=== PATIENT | male | born 1960 | race Hispanic/Latino ===

== ENCOUNTER 2018-01-22 12:36 | Inpatient (IN) | payer BC ==
--- NOTE | 2018-01-22 13:39 | ED PDOC ---
Arrival/HPI - General Historian: Patient - History of Present Illness Time/Duration: < month Symptom Onset: Gradual Symptom Course: Unchanged Activities at Onset: Rest <Davie King - Last Filed: 01/22/18 16:06> <Ned Pang - Last Filed: 01/24/18 10:52> - General Chief Complaint: Lower Extremity Problem/Injury Time Seen by Provider: 01/22/18 12:47 - History of Present Illness Narrative History of Present Illness (Text): 01/22/18 13:23 PGY-[address] Pang Mr. Santoyo is a 57 year old male with PMHx HTN, ventral hernia s/p repair, colorectal polyps s/p colon resection who was referred to ED by his PMD Dr. Wilhelm due to fluid retention. According to the patient he was supposed to have a ventral hernia repair in September, but was sent by his surgeon to have a colonoscopy prior to surgery as he had never had a colonoscopy. During the colonoscopy, patient was found to have diffuse polyps throughout his colon. As a result of these findings, the patient underwent a colon resection and ventral hernia repair in the same day on October 03. The patient has since followed with his surgeons and has had paracentesis with removal of 4 liters of fluid. According to the patient he saw Dr. Wilhelm in the office on Monday who sent the patient to have an abdominal CT prior to coming ED to be admitted for fluid retention. He reports occasional shortness of breath at rest that is worse laying on his back and relieved when lying on his right side. He has also had lower extremity edema as well as multiple non-healing wounds on his L foot for the past 2-3 weeks. Pt had cardiac workup in September prior to his surgery which included echo and stress test. Stress test showed only LVH with normal perfusion study and normal LV wall motion. Echo showed mild LVH, aortic sclerosis without stenosis, dilated LA, mild TR and mild pulmonary HTN. Patient denies smoking or drinking, denies any history of liver or renal disease. He was recently started on oral lasix by Dr. Castro. 01/22/18 15:32 (Davie King) Past Medical History - Provider Review Nursing Documentation Reviewed: Yes - Travel History Have you recently traveled outside [place] w/in the past 3 mons?: No - Cardiac Hx Cardiac Disorders: Yes Hx Hypertension: Yes Hx Peripheral Edema: Yes - Pulmonary Hx Respiratory Disorders: No - Neurological Hx Neurological Disorder: No - HEENT Hx HEENT Disorder: No - Renal Hx Renal Disorder: No - Endocrine/Metabolic Hx Endocrine Disorders: No - Hematological/Oncological Hx Blood Disorders: No - Integumentary Hx Dermatological Disorder: No - Musculoskeletal/Rheumatological Hx Musculoskeletal Disorders: No - Gastrointestinal Hx Gastrointestinal Disorders: No - Genitourinary/Gynecological Hx Genitourinary Disorders: No - Psychiatric Hx Psychophysiologic Disorder: No Hx Substance Use: No - Surgical History Other/Comment: COLON RESECTION, HERNIA REPAIR <Davie King - Last Filed: 01/22/18 16:06> Family/Social History Smoking Status: Never Smoked Hx Alcohol Use: No Hx Substance Use: No <Davie King - Last Filed: 01/22/18 16:06> Family/Social History: Unknown Family HX <Ned Pang - Last Filed: 01/24/18 10:52> Allergies/Home Meds <Davie King - Last Filed: 01/22/18 16:06> <Ned Pang - Last Filed: 01/24/18 10:52> Allergies/Adverse Reactions: Allergies No Known Allergies Allergy (Verified 01/22/18 20:49) Home Medications: Home Meds Medication Instructions Recorded Confirmed Lisinopril/Hydrochlorothiazide 1 tab PO DAILY 09/22/17 01/22/18 [Lisinopril-Hydrochlorothiazide 25 mg-20 mg] amLODIPine [Norvasc] 10 mg PO DAILY 09/22/17 01/22/18 Review of Systems - Review of Systems Constitutional: Fatigue. absent: Fevers Eyes: Normal ENT: Other (+reports feeling of ear fullness). absent: Sore Throat, Rhinorrhea Respiratory: SOB. absent: Cough, Sputum, Wheezing Cardiovascular: Edema, Orthopnea. absent: Chest Pain, Palpitations, Calf Pain, LEARY Gastrointestinal: Stool Changes (+watery stools), Diarrhea. absent: Abdominal Pain, Nausea, Vomiting, Appetite Changes, Hematochezia Genitourinary Male: Normal. absent: Dysuria, Frequency, Hematuria Skin: Pruritis (+lower extremity pruritis b/l), Ulcer (+open wounds on L foot/ LE x2 weeks). absent: Rash Neurological: Normal. absent: Headache, Dizziness, Focal Weakness Endocrine: Normal. absent: Polyuria, Polydipsia <Davie King Last Filed: 01/22/18 16:06> Physical Exam Vital Signs Reviewed: Yes Temperature: Afebrile Blood Pressure: Normal Pulse: Regular Respiratory Rate: Normal Appearance: Positive for: Comfortable Pain Distress: None Mental Status: Positive for: Alert and Oriented X 3 - Systems Exam Head: Present: Atraumatic, Normocephalic Pupils: Present: PERRL Extroacular Muscles: Present: EOMI Conjunctiva: Present: Normal Mouth: Present: Moist Mucous Membranes, Normal Lips, Normal Tounge Pharnyx: Present: Normal. No: ERYTHEMA, EXUDATE Nose (External): Present: Atraumatic. No: Abrasion, Contusion Neck: Present: Normal Range of Motion. No: JVD Respiratory/Chest: Present: Rales (+rales from base to mid lung). No: Respiratory Distress, Accessory Muscle Use, Wheezes Cardiovascular: Present: Regular Rate and Rhythm, Normal S1, S2. No: Murmurs Abdomen: Present: Distention, Normal Bowel Sounds, Scars (+healing vertical abdominal incision). No: Tenderness, Peritoneal Signs, Rebound, Guarding, Hernias, Ostomy Tubes Upper Extremity: Present: NORMAL PULSES. No: Cyanosis, Edema, Swelling Lower Extremity: Present: Edema (+ 1+ pitting edema to below the knee), NORMAL PULSES. No: Cyanosis, Normal ROM, Tenderness Neurological: Present: GCS=15, CN II-XII Intact, Speech Normal Skin: Present: Warm, Normal Color, Other. 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 Keith Wilhelm 2) Non-healing wounds on LLE * IV vancomycin 1g * 1 L bolus NS 3) S/p ventral hernia repair/colon resection * Surgery consulted over phone * IR consulted - Pt to go for CT-guided drainage of abdominal fluid 01/22/18 15:25 Surgery consulted - States no need for surgical intervention at this time. Pt will go to IR (Dr. Uvaldo Garay) for CT guided drainage of abdominal fluid. I spoke with Dr. Keith Castro on the phone, who knows the patient from his office. He has graciously agreed for the patient to be admitted under his service. 01/22/18 16:18 (Davie King) - Lab Interpretations Microbiology Results: Microbiology Results 01/22/18 14:54 Blood Blood Culture - Preliminary NO GROWTH AFTER 24 HOURS 01/22/18 14:50 Blood Blood Culture - Preliminary NO GROWTH AFTER 24 HOURS 01/22/18 14:54 Leg - Left Gram Stain - Final 01/22/18 14:54 Leg - Left Wound Culture - Preliminary NO GROWTH AFTER 24 HOURS 01/22/18 14:54 Foot - Left Gram Stain - Final 01/22/18 14:54 Foot - Left Wound Culture - Preliminary NO GROWTH AFTER 24 HOURS 01/22/18 14:54 Foot - Left Gram Stain - Final 01/22/18 14:54 Foot - Left Wound Culture - Preliminary NO GROWTH AFTER 24 HOURS Lab Results: 01/22/18 14:54 01/22/18 14:54 Lab Results 01/22/18 14:54: Sodium 143, Potassium 3.6, Chloride 102, Carbon Dioxide 27, Anion Gap 18, BUN 26 H, Creatinine 0.9, Est GFR ( Amer) > 60, Est GFR ( Non-Af Amer) > 60, Random Glucose 98, Calcium 9.3, Total Bilirubin 2.1 H, AST 63 H, ALT 69 H, Alkaline Phosphatase 80, Troponin I 0.03, NT-Pro-B Natriuret Pep 2070 H, Total Protein 6.8, Albumin 3.4, Globulin 3.4, Albumin/Globulin Ratio 1.0 L 01/22/18 14:54: WBC 9.1, RBC 5.66, Hgb 11.2 L, Hct 37.2 L, MCV 65.7 L, MCH 19.8 L, MCHC 30.1 L, RDW 20.2 H, Plt Count 337, MPV 10.5, Gran % 67.3, Lymph % (Auto ) 17.1 L, [place] % (Auto) 14.3 H, Eos % (Auto) 1.1 L, Baso % (Auto) 0.2, Gran # 6.10, Lymph # (Auto) 1.6, [place] # (Auto) 1.3 H, Eos # (Auto) 0.1, Baso # (Auto) 0.02 01/22/18 14:54: PT 21.8 H, INR 1.89, APTT 25.2, D-Dimer, Quantitative 1170 H - RAD Interpretation Narrative RAD Interpretations (Text): 01/22/18 16:17 CXR - Severe cardiomegaly, mild pulmonary congestion (Davie King) Radiology Orders: 01/22/18 14:07 CXR [CHEST PORTABLE] [RAD] Stat - Medication Orders Current Medication Orders: Apixaban (Eliquis) 10 mg PO BID [facility] PRN Reason: Protocol Stop: 01/31/18 10:01 Last Admin: 01/24/18 10:37 Dose: 10 mg Arformoterol Tartrate (Brovana) 15 mcg IH [id number] [facility] Last Admin: 01/24/18 07:14 Dose: 15 mcg Budesonide (Pulmicort Respules) 0.5 mg IH [id number] [facility] Last Admin: 01/24/18 07:14 Dose: 0.5 mg Diltiazem HCl (Cardizem) 60 mg PO TID [facility] Last Admin: 01/24/18 10:38 Dose: 60 mg MAR Pulse and Blood Pressure Document 01/24/18 10:38 SUDOJ (Rec: 01/24/18 10:38 SUDO [id number]) Pulse Pulse Rate (60-90) 115 Ferrous Sulfate (Feosol) 324 mg PO TID [facility] Last Admin: 01/24/18 10:37 Dose: 324 mg diltiaZEM IVPB 100mg in NS (Cardizem 100mg In Ns) 100 mls @ 10 mls/hr IV .Q10H PRN; Protocol; 10 MG/HR PRN Reason: TITRATE PER MD ORDER Last Admin: 01/23/18 21:51 Dose: 10 mg/hr, 10 mls/hr eMAR Start Stop Document 01/23/18 21:51 LGA (Rec: 01/23/18 21:53 LGA [id number]) Intravenous Solution Start Date 01/23/18 Start Time 21:53 MAR Pulse Rate Document 01/23/18 21:51 LGA (Rec: 01/23/18 21:53 LGA [id number]) Pulse Rate Pulse Rate (60-90) 95 Titration Intervention Document 01/23/18 21:51 LGA (Rec: 01/23/18 21:53 LGA [id number]) Titration Intake Cumulative Intake (Rx) 100 Waste Amount 0 Container Volume 100 Titration Dosing Titration Dose 10 IV Rate 10 Intake/Decrease Started/Running Cumulative Dose 100 Meropenem (Merrem Iv 1 Gm Premix) 50 mls @ 100 mls/hr IVPB Q8 ANDRES PRN Reason: Protocol Stop: 01/30/18 14:01 Last Admin: 01/24/18 05:34 Dose: 100 mls/hr eMAR Start Stop Document 01/24/18 05:34 SBO (Rec: 01/24/18 05:34 SBO [id number]) Intravenous Solution Start Date 01/24/18 Start Time 05:34 End Date 01/24/18 End time 06:05 Total Infusion Time 31 Pantoprazole Sodium (Protonix Ec Tab) 40 mg PO 0600 ANDRES Last Admin: 01/24/18 06:58 Dose: 40 mg Discontinued Medications Diltiazem HCl (Cardizem) 10 mg IVP STAT STA Stop: 01/22/18 20:36 Last Admin: 01/22/18 21:25 Dose: 10 mg IVP Administration Document 01/22/18 21:25 SBO (Rec: 01/22/18 21:25 SBO [id number]) Charges for Administration # of IVP Administrations 1 MAR Pulse and Blood Pressure Document 01/22/18 21:25 SBO (Rec: 01/22/18 21:25 SBO [id number]) Pulse Pulse Rate (60-90) 168 Blood Pressure Blood Pressure (100/60-150/90) 122/98 Diltiazem HCl (Cardizem) 20 mg IVP STAT STA Stop: 01/22/18 22:29 Last Admin: 01/22/18 22:41 Dose: 20 mg IVP Administration Document 01/22/18 22:41 SBO (Rec: 01/22/18 22:41 SBO [id number]) Charges for Administration # of IVP Administrations 1 MAR Pulse and Blood Pressure Document 01/22/18 22:41 SBO (Rec: 01/22/18 22:41 [facility] [id number]) Pulse Pulse Rate (60-90) 158 Blood Pressure Blood Pressure (100/60-150/90) 108/64 Diltiazem HCl (Cardizem) 30 mg PO TID ANDRES Fentanyl (Fentanyl) 100 mcg IVP ONCE ONE Stop: 01/22/18 19:27 Last Admin: 01/22/18 18:42 Dose: 100 mcg MAR Pain Assessment Document 01/22/18 18:42 [facility] (Rec: 01/22/18 19:50 [facility] ) Pain Reassessment Is this a pain reassessment? No Description Effectiveness of Techniques FOR SEDATION WITH GOOD EFFECT IVP Administration Document 01/22/18 18:42 [facility] (Rec: 01/22/18 19:50 [facility] ) Charges for Administration # of IVP Administrations 2 Heparin Sodium (Porcine) (Heparin) 8,800 units IVP ONCE ONE Stop: 01/23/18 03:16 Last Admin: 01/23/18 03:08 Dose: 8,800 units MAR aPTT Document 01/23/18 03:08 OWUSR (Rec: 01/23/18 03:08 [facility] [id number]) aPTT aPTT (secs) 25 IVP Administration Document 01/23/18 03:08 OWUSR (Rec: 01/23/18 03:08 OWUSR [id number]) Charges for Administration # of IVP Administrations 1 Vancomycin HCl (Vancomycin 1gm) 1 gm in 250 mls @ 167 mls/hr IVPB STAT STA PRN Reason: Protocol Stop: 01/22/18 15:38 Last Admin: 01/22/18 15:12 Dose: 167 mls/hr eMAR Start Stop Document 01/22/18 15:12 LA (Rec: 01/22/18 15:13 LA [id number]) Intravenous Solution Start Date 01/22/18 Start Time 15:12 End Date 01/22/18 End time 16:42 Total Infusion Time 90 Sodium Chloride (Sodium Chloride 0.9%) 1,000 mls @ 999 mls/hr IV .Q1H1M STA Stop: 01/22/18 15:11 Last Admin: 01/22/18 15:13 Dose: 999 mls/hr eMAR Start Stop Document 01/22/18 15:13 LA (Rec: 01/22/18 15:13 LA [id number]) Intravenous Solution Start Date 01/22/18 Start Time 15:13 End Date 01/22/18 End time 16:14 Total Infusion Time 61 Piperacillin Sod/Tazobactam Sod (Zosyn 3.375 In Ns 100ml) 100 mls @ 200 mls/hr IVPB Q6 ANDRES PRN Reason: Protocol Stop: 01/29/18 18:01 Last Admin: 01/23/18 07:17 Dose: 200 mls/hr eMAR Start Stop Document 01/23/18 07:17 OWUSR (Rec: 01/23/18 07:17 OWUSR [id number]) Intravenous Solution Start Date 01/23/18 Start Time 07:17 End Date 01/23/18 End time 07:50 Total Infusion Time 33 diltiaZEM IVPB 100mg in NS (Cardizem 100mg In Ns) 100 mls @ 5 mls/hr IV .Q20H PRN; Protocol; 5 MG/HR PRN Reason: TITRATE PER MD ORDER Last Admin: 01/22/18 22:43 Dose: 5 mg/hr, 5 mls/hr eMAR Start Stop Document 01/22/18 22:43 SBO (Rec: 01/22/18 22:43 SBO [id number]) Intravenous Solution Start Date 01/22/18 Start Time 22:43 MAR Pulse Rate Document 01/22/18 22:43 SBO (Rec: 01/22/18 22:43 SBO [id number]) Pulse Rate Pulse Rate (60-90) 158 Titration Intervention Document 01/22/18 22:43 SBO (Rec: 01/22/18 22:43 SBO [id number]) Titration Intake Waste Amount 0 Container Volume 100 Titration Dosing Titration Dose 5 IV Rate 5 Intake/Decrease Started Heparin Sodium/Sodium Chloride (Heparin 47551 Units/250ml 1/2 Normal Saline) 25 ,000 units in 250 mls @ 20.003 mls/hr IV .[id number] PRN; Protocol; 18 UNITS/KG/HR PRN Reason: ADJUST RATE PER PROTOCOL Last Admin: 01/24/18 07:58 Dose: 15.29 units/kg/hr, 17 mls/hr eMAR Start Stop Document 01/24/18 07:58 LM (Rec: 01/24/18 07:58 LM [id number]) Intravenous Solution Start Date 01/24/18 Start Time 07:58 Titration Intervention Document 01/24/18 07:58 LM (Rec: 01/24/18 07:58 LM [id number]) Titration Intake Cumulative Intake (Rx) 750 Waste Amount 0 Container Volume 250 Titration Dosing Titration Dose 15.29 IV Rate 17 Intake/Decrease Started/Running Cumulative Dose 22334 Midazolam HCl (Versed Inj) 2 mg IVP STAT STA Stop: 01/22/18 19:26 Last Admin: 01/22/18 18:28 Dose: 2 mg IVP Administration Document 01/22/18 18:28 [facility] (Rec: 01/22/18 19:51 [facility] ) Charges for Administration # of IVP Administrations 1 - PA / DITCH REPAIRER / Resident Statement / has reviewed & agrees with the documentation as recorded. / has examined the patient and agrees with the treatment plan. <Ned Pang - Last Filed: 01/24/18 10:52> Disposition/Present on Arrival - Present on Arrival History of DVT/PE: No History of Uncontrolled Diabetes: No Urinary Catheter: No History of Decub. Ulcer: No History Surgical Site Infection Following: None <Davie King - Last Filed: 01/22/18 16:06> - Present on Arrival Any Indicators Present on Arrival: No - Disposition Have Diagnosis and Disposition been Completed?: Yes Disposition Time: 15:25 Patient Plan: Admission <Ned Pang - Last Filed: 01/24/18 10:52> - Disposition Diagnosis: Anasarca Disposition: HOSPITALIZED Condition: STABLE
[2018-01-22] MEDS ORDERED: Vancomycin 1gm in NS 250ml 1 GM/250 ML BAG IVPB STA (14:09)
[2018-01-22] MEDS ORDERED: Sodium Chloride 0.9% 1,000 ML IV STA (14:11)
[2018-01-22 15:45] LABS: ALBUMIN 3.4 g/dL (3.0-4.8); ALT/SGPT 69 U/L (7-56); AST/SGOT 63 U/L (17-59); BLOOD UREA NITROGEN 26 mg/dL (7-21); CALCIUM 9.3 mg/dL (8.4-10.5); GFR NON-AFRICAN AMERICAN > 60
[2018-01-22 15:46] LABS: BASO # 0.02 K/mm3 (0.0-2.0); BASO % 0.2 % (0.0-3.0); EOS # 0.1 (0.0-0.7); EOS % 1.1 % (1.5-5.0); GRAN # 6.1 (1.4-6.5); GRAN % 67.3 % (50.0-68.0); HEMOGLOBIN 11.2 g/dL (14.0-18.0); LYMPH # 1.6 (1.2-3.4); LYMPH % 17.1 % (22.0-35.0); MEAN CELL VOLUME 65.7 fl (80.0-105.0); MEAN CORPUSCULAR HEMOGLOBIN 19.8 pg (25.0-35.0); MEAN CORPUSCULAR HGB CONC 30.1 g/dl (31.0-37.0); MEAN PLATELET VOLUME 10.5 fl (7.0-11.0); MONO # 1.3 (0.1-0.6); MONO % 14.3 % (1.0-6.0); RBC 5.66 10^6/uL (3.5-6.1); RED CELL DISTRIBUTION WIDTH 20.2 % (11.5-14.5); WHITE BLOOD COUNT 9.1 10^3/ul (4.5-11.0)
[2018-01-22 15:56] LABS: B-TYPE NATRIURETIC PEPTIDE 2070 pg/mL (0-450); TROPONIN I 0.03 ng/mL
--- NOTE | 2018-01-22 16:01 | RAD ---
Date of service: 01/22/2018 HISTORY: Fluid retention COMPARISON: No prior. FINDINGS: LUNGS: The lungs are well inflated. There is mild pulmonary venous congestion. PLEURA: No significant pleural effusion identified, no pneumothorax apparent. CARDIOVASCULAR: Severe cardiomegaly. OSSEOUS STRUCTURES: No significant abnormalities. VISUALIZED UPPER ABDOMEN: Normal. OTHER FINDINGS: None. IMPRESSION: No active pulmonary disease. Severe cardiomegaly and mild pulmonary venous congestion.
--- NOTE | 2018-01-22 16:11 | CP.PCM.CON ---
History of Present Illness - History of Present Illness History of Present Illness: 57 year old male with PMHx HTN, ventral hernia s/p repair, colorectal polyps s/ p colon resection who was referred to ED by his PMD Dr. Wilhelm due to fluid retention. According to the patient he was supposed to have a ventral hernia repair in September, but was sent by his surgeon to have a colonoscopy prior to surgery as he had never had a colonoscopy. During the colonoscopy, patient was found to have diffuse polyps throughout his colon. As a result of these findings, the patient underwent a colon resection and ventral hernia repair in the same day on October 03. The patient has since followed with his surgeons and has had paracentesis with removal of 4 liters of fluid. According to patient he saw Dr. Wilhelm in the office on Monday who sent the patient to have an abdominal CT prior to coming ED to be admitted for fluid retention. He reports occasional shortness of breath at rest that is worse laying on his back and relieved when lying on his right side. He has also had lower extremity edema as well as multiple non-healing wounds on his L foot for the past 2-3 weeks. PMhx: HTN, ?CHF PSurgHx: ventral hernia repair and colon resection for multiple colorectal polyps in October 2017 at [facility]; s/p paracentesis 2 wks ago by pt's primary surgeon Allergies: NKDA Soc hx: denies smoking, alcohol or drug use Review of Systems - Constitutional Constitutional: As Per HPI. absent: Anorexia, Chills, Fatigue, Fever, Headache , Malaise, Night Sweats, Weight Loss - Gastrointestinal Gastrointestinal: Change in Bowel Habits, Loose Stools. absent: Abdominal Pain , Belching, Change in Stool Character, Constipation, Cramping, Diarrhea, Dyspepsia, Hematemesis, Vomiting Past Patient History - Past Social History Smoking Status: Never Smoked - CARDIAC Hx Cardiac Disorders: Yes Hx Hypertension: Yes Hx Peripheral Edema: Yes - PULMONARY Hx Respiratory Disorders: No - NEUROLOGICAL Hx Neurological Disorder: No - HEENT Hx HEENT Problems: No - RENAL Hx Chronic Kidney Disease: No - ENDOCRINE/METABOLIC Hx Endocrine Disorders: No - HEMATOLOGICAL/ONCOLOGICAL Hx Blood Disorders: No - INTEGUMENTARY Hx Dermatological Problems: No - MUSCULOSKELETAL/RHEUMATOLOGICAL Hx Musculoskeletal Disorders: No - GASTROINTESTINAL Hx Gastrointestinal Disorders: No - GENITOURINARY/GYNECOLOGICAL Hx Genitourinary Disorders: No - PSYCHIATRIC Hx Psychophysiologic Disorder: No Hx Substance Use: No - SURGICAL HISTORY Other/Comment: COLON RESECTION, HERNIA REPAIR Meds Allergies/Adverse Reactions: Allergies Allergy/AdvReac Type Severity Reaction Status Date / Time No Known Allergies Allergy Verified 01/22/18 12:49 Physical Exam - Constitutional Appears: Non-toxic, No Acute Distress - Head Exam Head Exam: ATRAUMATIC, NORMAL INSPECTION - Eye Exam Eye Exam: EOMI, Normal appearance, PERRL - ENT Exam ENT Exam: Mucous Membranes Moist - Respiratory Exam Respiratory Exam: Clear to Auscultation Bilateral, NORMAL BREATHING PATTERN - Cardiovascular Exam Cardiovascular Exam: REGULAR RHYTHM, +S1, +S2 - GI/Abdominal Exam GI & Abdominal Exam: Normal Bowel Sounds, Soft, Tenderness Additional comments: No guarding, no rebound tenderness - Skin Skin Exam: Warm Additional comments: Erythema noted on anterior abdomen in midline, excoriation of skin noted at surgical site, no bleeding, no abnormal drainage or pus noted Results - Vital Signs Recent Vital Signs: Last Vital Signs Temp 97.8 F 01/22/18 15:00 Pulse 89 01/22/18 15:00 Resp 19 01/22/18 15:00 BP 114/64 01/22/18 15:00 Pulse Ox 98 01/22/18 15:00 - Labs Result Diagrams: 01/22/18 14:54 01/22/18 14:54 Labs: Laboratory Results - last 24 hr 01/22/18 01/22/18 14:54 14:54 WBC 9.1 RBC 5.66 Hgb 11.2 L Hct 37.2 L MCV 65.7 L MCH 19.8 L MCHC 30.1 L RDW 20.2 H Plt Count 337 MPV 10.5 Gran % 67.3 Lymph % (Auto) 17.1 L [place] % (Auto) 14.3 H Eos % (Auto) 1.1 L Baso % (Auto) 0.2 Gran # 6.10 Lymph # (Auto) 1.6 [place] # (Auto) 1.3 H Eos # (Auto) 0.1 Baso # (Auto) 0.02 Sodium 143 Potassium 3.6 Chloride 102 Carbon Dioxide 27 Anion Gap 18 BUN 26 H Creatinine 0.9 Est GFR ( Amer) > 60 Est GFR (Non-Af Amer) > 60 Random Glucose 98 Calcium 9.3 Total Bilirubin 2.1 H AST 63 H ALT 69 H Alkaline Phosphatase 80 Troponin I 0.03 NT-Pro-B Natriuret Pep 2070 H Total Protein 6.8 Albumin 3.4 Globulin 3.4 Albumin/Globulin Ratio 1.0 L Assessment & Plan - Assessment and Plan (Free Text) Assessment: 57 y o male s/p ventral hernia repair and colon resection found to have fluid collection in abdomen on CT. Plan: IR consulted, f/u recs regarding possible drainage from abdomen Pt hemodynamically stable at this time Will continue to monitor, no acute surgical intervention needed at this time
[2018-01-22 16:30] LABS: INR 1.89; PARTIAL THROMBOPLASTIN TIME 25.2 Seconds (25.1-36.5); PROTHROMBIN TIME 21.8 SECONDS (9.4-12.5)
[2018-01-22] MEDS: Piperacillin/Tazobact 3.375 gm 100 ML IVPB SCH (18:01)
[2018-01-22] MEDS ORDERED: Midazolam 2 MG/2 ML VIAL ONE (18:20)
[2018-01-22] MEDS ORDERED: Lidocaine Hydrochloride 1% 10 ML ONE (18:21)
[2018-01-22] MEDS ORDERED: Midazolam 2 MG/2 ML VIAL IVP STA (19:25)
--- NOTE | 2018-01-22 19:33 | CARD ---
APPROVED REPORT Date of service: 01/22/2018 EKG Measurement Heart [id number] <Conclusion> Atrial fibrillation with rapid ventricular response Nonspecific ST and T wave abnormality, probably digitalis effect Abnormal ECG
--- NOTE | 2018-01-22 19:49 | CT ---
PROCEDURE: CT-guided abdominal abscess drainage HISTORY: Recent abdominal hernia repair. Large abdominal wall collection with sepsis. Needs abscess drainage. PHYSICIAN(S): Uvaldo Garay MD. TECHNIQUE: The relative risks and indications for the procedure were explained to the patient and informed consent obtained. The patient was placed in a supine position on the CT scanner and preliminary images through the mid to lower abdomen performed. This revealed a 6 x 80 15 cm fluid collection in the anterior abdominal wall.. A right lateral approach was selected and the area prepped/draped in the usual sterile fashion. Conscious sedation and monitoring were provided throughout the procedure by nurse. An 18-gauge needle was advanced into the collection and 10 cc of purulent fluid aspirated. A specimen was sent to microbiology. A 0.035 J-wire was coiled within the fluid collection. Sequential dilatation was performed with subsequent placement of a 14 [place] pigtail drain. Approximately 125 cc of brown somewhat purulent fluid was aspirated. The cavity was lavaged with normal saline. The drain was sutured to the skin and placed to gravity drainage. Completion images were performed. The patient tolerated the procedure well. IMPRESSION: 1. CT-guided abdominal abscess drainage as described above.
[2018-01-22] MEDS ORDERED: diltiaZEM IVPB 100mg in NS 100 ML IV PRN (22:14)
--- NOTE | 2018-01-22 23:25 | CP.PCM.PN ---
Subjective - Date & Time of Evaluation Date of Evaluation: 01/22/18 Time of Evaluation: 23:25 - Subjective Subjective: Patient was seen for atrial fibrillation with RVR. He is asymptomatic. D-Dimer was noted. Left leg is red , swollen and has multiple blisters. CT angio chest, doppler of lower extremities were ordered. CT angio chest showed pulmonary embolism, doppler showed DVT of left popliteal vein. Heparin protocol was started. Objective - Vital Signs/Intake and Output Vital Signs (last 24 hours): Temp Pulse Resp BP Pulse Ox 98.3 F 158 H 18 108/64 99 01/22/18 20:15 01/22/18 22:41 01/22/18 20:15 01/22/18 22:41 01/22/18 20:15 Intake and Output: 01/22/18 01/23/18 18:59 06:59 Intake Total 125 Balance 125 - Medications Medications: Current Medications Piperacillin Sod/Tazobactam Sod (Zosyn 3.375 In Ns 100ml) 100 mls @ 200 mls/hr IVPB Q6 ANDRES PRN Reason: Protocol Stop: 01/29/18 18:01 Last Admin: 01/22/18 18:01 Dose: 200 mls/hr diltiaZEM IVPB 100mg in NS (Cardizem 100mg In Ns) 100 mls @ 5 mls/hr IV .Q20H PRN; Protocol; 5 MG/HR PRN Reason: TITRATE PER MD ORDER Last Admin: 01/22/18 22:43 Dose: 5 mg/hr, 5 mls/hr - Labs Labs: PT 21.8 SECONDS (9.4-12.5) H 01/22/18 14:54 INR 1.89 01/22/18 14:54 APTT 25.2 Seconds (25.1-36.5) 01/22/18 14:54
[2018-01-22 23:58] LABS: BASO # 0.01 K/mm3 (0.0-2.0); BASO % 0.1 % (0.0-3.0); EOS # 0.1 (0.0-0.7); EOS % 1.3 % (1.5-5.0); GRAN # 6.77 (1.4-6.5); GRAN % 72.1 % (50.0-68.0); HEMOGLOBIN 11.2 g/dL (14.0-18.0); LYMPH # 1.4 (1.2-3.4); LYMPH % 15.4 % (22.0-35.0); MEAN CELL VOLUME 66.5 fl (80.0-105.0); MEAN CORPUSCULAR HGB CONC 30.1 g/dl (31.0-37.0); MONO % 11.1 % (1.0-6.0); PLATELET COUNT 272 10^3/uL (120.0-450.0); RBC 5.59 10^6/uL (3.5-6.1); WHITE BLOOD COUNT 9.4 10^3/ul (4.5-11.0)
[2018-01-23 00:15] LABS: ALBUMIN 3.1 g/dL (3.0-4.8); ALT/SGPT 71 U/L (7-56); AST/SGOT 60 U/L (17-59); BLOOD UREA NITROGEN 24 mg/dL (7-21); CALCIUM 8.6 mg/dL (8.4-10.5); GFR NON-AFRICAN AMERICAN > 60
[2018-01-23 00:26] LABS: TROPONIN I 0.08 ng/mL
[2018-01-23] MEDS: Piperacillin/Tazobact 3.375 gm 100 ML IVPB SCH ×2 (01:07→07:17)
[2018-01-23 01:58] VITALS: BMI 33.2
[2018-01-23] MEDS: Heparin25000 units/250ml 1/2NS 25,000 UNITS/250 ML BAG IV PRN ×3 (03:09→16:55)
[2018-01-23 03:18] LABS: BASO # 0.02 K/mm3 (0.0-2.0); BASO % 0.2 % (0.0-3.0); EOS # 0.1 (0.0-0.7); EOS % 1.2 % (1.5-5.0); GRAN # 6.39 (1.4-6.5); GRAN % 68.9 % (50.0-68.0); HEMOGLOBIN 10.7 g/dL (14.0-18.0); LYMPH # 1.5 (1.2-3.4); LYMPH % 15.7 % (22.0-35.0); MEAN CELL VOLUME 66.9 fl (80.0-105.0); MEAN CORPUSCULAR HEMOGLOBIN 19.9 pg (25.0-35.0); MEAN CORPUSCULAR HGB CONC 29.8 g/dl (31.0-37.0); MEAN PLATELET VOLUME 10.2 fl (7.0-11.0); MONO # 1.3 (0.1-0.6); RBC 5.37 10^6/uL (3.5-6.1); RED CELL DISTRIBUTION WIDTH 20.1 % (11.5-14.5); WHITE BLOOD COUNT 9.3 10^3/ul (4.5-11.0)
[2018-01-23 03:21] LABS: INR 1.94; PARTIAL THROMBOPLASTIN TIME 24.7 Seconds (25.1-36.5); PROTHROMBIN TIME 22.4 SECONDS (9.4-12.5)
--- NOTE | 2018-01-23 08:35 | CT ---
Date of service: 01/23/2018 PROCEDURE: CT Chest with contrast (Pulmonary Angiogram) HISTORY: Elevated D-Dimer-11, A Fib with RVR, S/P surgery COMPARISON: None available. TECHNIQUE: Axial computed tomography images were obtained of the chest in the pulmonary arterial phase of enhancement. Coronal and sagittal reformatted images were created and reviewed. Intravenous contrast dose: 139 cc of Omnipaque 350 Radiation dose: Total exam DLP = 524 mGy-cm. This CT exam was performed using one or more of the following dose reduction techniques: Automated exposure control, adjustment of the mA and/or kV according to patient size, and/or use of iterative reconstruction technique. FINDINGS: PULMONARY ARTERIES: Small emboli are seen in the subsegmental branches of the right lower lobe. Findings are seen on image 98 series 601 and axial image 143 series 2 AORTA: No acute findings. No thoracic aortic aneurysm. LUNGS: Focal infiltrate in the left lower lobe PLEURAL SPACES: Small left effusion HEART: Mild cardiomegaly There is reflux of contrast into the inferior vena cava. LYMPH NODES: No lymphadenopathy. BONES, CHEST WALL: Unremarkable. No fracture or destructive lesion OTHER FINDINGS: The report concurs with the preliminary [facility] report IMPRESSION: Small emboli are seen in the subsegmental branches of the right lower lobe. Left lower lobe infiltrate and effusion
[2018-01-23 09:32] LABS: BASO # 0.02 K/mm3 (0.0-2.0); BASO % 0.2 % (0.0-3.0); EOS # 0.1 (0.0-0.7); EOS % 1.6 % (1.5-5.0); GRAN # 5.84 (1.4-6.5); GRAN % 71.4 % (50.0-68.0); HEMOGLOBIN 10.6 g/dL (14.0-18.0); LYMPH # 1.3 (1.2-3.4); LYMPH % 15.6 % (22.0-35.0); MEAN CELL VOLUME 66.8 fl (80.0-105.0); MEAN CORPUSCULAR HEMOGLOBIN 19.7 pg (25.0-35.0); MEAN CORPUSCULAR HGB CONC 29.4 g/dl (31.0-37.0); MONO # 0.9 (0.1-0.6); MONO % 11.2 % (1.0-6.0); PLATELET COUNT 285 10^3/uL (120.0-450.0); RBC 5.39 10^6/uL (3.5-6.1); RED CELL DISTRIBUTION WIDTH 20.3 % (11.5-14.5); WHITE BLOOD COUNT 8.2 10^3/ul (4.5-11.0)
--- NOTE | 2018-01-23 10:15 | US ---
HISTORY: Leg pain and swelling. Evaluate for DVT PHYSICIAN(S): Uvaldo Garay MD. TECHNIQUE: Duplex sonography and color-flow Doppler with graded compression were used to evaluate the deep venous systems of both lower extremities. FINDINGS: There is occlusive echogenic thrombus noted in the left popliteal and visualized tibial veins. This likely represents subacute thrombus. The left femoral vein and common femoral vein are patent and compressible. There is no sonographic evidence for deep venous thrombosis in the visualized segments of the right lower extremity. . IMPRESSION: Subacute occlusive thrombus in the left popliteal and visualized tibial veins.
--- NOTE | 2018-01-23 11:29 | CARD ---
APPROVED REPORT Date of service: 01/23/2018 EKG Measurement Heart [id number] <Conclusion> Atrial fibrillation with rapid ventricular response with premature ventricular or aberrantly conducted complexes Nonspecific T wave abnormality, probably digitalis effect Abnormal ECG
[2018-01-23] MEDS: diltiaZEM IVPB 100mg in NS 100 ML IV PRN ×2 (11:30→21:51)
--- NOTE | 2018-01-23 11:33 | CARD ---
APPROVED REPORT Date of service: 01/22/2018 EKG Measurement Heart [id number] <Conclusion> Atrial fibrillation with rapid ventricular response with premature ventricular or aberrantly conducted complexes Septal infarct, age undetermined T wave abnormality, consider lateral ischemia or digitalis effect Abnormal ECG
--- NOTE | 2018-01-23 11:50 | HP ---
HISTORY OF PRESENT ILLNESS The patient is a 57 year old man with a past medical history of ventral hernia s /p recent surgical repair who presented for evaluation of a several week history of worsening exertional dyspnea, bilateral lower extremity edema and increasing abdominal distention. The patient underwent successful repair of his ventral hernia on 10/03/2017. His postoperative course was complicated by accumulation of abdominal fluid necessitating paracentesis with removal of 4L of fluid. Unfortunately, this was performed by his private surgeon and the records are unavailable regarding the suspected etiology of the fluid or the fluid analysis (ie: cytology, culture). He followed with his PMD on 12/15/2017 and, at that time, complained of mild bilateral pedal edema. He was prescribed Lasix 20 mg p.o. daily and initially reported moderate improvement in his edema. He returned on 01/09/2018 with increasing bilateral lower extremity edema associated with exertional dyspnea, 2-pillow orthopnea, cough intermittently productive of clear sputum and increased abdominal girth. At that time, he declined ED evaluation and thus his Lasix was increased to Lasix 40 mg p.o. daily. He was advised that if his symptoms did not improve over the following 48 hours to return for reevaluation. He returned 4 days later and was noted to have increased work of breathing with accessory muscle use and further increased abdominal distention. He again declined hospitalization but was agreeable to a CT of the abdomen and pelvis. He performed his CT on 01/19/2018 and was found to have a rather large fluid collection to the anterior abdominal wall. At this point in time he was again strongly encouraged to present to the ED and was finally agreeable to inpatient management. Upon arrival to the ED he was found to be in moderate respiratory distress. He was promptly evaluated by Dr. Uvaldo Garay and was taken for a CT-guided drainage of his intra- abdominal abscess with aspiration of 125 ml of brown purulent fluid. His hospital course was complicated by development of AFib with RVR (pulse in the 160s) and multiple episodes of non-sustained VTach. He was started on a Cardizem drip with some improvement in his pulse rate to the 110s. He was also noted to have an elevated D-dimer from the ED and was sent for a CT of the chest with IV contrast which demonstrated small subsegmental emboli to the right lower lobe as well as a left lower lobe consolidation. He was started on a heparin drip and broad-spectrum antibiotics. This morning he reports some improvement in his breathing but still endorses dyspnea and inability to take a full breath. He also endorses palpitations but denies chest pain, fevers, chills , rigors or hemoptysis. PAST MEDICAL HISTORY: As per HPI, also hypertension. PAST SURGICAL HISTORY: As per HPI, also right hemicolectomy secondary to multiple polyps. MEDICATIONS: Lisinopril/HCTZ 20/25 mg p.o. daily, Norvasc 10 mg p.o. daily and Lasix 40 mg p.o. daily. ALLERGIES: NKDA. FAMILY HISTORY: Noncontributory. SOCIAL HISTORY: The patient has no history of any toxic habits. REVIEW OF SYSTEMS: A 12-point review of systems is negative except as per HPI. PHYSICAL EXAMINATION: VITAL SIGNS: Temperature 98.2, pulse 114, blood pressure 133/62, respiratory rate 19, oxygen saturation 98% on 2 liters nasal cannula. GENERAL: Elderly man appearing his stated age, sitting up in bed, in mild respiratory distress. HEENT: PERRL, EOMI. No scleral icterus. No conjunctival pallor. NECK: No JVD. LUNGS: Decreased breath sounds at bases with crackles to the left lower lobe. CARDIOVASCULAR: Tachycardic, irregularly irregular. ABDOMEN: Normoactive bowel sounds, soft, mild tenderness to palpation to the healing midline surgical scar with a drain in place with brown, bloody discharge. EXTREMITIES: 1+ bilateral lower extremity edema. NEUROLOGIC: Awake, alert and oriented x 3. No focal motor deficits. LABORATORY DATA: WBC 9, hemoglobin 10.7, hematocrit 36, platelets 268, MCV 67. Sodium 141, potassium 3.6, chloride 105, bicarb 24, BUN 24, creatinine 0.9, glucose 145. Troponin 0.03, 0.08, 0.1 BNP 2070. IMAGING STUDIES: CT of the chest with IV contrast demonstrates a small emboli to the subsegmental branches of the right lower lobe and the left lower lobe infiltrate and effusion. ASSESSMENT: The patient is a 57 year old man who recently underwent ventral hernia repair who presented with a several week history of worsening abdominal distention, exertional dyspnea, bilateral lower extremity edema and 3-pillow orthopnea and was admitted for management of intra abdominal abscess, new onset AFib with RVR , right subsegmental pulmonary embolus and left lower extremity DVT. PLAN: 1. AFib with RVR, new onset, consider secondary to underlying PE. The patient has been started on Cardizem drip which has been titrated to 10 mg/hour. Troponin values are noted. He is pending evaluation with Dr. Pierce of Cardiology. We will check a TSH and monitor electrolytes closely. Continue tele monitoring. 2. Intra-abdominal abscess s/p IR drainage. Input from Dr. Uvaldo Garay greatly appreciated. Fluid analysis is pending. Input from the surgical team also appreciated and no need for acute surgical intervention. The patient received a dose of Vancomycin in the ED and has also been started on Zosyn. Evaluation with Dr. Poole of ID is pending for antimicrobial recommendations. We will continue to monitor for fever and leukocytosis and await culture reports. 3. Subsegmental PE to the right lower lobe. The patient has been started on a Heparin drip and will be bridged to oral anticoagulation. Continue supplemental oxygen as needed. 4. Left lower lobe infiltrate/effusion. Continue with supplemental oxygen and bronchodilators as needed. Continue with antimicrobials as above. 5. Hypertension. Blood pressure controlled. Continue with Cardizem drip and transition to p.o. meds as tolerated. 6. Iron deficiency anemia. The patient recently had a colonoscopy in 2017 and was found to have multiple polyps with no evidence of active bleed. He also underwent an EGD in 09/22/2017 and was found to have mild chronic gastritis and esophagitis but no evidence of active bleed. We will resume Protonix 40 mg p.o. daily and start Feosol 324 mg p.o. t.i.d. 7. Nonsustained VTach. As above we will monitor electrolytes closely. We will obtain a TTE to assess for wall motion abnormalities. As above, evaluation with Dr. Pierce is pending. 8. Prophylaxis. Continue Protonix for GI prophylaxis. The patient remains on Heparin drip thus DVT prophylaxis not indicated. CODE STATUS: Full code. Keith Wilhelm MD VENKAT
--- NOTE | 2018-01-23 13:13 | CP.PCM.CON ---
<Kaley Cruz - Last Filed: 01/23/18 14:17> History of Present Illness - History of Present Illness History of Present Illness: PGY-3 infectious disease consult note for Dr. Bales's service 57 year old male with PMH of HTN, ventral hernia s/p repair, colorectal polyps s /p colon resection (in october 2017) presented to ED with fluid retention. Patient states that about 2 weeks ago be began noticing swelling in his lower extremities. According to the patient he had a colonoscopy earlier this year and was found to have multiple polyps. In October he under went a colon resection and ventral hernia repair in the same day. The patient has since followed with his surgeons and has had paracentesis with removal of 4 liters of fluid. According to the patient he saw Dr. Wilhelm in the office who sent the patient to have an abdominal CT prior to coming ED to be admitted for fluid retention. He reports shortness of breath that is worse laying on his back and relieved when lying on his right side. He has also had lower extremity edema with multiple non-healing wounds on his left foot for the past 2 weeks. He denies fever, chills, n/v, chest pain, cough, sore throat, dysuria, rashes. Yesterday patient had abd abscess drained and drain placed. US of lower extremity showed DVT in left popiteal jean claude. CTA of chest showed small emboli in segmental brace of right lower lobe. PMH: HTN psh: colon resection, ventral hernia repair social history: denies smoking, alcohol use or illicit drug use allergy: NKDA Review of Systems - Review of Systems All systems: reviewed and no additional remarkable complaints except Past Patient History - Past Social History Smoking Status: Never Smoked - CARDIAC Hx Cardiac Disorders: Yes Hx Angina: No Hx Cardia Arrhythmia: No Hx Circulatory Problems: No Hx Congestive Heart Failure: No Hx Heart Murmur: No Hx Heart Transplant: No Hx Hypercholesterolemia: No Hx Hypertension: Yes Hx Internal Defibrillator: No Hx Mitral Valve Prolapse: No Hx Pacemaker: No Hx Peripheral Edema: No Hx Peripheral Vascular Disease: No - PULMONARY Hx Respiratory Disorders: No Hx Asthma: No Hx Bronchitis: No Hx Chronic Obstructive Pulmonary Disease (COPD): No Hx Emphysema: No Hx Pneumonia: No Hx Respiratory Aspiration: No Hx Respiratory Tract Infection: No Hx Sleep Apnea: No Hx Tuberculosis: No - NEUROLOGICAL Hx Neurological Disorder: No Hx Alzheimer's Disease: No HX Cerebrovascular Accident: No Hx Dementia: No Hx Dizziness: No Hx Meningitis: No Hx Migraine: No Hx Parkinson's Disease: No Hx Seizures: No Hx Transient Ischemic Attacks (TIA): No - HEENT Hx HEENT Problems: No Hx Blind: No Hx Cataracts: No Hx Deafness: No Hx Difficulty Chewing: No Hx Epistaxis: No Hx Glaucoma: No Hx Macular Degeneration: No - RENAL Hx Chronic Kidney Disease: No Hx Dialysis: No Hx Kidney Stones: No Hx Neurogenic Bladder: No Hx Pyelonephritis: No Hx Renal (Kidney) Cancer: No Hx Renal Failure: No - ENDOCRINE/METABOLIC Hx Endocrine Disorders: No Hx Adrenal Cancer: No Hx Diabetes Insipidus: No Hx Diabetes Mellitus Type 1: No Hx Diabetes Mellitus Type 2: No Hx Hyperthyroidism: No Hx Hypothyroidism: No Hx Systemic Lupus Erythematosus: No - HEMATOLOGICAL/ONCOLOGICAL Hx Blood Disorders: No Hx AIDS: No Hx Anemia: No Hx Cancer: No Hx Chemotherapy: No Hx Cirrhosis: No Hx Hemophilia: No Hx Hepatitis A: No Hx Hepatitis B: No Hx Hepatitis C: No Hx Human Immunodeficiency Virus (HIV): No Hx Metastesis: No Hx Shingles: No Hx Sickle Cell Disease: No Hx Unexplained Bleeding: No - INTEGUMENTARY Hx Dermatological Problems: Yes Hx Basil Cell: No Hx Eczema: No Hx Melanoma: No Hx Psoriasis: No Hx Squamous Cell: No Other/Comment: open wounds on bilateral lower extremities - MUSCULOSKELETAL/RHEUMATOLOGICAL Hx Musculoskeletal Disorders: Yes Hx Arthritis: Yes Hx Back Pain: No Hx Degenerative Joint Disease: No Hx Falls: No Hx Fractures: No Hx Gout: No Hx Herniated Disk: No Hx Myasthenia Gravis: No Hx Osteoarthritis: No Hx Osteomyelitis: No Hx Osteoporosis: No Hx Rhabdomyolysis: No Hx Spinal Stenosis: No Hx Unsteady Gait: No - GASTROINTESTINAL Hx Gastrointestinal Disorders: Yes (colorectal polyps, ventral hernia) Hx Colostomy: No Hx Crohn's Disease: No Hx Diverticulitis: No Hx Gall Bladder Disease: No Hx Gastroesophageal Reflux: No Hx Ileostomy: No Hx Liver Failure: No Hx Pancreatitis: No HX Swallowing Problems: No Hx Ulcer: No - GENITOURINARY/GYNECOLOGICAL Hx Genitourinary Disorders: No Hx Hematuria: No Hx Incontinence: No Hx Prostate Problems: No Hx Sexually Transmitted Disorders: No Hx Urinary Tract Infection: No - PSYCHIATRIC Hx Psychophysiologic Disorder: No Hx Anxiety: No Hx Bipolar Disorder: No Hx Depression: No Hx Emotional Abuse: No Hx Hallucinations: No Hx Panic Symptoms: No Hx Paranoia: No Hx Post Traumatic Stress Disorder: No Hx Psychosis: No Hx Physical Abuse: No Hx Schizophrenia: No Hx Sexual Abuse: No - SURGICAL HISTORY Hx Surgeries: Yes (colon resection and ventral hernia repair.) Hx Amputation: No Hx Appendectomy: No Hx Cardiac Catheterization: No Hx Cholecystectomy: No Hx Coronary Stent: No Hx Gastric Bypass Surgery: No Hx Hysterectomy: No Hx Joint Replacement: No Hx Kidney Transplant: No Hx Liver Transplant: No Hx Mastectomy: No Hx Musculoskeletal Surgery: No Hx Open Heart Surgery: No Hx Orthopedic Surgery: No Hx Splenectomy: No Hx Valve Replacement: No Other/Comment: colon resection with ventral hernia repair with mesh placement. Meds Allergies/Adverse Reactions: Allergies Allergy/AdvReac Type Severity Reaction Status Date / Time No Known Allergies Allergy Verified 01/22/18 20:49 - Medications Medications: Current Medications Arformoterol Tartrate (Brovana) 15 mcg IH [id number] ANDRES Budesonide (Pulmicort Respules) 0.5 mg IH [id number] ANDRES Ferrous Sulfate (Feosol) 324 mg PO TID [facility] Last Admin: 01/23/18 10:13 Dose: 324 mg Heparin Sodium/Sodium Chloride (Heparin 93107 Units/250ml 1/2 Normal Saline) 25 ,000 units in 250 mls @ 20.003 mls/hr IV .[id number] PRN; Protocol; 18 UNITS/KG/HR PRN Reason: ADJUST RATE PER PROTOCOL Last Admin: 01/23/18 12:30 Dose: 15.29 units/kg/hr, 17 mls/hr diltiaZEM IVPB 100mg in NS (Cardizem 100mg In Ns) 100 mls @ 10 mls/hr IV .Q10H PRN; Protocol; 10 MG/HR PRN Reason: TITRATE PER MD ORDER Last Admin: 01/23/18 11:30 Dose: 10 mg/hr, 10 mls/hr Meropenem (Merrem Iv 1 Gm Premix) 50 mls @ 100 mls/hr IVPB Q8 ANDRES PRN Reason: Protocol Stop: 01/30/18 14:01 Pantoprazole Sodium (Protonix Ec Tab) 40 mg PO 0600 [facility] Physical Exam - Constitutional Appears: In Acute Distress - Head Exam Head Exam: ATRAUMATIC, NORMOCEPHALIC - Eye Exam Eye Exam: EOMI, Normal appearance - ENT Exam ENT Exam: Mucous Membranes Moist - Respiratory Exam Respiratory Exam: Decreased Breath Sounds (left base). absent: Rhonchi Additional comments: tachypnea - Cardiovascular Exam Cardiovascular Exam: REGULAR RHYTHM, +S1, +S2. absent: Bradycardia, Tachycardia - GI/Abdominal Exam GI & Abdominal Exam: Normal Bowel Sounds Additional comments: tenderness and erythema around surgical site, drain in place with serosanganious fluid - Extremities Exam Additional comments: + 2 pitting edema bilateral lower extremities - Neurological Exam Neurological exam: Alert, Oriented x3 - Skin Skin Exam: Dry, Intact, Normal Color, Warm Results - Vital Signs Recent Vital Signs: Last Vital Signs Temp 97.1 F L 01/23/18 11:50 Pulse 60 01/23/18 11:50 Resp 19 01/23/18 11:50 BP 104/78 01/23/18 11:50 Pulse Ox 98 01/23/18 06:00 - Labs Result Diagrams: 01/23/18 09:00 01/22/18 23:15 Labs: Laboratory Results - last 24 hr 01/22/18 01/22/18 01/22/18 21:59 23:15 23:15 WBC 9.4 RBC 5.59 Hgb 11.2 L Hct 37.2 L MCV 66.5 L MCH 20.0 L MCHC 30.1 L RDW 20.0 H Plt Count 272 MPV Gran % 72.1 H Lymph % (Auto) 15.4 L [place] % (Auto) 11.1 H Eos % (Auto) 1.3 L Baso % (Auto) 0.1 Gran # 6.77 H Lymph # (Auto) 1.4 [place] # (Auto) 1.0 H Eos # (Auto) 0.1 Baso # (Auto) 0.01 PT INR APTT Sodium 141 Potassium 3.6 Chloride 105 Carbon Dioxide 24 Anion Gap 16 BUN 24 H Creatinine 0.9 Est GFR ( Amer) > 60 Est GFR (Non-Af Amer) > 60 POC Glucose (mg/dL) 99 Random Glucose 145 H Calcium 8.6 Magnesium 2.1 Total Bilirubin 2.4 H AST 60 H ALT 71 H Alkaline Phosphatase 73 Troponin I 0.08 D Total Protein 6.4 Albumin 3.1 Globulin 3.2 Albumin/Globulin Ratio 1.0 L 01/23/18 01/23/18 01/23/18 03:00 03:00 05:15 WBC 9.3 RBC 5.37 Hgb 10.7 L Hct 35.9 L MCV 66.9 L MCH 19.9 L MCHC 29.8 L RDW 20.1 H Plt Count 268 MPV 10.2 Gran % 68.9 H Lymph % (Auto) 15.7 L [place] % (Auto) 14.0 H Eos % (Auto) 1.2 L Baso % (Auto) 0.2 Gran # 6.39 Lymph # (Auto) 1.5 [place] # (Auto) 1.3 H Eos # (Auto) 0.1 Baso # (Auto) 0.02 PT 22.4 H INR 1.94 APTT 24.7 L Sodium Potassium Chloride Carbon Dioxide Anion Gap BUN Creatinine Est GFR ( Amer) Est GFR (Non-Af Amer) POC Glucose (mg/dL) Random Glucose Calcium Magnesium Total Bilirubin AST ALT Alkaline Phosphatase Troponin I 0.10 D Total Protein Albumin Globulin Albumin/Globulin Ratio 01/23/18 01/23/18 01/23/18 09:00 09:00 09:00 WBC 8.2 RBC 5.39 Hgb 10.6 L Hct 36.0 L MCV 66.8 L MCH 19.7 L MCHC 29.4 L RDW 20.3 H Plt Count 285 MPV Gran % 71.4 H Lymph % (Auto) 15.6 L [place] % (Auto) 11.2 H Eos % (Auto) 1.6 Baso % (Auto) 0.2 Gran # 5.84 Lymph # (Auto) 1.3 [place] # (Auto) 0.9 H Eos # (Auto) 0.1 Baso # (Auto) 0.02 PT INR APTT 124.0 H* Sodium Potassium Chloride Carbon Dioxide Anion Gap BUN Creatinine Est GFR ( Amer) Est GFR (Non-Af Amer) POC Glucose (mg/dL) Random Glucose Calcium Magnesium Total Bilirubin AST ALT Alkaline Phosphatase Troponin I 0.09 Total Protein Albumin Globulin Albumin/Globulin Ratio 01/23/18 10:30 WBC RBC Hgb Hct MCV MCH MCHC RDW Plt Count MPV Gran % Lymph % (Auto) [place] % (Auto) Eos % (Auto) Baso % (Auto) Gran # Lymph # (Auto) [place] # (Auto) Eos # (Auto) Baso # (Auto) PT INR APTT 123.2 H* Sodium Potassium Chloride Carbon Dioxide Anion Gap BUN Creatinine Est GFR ( Amer) Est GFR (Non-Af Amer) POC Glucose (mg/dL) Random Glucose Calcium Magnesium Total Bilirubin AST ALT Alkaline Phosphatase Troponin I Total Protein Albumin Globulin Albumin/Globulin Ratio Assessment & Plan - Assessment and Plan (Free Text) Assessment: 57 year old male with PMH of HTN, ventral hernia s/p repair, colorectal polyps s /p colon resection (in october 2017) presented with anasarca, left foot ulcers. Will stop zosyn and switch to meropenem. Will follow up UA. Wound cultures negative for 24 hours, follow up blood cultures. Follow up results of fluid drained from the abd abscess. Will order echo to evaluate for change in cardiac status. case renewed and discussed with Dr. Bales <Trevon Bales S - Last Filed: 01/23/18 15:34> Meds - Medications Medications: Current Medications Arformoterol Tartrate (Brovana) 15 mcg IH [id number] ANDRES Budesonide (Pulmicort Respules) 0.5 mg IH [id number] ANDRES Ferrous Sulfate (Feosol) 324 mg PO TID [facility] Last Admin: 01/23/18 14:07 Dose: 324 mg Heparin Sodium/Sodium Chloride (Heparin 75779 Units/250ml 1/2 Normal Saline) 25 ,000 units in 250 mls @ 20.003 mls/hr IV .[id number] PRN; Protocol; 18 UNITS/KG/HR PRN Reason: ADJUST RATE PER PROTOCOL Last Admin: 01/23/18 12:30 Dose: 15.29 units/kg/hr, 17 mls/hr diltiaZEM IVPB 100mg in NS (Cardizem 100mg In Ns) 100 mls @ 10 mls/hr IV .Q10H PRN; Protocol; 10 MG/HR PRN Reason: TITRATE PER MD ORDER Last Admin: 01/23/18 11:30 Dose: 10 mg/hr, 10 mls/hr Meropenem (Merrem Iv 1 Gm Premix) 50 mls @ 100 mls/hr IVPB Q8 ANDRES PRN Reason: Protocol Stop: 01/30/18 14:01 Last Admin: 01/23/18 14:06 Dose: 100 mls/hr Pantoprazole Sodium (Protonix Ec Tab) 40 mg PO 0600 ANDRES Results - Vital Signs Recent Vital Signs: Last Vital Signs Temp 97.1 F L 01/23/18 11:50 Pulse 123 H 01/23/18 14:00 Resp 19 01/23/18 11:50 BP 104/78 01/23/18 11:50 Pulse Ox 98 01/23/18 06:00 - Labs Result Diagrams: 01/23/18 09:00 01/22/18 23:15 Labs: Laboratory Results - last 24 hr 01/22/18 01/22/18 01/22/18 21:59 23:15 23:15 WBC 9.4 RBC 5.59 Hgb 11.2 L Hct 37.2 L MCV 66.5 L MCH 20.0 L MCHC 30.1 L RDW 20.0 H Plt Count 272 MPV Gran % 72.1 H Lymph % (Auto) 15.4 L [place] % (Auto) 11.1 H Eos % (Auto) 1.3 L Baso % (Auto) 0.1 Gran # 6.77 H Lymph # (Auto) 1.4 [place] # (Auto) 1.0 H Eos # (Auto) 0.1 Baso # (Auto) 0.01 PT INR APTT Sodium 141 Potassium 3.6 Chloride 105 Carbon Dioxide 24 Anion Gap 16 BUN 24 H Creatinine 0.9 Est GFR ( Amer) > 60 Est GFR (Non-Af Amer) > 60 POC Glucose (mg/dL) 99 Random Glucose 145 H Calcium 8.6 Magnesium 2.1 Total Bilirubin 2.4 H AST 60 H ALT 71 H Alkaline Phosphatase 73 Troponin I 0.08 D Total Protein 6.4 Albumin 3.1 Globulin 3.2 Albumin/Globulin Ratio 1.0 L 01/23/18 01/23/18 01/23/18 03:00 03:00 05:15 WBC 9.3 RBC 5.37 Hgb 10.7 L Hct 35.9 L MCV 66.9 L MCH 19.9 L MCHC 29.8 L RDW 20.1 H Plt Count 268 MPV 10.2 Gran % 68.9 H Lymph % (Auto) 15.7 L [place] % (Auto) 14.0 H Eos % (Auto) 1.2 L Baso % (Auto) 0.2 Gran # 6.39 Lymph # (Auto) 1.5 [place] # (Auto) 1.3 H Eos # (Auto) 0.1 Baso # (Auto) 0.02 PT 22.4 H INR 1.94 APTT 24.7 L Sodium Potassium Chloride Carbon Dioxide Anion Gap BUN Creatinine Est GFR ( Amer) Est GFR (Non-Af Amer) POC Glucose (mg/dL) Random Glucose Calcium Magnesium Total Bilirubin AST ALT Alkaline Phosphatase Troponin I 0.10 D Total Protein Albumin Globulin Albumin/Globulin Ratio 01/23/18 01/23/18 01/23/18 09:00 09:00 09:00 WBC 8.2 RBC 5.39 Hgb 10.6 L Hct 36.0 L MCV 66.8 L MCH 19.7 L MCHC 29.4 L RDW 20.3 H Plt Count 285 MPV Gran % 71.4 H Lymph % (Auto) 15.6 L [place] % (Auto) 11.2 H Eos % (Auto) 1.6 Baso % (Auto) 0.2 Gran # 5.84 Lymph # (Auto) 1.3 [place] # (Auto) 0.9 H Eos # (Auto) 0.1 Baso # (Auto) 0.02 PT INR APTT 124.0 H* Sodium Potassium Chloride Carbon Dioxide Anion Gap BUN Creatinine Est GFR ( Amer) Est GFR (Non-Af Amer) POC Glucose (mg/dL) Random Glucose Calcium Magnesium Total Bilirubin AST ALT Alkaline Phosphatase Troponin I 0.09 Total Protein Albumin Globulin Albumin/Globulin Ratio 01/23/18 10:30 WBC RBC Hgb Hct MCV MCH MCHC RDW Plt Count MPV Gran % Lymph % (Auto) [place] % (Auto) Eos % (Auto) Baso % (Auto) Gran # Lymph # (Auto) [place] # (Auto) Eos # (Auto) Baso # (Auto) PT INR APTT 123.2 H* Sodium Potassium Chloride Carbon Dioxide Anion Gap BUN Creatinine Est GFR ( Amer) Est GFR (Non-Af Amer) POC Glucose (mg/dL) Random Glucose Calcium Magnesium Total Bilirubin AST ALT Alkaline Phosphatase Troponin I Total Protein Albumin Globulin Albumin/Globulin Ratio Assessment & Plan - Assessment and Plan (Free Text) Assessment: Infectious Diseases Attending Physician Addendum Patient seen and examined, discussed with medical assembler. I have reviewed the pertinent clinical information for the patient, including history of present illness, medical, personal and social histories, lab results and imaging findings. I agree with the above findings, assessment and plan. In addition, we have given a dose of IV Vancomycin and started Merrem for this patient with abdominal abscess S/P IR-guided drainage. Follow up cultures of the abscess. Will monitor clinically.
[2018-01-23] MEDS: Meropenem IV 1 gm in NS 50 ML IVPB SCH ×2 (14:06→21:51)
--- NOTE | 2018-01-23 15:41 | CON ---
Copied To: Uvaldo Pierce MD Attending MD: Uvaldo Pierce MD DATE: 01/23/2018 CARDIOLOGY CONSULTATION HISTORY: The patient is a 57-year-old male, who presents with pedal edema and shortness of breath. He was found to have of a thrombus in the lower extremities and with subsequent pulmonary embolism documented. The patient has undergone recent ventral hernia repair complicated by abscess development as well as his current symptoms. The patient underwent a cardiac evaluation in 09/2017, which included a stress test as well as an echocardiogram. His stress test reveals no perfusion defects with an ejection fraction of 67%. His echocardiogram reveals good LV function, aortic valve sclerosis and mild pulmonary hypertension. Currently, the patient denies chest pain, but does admit to persistent shortness of breath. SOCIAL HISTORY: The patient is in bed. REVIEW OF SYSTEMS: Reviewed in detail. There are no additional symptoms other than the ones mentioned. PHYSICAL EXAMINATION: VITAL SIGNS: Blood pressure is 104/78, the heart rate is atrial fibrillation in the 90s. NECK: Negative JVD. LUNGS: Decreased breath sounds bilaterally. HEART: Reveals S1, S2. EXTREMITIES: Without change. EKG shows new onset atrial fibrillation. LABORATORY DATA: Troponins are 0.08 and 0.10. BUN and creatinine are unremarkable. Hemoglobin is 10.6. IMPRESSION: 1. Acute pulmonary embolism. 2. Deep venous thromboses. 3. Pedal edema. 4. New-onset atrial fibrillation. 5. Dyspnea. PLAN: Given these findings, the patient is currently on IV heparin as well as Cardizem for better heart rate control. We will repeat an echocardiogram. Uvaldo Pierce MD
[2018-01-23] MEDS: Arformoterol 15 mcg/2 ml Inh Sol IH SCH (19:43)
[2018-01-23] MEDS: Budesonide 0.5 mg/2 ml Inhal Susp UD IH SCH (19:43)
[2018-01-23 22:22] LABS: URINE APPEARANCE CLEAR (CLEAR); URINE BILIRUBIN NEGATIVE (NEGATIVE); URINE BLOOD NEGATIVE (NEGATIVE); URINE COLOR YELLOW (YELLOW); URINE GLUCOSE (UA) NEGATIVE (NEGATIVE); URINE LEUKOCYTE ESTERASE NEGATIVE Leu/uL (NEGATIVE); URINE PROTEIN TRACE mg/dL (<30 mg/dL)
[2018-01-23 22:25] LABS: URINE RBC NEGATIVE /hpf (0-2); URINE WBC NEGATIVE /hpf (0-6)
[2018-01-24] MEDS: Meropenem IV 1 gm in NS 50 ML IVPB SCH ×3 (05:34→23:11)
[2018-01-24] MEDS: Pantoprazole 40 mg EC Tab PO SCH (06:58)
[2018-01-24 07:07] LABS: BASO # 0.03 K/mm3 (0.0-2.0); BASO % 0.3 % (0.0-3.0); EOS # 0.1 (0.0-0.7); EOS % 1.1 % (1.5-5.0); GRAN # 6.66 (1.4-6.5); GRAN % 70.8 % (50.0-68.0); HEMOGLOBIN 11.1 g/dL (14.0-18.0); LYMPH # 1.5 (1.2-3.4); LYMPH % 15.4 % (22.0-35.0); MEAN CELL VOLUME 66.1 fl (80.0-105.0); MEAN CORPUSCULAR HEMOGLOBIN 19.6 pg (25.0-35.0); MEAN CORPUSCULAR HGB CONC 29.7 g/dl (31.0-37.0); MONO # 1.2 (0.1-0.6); MONO % 12.4 % (1.0-6.0); PLATELET COUNT 270 10^3/uL (120.0-450.0); RBC 5.66 10^6/uL (3.5-6.1); RED CELL DISTRIBUTION WIDTH 20.4 % (11.5-14.5); WHITE BLOOD COUNT 9.4 10^3/ul (4.5-11.0)
[2018-01-24] MEDS: Budesonide 0.5 mg/2 ml Inhal Susp UD IH SCH ×2 (07:14→20:05)
[2018-01-24] MEDS: Arformoterol 15 mcg/2 ml Inh Sol IH SCH ×2 (07:14→20:05)
[2018-01-24 07:25] LABS: ALBUMIN 3.2 g/dL (3.0-4.8); ALT/SGPT 79 U/L (7-56); AST/SGOT 69 U/L (17-59); BLOOD UREA NITROGEN 21 mg/dL (7-21); CALCIUM 9.1 mg/dL (8.4-10.5); GFR NON-AFRICAN AMERICAN > 60
[2018-01-24] MEDS: Heparin25000 units/250ml 1/2NS 25,000 UNITS/250 ML BAG IV PRN (07:58)
--- NOTE | 2018-01-24 10:50 | PN ---
SUBJECTIVE: The patient was seen and examined at bedside on the telemetry [place]. No acute events overnight. The patient's heart rate is responding nicely to Cardizem drip and he reports significant improvement in his respiratory status since admission. This morning he reports feeling significantly better over the past 36 hours but states that he is not yet back to his baseline. Otherwise he denies fevers, chills, rigors, chest pain or abdominal pain. PHYSICAL EXAMINATION: VITAL SIGNS: Temperature 98, pulse 110, blood pressure 119/86, respiratory rate 18, oxygen saturation 98% on 3 liters nasal cannula. GENERAL: Elderly man appearing his stated age, sitting up in bed, in no apparent distress. HEENT: PERRL, EOMI. No scleral icterus. No conjunctival pallor. NECK: No JVD. LUNGS: Decreased breath sounds at the bases with few scattered rhonchi and crackles to the left lower lobe. CARDIOVASCULAR: Tachycardic, irregularly irregular. ABDOMEN: Normoactive bowel sounds, soft. Mild tenderness to palpation to midline surgical site, drain in place with bloody discharge. EXTREMITIES: 1+ bilateral lower extremity edema. NEUROLOGIC: Awake, alert, and oriented x 3. No focal motor deficits. LABORATORY DATA: WBC 9.4, hemoglobin 11, hematocrit 36, platelets 270, MCV 66. Chemistry reviewed and unremarkable. Blood cultures with no growth to date. Wound culture with no growth to date. ASSESSMENT: The patient is a 57 year old man who recently underwent ventral hernia repair and presented with several week history of worsening abdominal distention, exertional dyspnea, bilateral lower extremity edema and 3-pillow orthopnea and was admitted for management of intra-abdominal abscess, new-onset AFib with RVR , right subsegmental PE and LLE DVT. PLAN: 1. AFib with RVR, new onset. Input from Dr. Pierce greatly appreciated. The patient has significantly improved rate control. We will start Cardizem 30mg po tid and wean off Cardizem drip. We will start Eliquis 10mg po bid for 7 days followed by Eliquis 5mg po bid. 2. Intra-abdominal abscess s/p IR drainage. Input from Dr. Uvaldo Garay greatly appreciated. Fluid analysis is pending. Input from Dr. Bales also greatly appreciated and the patient remains on Meropenem 1 g IV q 8 hours. We will continue to monitor for fever and leukocytosis and await culture reports. 3. Subsegmental PE to the right lower lobe. We will d/c Heparin drip and start Eliquis 10 mg p.o. b.i.d. for 7 days followed by Eliquis 5 mg p.o. b.i.d. 4. Left lower lobe infiltrate/effusion. Continue with supplemental oxygen, bronchodilators, and antimicrobials as above. 5. Hypertension. Blood pressure controlled. Continue with Cardizem drip and transition to p.o. medications as above. 6. Iron deficiency anemia secondary to chronic gastritis, esophagitis and diverticulosis. H/H remains stable. Continue Protonix 40 mg p.o. daily and Feosol 324 mg p.o. t.i.d. 7. Nonsustained V-tach. A TTE is pending to assess for wall motion and valvular abnormalities. Input from Dr. Pierce appreciated. 8. Prophylaxis. Continue Protonix for GI prophylaxis. The patient remains on heparin, thus DVT prophylaxis is not indicated. CODE STATUS: Full code. Keith Wilhelm MD VENKAT
--- NOTE | 2018-01-24 11:16 | PN ---
Copied To: Uvaldo Pierce MD Attending MD: Uvaldo Pierce MD DATE: 01/24/2018 CARDIOLOGY FOLLOWUP SUBJECTIVE: The patient's breathing is improved. PHYSICAL EXAMINATION: VITAL SIGNS: Blood pressure is 119/86, heart rate is approximately 100. NECK: Negative JVD. LUNGS: Without rales. HEART: S1, S2. EXTREMITIES: Decreasing edema. LABORATORY DATA: Hemoglobin is 11.1. Chemistries, BUN and creatinine unremarkable. Troponins are low-level elevated. IMPRESSION: 1. Status post pulmonary embolism. 2. Dyspnea is improved. 3. Tachycardia is better. 4. Atrial fibrillation. PLAN: Given these findings, we will repeat an echocardiogram today. We will continue the IV heparin. Uvaldo Pierce MD
--- NOTE | 2018-01-24 13:12 | CP.PCM.PN ---
<Kaley Cruz - Last Filed: 01/24/18 13:10> Subjective - Date & Time of Evaluation Date of Evaluation: 01/24/18 Time of Evaluation: 09:00 - Subjective Subjective: PGY-2 infectious disease progress note for Dr. Bales's service Patient seen and examined at bedside. Mild tachypnea. Patient states that his breathing is mildy improved, continues to be worse while laying flat. He denies any pain, chest pain, n/v, abd pain, diarrhea, dysuria. He reports good out put for KARLA drain. He reports good appetite. Objective - Vital Signs/Intake and Output Vital Signs (last 24 hours): Temp Pulse Resp BP Pulse Ox 97.1 F L 52 L 19 129/93 H 98 01/24/18 11:54 01/24/18 11:54 01/24/18 11:54 01/24/18 11:54 01/24/18 06:00 Intake and Output: 01/24/18 01/24/18 06:59 18:59 Intake Total 944 250 Output Total 480 Balance 464 250 - Medications Medications: Current Medications Apixaban (Eliquis) 10 mg PO BID [facility] PRN Reason: Protocol Stop: 01/31/18 10:01 Last Admin: 01/24/18 10:37 Dose: 10 mg Arformoterol Tartrate (Brovana) 15 mcg IH [id number] [facility] Last Admin: 01/24/18 07:14 Dose: 15 mcg Budesonide (Pulmicort Respules) 0.5 mg IH [id number] [facility] Last Admin: 01/24/18 07:14 Dose: 0.5 mg Diltiazem HCl (Cardizem) 60 mg PO TID [facility] Last Admin: 01/24/18 10:38 Dose: 60 mg Ferrous Sulfate (Feosol) 324 mg PO TID [facility] Last Admin: 01/24/18 10:37 Dose: 324 mg diltiaZEM IVPB 100mg in NS (Cardizem 100mg In Ns) 100 mls @ 10 mls/hr IV .Q10H PRN; Protocol; 10 MG/HR PRN Reason: TITRATE PER MD ORDER Last Admin: 01/23/18 21:51 Dose: 10 mg/hr, 10 mls/hr Meropenem (Merrem Iv 1 Gm Premix) 50 mls @ 100 mls/hr IVPB Q8 [facility] PRN Reason: Protocol Stop: 01/30/18 14:01 Last Admin: 01/24/18 05:34 Dose: 100 mls/hr Pantoprazole Sodium (Protonix Ec Tab) 40 mg PO 0600 [facility] Last Admin: 01/24/18 06:58 Dose: 40 mg - Labs Labs: 01/24/18 06:30 01/24/18 06:30 PT 22.4 SECONDS (9.4-12.5) H 01/23/18 03:00 INR 1.94 01/23/18 03:00 APTT 75.6 Seconds (25.1-36.5) H 01/24/18 01:35 - Head Exam Head Exam: ATRAUMATIC, NORMOCEPHALIC - Eye Exam Eye Exam: EOMI, Normal appearance - ENT Exam ENT Exam: Mucous Membranes Moist - Respiratory Exam Respiratory Exam: Decreased Breath Sounds, Rhonchi. absent: Wheezes Additional comments: tachypnea - Cardiovascular Exam Cardiovascular Exam: Tachycardia, REGULAR RHYTHM. absent: Bradycardia - GI/Abdominal Exam Additional comments: tenderness and erythema around surgical site, drain in place with serosanganious fluid - Extremities Exam Additional comments: + 2 pitting edema bilateral lower extremities multiple wounds on bilatral feet - Neurological Exam Neurological Exam: Alert, Awake, Oriented x3 - Skin Skin Exam: Dry, Normal Color, Warm Assessment and Plan - Assessment and Plan (Free Text) Assessment: 57 year old male with PMH of HTN, ventral hernia s/p repair, colorectal polyps s /p colon resection (in october 2017) presented with anasarca, left foot ulcers. UA was within normal limits. Wound cultures showed no growth. Blood cultures showed no growth for 24 hours. Follow up results of fluid drained from the abd abscess. Follow up results of echo to evaluate for change in cardiac status. One dose of vancomycin give, continue meropenem. Continue to monitor. case renewed and discussed with Dr. Bales <Trevon Bales - Last Filed: 01/24/18 14:47> Objective - Vital Signs/Intake and Output Vital Signs (last 24 hours): Temp Pulse Resp BP Pulse Ox 97.1 F L 52 L 19 129/93 H 98 01/24/18 11:54 01/24/18 11:54 01/24/18 11:54 01/24/18 11:54 01/24/18 06:00 Intake and Output: 01/24/18 01/24/18 06:59 18:59 Intake Total 944 250 Output Total 480 Balance 464 250 - Medications Medications: Current Medications Apixaban (Eliquis) 10 mg PO BID [facility] PRN Reason: Protocol Stop: 01/31/18 10:01 Last Admin: 01/24/18 10:37 Dose: 10 mg Arformoterol Tartrate (Brovana) 15 mcg IH [id number] [facility] Last Admin: 01/24/18 07:14 Dose: 15 mcg Budesonide (Pulmicort Respules) 0.5 mg IH [id number] [facility] Last Admin: 01/24/18 07:14 Dose: 0.5 mg Diltiazem HCl (Cardizem) 60 mg PO TID [facility] Last Admin: 01/24/18 10:38 Dose: 60 mg Ferrous Sulfate (Feosol) 324 mg PO TID [facility] Last Admin: 01/24/18 10:37 Dose: 324 mg diltiaZEM IVPB 100mg in NS (Cardizem 100mg In Ns) 100 mls @ 10 mls/hr IV .Q10H PRN; Protocol; 10 MG/HR PRN Reason: TITRATE PER MD ORDER Last Admin: 01/23/18 21:51 Dose: 10 mg/hr, 10 mls/hr Meropenem (Merrem Iv 1 Gm Premix) 50 mls @ 100 mls/hr IVPB Q8 [facility] PRN Reason: Protocol Stop: 01/30/18 14:01 Last Admin: 01/24/18 05:34 Dose: 100 mls/hr Pantoprazole Sodium (Protonix Ec Tab) 40 mg PO 0600 [facility] Last Admin: 01/24/18 06:58 Dose: 40 mg - Labs Labs: 01/24/18 06:30 01/24/18 06:30 PT 22.4 SECONDS (9.4-12.5) H 01/23/18 03:00 INR 1.94 01/23/18 03:00 APTT 75.6 Seconds (25.1-36.5) H 01/24/18 01:35 Assessment and Plan - Assessment and Plan (Free Text) Assessment: Infectious Diseases Attending Physician Addendum Patient seen and examined, discussed with medical research associate. I have reviewed the pertinent clinical information for the patient, including history of present illness, medical, personal and social histories, lab results and imaging findings. I agree with the above findings, assessment and plan. In addition, will continue Merrem for this patient with abdominal abscess S/P drainage. Follow up cultures from the abscess. Will continue to monitor clinically.
[2018-01-24] MEDS: diltiaZEM IVPB 100mg in NS 100 ML IV PRN (17:17)
--- NOTE | 2018-01-24 20:06 | CARD ---
APPROVED REPORT Date of service: 01/24/2018 EXAM: Two-dimensional and M-mode echocardiogram with Doppler and color Doppler. INDICATION Congestive Heart Failure 2D DIMENSIONS Left Atrium (2D)5.6 (1.6-4.0cm)IVSd1.4 (0.7-1.1cm) LVDd6.5 (3.9-5.9cm)PWd1.2 (0.7-1.1cm) LVDs5.7 (2.5-4.0cm)FS (%) 11.6 % LVEF (%)24.2 (>50%) M-Mode DIMENSIONS Aortic Root3.30 (2.2-3.7cm)Aortic Cusp Exc.1.80 (1.5-2.0cm) Aortic Valve AoV Peak Gfqbcvkh996.0cm/Erna Peak GR.16mmHg Mitral Valve E/A ratio0.0 TDI E/Lateral E'0.0E/Medial E'0.0 Tricuspid Valve TR Peak [id number] [id number] Peak Gr.34mmHg [id number] LEFT VENTRICLE The Left Ventricle is moderately dilated. There is mild concentric left ventricular hypertrophy. The systolic function is moderately to severely impaired. There is a flattened septum No left ventricle thrombus noted on this study. RIGHT VENTRICLE The right ventricle is mildly dilated. There is normal right ventricular wall thickness. RV Systolic function is moderately to severely reduced. ATRIA The left atrium is severely dilated. The right atrium is moderately dilated. AORTIC VALVE The aortic valve is severely thickened. There is mild aortic regurgitation. There is no aortic valvular stenosis. MITRAL VALVE The mitral valve is mildly thickened. Mitral regurgitation is moderate to severe. There is no mitral valve stenosis. TRICUSPID VALVE The tricuspid valve is normal in structure. There is severe tricuspid regurgitation. There is mild to moderate pulmonary hypertension. GREAT VESSELS The aortic root is normal in size. The IVC is dilated. <Conclusion> The Left Ventricle is moderately dilated. There is mild concentric left ventricular hypertrophy. The systolic function is moderately to severely impaired. No left ventricle thrombus noted on this study. RV Systolic function is moderately to severely reduced. There is mild aortic regurgitation. Mitral regurgitation is moderate to severe. There is severe tricuspid regurgitation. There is mild to moderate pulmonary hypertension.
[2018-01-25] MEDS: Meropenem IV 1 gm in NS 50 ML IVPB SCH ×3 (06:13→21:40)
[2018-01-25] MEDS: Pantoprazole 40 mg EC Tab PO SCH (06:14)
[2018-01-25 07:09] LABS: BASO # 0.02 K/mm3 (0.0-2.0); BASO % 0.2 % (0.0-3.0); EOS # 0.2 (0.0-0.7); EOS % 1.5 % (1.5-5.0); GRAN # 9.02 (1.4-6.5); GRAN % 74.8 % (50.0-68.0); HEMOGLOBIN 11.3 g/dL (14.0-18.0); LYMPH # 1.5 (1.2-3.4); LYMPH % 12.1 % (22.0-35.0); MEAN CELL VOLUME 66.4 fl (80.0-105.0); MEAN CORPUSCULAR HEMOGLOBIN 19.7 pg (25.0-35.0); MEAN CORPUSCULAR HGB CONC 29.6 g/dl (31.0-37.0); MONO # 1.4 (0.1-0.6); MONO % 11.4 % (1.0-6.0); PLATELET COUNT 284 10^3/uL (120.0-450.0); RBC 5.75 10^6/uL (3.5-6.1); RED CELL DISTRIBUTION WIDTH 20.7 % (11.5-14.5); WHITE BLOOD COUNT 12.1 10^3/ul (4.5-11.0)
[2018-01-25 07:24] LABS: ALBUMIN 3.3 g/dL (3.0-4.8); ALT/SGPT 66 U/L (7-56); AST/SGOT 49 U/L (17-59); BLOOD UREA NITROGEN 19 mg/dL (7-21); CALCIUM 8.9 mg/dL (8.4-10.5); GFR NON-AFRICAN AMERICAN > 60
[2018-01-25] MEDS: Budesonide 0.5 mg/2 ml Inhal Susp UD IH SCH ×2 (07:38→19:31)
[2018-01-25] MEDS: Arformoterol 15 mcg/2 ml Inh Sol IH SCH ×2 (07:38→19:31)
--- NOTE | 2018-01-25 09:26 | PN ---
SUBJECTIVE: The patient was seen and examined at bedside on the telemetry [place]. No acute events overnight. He remains afebrile, hemodynamically stable and with significantly improved ventricular rate. This morning he continues to endorse improvement in his respiratory status but does not yet feel at his baseline and otherwise offers no complaints. OBJECTIVE: VITAL SIGNS: Temperature 98.4, pulse 96, blood pressure 122/85, respiratory rate 21, oxygen saturation 97% on 2 liters nasal cannula. GENERAL: No apparent distress. HEENT: PERRL, EOMI. No scleral icterus. No conjunctival pallor. NECK: No JVD. LUNGS: Decreased breath sounds at bases with crackles to left lower lobe. CARDIOVASCULAR: Irregularly irregular. ABDOMEN: Normoactive bowel sounds, soft, nontender, nondistended. Drain in place with scant bloody discharge. EXTREMITIES: 1+ lower extremity edema bilaterally. NEUROLOGIC: Awake, alert and oriented x 3. No focal motor deficits. LABORATORY DATA: WBC 12.1, hemoglobin 11, hematocrit 38, platelets 284, MCV 66. Chemistry reviewed and unremarkable. Blood cultures with no growth to date. Wound cultures with no growth to date. DIAGNOSTIC STUDIES: TTE demonstrates a moderately dilated LV with cycqdtdmcb-du-yqcmilcs impaired LV systolic function and ljoodbstrs-mw-pbsbjqnt reduced RV systolic function with severe tricuspid regurgitation, idxkhgou-ho-humxdy mitral regurgitation and zakc-hm-vbnddlzo pulmonary hypertension. ASSESSMENT: The patient is a 57 year old man who recently underwent ventral hernia repair and presented with a several week history of worsening abdominal distention, exertional dyspnea, bilateral lower extremity edema and 3-pillow orthopnea and was admitted for management of intra-abdominal abscess, new onset AFib with RVR , right subsegmental PE, LLE DVT and new onset acute systolic HF. PLAN: 1. AFib with RVR, new onset. Input from Dr. Pierce greatly appreciated. The patient remains rate-controlled. He remains on Cardizem 60 mg p.o. t.i.d. and we will attempt to wean off Cardizem drip. Continue Eliquis 10 mg p.o. b.i.d. for 7 days followed by Eliquis 5 mg p.o. b.i.d. 2. Intra-abdominal abscess s/p IR drainage. The patient is noted to have diminished output from the drain. Fluid analysis is pending. Input from Dr. Bales appreciated and the patient remains on Meropenem 1 g IV q. 8 hours. We will continue to monitor for fever, leukocytosis and await culture reports. 3. Subsegmental PE to the RLL. Continue Eliquis 10 mg p.o. b.i.d. for 7 days followed by Eliquis 5 mg p.o. b.i.d. The patient will require at least 6 months of anticoagulation therapy for his PE but may require lifelong anticoagulation therapy given his AFib. 4. Acute systolic CHF, new onset. TTE reviewed and LV function is significantly impaired as compared to his prior echo performed in 09/2017. We will start Lasix 40 mg IV daily to facilitate diuresis. 5. LLE DVT. Continue Eliquis as above. 6. Hypertension. Blood pressure controlled. Continue with Cardizem drip and transition to p.o. meds as above. 7. Iron deficiency anemia. H/H remains stable. Continue Protonix 40 mg p.o. daily and Feosol 324 mg p.o. t.i.d. 8. Chronic gastritis. Continue Protonix 40 mg p.o. daily. 9. Prophylaxis. Continue Protonix for GI prophylaxis. The patient remains on Eliquis with DVT prophylaxis not indicated. CODE STATUS: Full code. Keith Wilhelm MD [facility]
--- NOTE | 2018-01-25 11:10 | CP.PCM.CON ---
<Kristina Barton - Last Filed: 01/25/18 10:59> History of Present Illness - History of Present Illness History of Present Illness: Podiatry Consult note: Dr. Cadena 57 year old male with PMHx of HTN, ventral hernia s/p repair, colorectal polyps s/p colon resection (in october 2017) was seen and evaluated for multiple bilateral leg wounds. Patient is AAOx3 and appears in NAD. Reports that he came to the ED for fluid retention. States that he started noticing swelling in his legs which started about 2 weeks ago. Patient reports that he was found to have a DVT on an ultrasound and an emboli in the lung on CT scan. Patient reports that he has multiple wounds on his legs and foot. States that he had them prior to coming to the hospital. States that he has the habit of scratching on his foot at night. States he may have obtained them from scratching excessively. Patient denies of any drainage from the extremities. Denies of any pain on the extremities. Patient denies of any prior treatment for the extremity wounds. Patient denies of having recent F/N/V/C. No other pedal complains at this time. PMHx: HTN PSHx: colon resection, ventral hernia repair Allergies: N.K.D.A SHx: denies smoking, alcohol use or illicit drug use Review of Systems - Constitutional Constitutional: As Per HPI Past Patient History - Past Social History Smoking Status: Never Smoked - CARDIAC Hx Cardiac Disorders: Yes Hx Angina: No Hx Cardia Arrhythmia: No Hx Circulatory Problems: No Hx Congestive Heart Failure: No Hx Heart Murmur: No Hx Heart Transplant: No Hx Hypercholesterolemia: No Hx Hypertension: Yes Hx Internal Defibrillator: No Hx Mitral Valve Prolapse: No Hx Pacemaker: No Hx Peripheral Edema: No Hx Peripheral Vascular Disease: No - PULMONARY Hx Respiratory Disorders: No Hx Asthma: No Hx Bronchitis: No Hx Chronic Obstructive Pulmonary Disease (COPD): No Hx Emphysema: No Hx Pneumonia: No Hx Respiratory Aspiration: No Hx Respiratory Tract Infection: No Hx Sleep Apnea: No Hx Tuberculosis: No - NEUROLOGICAL Hx Neurological Disorder: No Hx Alzheimer's Disease: No HX Cerebrovascular Accident: No Hx Dementia: No Hx Dizziness: No Hx Meningitis: No Hx Migraine: No Hx Parkinson's Disease: No Hx Seizures: No Hx Transient Ischemic Attacks (TIA): No - HEENT Hx HEENT Problems: No Hx Blind: No Hx Cataracts: No Hx Deafness: No Hx Difficulty Chewing: No Hx Epistaxis: No Hx Glaucoma: No Hx Macular Degeneration: No - RENAL Hx Chronic Kidney Disease: No Hx Dialysis: No Hx Kidney Stones: No Hx Neurogenic Bladder: No Hx Pyelonephritis: No Hx Renal (Kidney) Cancer: No Hx Renal Failure: No - ENDOCRINE/METABOLIC Hx Endocrine Disorders: No Hx Adrenal Cancer: No Hx Diabetes Insipidus: No Hx Diabetes Mellitus Type 1: No Hx Diabetes Mellitus Type 2: No Hx Hyperthyroidism: No Hx Hypothyroidism: No Hx Systemic Lupus Erythematosus: No - HEMATOLOGICAL/ONCOLOGICAL Hx Blood Disorders: No Hx AIDS: No Hx Anemia: No Hx Cancer: No Hx Chemotherapy: No Hx Cirrhosis: No Hx Hemophilia: No Hx Hepatitis A: No Hx Hepatitis B: No Hx Hepatitis C: No Hx Human Immunodeficiency Virus (HIV): No Hx Metastesis: No Hx Shingles: No Hx Sickle Cell Disease: No Hx Unexplained Bleeding: No - INTEGUMENTARY Hx Dermatological Problems: Yes Hx Basil Cell: No Hx Eczema: No Hx Melanoma: No Hx Psoriasis: No Hx Squamous Cell: No Other/Comment: open wounds on bilateral lower extremities - MUSCULOSKELETAL/RHEUMATOLOGICAL Hx Musculoskeletal Disorders: Yes Hx Arthritis: Yes Hx Back Pain: No Hx Degenerative Joint Disease: No Hx Falls: No Hx Fractures: No Hx Gout: No Hx Herniated Disk: No Hx Myasthenia Gravis: No Hx Osteoarthritis: No Hx Osteomyelitis: No Hx Osteoporosis: No Hx Rhabdomyolysis: No Hx Spinal Stenosis: No Hx Unsteady Gait: No - GASTROINTESTINAL Hx Gastrointestinal Disorders: Yes (colorectal polyps, ventral hernia) Hx Colostomy: No Hx Crohn's Disease: No Hx Diverticulitis: No Hx Gall Bladder Disease: No Hx Gastroesophageal Reflux: No Hx Ileostomy: No Hx Liver Failure: No Hx Pancreatitis: No HX Swallowing Problems: No Hx Ulcer: No - GENITOURINARY/GYNECOLOGICAL Hx Genitourinary Disorders: No Hx Hematuria: No Hx Incontinence: No Hx Prostate Problems: No Hx Sexually Transmitted Disorders: No Hx Urinary Tract Infection: No - PSYCHIATRIC Hx Psychophysiologic Disorder: No Hx Anxiety: No Hx Bipolar Disorder: No Hx Depression: No Hx Emotional Abuse: No Hx Hallucinations: No Hx Panic Symptoms: No Hx Paranoia: No Hx Post Traumatic Stress Disorder: No Hx Psychosis: No Hx Physical Abuse: No Hx Schizophrenia: No Hx Sexual Abuse: No - SURGICAL HISTORY Hx Surgeries: Yes (colon resection and ventral hernia repair.) Hx Amputation: No Hx Appendectomy: No Hx Cardiac Catheterization: No Hx Cholecystectomy: No Hx Coronary Stent: No Hx Gastric Bypass Surgery: No Hx Hysterectomy: No Hx Joint Replacement: No Hx Kidney Transplant: No Hx Liver Transplant: No Hx Mastectomy: No Hx Musculoskeletal Surgery: No Hx Open Heart Surgery: No Hx Orthopedic Surgery: No Hx Splenectomy: No Hx Valve Replacement: No Other/Comment: colon resection with ventral hernia repair with mesh placement. Meds Allergies/Adverse Reactions: Allergies Allergy/AdvReac Type Severity Reaction Status Date / Time No Known Allergies Allergy Verified 01/22/18 20:49 - Medications Medications: Current Medications Apixaban (Eliquis) 10 mg PO BID [facility] PRN Reason: Protocol Stop: 01/31/18 10:01 Last Admin: 01/25/18 09:57 Dose: 10 mg Arformoterol Tartrate (Brovana) 15 mcg IH [id number] [facility] Last Admin: 01/25/18 07:38 Dose: 15 mcg Budesonide (Pulmicort Respules) 0.5 mg IH [id number] [facility] Last Admin: 01/25/18 07:38 Dose: 0.5 mg Diltiazem HCl (Cardizem) 60 mg PO TID [facility] Last Admin: 01/25/18 09:57 Dose: 60 mg Ferrous Sulfate (Feosol) 324 mg PO TID [facility] Last Admin: 01/25/18 09:57 Dose: 324 mg Furosemide (Lasix) 40 mg IVP Q12 [facility] diltiaZEM IVPB 100mg in NS (Cardizem 100mg In Ns) 100 mls @ 10 mls/hr IV .Q10H PRN; Protocol; 10 MG/HR PRN Reason: TITRATE PER MD ORDER Last Admin: 01/24/18 17:17 Dose: 10 mg/hr, 10 mls/hr Meropenem (Merrem Iv 1 Gm Premix) 50 mls @ 100 mls/hr IVPB Q8 [facility] PRN Reason: Protocol Stop: 01/30/18 14:01 Last Admin: 01/25/18 06:13 Dose: 100 mls/hr Pantoprazole Sodium (Protonix Ec Tab) 40 mg PO 0600 [facility] Last Admin: 01/25/18 06:14 Dose: 40 mg Physical Exam - Constitutional Appears: Well, Non-toxic, No Acute Distress - Extremities Exam Additional comments: Bilateral LE exam VASC: DP/PT pulses are faintly palpable 1/4, Cap refill time: < 3 sec to all digits, Temp gradient: warm to cool from proximal to distal, +2 pitting edema noted diffusely on bilateral LE and dorsum of the foot DERM: multiple diffuse wounds on bilateral LE as well as dorsum of the foot, All wounds with different sizes with largest wound measuring approx 4 cm x 3 cm x 0.5cm, wound are mainly superficial with beds mainly fibrotic with scab formation, <2 cm hafsa-wound erythema noted, no active drainage from the wounds, no malodor, no probe to bone, no tunneling, no tracking, no clinical suspicion of active infection NEURO: Protective sensation grossly intact ORTHO: no pain on palpation of the wounds, no pain on palpation of the calf - Neurological Exam Neurological exam: Alert, Oriented x3 - Psychiatric Exam Psychiatric exam: Normal Affect, Normal Mood Results - Vital Signs Recent Vital Signs: Last Vital Signs Temp 98.4 F 01/25/18 06:00 Pulse 96 H 01/25/18 06:00 Resp 21 01/25/18 06:00 BP 124/83 01/25/18 09:58 Pulse Ox 97 01/25/18 06:00 - Labs Result Diagrams: 01/25/18 06:30 01/25/18 06:30 Labs: Laboratory Results - last 24 hr 01/25/18 01/25/18 06:30 06:30 WBC 12.1 H D RBC 5.75 Hgb 11.3 L Hct 38.2 L MCV 66.4 L MCH 19.7 L MCHC 29.6 L RDW 20.7 H Plt Count 284 Gran % 74.8 H Lymph % (Auto) 12.1 L [place] % (Auto) 11.4 H Eos % (Auto) 1.5 Baso % (Auto) 0.2 Gran # 9.02 H Lymph # (Auto) 1.5 [place] # (Auto) 1.4 H Eos # (Auto) 0.2 Baso # (Auto) 0.02 Sodium 140 Potassium 3.9 Chloride 104 Carbon Dioxide 23 Anion Gap 18 BUN 19 Creatinine 0.8 Est GFR ( Amer) > 60 Est GFR (Non-Af Amer) > 60 Random Glucose 115 H Calcium 8.9 Phosphorus 2.8 Magnesium 2.2 Total Bilirubin 2.2 H AST 49 ALT 66 H Alkaline Phosphatase 75 Total Protein 6.6 Albumin 3.3 Globulin 3.4 Albumin/Globulin Ratio 1.0 L Assessment & Plan - Assessment and Plan (Free Text) Assessment: 57 year old male with PMHx of HTN was evaluated for multiple wounds (Diggs 1) on bilateral LE Plan: Patient seen and evaluated with attending Dr. Cadena Labs, vitals and charts reviewed - afebrile, Elevated WBC No active source of infection from bilateral LE; wounds appear clinically non- infected Wound cultures from foot and leg - no growth LE US - DVT in left popliteal and tibial veins CTA - small emboli in segmental brace of right lower lobe Wounds cleaned with saline and dressed using xeroform, DSD, LILLIAN Patient is stable from podiatry standpoint Bactroban ordered Local wound care Will continue to monitor patient while in-house Thank you for the podiatry consult and allowing to take part in patient care - Date & Time Date: 01/25/18 Time: 11:21 <Duane Cadena - Last Filed: 01/26/18 15:32> Meds - Medications Medications: Current Medications Arformoterol Tartrate (Brovana) 15 mcg IH [id number] [facility] Last Admin: 01/26/18 07:26 Dose: 15 mcg Budesonide (Pulmicort Respules) 0.5 mg IH [id number] [facility] Last Admin: 01/26/18 07:26 Dose: 0.5 mg Clopidogrel Bisulfate (Plavix) 75 mg PO DAILY [facility] Last Admin: 01/26/18 09:45 Dose: 75 mg Digoxin (Lanoxin) 0.25 mg PO DAILY [facility] Last Admin: 01/26/18 10:09 Dose: Not Given Diltiazem HCl (Cardizem) 60 mg PO TID [facility] Last Admin: 01/26/18 13:33 Dose: 60 mg Enoxaparin Sodium (Lovenox) 115 mg SC Q12H [facility] PRN Reason: Protocol Stop: 01/28/18 21:01 Ferrous Sulfate (Feosol) 324 mg PO TID [facility] Last Admin: 01/26/18 13:33 Dose: 324 mg Furosemide (Lasix) 40 mg IVP Q12 [facility] Last Admin: 01/26/18 09:45 Dose: 40 mg Meropenem (Merrem Iv 1 Gm Premix) 50 mls @ 100 mls/hr IVPB Q8 [facility] PRN Reason: Protocol Stop: 01/30/18 14:01 Last Admin: 01/26/18 13:33 Dose: 100 mls/hr Mupirocin (Bactroban Ointment) 10 gm TOP DAILY [facility] Last Admin: 01/26/18 10:10 Dose: Not Given Pantoprazole Sodium (Protonix Ec Tab) 40 mg PO 0600 [facility] Last Admin: 01/26/18 06:23 Dose: 40 mg Results - Vital Signs Recent Vital Signs: Last Vital Signs Temp 99.2 F 01/26/18 12:00 Pulse 99 H 01/26/18 14:00 Resp 16 01/26/18 12:00 BP 115/83 01/26/18 13:33 Pulse Ox 99 01/26/18 06:00 - Labs Result Diagrams: 01/26/18 05:30 01/26/18 05:30 Labs: Laboratory Results - last 24 hr 01/26/18 01/26/18 05:30 05:30 WBC 11.3 H RBC 5.47 Hgb 10.7 L Hct 36.1 L MCV 66.0 L MCH 19.6 L MCHC 29.6 L RDW 20.6 H Plt Count 277 MPV 10.3 Gran % 74.2 H Lymph % (Auto) 10.9 L [place] % (Auto) 13.1 H Eos % (Auto) 1.6 Baso % (Auto) 0.2 Gran # 8.37 H Lymph # (Auto) 1.2 [place] # (Auto) 1.5 H Eos # (Auto) 0.2 Baso # (Auto) 0.02 Sodium 139 Potassium 4.1 Chloride 105 Carbon Dioxide 23 Anion Gap 16 BUN 22 H Creatinine 0.9 Est GFR ( Amer) > 60 Est GFR (Non-Af Amer) > 60 Random Glucose 119 H Calcium 9.0 Phosphorus 2.9 Magnesium 2.2 Total Bilirubin 1.9 H AST 38 ALT 58 H Alkaline Phosphatase 70 Total Protein 6.1 Albumin 2.9 L Globulin 3.2 Albumin/Globulin Ratio 0.9 L Attending/Attestation - Attestation I have personally seen and examined this patient.: Yes I have fully participated in the care of the patient.: Yes I have reviewed all pertinent clinical information: Yes
--- NOTE | 2018-01-25 12:09 | PN ---
Copied To: Uvaldo Pierce MD Attending MD: Uvaldo Pierce MD DATE: 01/25/2018 CARDIOLOGY FOLLOWUP SUBJECTIVE: The patient's breathing is baseline. OBJECTIVE: VITAL SIGNS: Blood pressure is 122/85, the heart rate is in the 90s. NECK: Negative JVD. LUNGS: Without rales. HEART: Reveal S1, S2. EXTREMITIES: Without edema. DATA: Hemoglobin is 11.3. Chemistries: BUN and creatinine are unremarkable. Echocardiogram reveals deterioration of his LV to an ejection fraction of 25%. IMPRESSION: 1. Pulmonary embolism. 2. Dilated cardiomyopathy. 3. New-onset atrial fibrillation. 4. Dyspnea, which is improved. Given these findings, we will discuss this with the patient in detail. We will need to consider cardiac catheterization to help rule out coronary artery disease as a cause of deterioration of his left ventricle. Uvaldo Pierce MD
--- NOTE | 2018-01-25 12:17 | CP.PCM.PN ---
Subjective - Date & Time of Evaluation Date of Evaluation: 01/25/18 Time of Evaluation: 10:30 - Subjective Subjective: No fevers, breathing a little better, no diarrhea, no abdominal pain. Objective - Vital Signs/Intake and Output Vital Signs (last 24 hours): Temp Pulse Resp BP Pulse Ox 98.4 F 96 H 21 122/85 97 01/25/18 06:00 01/25/18 06:00 01/25/18 06:00 01/25/18 06:00 01/25/18 06:00 Intake and Output: 01/25/18 01/25/18 06:59 18:59 Intake Total 1930 Output Total 450 Balance 1480 - Medications Medications: Current Medications Apixaban (Eliquis) 10 mg PO BID [facility] PRN Reason: Protocol Stop: 01/31/18 10:01 Last Admin: 01/24/18 17:03 Dose: 10 mg Arformoterol Tartrate (Brovana) 15 mcg IH [id number] [facility] Last Admin: 01/25/18 07:38 Dose: 15 mcg Budesonide (Pulmicort Respules) 0.5 mg IH [id number] [facility] Last Admin: 01/25/18 07:38 Dose: 0.5 mg Diltiazem HCl (Cardizem) 60 mg PO TID [facility] Last Admin: 01/24/18 17:03 Dose: 60 mg Ferrous Sulfate (Feosol) 324 mg PO TID [facility] Last Admin: 01/24/18 17:03 Dose: 324 mg Furosemide (Lasix) 40 mg IVP DAILY [facility] diltiaZEM IVPB 100mg in NS (Cardizem 100mg In Ns) 100 mls @ 10 mls/hr IV .Q10H PRN; Protocol; 10 MG/HR PRN Reason: TITRATE PER MD ORDER Last Admin: 01/24/18 17:17 Dose: 10 mg/hr, 10 mls/hr Meropenem (Merrem Iv 1 Gm Premix) 50 mls @ 100 mls/hr IVPB Q8 [facility] PRN Reason: Protocol Stop: 01/30/18 14:01 Last Admin: 01/25/18 06:13 Dose: 100 mls/hr Pantoprazole Sodium (Protonix Ec Tab) 40 mg PO 0600 [facility] Last Admin: 01/25/18 06:14 Dose: 40 mg - Labs Labs: 01/25/18 06:30 01/25/18 06:30 PT 22.4 SECONDS (9.4-12.5) H 01/23/18 03:00 INR 1.94 01/23/18 03:00 APTT 75.6 Seconds (25.1-36.5) H 01/24/18 01:35 - Constitutional Appears: Chronically Ill - Head Exam Head Exam: NORMAL INSPECTION - Respiratory Exam Respiratory Exam: Decreased Breath Sounds - Cardiovascular Exam Cardiovascular Exam: +S1, +S2 - GI/Abdominal Exam GI & Abdominal Exam: Soft. absent: Tenderness Additional comments: abdominal drain in place Assessment and Plan - Assessment and Plan (Free Text) Plan: Assessment abdominal abscess S/P drainage HTN pulmonary embolism cardiomyopathy S/P colon resection in October 2017 obesity with BMI 34 Plan Continue Merrem day 3 pending final culture results follow up further plans for the abdominal drain will continue to monitor clinically
[2018-01-25] MEDS: diltiaZEM IVPB 100mg in NS 100 ML IV PRN (15:00)
[2018-01-26] MEDS: diltiaZEM IVPB 100mg in NS 100 ML IV PRN (01:08)
--- NOTE | 2018-01-26 01:41 | CP.PCM.PN ---
<Karine Avalos - Last Filed: 01/26/18 01:42> Subjective - Date & Time of Evaluation Date of Evaluation: 01/26/18 Time of Evaluation: 01:39 - Subjective Subjective: Patient progress note Objective - Vital Signs/Intake and Output Vital Signs (last 24 hours): Temp Pulse Resp BP Pulse Ox 98 F 84 18 117/90 99 01/25/18 18:00 01/25/18 18:00 01/25/18 18:00 01/25/18 21:40 01/25/18 18:00 Intake and Output: 01/25/18 01/26/18 18:59 06:59 Intake Total 1810 100 Output Total 260 Balance 1550 100 - Medications Medications: Current Medications Apixaban (Eliquis) 10 mg PO BID [facility] PRN Reason: Protocol Stop: 01/31/18 10:01 Last Admin: 01/25/18 17:31 Dose: 10 mg Arformoterol Tartrate (Brovana) 15 mcg [facility] [id number] [facility] Last Admin: 01/25/18 19:31 Dose: 15 mcg Budesonide (Pulmicort Respules) 0.5 mg IH [id number] [facility] Last Admin: 01/25/18 19:31 Dose: 0.5 mg Diltiazem HCl (Cardizem) 60 mg PO TID [facility] Last Admin: 01/25/18 17:31 Dose: 60 mg Ferrous Sulfate (Feosol) 324 mg PO TID [facility] Last Admin: 01/25/18 17:31 Dose: 324 mg Furosemide (Lasix) 40 mg IVP Q12 [facility] Last Admin: 01/25/18 21:40 Dose: 40 mg diltiaZEM IVPB 100mg in NS (Cardizem 100mg In Ns) 100 mls @ 10 mls/hr IV .Q10H PRN; Protocol; 10 MG/HR PRN Reason: TITRATE PER MD ORDER Last Admin: 01/26/18 01:08 Dose: 10 mg/hr, 10 mls/hr Meropenem (Merrem Iv 1 Gm Premix) 50 mls @ 100 mls/hr IVPB Q8 [facility] PRN Reason: Protocol Stop: 01/30/18 14:01 Last Admin: 01/25/18 21:40 Dose: 100 mls/hr Mupirocin (Bactroban Ointment) 10 gm TOP DAILY [facility] Pantoprazole Sodium (Protonix Ec Tab) 40 mg PO 0600 [facility] Last Admin: 01/25/18 06:14 Dose: 40 mg - Labs Labs: 01/25/18 06:30 01/25/18 06:30 PT 22.4 SECONDS (9.4-12.5) H 01/23/18 03:00 INR 1.94 01/23/18 03:00 APTT 75.6 Seconds (25.1-36.5) H 01/24/18 01:35 Assessment and Plan - Assessment and Plan (Free Text) Plan: Patient had 6 beats of ventricular tachycardia. Patient is asymptomatic. K and Mg are normal EKG: QTC is 358 <Alex Magaña - Last Filed: 01/27/18 06:21> Objective - Vital Signs/Intake and Output Vital Signs (last 24 hours): Temp Pulse Resp BP Pulse Ox 97.7 F 91 H 20 135/68 97 01/27/18 00:01 01/27/18 02:00 01/27/18 00:01 01/27/18 00:01 01/26/18 18:00 Intake and Output: 01/26/18 01/27/18 18:59 06:59 Intake Total 1160 Output Total 1900 Balance -740 - Medications Medications: Current Medications Arformoterol Tartrate (Brovana) 15 mcg IH [id number] [facility] Last Admin: 01/26/18 20:08 Dose: 15 mcg Budesonide (Pulmicort Respules) 0.5 mg IH [id number] [facility] Last Admin: 01/26/18 20:08 Dose: 0.5 mg Clopidogrel Bisulfate (Plavix) 75 mg PO DAILY [facility] Last Admin: 01/26/18 09:45 Dose: 75 mg Digoxin (Lanoxin) 0.25 mg PO DAILY [facility] Last Admin: 01/26/18 10:09 Dose: Not Given Diltiazem HCl (Cardizem) 60 mg PO TID [facility] Last Admin: 01/26/18 17:50 Dose: 60 mg Enoxaparin Sodium (Lovenox) 115 mg SC Q12H [facility] PRN Reason: Protocol Stop: 01/28/18 21:01 Ferrous Sulfate (Feosol) 324 mg PO TID [facility] Last Admin: 01/26/18 18:03 Dose: 324 mg Furosemide (Lasix) 40 mg IVP Q12 [facility] Last Admin: 01/26/18 21:11 Dose: 40 mg Meropenem (Merrem Iv 1 Gm Premix) 50 mls @ 100 mls/hr IVPB Q8 [facility] PRN Reason: Protocol Stop: 01/30/18 14:01 Last Admin: 01/27/18 05:28 Dose: 100 mls/hr Vancomycin HCl (Vancomycin 1gm) 1 gm in 250 mls @ 167 mls/hr IVPB Q12H [facility] PRN Reason: Protocol Last Admin: 01/26/18 22:36 Dose: 167 mls/hr Mupirocin (Bactroban Ointment) 10 gm TOP DAILY [facility] Last Admin: 01/26/18 10:10 Dose: Not Given Pantoprazole Sodium (Protonix Ec Tab) 40 mg PO 0600 [facility] Last Admin: 01/27/18 05:33 Dose: 40 mg - Labs Labs: 01/26/18 05:30 01/26/18 05:30 PT 22.4 SECONDS (9.4-12.5) H 01/23/18 03:00 INR 1.94 01/23/18 03:00 APTT 75.6 Seconds (25.1-36.5) H 01/24/18 01:35
[2018-01-26] MEDS: Arformoterol 15 mcg/2 ml Inh Sol IH SCH ×3 (05:17→20:08)
[2018-01-26] MEDS: Budesonide 0.5 mg/2 ml Inhal Susp UD IH SCH ×3 (05:18→20:08)
[2018-01-26] MEDS: Pantoprazole 40 mg EC Tab PO SCH (06:23)
[2018-01-26] MEDS: Meropenem IV 1 gm in NS 50 ML IVPB SCH ×3 (06:24→21:12)
[2018-01-26 06:42] LABS: BASO # 0.02 K/mm3 (0.0-2.0); BASO % 0.2 % (0.0-3.0); EOS # 0.2 (0.0-0.7); EOS % 1.6 % (1.5-5.0); GRAN # 8.37 (1.4-6.5); GRAN % 74.2 % (50.0-68.0); HEMOGLOBIN 10.7 g/dL (14.0-18.0); LYMPH # 1.2 (1.2-3.4); LYMPH % 10.9 % (22.0-35.0); MEAN CORPUSCULAR HEMOGLOBIN 19.6 pg (25.0-35.0); MEAN CORPUSCULAR HGB CONC 29.6 g/dl (31.0-37.0); MEAN PLATELET VOLUME 10.3 fl (7.0-11.0); MONO # 1.5 (0.1-0.6); MONO % 13.1 % (1.0-6.0); RBC 5.47 10^6/uL (3.5-6.1); RED CELL DISTRIBUTION WIDTH 20.6 % (11.5-14.5); WHITE BLOOD COUNT 11.3 10^3/ul (4.5-11.0)
[2018-01-26 06:52] LABS: ALB/GLOB RATIO 0.9 (1.1-1.8); ALBUMIN 2.9 g/dL (3.0-4.8); ALT/SGPT 58 U/L (7-56); AST/SGOT 38 U/L (17-59); BLOOD UREA NITROGEN 22 mg/dL (7-21); GFR NON-AFRICAN AMERICAN > 60
--- NOTE | 2018-01-26 08:15 | PN ---
SUBJECTIVE: The patient was seen and examined at bedside on the telemetry [place]. No acute events overnight. He remains afebrile, hemodynamically stable and with gradually improving respiratory status. He was advised that given his marked decline in cardiac function (as per TTE) evaluation with cardiac catheterization to r/o an acute coronary event is indicated and the patient is agreeable with this plan. OBJECTIVE: VITAL SIGNS: Temperature 97.4, pulse 55, blood pressure 117/85, respiratory rate 18, oxygen saturation 99% on 2 liters nasal cannula. GENERAL: No apparent distress. HEENT: PERRL, EOMI. No scleral icterus. No conjunctival pallor. NECK: No JVD. LUNGS: Decreased breath sounds at bases with crackles to left lower lobe. CARDIOVASCULAR: Irregularly irregular. ABDOMEN: Normoactive bowel sounds, soft, nontender, nondistended. Drain in place with no discharge. EXTREMITIES: 1+ lower extremity edema bilaterally. NEUROLOGIC: Awake, alert and oriented x 3. No focal motor deficits. LABORATORY DATA: WBC 11.3 with 74% neutrophils, hemoglobin 10.7, hematocrit 36, platelets 277, MCV 66. Chemistry reviewed and unremarkable. Blood cultures with no growth to date. Abdominal wound culture with no growth to date. ASSESSMENT: The patient is a 57 year old man who recently underwent ventral hernia repair and presented with several week history of worsening abdominal distention, exertional dyspnea, bilateral lower extremity edema and 3-pillow orthopnea and was admitted for management of intra-abdominal abscess, new onset AFib with RVR , right subsegmental PE, LLE DVT and new onset acute systolic heart failure. PLAN: 1. AFib with RVR, new onset. Input from Dr. Pierce greatly appreciated. The patient remains rate-controlled. He remains on Cardizem 60 mg p.o. t.i.d. and we will attempt to wean off Cardizem drip. He remains on Eliquis 10 mg p.o. b.i.d. for 7 days and will then be placed on Eliquis 5 mg p.o. b.i.d. 2. Intra-abdominal abscess s/p IR drainage. Output from the drain is decreasing. We will speak with Dr. Garay regarding possible drain removal. Input from Dr. Bales appreciated. The patient remains on Meropenem and with negative cultures. 3. Subsegmental PE to the RLL. Continue Eliquis 10 mg p.o. b.i.d. for 7 days followed by Eliquis 5 mg p.o. b.i.d. The patient will require at least 6 months of anticoagulation therapy for his PE but may require lifelong anticoagulation therapy given his AFib. 4. Acute systolic CHF, new onset. The patient remains on Lasix 40 mg IV q. 12 hours as above. He will be scheduled for cardiac catheterization to rule out an acute coronary event as the etiology of his new onset heart failure. 5. Left lower extremity DVT. Continue Eliquis as above. The patient will likely have the Eliquis placed on hold and be put on heparin in anticipation of his cardiac cath. 6. Hypertension. Blood pressure controlled. Continue Cardizem p.o. with weaning off Cardizem drip. 7. Iron-deficiency anemia. H/H remained stable. Continue Protonix 40 mg p.o. daily and Feosol 324 mg p.o. t.i.d. 8. Chronic gastritis. Continue Protonix 40 mg p.o. daily. 9. Prophylaxis. Continue Protonix for GI prophylaxis. The patient remains on Eliquis, thus DVT prophylaxis not indicated. CODE STATUS: Full code. Keith Wilhelm MD MTDD
[2018-01-26] MEDS ORDERED: Enoxaparin 120 mg Syringe SC SCH (09:15)
[2018-01-26] MEDS: Digoxin 250 mcg (0.25 mg) Tab PO SCH ×2 (09:46→10:09)
--- NOTE | 2018-01-26 09:46 | PN ---
Copied To: Uvaldo Pierce MD Attending MD: Uvaldo Pierce MD DATE: 01/26/2018 CARDIOLOGY FOLLOWUP SUBJECTIVE: The patient's breathing is markedly improved after IV Lasix. PHYSICAL EXAMINATION: VITAL SIGNS: Blood pressure is 117/85, heart rate is atrial fibrillation in the 100. NECK: Negative JVD. LUNGS: Without rales. HEART: S1, S2. EXTREMITIES: Without edema. LABORATORY DATA: Potassium is 4.1. BUN and creatinine are 22 and 0.9. Hemoglobin is 10.7. IMPRESSION: 1. Acute systolic congestive heart failure. 2. Dilated cardiomyopathy. 3. Pulmonary embolism. 4. Deep venous thrombosis. 5. New-onset atrial fibrillation. PLAN: Given these findings, we will continue him on his Lasix. We will DC his IV Cardizem, add digoxin to his regimen. We will change him over to subcu Lovenox in preparation for his cardiac catheterization on Monday. Uvaldo Pierce MD
[2018-01-26] MEDS: Mupirocin 2% Ointment 15 GM TUBE TOP SCH (10:10)
--- NOTE | 2018-01-26 14:51 | CP.PCM.PN ---
<Kristina Barton - Last Filed: 01/26/18 14:48> Subjective - Date & Time of Evaluation Date of Evaluation: 01/26/18 Time of Evaluation: 14:48 - Subjective Subjective: Podiatry Progress note: Dr. Cadena 57 year old male was seen and evaluated for multiple bilateral leg wounds. Patient is AAOx3 and appears in NAD. Denies of any pain on the extremities. Reports that some of the dressing came off last night. Reports that the breathing has improved a little since yesterday. Patient denies of having recent F/N/V/C. No other pedal complains at this time. Objective - Vital Signs/Intake and Output Vital Signs (last 24 hours): Temp Pulse Resp BP Pulse Ox 99.2 F 99 H 16 115/83 99 01/26/18 12:00 01/26/18 14:00 01/26/18 12:00 01/26/18 13:33 01/26/18 06:00 Intake and Output: 01/26/18 01/26/18 06:59 18:59 Intake Total 220 220 Output Total 1450 Balance -1230 220 - Medications Medications: Current Medications Arformoterol Tartrate (Brovana) 15 mcg IH [id number] [facility] Last Admin: 01/26/18 07:26 Dose: 15 mcg Budesonide (Pulmicort Respules) 0.5 mg IH [id number] [facility] Last Admin: 01/26/18 07:26 Dose: 0.5 mg Clopidogrel Bisulfate (Plavix) 75 mg PO DAILY [facility] Last Admin: 01/26/18 09:45 Dose: 75 mg Digoxin (Lanoxin) 0.25 mg PO DAILY [facility] Last Admin: 01/26/18 10:09 Dose: Not Given Diltiazem HCl (Cardizem) 60 mg PO TID [facility] Last Admin: 01/26/18 13:33 Dose: 60 mg Enoxaparin Sodium (Lovenox) 115 mg SC Q12H [facility] PRN Reason: Protocol Stop: 01/28/18 21:01 Ferrous Sulfate (Feosol) 324 mg PO TID [facility] Last Admin: 01/26/18 13:33 Dose: 324 mg Furosemide (Lasix) 40 mg IVP Q12 [facility] Last Admin: 01/26/18 09:45 Dose: 40 mg Meropenem (Merrem Iv 1 Gm Premix) 50 mls @ 100 mls/hr IVPB Q8 [facility] PRN Reason: Protocol Stop: 01/30/18 14:01 Last Admin: 01/26/18 13:33 Dose: 100 mls/hr Mupirocin (Bactroban Ointment) 10 gm TOP DAILY [facility] Last Admin: 01/26/18 10:10 Dose: Not Given Pantoprazole Sodium (Protonix Ec Tab) 40 mg PO 0600 [facility] Last Admin: 01/26/18 06:23 Dose: 40 mg - Labs Labs: 01/26/18 05:30 01/26/18 05:30 PT 22.4 SECONDS (9.4-12.5) H 01/23/18 03:00 INR 1.94 01/23/18 03:00 APTT 75.6 Seconds (25.1-36.5) H 01/24/18 01:35 - Constitutional Appears: Well, Non-toxic, No Acute Distress - Extremities Exam Additional comments: Bilateral LE exam VASC: DP/PT pulses are faintly palpable 1/4, Cap refill time: < 3 sec to all digits, Temp gradient: warm to cool from proximal to distal, +2 pitting edema noted diffusely on bilateral LE and dorsum of the foot DERM: multiple diffuse wounds on bilateral LE as well as dorsum of the foot, All wounds with different sizes with largest wound measuring approx 4 cm x 3 cm x 0.5cm, wound are mainly superficial with beds mainly fibrotic with scab formation, <2 cm hafsa-wound erythema noted, no active drainage from the wounds, no malodor, no probe to bone, no tunneling, no tracking, no clinical suspicion of active infection NEURO: Protective sensation grossly intact ORTHO: no pain on palpation of the wounds, no pain on palpation of the calf - Neurological Exam Neurological Exam: Alert, Awake, Oriented x3 - Psychiatric Exam Psychiatric exam: Normal Affect, Normal Mood Assessment and Plan - Assessment and Plan (Free Text) Assessment: 57 year old male with PMHx of HTN was evaluated for multiple wounds (Diggs 1) on bilateral LE Plan: Patient seen and evaluated Discussed with attending Dr. Cadena Labs, vitals and charts reviewed - afebrile, Elevated WBC No active source of infection from bilateral LE; wounds appear clinically non- infected Wound cultures from foot and leg - no growth - prelim LE US - DVT in left popliteal and tibial veins CTA - small emboli in segmental brace of right lower lobe Wounds cleaned with saline and dressed using bactroban, DSD, LILLIAN Patient is stable from podiatry standpoint Local wound care Will continue to monitor patient while in-house <Duane Cadena - Last Filed: 01/26/18 15:33> Objective - Vital Signs/Intake and Output Vital Signs (last 24 hours): Temp Pulse Resp BP Pulse Ox 99.2 F 99 H 16 115/83 99 01/26/18 12:00 01/26/18 14:00 01/26/18 12:00 01/26/18 13:33 01/26/18 06:00 Intake and Output: 01/26/18 01/26/18 06:59 18:59 Intake Total 220 220 Output Total 1450 Balance -1230 220 - Medications Medications: Current Medications Arformoterol Tartrate (Brovana) 15 mcg IH [id number] [facility] Last Admin: 01/26/18 07:26 Dose: 15 mcg Budesonide (Pulmicort Respules) 0.5 mg IH [id number] [facility] Last Admin: 01/26/18 07:26 Dose: 0.5 mg Clopidogrel Bisulfate (Plavix) 75 mg PO DAILY [facility] Last Admin: 01/26/18 09:45 Dose: 75 mg Digoxin (Lanoxin) 0.25 mg PO DAILY [facility] Last Admin: 01/26/18 10:09 Dose: Not Given Diltiazem HCl (Cardizem) 60 mg PO TID [facility] Last Admin: 01/26/18 13:33 Dose: 60 mg Enoxaparin Sodium (Lovenox) 115 mg SC Q12H [facility] PRN Reason: Protocol Stop: 01/28/18 21:01 Ferrous Sulfate (Feosol) 324 mg PO TID [facility] Last Admin: 01/26/18 13:33 Dose: 324 mg Furosemide (Lasix) 40 mg IVP Q12 [facility] Last Admin: 01/26/18 09:45 Dose: 40 mg Meropenem (Merrem Iv 1 Gm Premix) 50 mls @ 100 mls/hr IVPB Q8 [facility] PRN Reason: Protocol Stop: 01/30/18 14:01 Last Admin: 01/26/18 13:33 Dose: 100 mls/hr Mupirocin (Bactroban Ointment) 10 gm TOP DAILY [facility] Last Admin: 01/26/18 10:10 Dose: Not Given Pantoprazole Sodium (Protonix Ec Tab) 40 mg PO 0600 [facility] Last Admin: 01/26/18 06:23 Dose: 40 mg - Labs Labs: 01/26/18 05:30 01/26/18 05:30 PT 22.4 SECONDS (9.4-12.5) H 01/23/18 03:00 INR 1.94 01/23/18 03:00 APTT 75.6 Seconds (25.1-36.5) H 01/24/18 01:35 Attending/Attestation - Attestation I have personally seen and examined this patient.: Yes I have fully participated in the care of the patient.: Yes I have reviewed all pertinent clinical information, including history, physical exam and plan: Yes
--- NOTE | 2018-01-26 20:52 | CP.PCM.PN ---
Subjective - Date & Time of Evaluation Date of Evaluation: 01/25/18 Time of Evaluation: 10:50 - Subjective Subjective: Less pain in the abdomen and legs, still with abdominal drain, no fevers, not in distress, no headache. Objective - Vital Signs/Intake and Output Vital Signs (last 24 hours): Temp Pulse Resp BP Pulse Ox 98.4 F 96 H 21 124/83 97 01/25/18 06:00 01/25/18 06:00 01/25/18 06:00 01/25/18 09:58 01/25/18 06:00 Intake and Output: 01/25/18 01/25/18 06:59 18:59 Intake Total 1930 Output Total 450 Balance 1480 - Medications Medications: Current Medications Apixaban (Eliquis) 10 mg PO BID [facility] PRN Reason: Protocol Stop: 01/31/18 10:01 Last Admin: 01/25/18 09:57 Dose: 10 mg Arformoterol Tartrate (Brovana) 15 mcg IH [id number] [facility] Last Admin: 01/25/18 07:38 Dose: 15 mcg Budesonide (Pulmicort Respules) 0.5 mg IH [id number] [facility] Last Admin: 01/25/18 07:38 Dose: 0.5 mg Diltiazem HCl (Cardizem) 60 mg PO TID [facility] Last Admin: 01/25/18 12:17 Dose: Not Given Ferrous Sulfate (Feosol) 324 mg PO TID [facility] Last Admin: 01/25/18 09:57 Dose: 324 mg Furosemide (Lasix) 40 mg IVP Q12 [facility] diltiaZEM IVPB 100mg in NS (Cardizem 100mg In Ns) 100 mls @ 10 mls/hr IV .Q10H PRN; Protocol; 10 MG/HR PRN Reason: TITRATE PER MD ORDER Last Admin: 01/24/18 17:17 Dose: 10 mg/hr, 10 mls/hr Meropenem (Merrem Iv 1 Gm Premix) 50 mls @ 100 mls/hr IVPB Q8 [facility] PRN Reason: Protocol Stop: 01/30/18 14:01 Last Admin: 01/25/18 06:13 Dose: 100 mls/hr Mupirocin (Bactroban Ointment) 10 gm TOP DAILY [facility] Pantoprazole Sodium (Protonix Ec Tab) 40 mg PO 0600 [facility] Last Admin: 01/25/18 06:14 Dose: 40 mg - Labs Labs: 01/25/18 06:30 01/25/18 06:30 PT 22.4 SECONDS (9.4-12.5) H 01/23/18 03:00 INR 1.94 01/23/18 03:00 APTT 75.6 Seconds (25.1-36.5) H 01/24/18 01:35 - Constitutional Appears: Chronically Ill - Head Exam Head Exam: NORMAL INSPECTION - Neck Exam Neck Exam: absent: Meningismus - Respiratory Exam Respiratory Exam: Decreased Breath Sounds. absent: Rales - Cardiovascular Exam Cardiovascular Exam: +S1, +S2 - GI/Abdominal Exam GI & Abdominal Exam: Soft. absent: Tenderness Additional comments: abdominal drain in place Assessment and Plan - Assessment and Plan (Free Text) Plan: Assessment abdominal abscess S/P drainage, growing Staph. bilateral lower extremity lymphedema with skin and skin structure infection with MSSA HTN pulmonary embolism cardiomyopathy S/P colon resection in October 2017 obesity with BMI 34 Plan Continue Merrem day 4 and add Vancomycin pending final culture results follow up further plans for the abdominal drain will continue to monitor clinically
[2018-01-26] MEDS: Vancomycin 1gm in NS 250ml 1 GM/250 ML BAG IVPB SCH (22:36)
[2018-01-27] MEDS: Meropenem IV 1 gm in NS 50 ML IVPB SCH ×3 (05:28→21:35)
[2018-01-27] MEDS: Pantoprazole 40 mg EC Tab PO SCH (05:33)
[2018-01-27 07:40] LABS: BASO # 0.02 K/mm3 (0.0-2.0); BASO % 0.2 % (0.0-3.0); EOS # 0.3 (0.0-0.7); EOS % 3.3 % (1.5-5.0); GRAN # 7.16 (1.4-6.5); HEMOGLOBIN 10.2 g/dL (14.0-18.0); LYMPH # 1.1 (1.2-3.4); MEAN CELL VOLUME 65.9 fl (80.0-105.0); MEAN CORPUSCULAR HEMOGLOBIN 19.5 pg (25.0-35.0); MEAN CORPUSCULAR HGB CONC 29.7 g/dl (31.0-37.0); MEAN PLATELET VOLUME 10.1 fl (7.0-11.0); MONO # 1.3 (0.1-0.6); MONO % 13.5 % (1.0-6.0); RBC 5.22 10^6/uL (3.5-6.1); RED CELL DISTRIBUTION WIDTH 20.7 % (11.5-14.5); WHITE BLOOD COUNT 9.9 10^3/ul (4.5-11.0)
[2018-01-27 07:50] LABS: ALB/GLOB RATIO 0.9 (1.1-1.8)
[2018-01-27 07:54] LABS: ALBUMIN 2.8 g/dL (3.0-4.8); ALT/SGPT 56 U/L (7-56); AST/SGOT 38 U/L (17-59); BLOOD UREA NITROGEN 20 mg/dL (7-21); CALCIUM 8.8 mg/dL (8.4-10.5); GFR NON-AFRICAN AMERICAN > 60
[2018-01-27] MEDS: Arformoterol 15 mcg/2 ml Inh Sol IH SCH ×2 (08:26→19:23)
[2018-01-27] MEDS: Budesonide 0.5 mg/2 ml Inhal Susp UD IH SCH ×2 (08:26→19:23)
--- NOTE | 2018-01-27 09:27 | PN ---
SUBJECTIVE: The patient was seen and examined at bedside on the telemetry [place]. No acute events overnight. He remains afebrile, hemodynamically stable and chest pain free. The patient continues to endorse improvement in his respiratory status and furthermore reports improvement in his lower extremity edema. He is pending cardiac catheterization with Dr. Pierec to further assess his deteriorated cardiac function. OBJECTIVE: VITAL SIGNS: Temperature 97.5, pulse 117, blood pressure 122/84, respiratory rate 20, oxygen saturation 95% on 2 L nasal cannula. GENERAL: No apparent distress. HEENT: PERRL, EOMI. No scleral icterus. No conjunctival pallor. NECK: No JVD. LUNGS: Decreased breath sounds at the bases with crackles to left lower lobe. CARDIOVASCULAR: Tachycardic, irregularly irregular. ABDOMEN: Normoactive bowel sounds, soft, nontender, nondistended. Healing midline surgical scar, drain in place with minimal discharge. EXTREMITIES: Lázaro wrapping in place with trace lower extremity edema bilaterally. NEUROLOGIC: Awake, alert and oriented x 3. No focal motor deficits. LABORATORY DATA: WBC 9.9, hemoglobin 10, hematocrit 34, platelets 276, MCV 66. Chemistry reviewed and unremarkable. Blood cultures with no growth to date. Wound cultures from foot with MSSA. Fluid culture from abdominal paracentesis with Staphylococcus species. ASSESSMENT: The patient is a 57-year-old man who recently underwent ventral hernia repair and presented with several week history of worsening abdominal distention, exertional dyspnea, bilateral lower extremity edema and 3-pillow orthopnea and was admitted for management of intra-abdominal abscess, new onset AFib with RVR , right subsegmental pulmonary embolism, LLE DVT and new onset acute systolic heart failure. PLAN: 1. AFib with RVR, new onset. Input from Dr. Pierce greatly appreciated. The patient remains rate-controlled. Eliquis has been placed on hold in anticipation of his cardiac catheterization. Continue Diltiazem 60 mg p.o. t.i.d. and Digoxin 0.25 mg p.o. daily. 2. Intra-abdominal abscess s/p IR drainage. Output from drain continues to decrease. Input from Dr. Bales appreciated. Continue with current antimicrobials. 3. Subsegmental PE to the RLL. As above, Eliquis has been placed on hold in anticipation of his cardiac catheterization. The patient will require at least 6 months of anticoagulation therapy for his PE but will likely require lifelong anticoagulation therapy given his AFib. 4. Acute systolic CHF, new onset. The patient remains on Lasix 40 mg IV q 12 hours, is diuresing satisfactorily and reports significant improvement in his respiratory status. As above, he is pending cardiac catheterization to rule out acute coronary event as the etiology of his new-onset heart failure. 5. Left lower extremity DVT. Continue therapeutic Lovenox. 6. Hypertension. Blood pressure controlled. Continue current medications. 7. Iron-deficiency anemia. H/H remained stable. Continue Protonix 40 mg p.o. daily and Feosol 324 mg p.o. t.i.d. 8. Chronic gastritis. Continue Protonix 40 mg p.o. daily. 9. Prophylaxis. Continue Protonix for GI prophylaxis. DVT prophylaxis is not indicated as the patient remains on therapeutic Lovenox. CODE STATUS: Full code. Keith Wilhelm MD [email or web address]
[2018-01-27] MEDS: Vancomycin 1gm in NS 250ml 1 GM/250 ML BAG IVPB SCH ×2 (09:54→21:41)
[2018-01-27] MEDS: Digoxin 250 mcg (0.25 mg) Tab PO SCH (09:55)
--- NOTE | 2018-01-27 10:07 | CP.PCM.PN ---
<Tigre Chaney - Last Filed: 01/27/18 10:02> Subjective - Date & Time of Evaluation Date of Evaluation: 01/27/18 Time of Evaluation: 10:02 - Subjective Subjective: Podiatry Progress note for attending Dr. Cadena 57 year old male was seen and evaluated for multiple bilateral leg wounds. Patient is AAOx3 and appears in NAD. Denies of any pain on the extremities. Patient states that he is still having breathing difficulty but it's improving. Patient denies of having any overnight F/N/V/C. Patient denies any other pedal complains at this time. Objective - Vital Signs/Intake and Output Vital Signs (last 24 hours): Temp Pulse Resp BP Pulse Ox 97.5 F L 119 H 20 120/80 95 01/27/18 06:00 01/27/18 09:55 01/27/18 06:00 01/27/18 09:55 01/27/18 06:00 Intake and Output: 01/27/18 01/27/18 06:59 18:59 Intake Total 750 Output Total 2300 Balance -1550 - Medications Medications: Current Medications Arformoterol Tartrate (Brovana) 15 mcg IH [id number] [facility] Last Admin: 01/27/18 08:26 Dose: 15 mcg Budesonide (Pulmicort Respules) 0.5 mg IH [id number] [facility] Last Admin: 01/27/18 08:26 Dose: 0.5 mg Clopidogrel Bisulfate (Plavix) 75 mg PO DAILY [facility] Last Admin: 01/27/18 09:54 Dose: 75 mg Digoxin (Lanoxin) 0.25 mg PO DAILY [facility] Last Admin: 01/27/18 09:55 Dose: 0.25 mg Diltiazem HCl (Cardizem) 60 mg PO TID [facility] Last Admin: 01/27/18 09:55 Dose: 60 mg Enoxaparin Sodium (Lovenox) 115 mg SC Q12H [facility] PRN Reason: Protocol Stop: 01/28/18 21:01 Ferrous Sulfate (Feosol) 324 mg PO TID [facility] Last Admin: 01/27/18 09:55 Dose: 324 mg Furosemide (Lasix) 40 mg IVP Q12 [facility] Last Admin: 01/27/18 09:54 Dose: 40 mg Meropenem (Merrem Iv 1 Gm Premix) 50 mls @ 100 mls/hr IVPB Q8 [facility] PRN Reason: Protocol Stop: 01/30/18 14:01 Last Admin: 01/27/18 05:28 Dose: 100 mls/hr Vancomycin HCl (Vancomycin 1gm) 1 gm in 250 mls @ 167 mls/hr IVPB Q12H [facility] PRN Reason: Protocol Last Admin: 01/27/18 09:54 Dose: 167 mls/hr Mupirocin (Bactroban Ointment) 10 gm TOP DAILY [facility] Last Admin: 01/26/18 10:10 Dose: Not Given Pantoprazole Sodium (Protonix Ec Tab) 40 mg PO 0600 [facility] Last Admin: 01/27/18 05:33 Dose: 40 mg - Labs Labs: 01/27/18 06:30 01/27/18 06:30 PT 22.4 SECONDS (9.4-12.5) H 01/23/18 03:00 INR 1.94 01/23/18 03:00 APTT 75.6 Seconds (25.1-36.5) H 01/24/18 01:35 - Constitutional Appears: Well, Non-toxic, No Acute Distress - Head Exam Head Exam: ATRAUMATIC, NORMOCEPHALIC - Extremities Exam Additional comments: Bilateral LE exam VASC: DP/PT 1/4, Cap refill time < 3 sec to all digits, Temp gradient warm to cool from proximal to distal, +2 pitting edema noted diffusely on bilateral LE and dorsum of the foot. DERM: multiple diffuse wounds on bilateral LE as well as dorsum of the foot, All wounds with different sizes with largest wound measuring apprximatly 4 cm x 3 cm x 0.5cm, wound are superficial with fibrotic bed with scab formation, minimal hafsa-wound erythema noted, no active drainage from the wounds, no malodor, no probe to bone, no tunneling, no tracking, no clinical suspicion of active infection NEURO: Protective and gross sensations are grossly intact ORTHO: No pain on palpation of the wounds, no pain on palpation of the calf. - Neurological Exam Neurological Exam: Alert, Awake, Oriented x3 - Psychiatric Exam Psychiatric exam: Normal Affect, Normal Mood Assessment and Plan - Assessment and Plan (Free Text) Assessment: 57 year old male with PMHx of HTN was evaluated for multiple wounds (Diggs 1) on bilateral LE Plan: Patient seen and evaluated at the bed side with Dr. Cadena Discussed plan with attending Dr. Cadena Labs, vitals and charts reviewed - afebrile, WBC 9.9 No active source of infection from bilateral LE; wounds appear clinically non- infected Wound cultures from foot and leg - Staph Aureus, Final LE US - DVT in left popliteal and tibial veins CTA - small emboli in segmental brace of right lower lobe Wounds cleaned with saline and dressed using bactroban, DSD, LILLIAN Patient is stable from podiatry standpoint Will continue local wound care Podiatry will continue following up the patient while in house. <Duane Cadena - Last Filed: 01/28/18 10:33> Objective - Vital Signs/Intake and Output Vital Signs (last 24 hours): Temp Pulse Resp BP Pulse Ox 98.5 F 122 H 20 122/90 98 01/28/18 06:00 01/28/18 09:36 01/28/18 06:00 01/28/18 09:36 01/28/18 06:00 Intake and Output: 01/28/18 01/28/18 06:59 18:59 Intake Total 600 Output Total 750 Balance -150 - Medications Medications: Current Medications Arformoterol Tartrate (Brovana) 15 mcg IH [id number] [facility] Last Admin: 01/28/18 07:28 Dose: 15 mcg Budesonide (Pulmicort Respules) 0.5 mg IH [id number] [facility] Last Admin: 01/28/18 07:28 Dose: 0.5 mg Clopidogrel Bisulfate (Plavix) 75 mg PO DAILY [facility] Last Admin: 01/28/18 09:36 Dose: 75 mg Digoxin (Lanoxin) 0.25 mg PO DAILY [facility] Last Admin: 01/28/18 09:36 Dose: 0.25 mg Diltiazem HCl (Cardizem) 60 mg PO TID [facility] Last Admin: 01/28/18 09:36 Dose: 60 mg Enoxaparin Sodium (Lovenox) 115 mg SC Q12H [facility] PRN Reason: Protocol Stop: 01/28/18 21:01 Last Admin: 01/28/18 09:34 Dose: 115 mg Ferrous Sulfate (Feosol) 324 mg PO TID [facility] Last Admin: 01/28/18 09:35 Dose: 324 mg Furosemide (Lasix) 40 mg IVP Q12 [facility] Last Admin: 01/28/18 09:35 Dose: 40 mg Meropenem (Merrem Iv 1 Gm Premix) 50 mls @ 100 mls/hr IVPB Q8 [facility] PRN Reason: Protocol Stop: 01/30/18 14:01 Last Admin: 01/28/18 05:20 Dose: 100 mls/hr Vancomycin HCl (Vancomycin 1gm) 1 gm in 250 mls @ 167 mls/hr IVPB Q12H [facility] PRN Reason: Protocol Last Admin: 01/28/18 09:34 Dose: 167 mls/hr Mupirocin (Bactroban Ointment) 10 gm TOP DAILY [facility] Last Admin: 01/28/18 09:37 Dose: Not Given Pantoprazole Sodium (Protonix Ec Tab) 40 mg PO 0600 [facility] Last Admin: 01/28/18 05:21 Dose: 40 mg - Labs Labs: 01/28/18 06:30 01/28/18 06:30 PT 22.4 SECONDS (9.4-12.5) H 01/23/18 03:00 INR 1.94 01/23/18 03:00 APTT 75.6 Seconds (25.1-36.5) H 01/24/18 01:35 Attending/Attestation - Attestation I have personally seen and examined this patient.: Yes I have fully participated in the care of the patient.: Yes I have reviewed all pertinent clinical information, including history, physical exam and plan: Yes
[2018-01-27] MEDS: Mupirocin 2% Ointment 15 GM TUBE TOP SCH (10:11)
--- NOTE | 2018-01-27 11:42 | PN ---
Copied To: José Miguel Poole MD Attending MD: José Miguel Poole MD DATE: 01/27/2018 SUBJECTIVE: The patient is seen earlier today in room 268, bed 2. He is awake and alert. PHYSICAL EXAMINATION: VITAL SIGNS: On exam, temperature is 97, blood pressure is 120/80, respiratory rate of 16. HEENT: Examination of HEENT is unremarkable. NECK: Supple. LUNGS: Have decreased breath sounds. HEART: Normal S1, S2. ABDOMINAL: Soft, nontender. LABORATORY DATA: Laboratory examination reveals a white count of 9.9, hemoglobin of 10 and platelets of 276. Chemistries reveals a BUN of 20, creatinine of 0.8. Urinalysis is noted. Microbiology reveals body fluids with Staph species, abdominal body fluid. The left leg has Staph aureus and the right foot has Staph aureus, the left foot has Staph aureus. The blood cultures are negative. One Staph aureus sensitivity from the left foot is a sensitive Staph aureus. Review of orders revealed the patient to be on meropenem and vancomycin. Dr. Keith Wilhelm's progress note is reviewed. ASSESSMENT AND PLAN: A 57-year-old male with abdominal abscess, status post draining, growing Staphylococcus, bilateral lower extremity lymphedema with skin and skin structure infection with methicillin-susceptible Staphylococcus aureus and hypertension, pulmonary emboli, cardiomyopathy and status post colon resection and in 10/2017 with obesity with body mass index of 34, on vancomycin and meropenem. Awaiting for further sensitivity of the Staphylococcus. Initial one is sensitive. Today is day #5 of meropenem and day #2 of vancomycin. We will follow closely with you and make further recommendations. José Miguel Poole MD
--- NOTE | 2018-01-27 12:53 | PN ---
Copied To: Uvaldo Pierce MD Attending MD: Uvaldo Pierce MD DATE: 01/27/2018 SUBJECTIVE: The patient is comfortable. No shortness of breath noted. PHYSICAL EXAMINATION: VITAL SIGNS: Blood pressure 120/80, heart rate is 100. NECK: Negative JVD. LUNGS: Without rales. HEART: S1, S2. EXTREMITIES: Without edema. LABORATORY DATA: Laboratories were reviewed. IMPRESSION: 1. Pulmonary embolism. 2. New dilated cardiomyopathy. 3. Congestive heart failure which is better. 4. New-onset atrial fibrillation. Given these findings, the patient is scheduled for cardiac catheterization on Monday morning. Uvaldo Pierce MD
[2018-01-28] MEDS: Meropenem IV 1 gm in NS 50 ML IVPB SCH ×3 (05:20→22:06)
[2018-01-28] MEDS: Pantoprazole 40 mg EC Tab PO SCH (05:21)
[2018-01-28] MEDS: Budesonide 0.5 mg/2 ml Inhal Susp UD IH SCH ×2 (07:28→19:41)
[2018-01-28] MEDS: Arformoterol 15 mcg/2 ml Inh Sol IH SCH ×2 (07:28→19:41)
[2018-01-28 07:35] LABS: BASO # 0.04 K/mm3 (0.0-2.0); BASO % 0.5 % (0.0-3.0); EOS # 0.4 (0.0-0.7); EOS % 4.2 % (1.5-5.0); GRAN # 6.24 (1.4-6.5); GRAN % 70.8 % (50.0-68.0); HEMOGLOBIN 10.5 g/dL (14.0-18.0); LYMPH # 1.2 (1.2-3.4); LYMPH % 13.7 % (22.0-35.0); MEAN CELL VOLUME 66.1 fl (80.0-105.0); MEAN CORPUSCULAR HEMOGLOBIN 19.6 pg (25.0-35.0); MEAN CORPUSCULAR HGB CONC 29.6 g/dl (31.0-37.0); MEAN PLATELET VOLUME 9.8 fl (7.0-11.0); MONO % 10.8 % (1.0-6.0); RBC 5.37 10^6/uL (3.5-6.1); WHITE BLOOD COUNT 8.8 10^3/ul (4.5-11.0)
[2018-01-28 08:39] LABS: ALB/GLOB RATIO 0.9 (1.1-1.8); ALBUMIN 2.9 g/dL (3.0-4.8); ALT/SGPT 52 U/L (7-56); AST/SGOT 44 U/L (17-59); BLOOD UREA NITROGEN 20 mg/dL (7-21); CALCIUM 8.7 mg/dL (8.4-10.5); GFR NON-AFRICAN AMERICAN > 60
[2018-01-28] MEDS ORDERED: Enoxaparin 120 mg Syringe SC SCH (09:00)
[2018-01-28] MEDS: Enoxaparin 120 mg Syringe SC SCH ×2 (09:34→22:08)
[2018-01-28] MEDS: Vancomycin 1gm in NS 250ml 1 GM/250 ML BAG IVPB SCH ×2 (09:34→22:30)
[2018-01-28] MEDS: Digoxin 250 mcg (0.25 mg) Tab PO SCH (09:36)
[2018-01-28] MEDS: Mupirocin 2% Ointment 15 GM TUBE TOP SCH ×2 (09:37→16:19)
--- NOTE | 2018-01-28 12:22 | PN ---
Copied To: José Miguel Poole MD Attending MD: José Miguel Poole MD DATE: 01/28/2018 SUBJECTIVE: The patient is seen in room 268, bed 2. No fevers and chills. PHYSICAL EXAMINATION: VITAL SIGNS: On exam, temperature is 98, blood pressure is 120/90, respiratory rate of 20, heart rate of 71. HEENT: Examination of HEENT is unremarkable. NECK: Supple. LUNGS: Have decreased breath sounds. HEART: Normal S1, S2. ABDOMEN: Soft, nontender. LABORATORY DATA: Laboratory examination reveals a white count of 8.8, hemoglobin of 10, platelets of 256. Chemistries reveals a BUN of 20, creatinine of 0.8. Urinalysis is noted. Microbiology is reviewed with left foot culture and abdominal culture. Dr. Uvaldo Pierce's note is reviewed from yesterday. Diagnosis of new dilated cardiomyopathy, pulmonary emboli, congestive heart failure, new onset of atrial fibrillation and scheduled the patient for a cardiac cath from Monday. Dr. Keith Wilhelm's note is reviewed. ASSESSMENT AND PLAN: A 57-year-old male with an abdominal abscess, status post draining, growing Staphylococcus, bilateral lower extremity lymphedema with skin and skin structure with a sensitive Staphylococcus aureus, hypertension, pulmonary emboli, cardiomyopathy, status post colon resection in 10/2017 with obesity with body mass index of 34 with day #6 of meropenem and day #3 of vancomycin with the coagulase-negative Staphylococcus from the abdominal wound culture. Review of orders reveals the meropenem requiring renewal and the vancomycin is active. We will discuss with Dr. Cadena regarding lower extremities and we will follow closely with you. José Miguel Poole MD
--- NOTE | 2018-01-28 13:06 | CP.PCM.PN ---
<Tigre Chaney - Last Filed: 01/28/18 14:42> Subjective - Date & Time of Evaluation Date of Evaluation: 01/28/18 Time of Evaluation: 13:03 - Subjective Subjective: Podiatry Progress note for attending Dr. Cadena 57 year old male was seen and evaluated for multiple bilateral leg wounds. Patient is AAOx3 and appears in NAD. Patient denies of any pain in his extremities. Patient states that he is still having breathing difficulty but it' s improving. Patient denies any overnight F/N/V/C. Patient denies any other pedal complains at this time. Objective - Vital Signs/Intake and Output Vital Signs (last 24 hours): Temp Pulse Resp BP Pulse Ox 98.5 F 114 H 20 122/90 98 01/28/18 06:00 01/28/18 10:00 01/28/18 06:00 01/28/18 09:36 01/28/18 06:00 Intake and Output: 01/28/18 01/28/18 06:59 18:59 Intake Total 600 Output Total 750 Balance -150 - Medications Medications: Current Medications Arformoterol Tartrate (Brovana) 15 mcg I[facility] [id number] [facility] Last Admin: 01/28/18 07:28 Dose: 15 mcg Budesonide (Pulmicort Respules) 0.5 mg IH [id number] [facility] Last Admin: 01/28/18 07:28 Dose: 0.5 mg Clopidogrel Bisulfate (Plavix) 75 mg PO DAILY [facility] Last Admin: 01/28/18 09:36 Dose: 75 mg Digoxin (Lanoxin) 0.25 mg PO DAILY [facility] Last Admin: 01/28/18 09:36 Dose: 0.25 mg Diltiazem HCl (Cardizem) 60 mg PO TID [facility] Last Admin: 01/28/18 09:36 Dose: 60 mg Enoxaparin Sodium (Lovenox) 115 mg SC Q12H [facility] PRN Reason: Protocol Stop: 01/28/18 21:01 Last Admin: 01/28/18 09:34 Dose: 115 mg Ferrous Sulfate (Feosol) 324 mg PO TID [facility] Last Admin: 01/28/18 09:35 Dose: 324 mg Furosemide (Lasix) 40 mg IVP Q12 [facility] Last Admin: 01/28/18 09:35 Dose: 40 mg Meropenem (Merrem Iv 1 Gm Premix) 50 mls @ 100 mls/hr IVPB Q8 [facility] PRN Reason: Protocol Stop: 01/30/18 14:01 Last Admin: 01/28/18 05:20 Dose: 100 mls/hr Vancomycin HCl (Vancomycin 1gm) 1 gm in 250 mls @ 167 mls/hr IVPB Q12H [facility] PRN Reason: Protocol Last Admin: 01/28/18 09:34 Dose: 167 mls/hr Mupirocin (Bactroban Ointment) 10 gm TOP DAILY [facility] Last Admin: 01/28/18 09:37 Dose: Not Given Pantoprazole Sodium (Protonix Ec Tab) 40 mg PO 0600 [facility] Last Admin: 01/28/18 05:21 Dose: 40 mg - Labs Labs: 01/28/18 06:30 01/28/18 06:30 PT 22.4 SECONDS (9.4-12.5) H 01/23/18 03:00 INR 1.94 01/23/18 03:00 APTT 75.6 Seconds (25.1-36.5) H 01/24/18 01:35 - Constitutional Appears: Well, Non-toxic, No Acute Distress - Head Exam Head Exam: ATRAUMATIC, NORMOCEPHALIC - Extremities Exam Additional comments: Bilateral LE exam Vasc: DP/PT 1/4, Cap refill time < 3 sec to all digits, Temp gradient warm to cool from proximal to distal, +2 pitting edema noted on bilateral LE and dorsum of the foot. Derm: multiple diffuse wounds on bilateral LE as well as dorsum of the foot, All wounds with different sizes with largest wound measuring apprximatly 4 cm x 3 cm x 0.5cm, wound are superficial with fibrotic bed with scab formation, minimal hafsa-wound erythema noted, no active drainage from the wounds, no malodor, no probe to bone, no tunneling, no tracking, no clinical suspicion of active infection. Ulcer noted on the tip of the right 3rd toe covered by dry scab, minimal hafsa-wound erythema noted, no active drainage from the wounds, no malodor, no probe to bone, no tunneling, no tracking, no clinical suspicion of active infection. Neuro: Protective and gross sensations are grossly intact MSK: No pain on palpation of the wounds, no pain on palpation of the calf. - Neurological Exam Neurological Exam: Alert, Awake, Oriented x3 - Psychiatric Exam Psychiatric exam: Normal Affect, Normal Mood Assessment and Plan - Assessment and Plan (Free Text) Assessment: 57 year old male with PMHx of HTN was evaluated for multiple wounds (Diggs 1) on bilateral LE Plan: Patient seen and evaluated at the bed side Discussed plan with attending Dr. Cadena Labs, vitals and charts reviewed - afebrile, WBC 9.9 No active source of infection from bilateral LE; wounds appear clinically non- infected Wound cultures from foot and leg - Staph Aureus, Final LE US - DVT in left popliteal and tibial veins CTA - small emboli in segmental brace of right lower lobe Wounds dressed using bactroban, telfa, DSD, LILLIAN Patient is stable from podiatry standpoint Will continue local wound care Podiatry will continue following up the patient while in house. <Duane Cadena - Last Filed: 01/30/18 15:49> Objective - Vital Signs/Intake and Output Vital Signs (last 24 hours): Temp Pulse Resp BP Pulse Ox 97.9 F 64 19 131/98 H 99 01/30/18 11:42 01/30/18 11:44 01/30/18 11:42 01/30/18 11:47 01/30/18 06:00 Intake and Output: 01/30/18 01/30/18 06:59 18:59 Intake Total 480 350 Output Total 2600 60 Balance -2120 290 - Medications Medications: Current Medications Apixaban (Eliquis) 5 mg PO BID [facility] PRN Reason: Protocol Last Admin: 01/30/18 11:43 Dose: 5 mg Arformoterol Tartrate (Brovana) 15 mcg [facility] [id number] [facility] Last Admin: 01/30/18 08:00 Dose: 15 mcg Budesonide (Pulmicort Respules) 0.5 mg IH [id number] [facility] Last Admin: 01/30/18 08:00 Dose: 0.5 mg Digoxin (Lanoxin) 0.25 mg PO DAILY [facility] Last Admin: 01/30/18 11:44 Dose: 0.25 mg Diltiazem HCl (Cardizem) 60 mg PO TID [facility] Last Admin: 01/30/18 11:44 Dose: 60 mg Ferrous Sulfate (Feosol) 324 mg PO TID [facility] Last Admin: 01/30/18 11:44 Dose: 324 mg Furosemide (Lasix) 40 mg IVP Q12 [facility] Last Admin: 01/30/18 11:47 Dose: 40 mg Vancomycin HCl (Vancomycin 1gm) 1 gm in 250 mls @ 167 mls/hr IVPB Q12H [facility] PRN Reason: Protocol Last Admin: 01/30/18 09:23 Dose: 167 mls/hr Mupirocin (Bactroban Ointment) 10 gm TOP DAILY [facility] Last Admin: 01/29/18 10:28 Dose: Not Given Pantoprazole Sodium (Protonix Ec Tab) 40 mg PO 0600 [facility] Last Admin: 01/30/18 05:33 Dose: 40 mg Sotalol HCl (Betapace) 80 mg PO BID [facility] Last Admin: 01/30/18 11:43 Dose: 80 mg - Labs Labs: 01/30/18 06:30 01/30/18 06:30 PT 22.4 SECONDS (9.4-12.5) H 01/23/18 03:00 INR 1.94 01/23/18 03:00 APTT 75.6 Seconds (25.1-36.5) H 01/24/18 01:35 Attending/Attestation - Attestation I have personally seen and examined this patient.: Yes I have fully participated in the care of the patient.: Yes I have reviewed all pertinent clinical information, including history, physical exam and plan: Yes
--- NOTE | 2018-01-28 14:30 | PN ---
SUBJECTIVE: The patient was seen and examined at bedside on the telemetry [place]. No acute events overnight. He remains afebrile, hemodynamically stable and chest pain free. He is pending cardiac catheterization with Dr. Pierce tomorrow to further assess his deteriorated cardiac function. OBJECTIVE: VITAL SIGNS: Temperature 98.5, pulse 71, blood pressure 122/90, respiratory rate 20, oxygen saturation 98% on room air. GENERAL: No apparent distress. HEENT: PERRL, EOMI. No scleral icterus. No conjunctival pallor. NECK: No JVD. LUNGS: Decreased breath sounds at the bases with few scattered rhonchi. CARDIOVASCULAR: Irregularly irregular. ABDOMEN: Normoactive bowel sounds. Soft, nontender and nondistended. Healed midline surgical scar with drain in place with minimal discharge. EXTREMITIES: Lázaro wrapping in place with trace lower extremity edema bilaterally. NEUROLOGIC: Awake, alert and oriented x 3. No focal motor deficits. LABORATORY DATA: WBC 8.8 with 71% neutrophils, hemoglobin 10.5, hematocrit 36, platelets 256, MCV 66. Chemistry reviewed and unremarkable. Blood cultures with no growth to date. Abdominal abscess culture with coag-negative Staph. ASSESSMENT: The patient is a 57-year-old man who recently underwent ventral hernia repair and presented with several week history of worsening abdominal distention, exertional dyspnea, bilateral lower extremity edema and 3-pillow orthopnea and was admitted for management of intra-abdominal abscess, new onset AFib with RVR , right subsegmental PE, LLE DVT and new onset acute systolic heart failure. PLAN: 1. AFib with RVR, new onset. Input from Dr. Pierce greatly appreciated. The patient remains rate controlled. Continue Diltiazem 60 mg p.o. t.i.d. and digoxin 0.25 mg p.o. daily. 2. Intra-abdominal abscess s/p IR drainage. Input from Dr. Bales appreciated. Continue with current antimicrobials. We will discuss with Dr. Uvaldo Garay the timing of removing his drain. 3. Subsegmental PE to the right lower lobe. As above, Joanna has been placed on hold in anticipation of his cardiac catheterization. He will require at least 6 months of anticoagulation therapy for his PE, but will likely require lifelong anticoagulation therapy given his AFib. 4. Acute systolic CHF, new onset. Continue Lasix 40 mg IV every 12 hours. Continue to monitor strict ins and outs. As above, the patient is pending cardiac catheterization with Dr. Pierce to rule out an acute coronary event as the etiology of his new-onset heart failure. 5. Left lower extremity DVT. Continue therapeutic Lovenox. The patient will be restarted on Eliquis after his cardiac cath. 6. Hypertension. Blood pressure controlled. Continue current medications. 7. Iron-deficiency anemia. H/H remained stable. Continue Protonix 40 mg p.o. daily and Feosol 324 mg p.o. t.i.d. 8. Chronic gastritis. Continue Protonix 40 mg p.o. daily. 9. Prophylaxis. Continue Protonix for GI prophylaxis. DVT prophylaxis is not indicated as the patient remains on therapeutic Lovenox. CODE STATUS: Full code. Keith Wilhelm MD MTDD
[2018-01-29] MEDS: Meropenem IV 1 gm in NS 50 ML IVPB SCH ×3 (05:53→21:06)
[2018-01-29] MEDS: Pantoprazole 40 mg EC Tab PO SCH (06:47)
[2018-01-29] MEDS ORDERED: Lidocaine PF 2% (5 ml) Inj (For Cardiac Arrhy) ONE (07:01)
[2018-01-29] MEDS ORDERED: Iohexol 350mgl/ml 50 ML ONE (07:02)
[2018-01-29] MEDS ORDERED: Iodixanol 320 MG/ML 200 ML BOTTLE IV ONE (07:02)
[2018-01-29] MEDS ORDERED: Iodixanol 320 MG/ML 100 ML BOTTLE IV ONE (07:02)
[2018-01-29] MEDS ORDERED: Phenylephrine 10 mg/ml Inj ONE (07:02)
[2018-01-29 07:28] LABS: BASO # 0.08 K/mm3 (0.0-2.0); BASO % 0.9 % (0.0-3.0); EOS # 0.3 (0.0-0.7); EOS % 3.2 % (1.5-5.0); GRAN # 6.05 (1.4-6.5); GRAN % 68.5 % (50.0-68.0); HEMOGLOBIN 10.8 g/dL (14.0-18.0); LYMPH # 1.1 (1.2-3.4); LYMPH % 12.6 % (22.0-35.0); MEAN CELL VOLUME 65.5 fl (80.0-105.0); MEAN CORPUSCULAR HEMOGLOBIN 19.4 pg (25.0-35.0); MEAN CORPUSCULAR HGB CONC 29.7 g/dl (31.0-37.0); MONO # 1.3 (0.1-0.6); MONO % 14.8 % (1.0-6.0); RBC 5.56 10^6/uL (3.5-6.1); WHITE BLOOD COUNT 8.8 10^3/ul (4.5-11.0)
[2018-01-29 07:46] LABS: ALB/GLOB RATIO 0.9 (1.1-1.8); ALBUMIN 2.8 g/dL (3.0-4.8); ALT/SGPT 52 U/L (7-56); AST/SGOT 36 U/L (17-59); BLOOD UREA NITROGEN 20 mg/dL (7-21); CALCIUM 9.1 mg/dL (8.4-10.5); GFR NON-AFRICAN AMERICAN > 60
[2018-01-29] MEDS ORDERED: Midazolam 2 MG/2 ML VIAL ONE ×2 (07:55→08:00)
[2018-01-29] MEDS ORDERED: Digoxin 500 mcg/2ml (0.5 mg/2ml) Inj ONE (08:03)
--- NOTE | 2018-01-29 08:35 | PN ---
SUBJECTIVE: The patient was seen and examined at bedside on the telemetry [place]. No acute events overnight. He remains afebrile, hemodynamically stable and chest pain free. He is pending cardiac catheterization this morning with Dr. Pierce. PHYSICAL EXAMINATION VITAL SIGNS: Temperature 98, pulse 55, blood pressure 128/88, respiratory rate 20, oxygen saturation 97% on room air. GENERAL: No apparent distress. HEENT: PERRL. EOMI. No scleral icterus. No conjunctival pallor. NECK: No JVD. LUNGS: Decreased breath sounds at bases with a few scattered rhonchi. CARDIOVASCULAR: Irregularly irregular. ABDOMEN: Normoactive bowel sounds, soft, nontender, nondistended. Healed midline surgical scar with drain in place with minimal discharge. EXTREMITIES: Lázaro wrapping in place to lower extremities. NEUROLOGIC: Awake, alert and oriented x 3. No focal motor deficits. LABORATORY DATA: WBC 8.8, hemoglobin 10.8, hematocrit 36, platelets 278, MCV 66. Chemistry reviewed and unremarkable. ASSESSMENT: The patient is a 57-year-old man who recently underwent ventral hernia repair and presented with several week history of worsening abdominal distention, exertional dyspnea, bilateral lower extremity edema and 3-pillow orthopnea and was admitted for management of intra-abdominal abscess, new onset AFib with RVR , right subsegmental pulmonary embolism, LLE DVT and new onset acute systolic heart failure. PLAN: 1. AFib with RVR, new onset. Input from Dr. Pierce noted and greatly appreciated. Continue Diltiazem and Digoxin. 2. Intra-abdominal abscess s/p IR drainage. Input from Dr. Poole appreciated. Continue with current antimicrobials. 3. Subsegmental PE to the right lower lobe. Eliquis remains on hold in anticipation of the patient's cardiac catheterization. The patient will require at least 6 months of anticoagulation therapy for his PE but may require lifelong anticoagulation therapy given his AFib. 4. Acute systolic CHF, new onset. Continue Lasix and monitoring strict I&O's. As above, the patient is pending cardiac catheterization this morning to rule out an acute coronary event. 5. Left lower extremity DVT. The patient will be restarted on Eliquis after cardiac catheterization. 6. Hypertension. Blood pressure controlled. Continue current medications. 7. Iron deficiency anemia. H/H remains stable. Continue Protonix 40 mg p.o. daily and Feosol 324 mg p.o. t.i.d. 8. Chronic gastritis. Continue Protonix 40 mg p.o. daily. 9. Prophylaxis. Continue Protonix for GI prophylaxis. DVT prophylaxis is not indicated as the patient remains on Eliquis. CODE STATUS: Full code. Keith Wilhelm MD MTDD
[2018-01-29] MEDS ORDERED: Sodium Chloride 0.9% 1,000 ML IV SCH (08:45)
[2018-01-29] MEDS: Arformoterol 15 mcg/2 ml Inh Sol IH SCH ×2 (08:50→19:51)
[2018-01-29] MEDS: Budesonide 0.5 mg/2 ml Inhal Susp UD IH SCH ×2 (08:50→19:51)
--- NOTE | 2018-01-29 09:38 | CARDCATH ---
Copied To: Uvaldo Pierce MD Attending MD: Uvaldo Pierce MD PROCEDURE DATE: 01/29/2018 CARDIAC CATHETERIZATION The patient is a 57-year-old male, who presents with rapid atrial fibrillation, congestive heart failure and pulmonary embolism. He was found to have an ejection fraction that has decreased over the past several months. Because of this, a cardiac catheterization was recommended to rule out coronary artery disease as well as valvular heart disease that may contribute to his cardiomyopathy and CHF. PROCEDURE: Left heart catheterization with coronary arteriography and left ventriculogram and supra-aortic valvular injection. The right femoral artery was cannulated with a 6-Syriac sheath. There were no complications. I performed moderate sedation, which included the presence of an independent trained observer that assisted in monitoring the patient's level of consciousness and physiologic status. After administration of Versed and fentanyl, my intra service time was 15 minutes. The findings on catheterization revealed a left ventricle that was diffusely hypokinetic. Estimated ejection fraction is 35-40%. There was no mitral regurgitation. Supra-aortic valvular injection revealed no aortic insufficiency. His coronary anatomy revealed a codominant circulation. The RCA revealed diffuse atherosclerosis without critical lesions. The left main artery was unremarkable. The LAD and diagonal vessels revealed intimal irregularities without critical lesions. The circumflex artery and obtuse marginal branches revealed intimal irregularities without critical lesions. Angio-Seal was used to close the femoral artery site. The patient tolerated the procedure well. In summary, the procedure revealed a dilated cardiomyopathy with an EF of 35-40%. His coronary anatomy revealed no critical lesions with diffuse atherosclerosis without critical stenosis. There was no mitral regurgitation and no aortic insufficiency. Given these findings, we will continue the patient on Lasix. 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 We will add sotalol to his regimen. An attempt at cardioversion to normal sinus rhythm would improve his cardiac function. I have discussed this with the patient and is agreeable. Uvaldo Pierce MD
[2018-01-29] MEDS: Vancomycin 1gm in NS 250ml 1 GM/250 ML BAG IVPB SCH ×2 (09:47→21:06)
[2018-01-29] MEDS: Digoxin 250 mcg (0.25 mg) Tab PO SCH (09:47)
[2018-01-29] MEDS: Mupirocin 2% Ointment 15 GM TUBE TOP SCH (10:28)
--- NOTE | 2018-01-29 17:22 | CP.PCM.PN ---
Subjective - Date & Time of Evaluation Date of Evaluation: 01/29/18 Time of Evaluation: 17:11 - Subjective Subjective: Podiatry Progress Note - Drs. Messina/Tammi 57 year old male patient seen and examined for bilateral lower extremity ulcerations. Patient s/p cardiac catheterization, recovering well w/minimal discomfort, NAD. Denies any pain in lower extremity wounds. Dressings to bilateral LE remain clean/dry/intact. Denies N/V/D, no F/C. No new pedal complaints. Objective - Vital Signs/Intake and Output Vital Signs (last 24 hours): Temp Pulse Resp BP Pulse Ox 99 F 62 18 102/59 L 97 01/29/18 17:01 01/29/18 17:01 01/29/18 17:01 01/29/18 17:01 01/29/18 17:01 Intake and Output: 01/29/18 01/29/18 06:59 18:59 Intake Total 1060 Output Total 2500 Balance -1440 - Medications Medications: Current Medications Apixaban (Eliquis) 5 mg PO BID [facility] PRN Reason: Protocol Last Admin: 01/29/18 09:46 Dose: 5 mg Arformoterol Tartrate (Brovana) 15 mcg IH [id number] [facility] Last Admin: 01/29/18 08:50 Dose: 15 mcg Budesonide (Pulmicort Respules) 0.5 mg IH [id number] [facility] Last Admin: 01/29/18 08:50 Dose: 0.5 mg Digoxin (Lanoxin) 0.25 mg PO DAILY [facility] Last Admin: 01/29/18 09:47 Dose: 0.25 mg Diltiazem HCl (Cardizem) 60 mg PO TID [facility] Last Admin: 01/29/18 13:49 Dose: 60 mg Ferrous Sulfate (Feosol) 324 mg PO TID [facility] Last Admin: 01/29/18 13:48 Dose: 324 mg Furosemide (Lasix) 40 mg IVP Q12 [facility] Last Admin: 01/29/18 09:46 Dose: 40 mg Meropenem (Merrem Iv 1 Gm Premix) 50 mls @ 100 mls/hr IVPB Q8 [facility] PRN Reason: Protocol Stop: 01/30/18 14:01 Last Admin: 01/29/18 13:48 Dose: 100 mls/hr Vancomycin HCl (Vancomycin 1gm) 1 gm in 250 mls @ 167 mls/hr IVPB Q12H [facility] PRN Reason: Protocol Last Admin: 01/29/18 09:47 Dose: 167 mls/hr Mupirocin (Bactroban Ointment) 10 gm TOP DAILY [facility] Last Admin: 01/29/18 10:28 Dose: Not Given Pantoprazole Sodium (Protonix Ec Tab) 40 mg PO 0600 [facility] Last Admin: 01/29/18 06:47 Dose: 40 mg Sotalol HCl (Betapace) 80 mg PO BID [facility] Last Admin: 01/29/18 09:46 Dose: 80 mg - Labs Labs: 01/29/18 06:30 01/29/18 06:30 PT 22.4 SECONDS (9.4-12.5) H 01/23/18 03:00 INR 1.94 01/23/18 03:00 APTT 75.6 Seconds (25.1-36.5) H 01/24/18 01:35 - Constitutional Appears: Well, Non-toxic, No Acute Distress - Extremities Exam Additional comments: Bilateral LE exam Vasc: DP/PT weakly palpable 1/4 b/l. CFT <3 seconds to all digits b/l. Temperature gradient warm to warm b/l. +2 pitting edema noted to bilateral LE. Neuro: Gross sensation intact bilaterally. Derm: Full thickness ulcerations noted to bilateral LE - ulcerations noted to have a fibrogranular base with scab formation; minimal periwound erythema noted ; no active drainage; no malodor; no probe to bone; no tunneling. Ulceration noted to distal aspect of right 3rd digit with overlying eschar; minimal erythema preesnt; no drainage; no malodor; no probe to bone; no tunneling; no tracking; no clinical signs of active infection. Ortho: No pain on palpation noted to wounds b/l. - Neurological Exam Neurological Exam: Alert, Awake, Oriented x3 - Psychiatric Exam Psychiatric exam: Normal Affect, Normal Mood Assessment and Plan - Assessment and Plan (Free Text) Assessment: 57 year old male with multiple LE wounds (Diggs 1) Plan: Patient seen and evaluated alongside attending, Dr. Messina Afebrile, WBC WNL 8.8 L foot & leg WCx - staph aureus LE US - (+)DVT in left popliteal and tibial veins -Patient to be restarted on Eliquis s/p cardiac cath Continue local wound care: -RLE optifoam -LLE bactroban, DSD Podiatry will follow
[2018-01-29] MEDS ORDERED: Oxymetazoline 0.05% Nasal Spray (30 ml) NS ONE (22:23)
--- NOTE | 2018-01-29 23:41 | PN ---
Copied To: José Miguel Poole MD Attending MD: José Miguel Poole MD DATE: 01/29/2018 SUBJECTIVE: The patient is in bed, in no acute distress, was seen earlier. PHYSICAL EXAMINATION: VITAL SIGNS: Temperature is 98, blood pressure is 102/50, respiratory rate of 18, heart rate of 99. HEENT: Unremarkable. NECK: Supple. LUNGS: Have decreased breath sounds. HEART: Normal S1, S2. ABDOMEN: Soft, nontender. LABORATORY EXAMINATION: Reveals a white count of 8.8, hemoglobin of 10, platelets of 278. Chemistries reveals a BUN of 20, creatinine of 0.8. Urinalysis is noted. Microbiology is noted. Review of orders reveals the patient to be on meropenem and vancomycin. The patient had cardiac catheterization. Dr. Keith Wilhelm's note is reviewed. ASSESSMENT AND PLAN: This is a 57-year-old male with abdominal wall abscess, status post drainage, growing Staph with bilateral lower extremity lymphedema and skin and skin structure sensitive Staph aureus and hypertension, pulmonary emboli, cardiomyopathy, status post colon resection in 10/2017 with obesity, BMI of 34. Day #7 of meropenem, day #4 of vancomycin with a coag-negative Staph from the abdominal wound culture, status post cardiac catheterization. We will follow with you. José Miguel Poole MD
[2018-01-30] MEDS: Pantoprazole 40 mg EC Tab PO SCH (05:33)
[2018-01-30] MEDS: Meropenem IV 1 gm in NS 50 ML IVPB SCH ×2 (05:36→14:30)
[2018-01-30 06:57] LABS: BASO # 0.05 K/mm3 (0.0-2.0); BASO % 0.6 % (0.0-3.0); EOS # 0.4 (0.0-0.7); EOS % 4.3 % (1.5-5.0); GRAN # 6.02 (1.4-6.5); GRAN % 70.3 % (50.0-68.0); HEMOGLOBIN 10.6 g/dL (14.0-18.0); LYMPH # 1.1 (1.2-3.4); LYMPH % 13.1 % (22.0-35.0); MEAN CELL VOLUME 65.4 fl (80.0-105.0); MEAN CORPUSCULAR HEMOGLOBIN 19.5 pg (25.0-35.0); MEAN CORPUSCULAR HGB CONC 29.8 g/dl (31.0-37.0); MEAN PLATELET VOLUME 9.5 fl (7.0-11.0); MONO % 11.7 % (1.0-6.0); RBC 5.44 10^6/uL (3.5-6.1); RED CELL DISTRIBUTION WIDTH 21.3 % (11.5-14.5); WHITE BLOOD COUNT 8.6 10^3/ul (4.5-11.0)
[2018-01-30 07:04] LABS: ALB/GLOB RATIO 0.9 (1.1-1.8); ALBUMIN 2.7 g/dL (3.0-4.8); ALT/SGPT 55 U/L (7-56); AST/SGOT 35 U/L (17-59); BLOOD UREA NITROGEN 18 mg/dL (7-21); CALCIUM 8.9 mg/dL (8.4-10.5); GFR NON-AFRICAN AMERICAN > 60
[2018-01-30] MEDS: Budesonide 0.5 mg/2 ml Inhal Susp UD IH SCH ×2 (08:00→19:56)
[2018-01-30] MEDS: Arformoterol 15 mcg/2 ml Inh Sol IH SCH ×2 (08:00→19:56)
--- NOTE | 2018-01-30 08:30 | PN ---
SUBJECTIVE: The patient was seen and examined at bedside on the telemetry [place]. He is s/p cardiac catheterization, which demonstrated dilated cardiomyopathy with an EF of 35-40% with no critical lesions noted to his coronary anatomy. The patient tolerated the procedure well and no postprocedure complications were noted. Of note he did have 2 episodes of epistaxis overnight necessitating nasal packing. He is pending GIORGIO with cardioversion later today with Dr. Rodriguez. OBJECTIVE: VITAL SIGNS: Temperature 97.9, pulse 55, blood pressure 124/75, respiratory rate 18, oxygen saturation 99% on 2 L nasal cannula. GENERAL: No apparent distress. HEENT: PERRL, EOMI. No scleral icterus. Mild conjunctival pallor is noted. Nasal packing in place. NECK: No JVD. LUNGS: Decreased breath sounds at the bases with few scattered rhonchi. CARDIOVASCULAR: Irregularly irregular. Normal S1 and S2. ABDOMEN: Normoactive bowel sounds, soft, nontender, nondistended. Healed midline surgical scar. Drain in place with scant serous discharge. EXTREMITIES: Lázaro wrapping in place to lower extremities with trace pedal edema. NEUROLOGIC: Awake, alert and oriented x 3. No focal motor deficits. LABORATORY DATA: WBC 8.6 with 70% neutrophils, hemoglobin 10.6, hematocrit 36, platelets 262. Chemistry reviewed and unremarkable. ASSESSMENT: The patient is a 57-year-old man who recently underwent ventral hernia repair and presented with several week history of worsening abdominal distention, exertional dyspnea, bilateral lower extremity edema and 3-pillow orthopnea and was admitted for management of intra-abdominal abscess, new onset AFib with RVR , right subsegmental pulmonary embolism, left lower extremity DVT and new onset acute systolic heart failure. PLAN: 1. AFib with RVR, new onset. Input from Dr. Pierce greatly appreciated and the patient remains rate-controlled. Continue Eliquis 5 mg p.o. b.i.d., Diltiazem 60 mg p.o. t.i.d., Digoxin 0.25 mg p.o. daily and Sotalol 80 mg p.o. b.i.d. The patient is scheduled for GIORGIO with attempted cardioversion with Dr. Rodriguez later today. 2. Intra-abdominal abscess s/p IR drainage. Input from Dr. Poole greatly appreciated. Continue with current antimicrobials. 3. Subsegmental PE to the RLL. The patient remains on Eliquis 5 mg p.o. b.i.d. and will require at least 6 months of anticoagulation therapy for his PE but may require lifelong anticoagulation therapy given his AFib. 4. Acute systolic CHF secondary to primary dilated cardiomyopathy, new onset. Continue Lasix 40 mg IV q [address] Pierce greatly appreciated. Continue to monitor strict I&O's. 5. Left lower extremity DVT. Continue Eliquis 5 mg p.o. b.i.d. 6. Hypertension. Blood pressure controlled. Continue current medications. 7. Iron-deficiency anemia. H/H remains stable. Continue Protonix 40 mg p.o. daily and Feosol 324 mg p.o. t.i.d. 8. Chronic gastritis. Continue Protonix 40 mg p.o. daily. 9. Epistaxis. Continue with nasal packing and close monitoring for recurrent bleed. 10. Prophylaxis. Continue Protonix for GI prophylaxis. The patient remains on Eliquis thus DVT prophylaxis is not indicated. CODE STATUS: Full code. Keith Wilhelm MD MTDD
[2018-01-30] MEDS: Vancomycin 1gm in NS 250ml 1 GM/250 ML BAG IVPB SCH ×2 (09:23→22:15)
--- NOTE | 2018-01-30 10:00 | PN ---
Copied To: Uvaldo Pierce MD Attending MD: Uvaldo Pierce MD DATE: 01/30/2018 CARDIOLOGY FOLLOWUP SUBJECTIVE: The patient is comfortable post cardiac catheterization. The patient had a slight nosebleed, which is controlled. OBJECTIVE: VITAL SIGNS: Blood pressure is 124/75, heart rate is atrial fibrillation in the 80s. NECK: Negative JVD. LUNGS: Without rales. HEART: Reveal S1, S2. EXTREMITIES: Without edema. Right groin site is stable. DATA: Hemoglobin is 10.6. Chemistries: BUN and creatinine unremarkable. IMPRESSION: 1. Cardiomyopathy. 2. Nonobstructive coronary artery disease. 3. Atrial fibrillation. 4. Pulmonary embolism. Given these findings, the patient is scheduled for GIORGIO cardioversion in the morning. Uvaldo iPerce MD
[2018-01-30] MEDS: Digoxin 250 mcg (0.25 mg) Tab PO SCH (11:44)
--- NOTE | 2018-01-30 12:38 | CP.PCM.PN ---
<Kait Bateman - Last Filed: 01/30/18 12:30> Subjective - Date & Time of Evaluation Date of Evaluation: 01/30/18 Time of Evaluation: 12:31 - Subjective Subjective: Podiatry Progress Note - Drs. Messina/Tammi 57 year old male patient seen and evaluated this AMfor bilateral lower extremity ulcerations. Patient resting comfortably, NAD. Dressings to bilateral LE clean/dry/intact. No pain in lower extremities. Pedal edema present. 2 episodes epistaxis overnight. Denies N/V/F/D/C/SOB. Objective - Vital Signs/Intake and Output Vital Signs (last 24 hours): Temp Pulse Resp BP Pulse Ox 97.9 F 64 19 131/98 H 99 01/30/18 11:42 01/30/18 11:44 01/30/18 11:42 01/30/18 11:47 01/30/18 06:00 Intake and Output: 01/30/18 01/30/18 06:59 18:59 Intake Total 480 350 Output Total 2600 60 Balance -2120 290 - Medications Medications: Current Medications Apixaban (Eliquis) 5 mg PO BID [facility] PRN Reason: Protocol Last Admin: 01/30/18 11:43 Dose: 5 mg Arformoterol Tartrate (Brovana) 15 mcg IH [id number] [facility] Last Admin: 01/30/18 08:00 Dose: 15 mcg Budesonide (Pulmicort Respules) 0.5 mg IH [id number] [facility] Last Admin: 01/30/18 08:00 Dose: 0.5 mg Digoxin (Lanoxin) 0.25 mg PO DAILY [facility] Last Admin: 01/30/18 11:44 Dose: 0.25 mg Diltiazem HCl (Cardizem) 60 mg PO TID [facility] Last Admin: 01/30/18 11:44 Dose: 60 mg Ferrous Sulfate (Feosol) 324 mg PO TID [facility] Last Admin: 01/30/18 11:44 Dose: 324 mg Furosemide (Lasix) 40 mg IVP Q12 [facility] Last Admin: 01/30/18 11:47 Dose: 40 mg Meropenem (Merrem Iv 1 Gm Premix) 50 mls @ 100 mls/hr IVPB Q8 [facility] PRN Reason: Protocol Stop: 08/28/18 14:01 Last Admin: 01/30/18 05:36 Dose: 100 mls/hr Vancomycin HCl (Vancomycin 1gm) 1 gm in 250 mls @ 167 mls/hr IVPB Q12H [facility] PRN Reason: Protocol Last Admin: 01/30/18 09:23 Dose: 167 mls/hr Mupirocin (Bactroban Ointment) 10 gm TOP DAILY [facility] Last Admin: 01/29/18 10:28 Dose: Not Given Pantoprazole Sodium (Protonix Ec Tab) 40 mg PO 0600 [facility] Last Admin: 01/30/18 05:33 Dose: 40 mg Sotalol HCl (Betapace) 80 mg PO BID [facility] Last Admin: 01/30/18 11:43 Dose: 80 mg - Labs Labs: 01/30/18 06:30 01/30/18 06:30 PT 22.4 SECONDS (9.4-12.5) H 01/23/18 03:00 INR 1.94 01/23/18 03:00 APTT 75.6 Seconds (25.1-36.5) H 01/24/18 01:35 - Constitutional Appears: Well, Non-toxic, No Acute Distress - Extremities Exam Additional comments: Bilateral LE exam Vasc: DP/PT weakly palpable 1/4 b/l. CFT <3 seconds to all digits b/l. Temperature gradient warm to warm b/l. +2 pitting edema noted to bilateral LE. Neuro: Gross sensation intact bilaterally. Derm: Full thickness ulcerations noted to bilateral LE - ulcerations noted to have a fibrogranular base with scab formation; minimal periwound erythema noted ; no active drainage; no malodor; no probe to bone; no tunneling. Ulceration noted to distal aspect of right 3rd digit with overlying eschar; minimal erythema preesnt; no drainage; no malodor; no probe to bone; no tunneling; no tracking; no clinical signs of active infection. Ortho: No pain on palpation noted to wounds b/l. - Neurological Exam Neurological Exam: Alert, Awake, Oriented x3 - Psychiatric Exam Psychiatric exam: Normal Affect, Normal Mood Assessment and Plan - Assessment and Plan (Free Text) Assessment: 57 year old male with multiple LE wounds (Diggs 1) Plan: Patient seen and evaluated alongside attending, Dr. Cadena Afebrile, WBC WNL 8.6 L foot & leg WCx - staph aureus LE US - (+)DVT in left popliteal and tibial veins -Patient restarted on Eliquis s/p cardiac cath Continue local wound care: -RLE optifoam -LLE bactroban, DSD Podiatry will follow <Duane Cadena - Last Filed: 01/30/18 15:50> Objective - Vital Signs/Intake and Output Vital Signs (last 24 hours): Temp Pulse Resp BP Pulse Ox 97.9 F 64 19 131/98 H 99 01/30/18 11:42 01/30/18 11:44 01/30/18 11:42 01/30/18 11:47 01/30/18 06:00 Intake and Output: 01/30/18 01/30/18 06:59 18:59 Intake Total 480 350 Output Total 2600 60 Balance -2120 290 - Medications Medications: Current Medications Apixaban (Eliquis) 5 mg PO BID [facility] PRN Reason: Protocol Last Admin: 01/30/18 11:43 Dose: 5 mg Arformoterol Tartrate (Brovana) 15 mcg IH [id number] [facility] Last Admin: 01/30/18 08:00 Dose: 15 mcg Budesonide (Pulmicort Respules) 0.5 mg IH [id number] [facility] Last Admin: 01/30/18 08:00 Dose: 0.5 mg Digoxin (Lanoxin) 0.25 mg PO DAILY [facility] Last Admin: 01/30/18 11:44 Dose: 0.25 mg Diltiazem HCl (Cardizem) 60 mg PO TID [facility] Last Admin: 01/30/18 11:44 Dose: 60 mg Ferrous Sulfate (Feosol) 324 mg PO TID [facility] Last Admin: 01/30/18 11:44 Dose: 324 mg Furosemide (Lasix) 40 mg IVP Q12 [facility] Last Admin: 01/30/18 11:47 Dose: 40 mg Vancomycin HCl (Vancomycin 1gm) 1 gm in 250 mls @ 167 mls/hr IVPB Q12H [facility] PRN Reason: Protocol Last Admin: 01/30/18 09:23 Dose: 167 mls/hr Mupirocin (Bactroban Ointment) 10 gm TOP DAILY [facility] Last Admin: 01/29/18 10:28 Dose: Not Given Pantoprazole Sodium (Protonix Ec Tab) 40 mg PO 0600 [facility] Last Admin: 01/30/18 05:33 Dose: 40 mg Sotalol HCl (Betapace) 80 mg PO BID [facility] Last Admin: 01/30/18 11:43 Dose: 80 mg - Labs Labs: 01/30/18 06:30 01/30/18 06:30 PT 22.4 SECONDS (9.4-12.5) H 01/23/18 03:00 INR 1.94 01/23/18 03:00 APTT 75.6 Seconds (25.1-36.5) H 01/24/18 01:35 Attending/Attestation - Attestation I have personally seen and examined this patient.: Yes I have fully participated in the care of the patient.: Yes I have reviewed all pertinent clinical information, including history, physical exam and plan: Yes
--- NOTE | 2018-01-30 14:01 | PN ---
Copied To: José Miguel Poole MD Attending MD: José Miguel Poole MD DATE: 01/30/2018 SUBJECTIVE: The patient is in bed, in no acute distress, nontoxic. PHYSICAL EXAMINATION: VITAL SIGNS: On exam, temperature is 98, blood pressure is 130/80, respiratory rate of 18. HEENT: Examination of HEENT is unremarkable. NECK: Supple. LUNGS: Have decreased breath sounds. HEART: Normal S1, S2. ABDOMEN: Soft, nontender. LABORATORY DATA: Laboratory examination reveals a white count of 8.6, hemoglobin of 10, platelets of 262. BUN of 18, creatinine of 0.7. Urinalysis is noted. Microbiology is noted. ASSESSMENT AND PLAN: A 57-year-old male seen earlier today, who has abdominal wall abscess, status post drainage and it is growing sensitive Staphylococcus, bilateral lower extremity edema and skin and skin structure and sensitive Staphylococcus infection, hypertension, pulmonary emboli, cardiomyopathy, status post colon resection in 10/2017 with obesity, body mass index of 34. Today is day #8 of meropenem and day #[address] Uvaldo Pierce's note is reviewed. Dr. Keith Wilhelm's note is reviewed. We will follow with you. José Miguel Poole MD
[2018-01-31] MEDS: Pantoprazole 40 mg EC Tab PO SCH (06:50)
[2018-01-31 07:39] LABS: BASO # 0.08 K/mm3 (0.0-2.0); BASO % 0.9 % (0.0-3.0); EOS # 0.4 (0.0-0.7); EOS % 4.7 % (1.5-5.0); GRAN # 5.92 (1.4-6.5); GRAN % 65.9 % (50.0-68.0); LYMPH # 1.4 (1.2-3.4); LYMPH % 15.8 % (22.0-35.0); MEAN CELL VOLUME 66.1 fl (80.0-105.0); MEAN CORPUSCULAR HEMOGLOBIN 19.7 pg (25.0-35.0); MEAN CORPUSCULAR HGB CONC 29.8 g/dl (31.0-37.0); MONO # 1.1 (0.1-0.6); MONO % 12.7 % (1.0-6.0); RBC 5.58 10^6/uL (3.5-6.1); RED CELL DISTRIBUTION WIDTH 21.6 % (11.5-14.5)
[2018-01-31 08:03] LABS: ALB/GLOB RATIO 0.9 (1.1-1.8); ALT/SGPT 51 U/L (7-56); AST/SGOT 41 U/L (17-59); BLOOD UREA NITROGEN 16 mg/dL (7-21); GFR NON-AFRICAN AMERICAN > 60
--- NOTE | 2018-01-31 08:36 | CON ---
Copied To: Blue Bruce DO Attending MD: Blue Bruce DO DATE: 01/30/2018 PREOPERATIVE DIAGNOSIS: Acute left nasal bleed. POST CONSULTATION: Acute left nasal bleed. Consultation completed. INDICATIONS: As stated, this is a 57-year-old male, who is in atrial fibrillation, it is being worked up by Cardiology who happens to be on blood thinners, was admitted in the hospital for possible atrial reversal, but the patient last night was in acute left nasal bleed. Nares packed by general operating room surgical technologist with a rhino rocket. He is now seen sitting in bed. Blood pressure is being tested at the time of exam, noted to be within a normal limit. The patient states he is comfortable. Does not noted any bleeding. Occasional ooze from the most anterior aspect of the rhino rocket packing. Oropharynx on physical exam is noted to be dry. This patient is scheduled for cardiac procedure. At this particular time, it was discussed with medical doctor to hold off and allow for 72 hours in packing removal secondary to blood thinner and active posterior/anterior left nasal epistaxis. DIAGNOSES: Nasal epistaxis, blood thinners, hypercoagulable, atrial fibrillation. RECOMMENDATIONS: At this time, as discussed with medical doctor 72 hours with packing intact, possible removal and observation prior to any type of cardiac procedure. It was actually discussed with medical doctor, possible discharge to home and treat it as an outpatient when stable and no more acute epistaxis, which may take 4 to 7 days secondary to blood thinners. The patient may be discharged, followed and treated as an outpatient. It was explained to the patient the need to maintain blood thinners, this will delay the actual healing process and long-term nasal packing. The patient understands as stated. This was discussed in detail with primary medical doctor. Blue Bruce DO
[2018-01-31] MEDS: Arformoterol 15 mcg/2 ml Inh Sol IH SCH ×2 (08:40→19:48)
[2018-01-31] MEDS: Budesonide 0.5 mg/2 ml Inhal Susp UD IH SCH ×2 (08:40→19:48)
--- NOTE | 2018-01-31 09:27 | CT ---
Date of service: 01/31/2018 PROCEDURE: CT Abdomen and Pelvis without intravenous contrast HISTORY: abd wall abscess drain COMPARISON: 01/19/2018 TECHNIQUE: Without contrast.. Contrast dose: Radiation dose: Total exam DLP = 966 mGy-cm. This CT exam was performed using one or more of the following dose reduction techniques: Automated exposure control, adjustment of the mA and/or kV according to patient size, and/or use of iterative reconstruction technique. FINDINGS: LOWER THORAX: Small left pleural effusion. Small focal densities may represent scarring or atelectasis. LIVER: Unremarkable. No gross lesion or ductal dilatation. GALLBLADDER AND BILE DUCTS: Unremarkable. PANCREAS: Unremarkable. No gross lesion or ductal dilatation. SPLEEN: Unremarkable. ADRENALS: Unremarkable. No mass. KIDNEYS AND URETERS: Unremarkable. No hydronephrosis. No solid mass. Small nonobstructing stone VASCULATURE: Unremarkable. No aortic aneurysm. BOWEL: Unremarkable. No obstruction. No gross mural thickening. APPENDIX: Unremarkable. Normal appendix. PERITONEUM: Unremarkable. No free fluid. No free air. LYMPH NODES: Unremarkable. No enlarged lymph nodes. BLADDER: Unremarkable. REPRODUCTIVE: Unremarkable. BONES: No acute fracture. OTHER FINDINGS: There is a drainage catheter in the fluid collection in the anterior abdominal wall. The collection has decreased in size and now measures 10.7 cm with by 3.2 cm in thickness previously measuring 14 x 7 cm. There is a small amount of blood and edema in the right inguinal region from recent cardiac catheterization procedure IMPRESSION: There is a drainage catheter in the fluid collection in the anterior abdominal wall. The collection has decreased in size and now measures 10.7 cm with by 3.2 cm in thickness previously measuring 14 x 7 cm. There is a small amount of blood and edema in the right inguinal region from recent cardiac catheterization procedure
[2018-01-31] MEDS: Vancomycin 1gm in NS 250ml 1 GM/250 ML BAG IVPB SCH ×2 (09:55→23:47)
[2018-01-31] MEDS: Digoxin 250 mcg (0.25 mg) Tab PO SCH (09:56)
[2018-01-31] MEDS: diltiaZEM 180 mg/24 Hours CD Cap PO SCH (09:56)
--- NOTE | 2018-01-31 10:39 | PN ---
SUBJECTIVE: The patient seen and examined at bedside on the telemetry [place]. No acute events overnight. He remains afebrile and hemodynamically stable. The patient is being taken to the radiology [place] for CT of his abdomen and pelvis to assess for resolution of abdominal abscess prior to possible drain removal. Overall he states he feels okay and reports significant improvement in his respiratory status and offers no complaints. Furthermore, the patient reports that he has had no further epistaxis. OBJECTIVE: VITAL SIGNS: Temperature 97.9, pulse 88, blood pressure 112/82, respiratory rate 20, oxygen saturation 96% on 2 liters nasal cannula. GENERAL: No apparent distress. HEENT: PERRL, EOMI. No scleral icterus. Mild conjunctival pallor is noted. Nasal packing in place. NECK: No JVD. LUNGS: Decreased breath sounds at the bases with minimal scattered rhonchi. CARDIOVASCULAR: Irregularly irregular. Normal S1 and S2. ABDOMEN: Normoactive bowel sounds. Soft, nontender, nondistended. Healed midline surgical scar KARLA drain in place to right lower abdomen with no discharge. EXTREMITIES: Trace lower extremity edema bilaterally. NEUROLOGIC: Awake, alert and oriented x 3. No focal motor deficits. SKIN: Multiple ulcerations and excoriations to bilateral lower extremities with eschar formation. LABORATORY DATA: WBC 9, hemoglobin 11, hematocrit 37, platelets 275, MCV 66. Chemistry reviewed and unremarkable. ASSESSMENT: The patient is a 57-year-old man who recently underwent ventral hernia repair and presented with a several week history of worsening abdominal distention, exertional dyspnea, bilateral lower extremity edema and 3-pillow orthopnea and was admitted for management of intra-abdominal abscess, new-onset AFib with RVR , subsegmental pulmonary embolism, LLE DVT and new-onset acute systolic heart failure. PLAN: 1. AFib with RVR, new onset. Input from Dr. Pierce greatly appreciated. The patient remains rate-controlled. The patient was scheduled for GIORGIO with attempted cardioversion with Dr. Rodriguez yesterday but due to his epistaxis the procedure was canceled and the patient was advised that arrangements will be made on an outpatient basis for attempted cardioversion. We will continue Eliquis 5 mg p.o. b.i.d., Digoxin 0.25 mg p.o. daily and Sotalol 80 mg p.o. b.i.d. We will also start Cardizem CD 180 mg p.o. daily. 2. Intra-abdominal abscess s/p IR drainage. Input from Dr. Uvaldo Garay greatly appreciated and the drain has had minimal output over the preceding 48 hours. The patient is pending repeat CT of the abdomen and pelvis to assess a resolution of his intra-abdominal abscess prior to removal of his KARLA drain. Input from Dr. Poole greatly appreciated. The patient remains afebrile and hemodynamically stable and with negative blood cultures. The patient has completed 8 days of meropenem and 6 days of vancomycin. 3. Subsegmental PE to the right lower lobe. Continue Eliquis 5 mg p.o. b.i.d. for at least 6 months of anticoagulation therapy however given his underlying AFib the patient may require lifelong anticoagulation therapy. 4. Acute systolic CHF secondary to primary dilated cardiomyopathy, new onset. Continue Lasix 40 mg IV q. [address] Pierce greatly appreciated. 5. Left lower extremity DVT. Continue Eliquis 5 mg p.o. b.i.d. 6. Hypertension. Blood pressure controlled. Continue current medications. 7. Iron-deficiency anemia. H/H remained stable. Continue Protonix 40 mg p.o. daily and Feosol 324 mg p.o. t.i.d. 8. Chronic gastritis. Continue Protonix 40 mg p.o. daily. 9. Epistaxis, resolved. We will have ENT reevaluate the patient for possible removal of nasal packing. 10. Prophylaxis. Continue Protonix for GI prophylaxis. The patient remains on Eliquis with DVT prophylaxis not indicated. CODE STATUS: Full code. Keith Wilhelm MD VENKAT
--- NOTE | 2018-01-31 12:43 | PN ---
Copied To: Uvaldo Pierce MD Attending MD: Uvaldo Pierce MD DATE: 01/31/2018 CARDIOLOGY FOLLOWUP SUBJECTIVE: No GIORGIO cardioversion was done today due to his nose bleed. PHYSICAL EXAMINATION: VITAL SIGNS: Blood pressure 112/82, the heart rates in the 80s. NECK: Negative JVD. LUNGS: Without rales. HEART: S1, S2. EXTREMITIES: Without edema. LABORATORY DATA: Hemoglobin is 11.0, BUN and creatinine are unremarkable. IMPRESSION: 1. Dilated cardiomyopathy. 2. Atrial fibrillation. 3. Nose bleed. 4. Hypertension. ASSESSMENT AND PLAN: Given these findings, we will continue the patient on his anticoagulation. Once his nose bleed is controlled, the patient can be discharged. We will follow him as an outpatient. Once stable, we will consider elective cardioversion in 3-4 weeks. Uvaldo Pierce MD
--- NOTE | 2018-01-31 13:34 | PN ---
Copied To: Uvaldo Garay MD Attending MD: Uvaldo Garay MD DATE: 01/31/2018 SUBJECTIVE: I reviewed the patient's recent CT scans. There is a residual fluid collection and some punctate air, presumably related to irrigation, seen in the anterior abdominal wall around the catheter. This could in part be related to the mesh placed at time of ventral hernia repair. There still appears to be some output from the drainage catheter recorded in the chart. The white count has decreased. The patient is afebrile. I would recommend leaving the catheter longer (with once a day irrigation and dressing changes every 3 days). The patient can potentially be discharged with the catheter and a visiting nurse. Early removal may result in reaccumulation of the abscess. Unfortunately, more definitive treatment of the mesh may eventually be required. Uvaldo Garay MD MTDD
--- NOTE | 2018-01-31 16:03 | CP.PCM.PN ---
Subjective - Date & Time of Evaluation Date of Evaluation: 01/31/18 Time of Evaluation: 11:00 - Subjective Subjective: Podiatry Progress Note - Drs. Messina/Tammi 57 year old male patient seen and evaluated at bedside concerning bilateral lower extremity ulcerations. Patient resting comfortably, hemodynamically stable and NAD. Dressings absent to LE. No new changes to lower extremities. Denies N/V/F/D/C/SOB. Objective - Vital Signs/Intake and Output Vital Signs (last 24 hours): Temp Pulse Resp BP Pulse Ox 97.7 F 94 H 19 133/91 H 96 01/31/18 12:00 01/31/18 14:00 01/31/18 12:00 01/31/18 12:00 01/31/18 00:01 Intake and Output: 01/31/18 01/31/18 06:59 18:59 Intake Total 420 Output Total 2100 Balance -1680 - Medications Medications: Current Medications Apixaban (Eliquis) 5 mg PO BID [facility] PRN Reason: Protocol Last Admin: 01/31/18 09:56 Dose: 5 mg Arformoterol Tartrate (Brovana) 15 mcg IH [id number] [facility] Last Admin: 01/31/18 08:40 Dose: 15 mcg Budesonide (Pulmicort Respules) 0.5 mg IH [id number] [facility] Last Admin: 01/31/18 08:40 Dose: 0.5 mg Digoxin (Lanoxin) 0.25 mg PO DAILY [facility] Last Admin: 01/31/18 09:56 Dose: 0.25 mg Diltiazem HCl (Cardizem Cd) 180 mg PO DAILY [facility] Last Admin: 01/31/18 09:56 Dose: 180 mg Ferrous Sulfate (Feosol) 324 mg PO TID [facility] Last Admin: 01/31/18 13:26 Dose: 324 mg Furosemide (Lasix) 40 mg IVP Q12 [facility] Last Admin: 01/31/18 09:55 Dose: 40 mg Vancomycin HCl (Vancomycin 1gm) 1 gm in 250 mls @ 167 mls/hr IVPB Q12H [facility] PRN Reason: Protocol Last Admin: 01/31/18 09:55 Dose: 167 mls/hr Mupirocin (Bactroban Ointment) 10 gm TOP DAILY [facility] Last Admin: 01/29/18 10:28 Dose: Not Given Pantoprazole Sodium (Protonix Ec Tab) 40 mg PO 0600 [facility] Last Admin: 01/31/18 06:50 Dose: 40 mg Sotalol HCl (Betapace) 80 mg PO BID [facility] Last Admin: 01/31/18 09:56 Dose: 80 mg - Labs Labs: 01/31/18 06:30 01/31/18 06:30 PT 22.4 SECONDS (9.4-12.5) H 01/23/18 03:00 INR 1.94 01/23/18 03:00 APTT 75.6 Seconds (25.1-36.5) H 01/24/18 01:35 - Constitutional Appears: Well, Non-toxic, No Acute Distress - Extremities Exam Additional comments: Bilateral LE exam Vasc: DP/PT weakly palpable 1/4 b/l. CFT <3 seconds to all digits b/l. Temperature gradient warm to warm b/l. +2 pitting edema noted to bilateral LE. Neuro: Gross sensation intact bilaterally. Derm: Full thickness ulcerations noted to bilateral LE - ulcerations noted to have a fibrogranular base with scab formation; minimal periwound erythema noted ; no active drainage; no malodor; no probe to bone; no tunneling. Ulceration noted to distal aspect of right 3rd digit with overlying eschar; minimal erythema preesnt; no drainage; no malodor; no probe to bone; no tunneling; no tracking; no clinical signs of active infection. Ortho: No pain on palpation noted to wounds b/l. - Neurological Exam Neurological Exam: Alert, Awake, Oriented x3 - Psychiatric Exam Psychiatric exam: Normal Affect, Normal Mood Assessment and Plan - Assessment and Plan (Free Text) Assessment: 57 year old male with multiple LE wounds (Diggs 1) Plan: Patient seen and evaluated Discussed with attending, Dr. Messina Afebrile, WBC WNL 9.0 L foot & leg WCx - staph aureus LE US - (+)DVT in left popliteal and tibial veins -Patient restarted on Eliquis s/p cardiac cath Continue local wound care: -RLE optifoam -LLE bactroban, DSD Podiatry will follow
--- NOTE | 2018-02-01 02:48 | PN ---
Copied To: José Miguel Poole MD Attending MD: José Miguel Poole MD DATE: 01/31/2018 SUBJECTIVE: Patient is seen earlier this morning in 271, bed 1. He is doing well. No nausea. No vomiting. PHYSICAL EXAMINATION: VITAL SIGNS: Temperature is 98, blood pressure is 115/70, respiratory rate of 18, heart rate of 76. HEENT: Unremarkable. NECK: Supple. LUNGS: Have decreased breath sounds. HEART: Normal S1 and S2. ABDOMEN: Soft. LABORATORY EXAMINATION: Reveals the patient to have white count of 9000, hemoglobin of 11, BUN of 16, creatinine of 0.8. Urinalysis is noted. ASSESSMENT AND PLAN: This is a 57-year-old male who was seen earlier this morning, who has abdominal wall abscess, status post drainage, growing sensitive Staphylococcus; bilateral lower extremity edema and skin and skin structure infection and sensitive Staphylococcus; hypertension; pulmonary emboli; cardiomyopathy; status post colon resection in 10/2017 with obesity, body mass index of 34. On day #9 of meropenem and day #6 of vancomycin. Examination of reveals much improved. His legs are greatly improved. We will discuss with PMD regarding duration of antibiotics and . Patient is currently now off of antibiotics. Patient is doing well. José Miguel Poole MD
[2018-02-01] MEDS: Pantoprazole 40 mg EC Tab PO SCH (06:17)
[2018-02-01 07:02] LABS: BASO # 0.06 K/mm3 (0.0-2.0); BASO % 0.8 % (0.0-3.0); EOS # 0.5 (0.0-0.7); EOS % 6.4 % (1.5-5.0); GRAN # 4.7 (1.4-6.5); GRAN % 61.2 % (50.0-68.0); HEMOGLOBIN 10.3 g/dL (14.0-18.0); LYMPH # 1.4 (1.2-3.4); LYMPH % 18.6 % (22.0-35.0); MEAN CELL VOLUME 66.3 fl (80.0-105.0); MEAN CORPUSCULAR HEMOGLOBIN 19.6 pg (25.0-35.0); MEAN CORPUSCULAR HGB CONC 29.5 g/dl (31.0-37.0); MEAN PLATELET VOLUME 10.2 fl (7.0-11.0); RBC 5.26 10^6/uL (3.5-6.1); RED CELL DISTRIBUTION WIDTH 21.5 % (11.5-14.5); WHITE BLOOD COUNT 7.7 10^3/ul (4.5-11.0)
[2018-02-01] MEDS: Budesonide 0.5 mg/2 ml Inhal Susp UD IH SCH ×2 (07:32→20:30)
[2018-02-01] MEDS: Arformoterol 15 mcg/2 ml Inh Sol IH SCH ×2 (07:32→20:29)
[2018-02-01 07:49] LABS: ALB/GLOB RATIO 0.9 (1.1-1.8); ALBUMIN 2.6 g/dL (3.0-4.8); ALT/SGPT 48 U/L (7-56); AST/SGOT 32 U/L (17-59); BLOOD UREA NITROGEN 16 mg/dL (7-21); CALCIUM 8.9 mg/dL (8.4-10.5); GFR NON-AFRICAN AMERICAN > 60
--- NOTE | 2018-02-01 09:07 | PN ---
SUBJECTIVE: The patient was seen and examined at bedside on the telemetry [place]. No acute events overnight. He remains afebrile and hemodynamically stable. The patient' s nasal packing has spontaneously fallen out and there have been no further episodes of epistaxis. The patient is also s/p repeat abdominal CT which demonstrated mild improvement in the size of his intra-abdominal fluid collection. OBJECTIVE: VITAL SIGNS: Temperature 98.5, pulse 88, blood pressure 127/92, respiratory rate 20, oxygen saturation 99% on room air. GENERAL: No apparent distress. HEENT: PERRL, EOMI. No scleral icterus. Mild conjunctival pallor is noted. Nares patent with no active bleeding. NECK: No JVD. LUNGS: Decreased breath sounds at the bases. CARDIOVASCULAR: Irregularly irregular. Normal S1 and S2. ABDOMEN: Normoactive bowel sounds, soft, nontender, nondistended. KARLA drain in place to right lower abdomen with scant serosanguineous discharge. EXTREMITIES: Trace lower extremity edema bilaterally. NEUROLOGIC: Awake, alert and oriented x 3. No focal motor deficits. SKIN: Multiple ulcerations and excoriations to bilateral lower extremities with eschar formation. LABORATORY DATA: WBC is 7.7, hemoglobin 10, hematocrit 35, platelets 265, MCV 66. Chemistry reviewed and unremarkable. ASSESSMENT: The patient is a 57-year-old man who recently underwent ventral hernia repair and presented with a several week history of worsening abdominal distention, exertional dyspnea, bilateral lower extremity edema and 3-pillow orthopnea and was admitted for management of intra-abdominal abscess, new onset AFib with RVR , subsegmental pulmonary embolism, left lower extremity DVT and new-onset acute systolic heart failure. PLAN: 1. AFib with RVR, new onset. Input from Dr. Pierce greatly appreciated. The patient remains rate-controlled. Continue Eliquis 5 mg p.o. b.i.d., Digoxin 0.25 mg p.o. daily, Sotalol 80 mg p.o. b.i.d. and Cardizem CD 180 mg p.o. daily. Arrangements will be made for outpatient GIORGIO with attempted cardioversion. 2. Intra-abdominal abscess s/p IR drainage. Input from Dr. Garay greatly appreciated and recommendations have made to maintain the drain in place. CT imaging reviewed and there is mild improvement in the size of the intra- abdominal fluid collection. We make arrangements for visiting nursing services for continued local wound care and maintenance of the drain. Input from Dr. Poole also greatly appreciated and the patient remains off antibiotics. 3. Subsegmental PE to the right lower lobe. Continue Eliquis 5 mg p.o. b.i.d. for at least 6 months of anticoagulation but given his underlying AFib he may require lifelong anticoagulation therapy. 4. Acute systolic CHF secondary to primary dilated cardiomyopathy, new onset. Continue Lasix 40 mg IV every 12 hours. 5. Left lower extremity DVT. Continue Eliquis 5 mg p.o. b.i.d. 6. Hypertension. Blood pressure controlled. Continue current medications. 7. Iron-deficiency anemia. H/H remains stable. Continue Protonix 40 mg p.o. daily and Feosol 324 mg p.o. t.i.d. 8. Chronic gastritis. Continue Protonix 40 mg p.o. daily. 9. Epistaxis, resolved. 10. Prophylaxis. Continue Protonix for GI prophylaxis. The patient remains on Eliquis, thus DVT prophylaxis not indicated. CODE STATUS: Full code. Keith Wilhelm MD MTDBernabe
--- NOTE | 2018-02-01 09:17 | CP.PCM.PN ---
Subjective - Date & Time of Evaluation Date of Evaluation: 02/01/18 Time of Evaluation: 08:51 - Subjective Subjective: Podiatry Progress Note - Drs. Messina/Tammi 57 year old male patient seen and evaluated at bedside concerning bilateral lower extremity ulcerations. Patient resting comfortably, hemodynamically stable and NAD. No acute events overnight. Edema to bilateral LE decreasing. No new complaints to lower extremities. Denies N/V/D, no F/C. Objective - Vital Signs/Intake and Output Vital Signs (last 24 hours): Temp Pulse Resp BP Pulse Ox 98.5 F 88 20 127/92 H 99 02/01/18 06:00 02/01/18 06:00 02/01/18 06:00 02/01/18 06:00 02/01/18 06:00 Intake and Output: 02/01/18 02/01/18 06:59 18:59 Intake Total 360 Output Total 1300 Balance -940 - Medications Medications: Current Medications Apixaban (Eliquis) 5 mg PO BID [facility] PRN Reason: Protocol Last Admin: 01/31/18 17:27 Dose: 5 mg Arformoterol Tartrate (Brovana) 15 mcg IH [id number] [facility] Last Admin: 02/01/18 07:32 Dose: 15 mcg Budesonide (Pulmicort Respules) 0.5 mg IH [id number] [facility] Last Admin: 02/01/18 07:32 Dose: 0.5 mg Digoxin (Lanoxin) 0.25 mg PO DAILY [facility] Last Admin: 01/31/18 09:56 Dose: 0.25 mg Diltiazem HCl (Cardizem Cd) 180 mg PO DAILY [facility] Last Admin: 01/31/18 09:56 Dose: 180 mg Ferrous Sulfate (Feosol) 324 mg PO TID [facility] Last Admin: 01/31/18 17:34 Dose: 324 mg Furosemide (Lasix) 40 mg PO BID [facility] Mupirocin (Bactroban Ointment) 10 gm TOP DAILY [facility] Last Admin: 01/29/18 10:28 Dose: Not Given Pantoprazole Sodium (Protonix Ec Tab) 40 mg PO 0600 [facility] Last Admin: 02/01/18 06:17 Dose: 40 mg Sotalol HCl (Betapace) 80 mg PO BID [facility] Last Admin: 01/31/18 17:27 Dose: 80 mg - Labs Labs: 08/30/18 06:00 02/01/18 06:00 PT 22.4 SECONDS (9.4-12.5) H 01/23/18 03:00 INR 1.94 01/23/18 03:00 APTT 75.6 Seconds (25.1-36.5) H 01/24/18 01:35 - Constitutional Appears: Well, Non-toxic, No Acute Distress - Extremities Exam Additional comments: Bilateral LE exam Vasc: DP/PT weakly palpable 1/4 b/l. CFT <3 seconds to all digits b/l. Temperature gradient warm to warm b/l. +2 pitting edema noted to bilateral LE. Neuro: Gross sensation intact bilaterally. Derm: Full thickness ulcerations noted to bilateral LE - ulcerations noted to have a fibrogranular base with scab formation; minimal periwound erythema noted ; no active drainage; no malodor; no probe to bone; no tunneling. Ulceration noted to distal aspect of right 3rd digit with overlying eschar; minimal erythema preesnt; no drainage; no malodor; no probe to bone; no tunneling; no tracking; no clinical signs of active infection. Ortho: No pain on palpation noted to wounds b/l. - Neurological Exam Neurological Exam: Alert, Awake, Oriented x3 - Psychiatric Exam Psychiatric exam: Normal Affect, Normal Mood Assessment and Plan - Assessment and Plan (Free Text) Assessment: 57 year old male with multiple LE wounds Plan: Patient seen and evaluated alongside attending, Dr. Messina Afebrile, WBC WNL 7.7 L foot & leg WCx - staph aureus LE US - (+)DVT in left popliteal and tibial veins -Continue Eliquis 5mg PO BID Continue local wound care: -RLE maxsorb, optifoam -LLE bactroban, DSD -Will apply Unna boots tomorrow bilateral LE Patient to follow up with Dr. Cadena in the wound care center next Monday, -Advised patient to keep unna boots clean/dry/intact until follow up visit Podiatry will continue to follow
--- NOTE | 2018-02-01 09:42 | PN ---
Copied To: Uvaldo Pierce MD Attending MD: Uvaldo Pierce MD DATE: 02/01/2018 CARDIOLOGY FOLLOWUP SUBJECTIVE: The patient's breathing is stable. Edema in the lower extremities is decreased. PHYSICAL EXAMINATION: VITAL SIGNS: Blood pressure 127/92, the heart rates in the 80s. NECK: Negative JVD. LUNGS: Without rales. HEART: S1, S2. EXTREMITIES: Without edema. LABORATORY DATA: Hemoglobin is 10.3. Chemistries; BUN and creatinine are unremarkable. IMPRESSION: 1. Nosebleed which is improved. 2. Atrial fibrillation. 3. Dilated cardiomyopathy. 4. History of pulmonary embolism. 5. Hypertension. PLAN: Given these findings, the patient is currently on anticoagulation. We will change her Lasix to p.o. medications. From a cardiac perspective, the patient can be discharged. Uvaldo Pierce MD
[2018-02-01] MEDS: diltiaZEM 180 mg/24 Hours CD Cap PO SCH (10:11)
[2018-02-01] MEDS: Digoxin 250 mcg (0.25 mg) Tab PO SCH (10:12)
[2018-02-01] MEDS: Mupirocin 2% Ointment 15 GM TUBE TOP SCH (10:20)
--- NOTE | 2018-02-01 12:04 | PN ---
Copied To: José Miguel Poole MD Attending MD: José Miguel Poole MD DATE: 02/01/2018 SUBJECTIVE: The patient is seen in room 271, bed 1. He is doing well. No fevers and no chills. No nausea. No vomiting. PHYSICAL EXAMINATION: VITAL SIGNS: Temperature is 98, blood pressure is 120/70, respiratory rate of 20. HEENT: Unremarkable. NECK: Supple. LUNGS: Have decreased breath sounds. HEART: Normal S1, S2. ABDOMINAL: Soft, nontender. LABORATORY EXAMINATION: Reveals a white count of 7.7, hemoglobin of 10. Chemistries are noted. Urinalysis is noted. Microbiology is reviewed. Kait Bateman's progress note is reviewed. Dr. Keith Wilhelm's progress note is reviewed. ASSESSMENT AND PLAN: A 57-year-old who had recently underwent ventral hernia repair, presenting with a several-week history of worsening abdominal distension and exertional dyspnea, bilateral lower extremity edema and new onset of atrial fibrillation and rapid ventricular response and intra-abdominal abscess, status post IR drainage and subsequent pulmonary emboli to the right lower lobe and acute systolic congestive heart failure on top of chronic congestive heart failure secondary to dilated cardiomyopathy and a left lower extremity deep vein thrombosis. We will be able to discontinue the antibiotics within the next 24 hours. Initially had sensitive Staphylococcus aureus and lower extremity edema and skin and skin soft tissue infection and today is day #10 of meropenem and #7 of vancomycin, may discontinue the antibiotics. Pharmacy has already discontinued. Currently off of antibiotics, afebrile. No further antibiotics indicated at this point. José Miguel Poole MD
[2018-02-02] MEDS: Pantoprazole 40 mg EC Tab PO SCH (05:19)
[2018-02-02 06:52] VITALS: O2SAT 97
[2018-02-02 07:19] LABS: BASO % 1.3 % (0.0-3.0); EOS # 0.4 (0.0-0.7); EOS % 4.9 % (1.5-5.0); GRAN # 4.79 (1.4-6.5); GRAN % 62.1 % (50.0-68.0); HEMOGLOBIN 10.4 g/dL (14.0-18.0); LYMPH # 1.3 (1.2-3.4); LYMPH % 17.2 % (22.0-35.0); MEAN CELL VOLUME 66.4 fl (80.0-105.0); MEAN CORPUSCULAR HEMOGLOBIN 19.6 pg (25.0-35.0); MEAN CORPUSCULAR HGB CONC 29.5 g/dl (31.0-37.0); MONO # 1.1 (0.1-0.6); MONO % 14.5 % (1.0-6.0); PLATELET COUNT 244 10^3/uL (120.0-450.0); RED CELL DISTRIBUTION WIDTH 22.1 % (11.5-14.5); WHITE BLOOD COUNT 7.7 10^3/ul (4.5-11.0)
[2018-02-02 07:33] LABS: ALB/GLOB RATIO 0.9 (1.1-1.8); ALBUMIN 2.8 g/dL (3.0-4.8); ALT/SGPT 50 U/L (7-56); AST/SGOT 31 U/L (17-59); BLOOD UREA NITROGEN 18 mg/dL (7-21); GFR NON-AFRICAN AMERICAN > 60
--- NOTE | 2018-02-02 08:21 | PN ---
SUBJECTIVE: The patient was seen and examined at bedside on the telemetry [place]. No acute events overnight. He remains afebrile and hemodynamically stable. This morning he feels well, offers no complaints and is pending arrangements for home visiting nurses prior to discharge home. OBJECTIVE: VITAL SIGNS: Temperature 97.3, pulse 82, blood pressure 128/89, respiratory rate 20, oxygen saturation 97% on 2 L nasal cannula. GENERAL: No apparent distress. HEENT: PERRL, EOMI. No scleral icterus. Mild conjunctival pallor is noted. Nares patent with no active bleeding. NECK: No JVD. LUNGS: Decreased breath sounds at the bases. CARDIOVASCULAR: Irregularly irregular. Normal S1 and S2. ABDOMEN: Normoactive bowel sounds. Soft, nontender and nondistended. KARLA drain in place with scant serosanguineous discharge. EXTREMITIES: Trace lower extremity edema bilaterally. NEUROLOGIC: Awake, alert and oriented x 3. No focal motor deficits. SKIN: Multiple ulcerations and excoriations to bilateral lower extremities with eschar formation. LABORATORY DATA: WBC 7.7, hemoglobin 10.4, hematocrit 35, platelets 244, MCV 66. Chemistry reviewed and unremarkable. ASSESSMENT: The patient is a 57-year-old man who recently underwent ventral hernia repair and presented with several week history of worsening abdominal distention, exertional dyspnea, bilateral lower extremity edema and 3-pillow orthopnea and was admitted for management of intra-abdominal abscess, new onset AFib with RVR , subsegmental pulmonary embolism, left lower extremity DVT and new onset acute systolic heart failure. PLAN: 1. AFib with RVR, new onset. Input from Dr. Pierce greatly appreciated. The patient remains rate-controlled. Continue Cardizem CD 180 mg p.o. daily, Sotalol 80 mg p.o. b.i.d., Digoxin 0.25 mg p.o. daily and Eliquis 5 mg p.o. b.i.d. Arrangements will be made for outpatient GIORGIO with attempted cardioversion. 2. Intra-abdominal abscess s/p IR drainage. Input from Dr. Garay greatly appreciated and the patient remains with drain in place. Arrangements are being made for home visiting nursing services. Input from Dr. Poole greatly appreciated. The patient has completed a course of antibiotics and remains afebrile, hemodynamically stable and with negative blood cultures. 3. Subsegmental PE to the right lower lobe. Continue Eliquis 5 mg p.o. b.i.d. for at least 6 months but likely will require indefinite anticoagulation given his underlying AFib. 4. Acute systolic heart failure secondary to primary dilated cardiomyopathy. Continue Lasix 40 mg p.o. b.i.d. 5. Left lower extremity DVT. Continue Eliquis 5 mg p.o. b.i.d. 6. Hypertension. Blood pressure controlled. Continue current medications. 7. Iron-deficiency anemia. H/H remains stable. Continue Protonix 40 mg p.o. daily and Feosol 324 mg p.o. t.i.d. 8. Chronic gastritis. Continue Protonix 40 mg p.o. daily. 9. Epistaxis, resolved. 10. Prophylaxis. Continue Protonix for GI prophylaxis. The patient remains on Eliquis thus DVT prophylaxis is not indicated. CODE STATUS: Full code. Keith Wilhelm MD MTDD
[2018-02-02] MEDS: Arformoterol 15 mcg/2 ml Inh Sol IH SCH (08:57)
[2018-02-02] MEDS: Budesonide 0.5 mg/2 ml Inhal Susp UD IH SCH (08:57)
[2018-02-02] MEDS ORDERED: Unna Boot TOP ONE ×2 (09:02→09:26)
[2018-02-02] MEDS: Mupirocin 2% Ointment 15 GM TUBE TOP SCH (09:46)
[2018-02-02] MEDS: diltiaZEM 180 mg/24 Hours CD Cap PO SCH (09:48)
[2018-02-02] MEDS: Digoxin 250 mcg (0.25 mg) Tab PO SCH (10:00)
--- NOTE | 2018-02-02 10:20 | PN ---
Copied To: Uvaldo Pierce MD Attending MD: Uvaldo Pierce MD DATE: 02/02/2018 CARDIOLOGY FOLLOWUP SUBJECTIVE: The patient is asymptomatic. His breathing is much better. OBJECTIVE: VITAL SIGNS: Blood pressure is 128/89, heart rate is in the 80s, atrial fibrillation. NECK: Negative JVD. LUNGS: Without rales. HEART: Reveal S1, S2. EXTREMITIES: Without edema. LABORATORY DATA: Hemoglobin is 10.4. Chemistries: BUN and creatinine are unremarkable. IMPRESSION: 1. Pulmonary embolism. 2. Sepsis. 3. Dilated cardiomyopathy. 4. Atrial fibrillation. 5. Resolution of congestive heart failure. Given these findings, the patient is currently on p.o. Lasix. He will continue on Eliquis. From a cardiac perspective, we will bring him back in 3 to 4 weeks for potential elective cardioversion for atrial fibrillation. Uvaldo Pierce MD
[2018-02-02 12:07] VITALS: PULSE 100
[2018-02-02 12:10] VITALS: BP 128/76; RESP 18; TEMP 98.6
--- NOTE | 2018-02-02 14:03 | CP.PCM.PN ---
<Kait Bateman - Last Filed: 02/02/18 13:55> Subjective - Date & Time of Evaluation Date of Evaluation: 02/02/18 Time of Evaluation: 13:55 - Subjective Subjective: Podiatry Progress Note - Drs. Messina/Tammi 57M seen and evaluated this AM for bilateral LE ulcerations + edema. Patient hemodynamically stable and NAD. No acute events overnight. No new complaints to LE. Patient aware he is to follow up with Dr. Cadena in the wound care center next Monday02/06/18, and is to keep dressings clean/dry/intact until follow up visit. Objective - Vital Signs/Intake and Output Vital Signs (last 24 hours): Temp Pulse Resp BP Pulse Ox 98.6 F 56 L 18 128/76 97 02/02/18 12:00 02/02/18 12:00 02/02/18 12:00 02/02/18 12:00 02/02/18 06:00 Intake and Output: 02/02/18 02/02/18 06:59 18:59 Intake Total 420 Output Total 950 Balance -530 - Medications Medications: Current Medications Apixaban (Eliquis) 5 mg PO BID [facility] PRN Reason: Protocol Last Admin: 02/02/18 09:48 Dose: 5 mg Arformoterol Tartrate (Brovana) 15 mcg IH [id number] [facility] Last Admin: 02/02/18 08:57 Dose: 15 mcg Budesonide (Pulmicort Respules) 0.5 mg IH [id number] [facility] Last Admin: 02/02/18 08:57 Dose: 0.5 mg Digoxin (Lanoxin) 0.25 mg PO DAILY [facility] Last Admin: 02/02/18 10:00 Dose: 0.25 mg Diltiazem HCl (Cardizem Cd) 180 mg PO DAILY [facility] Last Admin: 02/02/18 09:48 Dose: 180 mg Ferrous Sulfate (Feosol) 324 mg PO TID [facility] Last Admin: 02/02/18 09:48 Dose: 324 mg Furosemide (Lasix) 40 mg PO BID [facility] Last Admin: 02/02/18 09:48 Dose: 40 mg Mupirocin (Bactroban Ointment) 10 gm TOP DAILY [facility] Last Admin: 02/02/18 09:46 Dose: 1 applic Pantoprazole Sodium (Protonix Ec Tab) 40 mg PO 0600 [facility] Last Admin: 02/02/18 05:19 Dose: 40 mg Sotalol HCl (Betapace) 80 mg PO BID [facility] Last Admin: 02/02/18 09:48 Dose: 80 mg - Labs Labs: 02/02/18 06:30 02/02/18 06:30 PT 22.4 SECONDS (9.4-12.5) H 01/23/18 03:00 INR 1.94 01/23/18 03:00 APTT 75.6 Seconds (25.1-36.5) H 01/24/18 01:35 - Constitutional Appears: Well, Non-toxic, No Acute Distress - Extremities Exam Additional comments: Bilateral LE exam Vasc: DP/PT weakly palpable 1/4 b/l. CFT <3 seconds to all digits b/l. Temperature gradient warm to warm b/l. +2 pitting edema noted to bilateral LE. Neuro: Gross sensation intact bilaterally. Derm: Full thickness ulcerations noted to bilateral LE - ulcerations noted to have a fibrogranular base with scab formation; minimal periwound erythema noted ; no active drainage; no malodor; no probe to bone; no tunneling. Ulceration noted to distal aspect of right 3rd digit with overlying eschar; minimal erythema preesnt; no drainage; no malodor; no probe to bone; no tunneling; no tracking; no clinical signs of active infection. Ortho: No pain on palpation noted to wounds b/l. - Neurological Exam Neurological Exam: Alert, Awake, Oriented x3 - Psychiatric Exam Psychiatric exam: Normal Affect, Normal Mood Assessment and Plan - Assessment and Plan (Free Text) Assessment: 57 year old male with multiple LE wounds Plan: Patient seen and evaluated alongside attending, Dr. Cadena Afebrile, WBC WNL 7.7 L foot & leg WCx - staph aureus LE US - (+)DVT in left popliteal and tibial veins -Continue Eliquis 5mg PO BID Continue local wound care: -Bilateral LE maxsorb, unna boots, coban Patient to follow up with Dr. Cadena in the wound care center next Monday, -Advised patient to keep unna boots clean/dry/intact until follow up visit Podiatry will continue to follow <Duane Cadena - Last Filed: 02/02/18 17:41> Objective - Vital Signs/Intake and Output Vital Signs (last 24 hours): Temp Pulse Resp BP Pulse Ox 98.6 F 100 H 18 128/76 97 02/02/18 12:00 02/02/18 14:55 02/02/18 12:00 02/02/18 12:00 02/02/18 06:00 Intake and Output: 02/02/18 02/02/18 06:59 18:59 Intake Total 420 Output Total 950 1350 Balance -530 -1350 - Labs Labs: 02/02/18 06:30 02/02/18 06:30 PT 22.4 SECONDS (9.4-12.5) H 01/23/18 03:00 INR 1.94 01/23/18 03:00 APTT 75.6 Seconds (25.1-36.5) H 01/24/18 01:35 Attending/Attestation - Attestation I have personally seen and examined this patient.: Yes I have fully participated in the care of the patient.: Yes I have reviewed all pertinent clinical information, including history, physical exam and plan: Yes
--- NOTE | 2018-02-02 14:48 | CP.PCM.PN ---
Subjective - Date & Time of Evaluation Date of Evaluation: 02/02/18 Time of Evaluation: 14:44 - Subjective Subjective: Pt seen and examined with agreement. Pt in room with daughter getting ready for discharge. Pt states he sneezed and packing fell out of nose. No further bleeding. Still taking Eliquis Objective - Vital Signs/Intake and Output Vital Signs (last 24 hours): Temp Pulse Resp BP Pulse Ox 98.6 F 56 L 18 128/76 97 02/02/18 12:00 02/02/18 12:00 02/02/18 12:00 02/02/18 12:00 02/02/18 06:00 Intake and Output: 02/02/18 02/02/18 06:59 18:59 Intake Total 420 Output Total 950 Balance -530 - Medications Medications: Current Medications Apixaban (Eliquis) 5 mg PO BID [facility] PRN Reason: Protocol Last Admin: 02/02/18 09:48 Dose: 5 mg Arformoterol Tartrate (Brovana) 15 mcg IH [id number] [facility] Last Admin: 02/02/18 08:57 Dose: 15 mcg Budesonide (Pulmicort Respules) 0.5 mg IH [id number] [facility] Last Admin: 02/02/18 08:57 Dose: 0.5 mg Digoxin (Lanoxin) 0.25 mg PO DAILY [facility] Last Admin: 02/02/18 10:00 Dose: 0.25 mg Diltiazem HCl (Cardizem Cd) 180 mg PO DAILY [facility] Last Admin: 02/02/18 09:48 Dose: 180 mg Ferrous Sulfate (Feosol) 324 mg PO TID [facility] Last Admin: 02/02/18 14:14 Dose: 324 mg Furosemide (Lasix) 40 mg PO BID [facility] Last Admin: 02/02/18 09:48 Dose: 40 mg Mupirocin (Bactroban Ointment) 10 gm TOP DAILY [facility] Last Admin: 02/02/18 09:46 Dose: 1 applic Pantoprazole Sodium (Protonix Ec Tab) 40 mg PO 0600 [facility] Last Admin: 02/02/18 05:19 Dose: 40 mg Sotalol HCl (Betapace) 80 mg PO BID [facility] Last Admin: 02/02/18 09:48 Dose: 80 mg - Labs Labs: 02/02/18 06:30 08/31/18 06:30 PT 22.4 SECONDS (9.4-12.5) H 01/23/18 03:00 INR 1.94 01/23/18 03:00 APTT 75.6 Seconds (25.1-36.5) H 01/24/18 01:35 - Eye Exam Eye Exam: EOMI, Normal appearance Pupil Exam: NORMAL ACCOMODATION - ENT Exam ENT Exam: Mucous Membranes Moist, Normal Exam Additional comments: Dry nasal cavity bilaterally with crusting, septum deviation to the right - Neck Exam Neck Exam: Full ROM Assessment and Plan (1) Epistaxis Status: Acute (2) Deviated septum Status: Acute (3) Blood clotting disorder Status: Acute - Assessment and Plan (Free Text) Plan: continue ocean saline at home. rapid rhino given upon discharge for potential bleeding. Fu in office
[2018-02-02 14:57] VITALS: PULSE 100
--- NOTE | 2018-02-02 19:24 | PN ---
Copied To: José Miguel Poole MD Attending MD: José Miguel Poole MD DATE: 02/02/2018 LOCATION: Patient is in 271, bed 1. SUBJECTIVE: No fevers, no chills, no nausea. PHYSICAL EXAMINATION: VITAL SIGNS: Temperature is 97, blood pressure is 128/70, and respiratory rate of 18. HEENT: Unremarkable. NECK: Supple. LUNGS: Decreased breath sounds. HEART: Normal S1, S2. ABDOMEN: Soft and nontender. Patient is seen earlier today, he is ready to be discharged in room 271, bed 1, and his legs are much improved. ASSESSMENT AND PLAN: This is a 57-year-old who has recently underwent ventral hernia repair. Standing with a several-week history of worsening abdominal distention, exertional dyspnea, and bilateral lower extremity edema with a new onset of atrial fibrillation with rapid ventricular response, intraabdominal abscess status post IR drainage, subsequent pulmonary emboli to the right lower lobe and acute systolic congestive heart failure on top of chronic congestive heart failure secondary to dilated cardiomyopathy, left lower extremity deep vein thrombosis and currently off antibiotics, afebrile. Patient is for discharge today. Follow up with PMD. José Miguel Poole MD
== END 2018-02-02 15:03 | disposition home or self-care (01) | DRG 371 ==
LOC: ED 12:36 → ERH 16:04 → 2RSO 20:46 → 2RNO 01-25 10:08 → 2RSO 01-29 08:36
PROVIDERS: ADMIT Student in an Organized Health Care Education/Training Program; ATTEND Student in an Organized Health Care Education/Training Program
PROC: 0W9F30Z Drainage of Abdominal Wall with Drainage Device, Percutaneous Approach (ICD-10-PCS; principal; 2018-01-22 16:00)
PROC: 3E033GC Introduction of Other Therapeutic Substance into Peripheral Vein, Percutaneous Approach (ICD-10-PCS; 2018-01-23)
PROC: 4A023N7 Measurement of Cardiac Sampling and Pressure, Left Heart, Percutaneous Approach (ICD-10-PCS; 2018-01-29)
PROC: B2151ZZ Fluoroscopy of Left Heart using Low Osmolar Contrast (ICD-10-PCS; 2018-01-29)
PROC: B2111ZZ Fluoroscopy of Multiple Coronary Arteries using Low Osmolar Contrast (ICD-10-PCS; 2018-01-29)
PROC: 2Y41X5Z Packing of Nasal Region using Packing Material (ICD-10-PCS; 2018-01-30)
DX: K65.1 Peritoneal abscess (principal); I26.99 Other pulmonary embolism without acute cor pulmonale; I50.21 Acute systolic (congestive) heart failure; A41.9 Sepsis, unspecified organism; I47.2 Ventricular tachycardia; I82.432 Acute embolism and thrombosis of left popliteal vein; I82.442 Acute embolism and thrombosis of left tibial vein; I42.0 Dilated cardiomyopathy; L97.919 Non-pressure chronic ulcer of unspecified part of right lower leg with unspecified severity; D68.32 Hemorrhagic disorder due to extrinsic circulating anticoagulants; R04.0 Epistaxis; T45.515A Adverse effect of anticoagulants, initial encounter; I11.0 Hypertensive heart disease with heart failure; I48.91 Unspecified atrial fibrillation; J34.2 Deviated nasal septum; I27.20 Pulmonary hypertension, unspecified; D50.9 Iron deficiency anemia, unspecified; I25.10 Atherosclerotic heart disease of native coronary artery without angina pectoris; K29.50 Unspecified chronic gastritis without bleeding; K20.9 Esophagitis, unspecified; K57.90 Diverticulosis of intestine, part unspecified, without perforation or abscess without bleeding; L97.529 Non-pressure chronic ulcer of other part of left foot with unspecified severity; A49.01 Methicillin susceptible Staphylococcus aureus infection, unspecified site; I89.0 Lymphedema, not elsewhere classified; E66.9 Obesity, unspecified; Z68.34 Body mass index [BMI] 34.0-34.9, adult

== ENCOUNTER 2018-02-06 16:50 | Observation (INO) | payer BC ==
[2018-02-06 16:50] VITALS: PULSE 100
[2018-02-06 19:05] LABS: BASO # 0.03 K/mm3 (0.0-2.0); BASO % 0.3 % (0.0-3.0); EOS # 0.4 (0.0-0.7); EOS % 3.4 % (1.5-5.0); GRAN # 8.51 (1.4-6.5); GRAN % 71.6 % (50.0-68.0); HEMOGLOBIN 12.2 g/dL (14.0-18.0); LYMPH # 1.3 (1.2-3.4); LYMPH % 11.1 % (22.0-35.0); MEAN CELL VOLUME 66.6 fl (80.0-105.0); MEAN CORPUSCULAR HEMOGLOBIN 20.7 pg (25.0-35.0); MEAN CORPUSCULAR HGB CONC 31.1 g/dl (31.0-37.0); MONO # 1.6 (0.1-0.6); MONO % 13.6 % (1.0-6.0); PLATELET COUNT 251 10^3/uL (120.0-450.0); RBC 5.89 10^6/uL (3.5-6.1); WHITE BLOOD COUNT 11.9 10^3/ul (4.5-11.0)
[2018-02-06 19:11] LABS: INR 1.73; PARTIAL THROMBOPLASTIN TIME 31.4 Seconds (25.1-36.5); PROTHROMBIN TIME 19.9 SECONDS (9.4-12.5)
[2018-02-06 19:15] LABS: ALBUMIN 3.6 g/dL (3.0-4.8); ALT/SGPT 37 U/L (7-56); AST/SGOT 38 U/L (17-59); BLOOD UREA NITROGEN 15 mg/dL (7-21); CALCIUM 9.1 mg/dL (8.4-10.5); GFR NON-AFRICAN AMERICAN > 60
[2018-02-06 20:03] LABS: ERYTHROCYTE SEDIMENTATION RATE 34 mm/hr (0.00-15.0)
--- NOTE | 2018-02-06 21:17 | ED PDOC ---
Arrival/HPI - General Chief Complaint: Abnormal Skin Integrity Time Seen by Provider: 02/06/18 17:20 Historian: Patient - History of Present Illness Narrative History of Present Illness (Text): 02/06/18 21:10 57yr old male sent in by [employer] supervisor for admission for rash to lower legs. pt recently started eliquis and now has rash to lower legs. pt states he also has multiple ulcerations that are improving. pt states he just had unna boot removed today and rash to lower legs was discovered. pt denies fever/chills. denies headaches dizziness or weakness. pt states he was found to have blood clot in leg. pt denies vomiting/diarrhea. no cp or sob at present time. no other complaints. Past Medical History - Provider Review Nursing Documentation Reviewed: Yes - Travel History Have you recently traveled outside [place] w/in the past 3 mons?: No - Infectious Disease Hx of Infectious Diseases: None - Cardiac Hx Cardiac Disorders: Yes Hx Hypertension: Yes - Pulmonary Hx Respiratory Disorders: No - Neurological Hx Neurological Disorder: No - HEENT Hx HEENT Disorder: No - Renal Hx Renal Disorder: No - Endocrine/Metabolic Hx Endocrine Disorders: No - Hematological/Oncological Hx Blood Disorders: No - Integumentary Hx Dermatological Disorder: Yes Other/Comment: open wounds on bilateral lower extremities - Musculoskeletal/Rheumatological Hx Musculoskeletal Disorders: Yes Hx Arthritis: Yes - Gastrointestinal Hx Gastrointestinal Disorders: Yes (colorectal polyps, ventral hernia) - Genitourinary/Gynecological Hx Genitourinary Disorders: No - Psychiatric Hx Psychophysiologic Disorder: No Hx Substance Use: No - Surgical History Other/Comment: colon resection with ventral hernia repair with mesh placement. Family/Social History - Physician Review Nursing Documentation Reviewed: Yes Family/Social History: Unknown Family HX Smoking Status: Never Smoked Hx Alcohol Use: No Hx Substance Use: No Allergies/Home Meds Allergies/Adverse Reactions: Allergies No Known Allergies Allergy (Verified 02/06/18 17:22) Home Medications: Home Meds Medication Instructions Recorded Confirmed Lisinopril/Hydrochlorothiazide 1 tab PO DAILY 09/22/17 02/06/18 [Lisinopril-Hydrochlorothiazide 25 mg-20 mg] amLODIPine [Norvasc] 10 mg PO DAILY 09/22/17 02/06/18 Review of Systems - Review of Systems Constitutional: absent: Fatigue, Fevers Respiratory: absent: SOB, Cough Cardiovascular: absent: Chest Pain, Palpitations Gastrointestinal: absent: Abdominal Pain, Nausea, Vomiting Genitourinary Male: absent: Dysuria, Frequency, Hematuria Musculoskeletal: absent: Arthralgias, Back Pain, Neck Pain Skin: Rash, Skin Lesions. absent: Pruritis Neurological: absent: Headache, Dizziness Psychiatric: absent: Anxiety, Depression Physical Exam Vital Signs Reviewed: Yes Vital Signs Temp Pulse Resp BP Pulse Ox 02/06/18 17:15 97.6 F 90 18 126/85 97 Temperature: Afebrile Blood Pressure: Normal Pulse: Regular Respiratory Rate: Normal Appearance: Positive for: Well-Appearing, Non-Toxic, Comfortable Pain Distress: None Mental Status: Positive for: Alert and Oriented X 3 - Systems Exam Head: Present: Atraumatic Mouth: Present: Moist Mucous Membranes Neck: Present: Normal Range of Motion Respiratory/Chest: Present: Clear to Auscultation, Good Air Exchange. No: Respiratory Distress, Accessory Muscle Use Cardiovascular: Present: Regular Rate and Rhythm, Normal S1, S2. No: Murmurs Abdomen: No: Tenderness, Distention, Rebound, Guarding Upper Extremity: Present: Normal Inspection Lower Extremity: Present: Normal ROM, Swelling, Neurovascularly Intact, Capillary Refill < 2 s, Other (purpura noted to the lower legs biaterally and the right thigh. no tenderness. ). No: CALF TENDERNESS, Tenderness Neurological: Present: GCS=15, Speech Normal, Motor Func Grossly Intact, Normal Sensory Function Skin: Present: Warm, Dry, Normal Color Psychiatric: Present: Alert, Oriented x 3 Medical Decision Making ED Course and Treatment: 02/06/18 21:20 57yr old male on eliquis with rash to b/l lower extremities. pt sent in by dr. quiroz for admission. pt found to have purpura to b/l lower legs after starting eliquis for DVT/PE. Cbc; wbc:11.9 Cmp; wnl INR: wnl blood cultures pending. case discussed with dr. borrego; accepts admission for purpura on eliquis, will consult dr. yusuf. all aspects of this case were discussed the attending of record. impression: purpura, leukocytosis admit to med/surg - Lab Interpretations Lab Results: 02/06/18 18:30 02/06/18 18:30 Lab Results 02/06/18 19:30: Blood Type Confirm O POSITIVE 02/06/18 19:05: Blood Type O POSITIVE, Antibody Screen Negative, BBK History Checked No verified bt 02/06/18 18:30: WBC 11.9 H D, RBC 5.89, Hgb 12.2 L, Hct 39.2 L, MCV 66.6 L, MCH 20.7 L, MCHC 31.1, RDW 24.0 H, Plt Count 251, Gran % 71.6 H, Lymph % (Auto) 11.1 L, Kings % (Auto) 13.6 H, Eos % (Auto) 3.4, Baso % (Auto) 0.3, Gran # 8.51 H , Lymph # (Auto) 1.3, Kings # (Auto) 1.6 H, Eos # (Auto) 0.4, Baso # (Auto) 0.03 , ESR 34 H 02/06/18 18:30: Sodium 142, Potassium 3.9, Chloride 101, Carbon Dioxide 28, Anion Gap 16, BUN 15, Creatinine 0.8, Est GFR ( Amer) > 60, Est GFR (Non- Af Amer) > 60, Random Glucose 105, Calcium 9.1, Total Bilirubin 2.5 H, AST 38, ALT 37, Alkaline Phosphatase 92, Total Protein 7.3, Albumin 3.6, Globulin 3.7, Albumin/Globulin Ratio 1.0 L 02/06/18 18:30: PT 19.9 H, INR 1.73, APTT 31.4 Disposition/Present on Arrival - Present on Arrival Any Indicators Present on Arrival: No History of DVT/PE: No History of Uncontrolled Diabetes: No Urinary Catheter: No History of Decub. Ulcer: No History Surgical Site Infection Following: None - Disposition Have Diagnosis and Disposition been Completed?: Yes Diagnosis: Purpura, Rash, Leukocytosis Disposition: HOSPITALIZED Disposition Time: 21:00 Patient Plan: Admission Condition: FAIR
[2018-02-06 23:11] VITALS: BMI 29.8
[2018-02-07 00:59] LABS: URINE BILIRUBIN MODERATE (NEGATIVE); URINE BLOOD TRACE-LYSED (NEGATIVE); URINE GLUCOSE (UA) NEGATIVE (NEGATIVE); URINE LEUKOCYTE ESTERASE NEGATIVE Leu/uL (NEGATIVE); URINE PROTEIN 30 mg/dL (<30 mg/dL)
[2018-02-07 01:01] LABS: URINE APPEARANCE CLEAR (CLEAR); URINE COLOR AMBER (YELLOW)
[2018-02-07 01:08] LABS: URINE EPITHELIAL CELLS 0 - 2 /hpf (0-5); URINE RBC 0 - 2 /hpf (0-2); URINE WBC 0 - 2 /hpf (0-6)
[2018-02-07 06:28] LABS: BASO # 0.05 K/mm3 (0.0-2.0); BASO % 0.5 % (0.0-3.0); EOS # 0.6 (0.0-0.7); GRAN # 7.23 (1.4-6.5); GRAN % 66.1 % (50.0-68.0); HEMOGLOBIN 10.9 g/dL (14.0-18.0); LYMPH # 1.5 (1.2-3.4); LYMPH % 13.8 % (22.0-35.0); MEAN CELL VOLUME 67.1 fl (80.0-105.0); MEAN CORPUSCULAR HEMOGLOBIN 20.1 pg (25.0-35.0); MONO # 1.6 (0.1-0.6); MONO % 14.6 % (1.0-6.0); PLATELET COUNT 249 10^3/uL (120.0-450.0); RBC 5.41 10^6/uL (3.5-6.1); RED CELL DISTRIBUTION WIDTH 24.3 % (11.5-14.5); WHITE BLOOD COUNT 10.9 10^3/ul (4.5-11.0)
[2018-02-07 07:02] LABS: ALB/GLOB RATIO 0.9 (1.1-1.8); ALBUMIN 3.1 g/dL (3.0-4.8); ALT/SGPT 29 U/L (7-56); AST/SGOT 28 U/L (17-59); BLOOD UREA NITROGEN 15 mg/dL (7-21); CALCIUM 8.8 mg/dL (8.4-10.5); GFR NON-AFRICAN AMERICAN > 60
[2018-02-07 07:34] LABS: BILIRUBIN,DIRECT 0.8 mg/dL (0.0-0.4)
[2018-02-07] MEDS: diltiaZEM 180 mg/24 Hours CD Cap PO SCH (09:16)
--- NOTE | 2018-02-07 09:34 | HP ---
HISTORY OF PRESENT ILLNESS: The patient is a 57-year-old man who was recently admitted to [facility] for management of sepsis secondary to intra abdominal abscess ( precipitated by recent ventral hernia repair), new onset AFib with RVR, new onset acute systolic heart failure secondary to primary dilated cardiomyopathy, right subsegmental PE and left lower extremity DVT. The patient was discharged on 02/02/2018 and was doing well at home since his discharge. He had followup with Dr. Cadena in the wound care center for previously noted ulcerations to his bilateral feet. Since the day of discharge, the patient reports that he has been experiencing a rash to his lower extremities, which he noticed coincided with utilization of the Unna boots prescribed by Podiatry. On evaluation by Dr. Cadena in the wound care center, there was concern for his bilateral lower extremity rashes and as such he was sent to the ED for further evaluation. Upon arrival to the ED, he was found to be afebrile and hemodynamically stable. Physical examination demonstrated erythema to his bilateral lower extremities , particularly below the knee. There was concern that the patient was having purpura secondary to his Eliquis and as such the patient was admitted for continued management. This morning the patient states he feels well and states that the rash has been improving since removing his Unna boots and overall he offers no complaints. PAST MEDICAL HISTORY: As per HPI, also hypertension, chronic gastritis and iron-deficiency anemia. PAST SURGICAL HISTORY: As per HPI, also right hemicolectomy secondary to multiple benign polyps. ALLERGIES: NKDA. MEDICATIONS: Eliquis 5 mg p.o. b.i.d., Cardizem CD 180 mg p.o. daily, Sotalol 80 mg p.o. b.i.d., Digoxin 0.25 mg p.o. daily, Lasix 40 mg p.o. b.i.d., Protonix 40 mg p.o. daily and Feosol 324 mg p.o. t.i.d. FAMILY HISTORY: Noncontributory. SOCIAL HISTORY: The patient has no history of any toxic habits. REVIEW OF SYSTEMS: A 12-point review of systems is negative except as per HPI. PHYSICAL EXAMINATION: VITAL SIGNS: Temperature 98.8, pulse 62, blood pressure 123/88, respiratory rate 18, oxygen saturation 98% on room air. GENERAL: No apparent distress. HEENT: PERRL, EOMI. No scleral icterus. Mild conjunctival pallor is noted. NECK: No JVD. LUNGS: Clear to auscultation. CARDIOVASCULAR: Irregularly irregular. Normal S1 and S2. ABDOMEN: Normoactive bowel sounds. Soft, nontender and nondistended. KARLA drain in place with scant serosanguineous discharge. EXTREMITIES: Trace lower extremity edema bilaterally with bilateral petechiae noted below the knee. NEUROLOGIC: Awake, alert and oriented x 3. No focal motor deficits. LABORATORY DATA: WBC 10.9, hemoglobin 11, hematocrit 36, platelets 249, MCV 67. Chemistry reviewed and unremarkable. 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 PLAN: 1. Bilateral lower extremity petechiae. Given the patient's history, the lesions seem to correspond to placement of Unna boots and the patient reports that the boots were on rather tightly. Given that he was on anticoagulant therapy, it is likely that he may have had some small vessel damage resulting in the petechiae. Dr. Mckeon has been consulted from the ED as initially there was concern for purpura. We will await his recommendations. 2. Atrial fibrillation. The patient remains rate controlled. Resume Cardizem CD 180 mg p.o. daily, Sotalol 80 mg p.o. b.i.d., Digoxin 0.25 mg p.o. daily and Eliquis 5 mg p.o. b.i.d. Arrangements are being made for outpatient GIORGIO with attempted cardioversion. 3. Intra-abdominal abscess s/p IR drainage. The patient will follow up with Dr. Uvaldo Garay on an outpatient basis for removal of his drain. 4. Subsegmental PE to the right lower lobe. Continue Eliquis 5 mg p.o. b.i.d. for at least 6 months but given his underlying AFib he will likely require lifelong anticoagulation therapy. 5. Primary dilated cardiomyopathy. Continue Lasix 40 mg p.o. b.i.d. 6. Left lower extremity DVT. Continue Eliquis 5 mg p.o. b.i.d. 7. Hypertension. Blood pressure controlled. Continue current medications. 8. Iron-deficiency anemia. H/H remained stable. Continue Protonix 40 mg p.o. daily 9. Chronic gastritis. Continue Protonix 40 mg p.o. daily. 10. Prophylaxis. Continue Protonix for GI prophylaxis. The patient remains on Eliquis thus DVT prophylaxis is not indicated. CODE STATUS: Full code. Keith Wilhelm MD [facility] # [id number] MTDD
--- NOTE | 2018-02-07 13:49 | CP.PCM.CON ---
<Kait Bateman - Last Filed: 02/07/18 13:33> History of Present Illness - History of Present Illness History of Present Illness: Podiatry Consult Note - Drs. Cadena/Mayuri 57 year old male PMHx of HTN, ventral hernia s/p repair, colorectal polyps s/p colon resection (October 2017) seen and evaluated at bedside for bilateral lower extremity rash and ulcerations. Patient was recently discharged on 02/02/18 with unna boots to bilateral LE. At pt's follow up visit in wound care center yesterday 02/06/18 rash was discovered - biopsy was taken at that time and was sent for admission for further evaluation. Patient denies any pain to lower extremities today; believes rash has improved since removal of unna boots. Of note, patient recently started on Eliquis for tx of LE DVT. Patient denies N/V/F /D/C/SOB/QUINTEROS/CP. Review of Systems - Review of Systems All systems: reviewed and no additional remarkable complaints except (as per HPI ) Past Patient History - Infectious Disease Hx of Infectious Diseases: None - Past Social History Smoking Status: Never Smoked - CARDIAC Hx Cardiac Disorders: Yes Hx Hypertension: Yes - PULMONARY Hx Respiratory Disorders: No - NEUROLOGICAL Hx Neurological Disorder: No - HEENT Hx HEENT Problems: No - RENAL Hx Chronic Kidney Disease: No - ENDOCRINE/METABOLIC Hx Endocrine Disorders: No - HEMATOLOGICAL/ONCOLOGICAL Hx Blood Disorders: No - INTEGUMENTARY Hx Dermatological Problems: Yes Other/Comment: open wounds on bilateral lower extremities - MUSCULOSKELETAL/RHEUMATOLOGICAL Hx Musculoskeletal Disorders: Yes Hx Arthritis: Yes - GASTROINTESTINAL Hx Gastrointestinal Disorders: Yes (colorectal polyps, ventral hernia) - GENITOURINARY/GYNECOLOGICAL Hx Genitourinary Disorders: No - PSYCHIATRIC Hx Psychophysiologic Disorder: No Hx Substance Use: No - SURGICAL HISTORY Other/Comment: colon resection with ventral hernia repair with mesh placement. Meds Allergies/Adverse Reactions: Allergies Allergy/AdvReac Type Severity Reaction Status Date / Time No Known Allergies Allergy Verified 02/06/18 17:22 - Medications Medications: Current Medications Apixaban (Eliquis) 5 mg PO BID [facility] PRN Reason: Protocol Last Admin: 02/07/18 09:16 Dose: 5 mg Diltiazem HCl (Cardizem Cd) 180 mg PO DAILY [facility] Last Admin: 02/07/18 09:16 Dose: 180 mg Furosemide (Lasix) 40 mg PO BID [facility] Last Admin: 02/07/18 09:17 Dose: 40 mg Sotalol HCl (Betapace) 80 mg PO BID [facility] Last Admin: 02/07/18 09:15 Dose: 80 mg Physical Exam - Constitutional Appears: Well, Non-toxic, No Acute Distress - Extremities Exam Additional comments: Bilateral LE exam Vasc: DP/PT weakly palpable 1/4 b/l. CFT <3 seconds to all digits b/l. Temperature gradient warm to warm b/l. +2 pitting edema noted to bilateral LE. Neuro: Gross sensation intact bilaterally. Derm: Diffuse purpura/ecchymosis noted to bilateral LE, mostly localized to area of previous application of unna boots. Full thickness ulcerations noted to bilateral LE - ulcerations noted to have a 90% fibrous base base with scab formation; no active drainage; no malodor; no probe to bone; no tunneling. Ulceration noted to distal aspect of right 3rd digit with overlying eschar; no drainage; no malodor; no probe to bone; no tunneling; no tracking; no clinical signs of active infection. Ortho: No pain on palpation noted to wounds b/l. - Neurological Exam Neurological exam: Alert, Oriented x3 - Psychiatric Exam Psychiatric exam: Normal Affect, Normal Mood Results - Vital Signs Recent Vital Signs: Last Vital Signs Temp 98.8 F 02/07/18 07:34 Pulse 62 02/07/18 09:16 Resp 19 02/07/18 07:34 BP 123/88 02/07/18 09:17 Pulse Ox 98 02/07/18 07:34 - Labs Result Diagrams: 02/07/18 06:00 02/07/18 06:00 Labs: Laboratory Results - last 24 hr 02/07/18 02/07/18 02/07/18 00:10 06:00 06:00 WBC 10.9 RBC 5.41 Hgb 10.9 L Hct 36.3 L MCV 67.1 L MCH 20.1 L MCHC 30.0 L RDW 24.3 H Plt Count 249 Gran % 66.1 Lymph % (Auto) 13.8 L [place] % (Auto) 14.6 H Eos % (Auto) 5.0 Baso % (Auto) 0.5 Gran # 7.23 H Lymph # (Auto) 1.5 [place] # (Auto) 1.6 H Eos # (Auto) 0.6 Baso # (Auto) 0.05 Sodium 140 Potassium 3.7 Chloride 102 Carbon Dioxide 28 Anion Gap 13 BUN 15 Creatinine 0.8 Est GFR ( Amer) > 60 Est GFR (Non-Af Amer) > 60 POC Glucose (mg/dL) Random Glucose 122 H Calcium 8.8 Total Bilirubin 2.4 H Direct Bilirubin 0.8 H AST 28 ALT 29 Alkaline Phosphatase 80 Lactate Dehydrogenase 547 Total Protein 6.5 Albumin 3.1 Globulin 3.4 Albumin/Globulin Ratio 0.9 L Urine Color [place] Urine Appearance Clear Urine pH 6.0 Ur Specific [place] 1.020 Urine Protein 30 H Urine Glucose (UA) Negative Urine Ketones Negative Urine Blood Trace-lysed H Urine Nitrate Negative Urine Bilirubin Moderate H Urine Urobilinogen 4.0 H Ur Leukocyte Esterase Negative Urine RBC 0 - 2 Urine WBC 0 - 2 Ur Epithelial Cells 0 - 2 02/07/18 07:32 WBC RBC Hgb Hct MCV MCH MCHC RDW Plt Count Gran % Lymph % (Auto) [place] % (Auto) Eos % (Auto) Baso % (Auto) Gran # Lymph # (Auto) [place] # (Auto) Eos # (Auto) Baso # (Auto) Sodium Potassium Chloride Carbon Dioxide Anion Gap BUN Creatinine Est GFR ( Amer) Est GFR (Non-Af Amer) POC Glucose (mg/dL) 103 Random Glucose Calcium Total Bilirubin Direct Bilirubin AST ALT Alkaline Phosphatase Lactate Dehydrogenase Total Protein Albumin Globulin Albumin/Globulin Ratio Urine Color Urine Appearance Urine pH Ur Specific [place] Urine Protein Urine Glucose (UA) Urine Ketones Urine Blood Urine Nitrate Urine Bilirubin Urine Urobilinogen Ur Leukocyte Esterase Urine RBC Urine WBC Ur Epithelial Cells Assessment & Plan - Assessment and Plan (Free Text) Assessment: 57 year old male PMHx of HTN, ventral hernia s/p repair, colorectal polyps s/p colon resection (October 2017) with subcutaneous hemorrhage to bilateral LE likely secondary to pressure from unna boots Plan: Patient seen and evaluated alongside attending, Dr. Messina Tmax 99.8 overnight, WBC 10.9 Clinically appears consistent with purpura 2/2 unna boot application on anticoagulant therapy -Dressings removed, only bactroban and optifoam at this time - will continue to monitor f/u ulcer biopsy Eliquis 5mg PO BID for tx of L DVT Podiatry will continue to follow <Marilynn Messina - Last Filed: 02/07/18 16:30> Meds - Medications Medications: Current Medications Apixaban (Eliquis) 5 mg PO BID [facility] PRN Reason: Protocol Last Admin: 02/07/18 09:16 Dose: 5 mg Diltiazem HCl (Cardizem Cd) 180 mg PO DAILY [facility] Last Admin: 02/07/18 09:16 Dose: 180 mg Furosemide (Lasix) 40 mg PO BID [facility] Last Admin: 02/07/18 09:17 Dose: 40 mg Sotalol HCl (Betapace) 80 mg PO BID [facility] Last Admin: 02/07/18 09:15 Dose: 80 mg Results - Vital Signs Recent Vital Signs: Last Vital Signs Temp 98.8 F 02/07/18 07:34 Pulse 62 02/07/18 09:16 Resp 19 02/07/18 07:34 BP 123/88 02/07/18 09:17 Pulse Ox 98 02/07/18 07:34 - Labs Result Diagrams: 02/07/18 06:00 02/07/18 06:00 Labs: Laboratory Results - last 24 hr 02/07/18 02/07/18 02/07/18 00:10 06:00 06:00 WBC 10.9 RBC 5.41 Hgb 10.9 L Hct 36.3 L MCV 67.1 L MCH 20.1 L MCHC 30.0 L RDW 24.3 H Plt Count 249 Gran % 66.1 Lymph % (Auto) 13.8 L [place] % (Auto) 14.6 H Eos % (Auto) 5.0 Baso % (Auto) 0.5 Gran # 7.23 H Lymph # (Auto) 1.5 [place] # (Auto) 1.6 H Eos # (Auto) 0.6 Baso # (Auto) 0.05 Sodium 140 Potassium 3.7 Chloride 102 Carbon Dioxide 28 Anion Gap 13 BUN 15 Creatinine 0.8 Est GFR ( Amer) > 60 Est GFR (Non-Af Amer) > 60 POC Glucose (mg/dL) Random Glucose 122 H Calcium 8.8 Total Bilirubin 2.4 H Direct Bilirubin 0.8 H AST 28 ALT 29 Alkaline Phosphatase 80 Lactate Dehydrogenase 547 Total Protein 6.5 Albumin 3.1 Globulin 3.4 Albumin/Globulin Ratio 0.9 L Urine Color Gianna Urine Appearance Clear Urine pH 6.0 Ur Specific [place] 1.020 Urine Protein 30 H Urine Glucose (UA) Negative Urine Ketones Negative Urine Blood Trace-lysed H Urine Nitrate Negative Urine Bilirubin Moderate H Urine Urobilinogen 4.0 H Ur Leukocyte Esterase Negative Urine RBC 0 - 2 Urine WBC 0 - 2 Ur Epithelial Cells 0 - 2 02/07/18 07:32 WBC RBC Hgb Hct MCV MCH MCHC RDW Plt Count Gran % Lymph % (Auto) [place] % (Auto) Eos % (Auto) Baso % (Auto) Gran # Lymph # (Auto) [place] # (Auto) Eos # (Auto) Baso # (Auto) Sodium Potassium Chloride Carbon Dioxide Anion Gap BUN Creatinine Est GFR ( Amer) Est GFR (Non-Af Amer) POC Glucose (mg/dL) 103 Random Glucose Calcium Total Bilirubin Direct Bilirubin AST ALT Alkaline Phosphatase Lactate Dehydrogenase Total Protein Albumin Globulin Albumin/Globulin Ratio Urine Color Urine Appearance Urine pH Ur Specific [place] Urine Protein Urine Glucose (UA) Urine Ketones Urine Blood Urine Nitrate Urine Bilirubin Urine Urobilinogen Ur Leukocyte Esterase Urine RBC Urine WBC Ur Epithelial Cells Attending/Attestation - Attestation I have personally seen and examined this patient.: Yes I have fully participated in the care of the patient.: Yes I have reviewed all pertinent clinical information: Yes
--- NOTE | 2018-02-07 14:32 | CP.PCM.CON ---
History of Present Illness - History of Present Illness History of Present Illness: Heme/Onc Consult Note for Dr. Mckeon -- Monty Romeo, DO PGY2 CC: LE Purpura Patient is a 57 yo Me had a with PMH of PE, DVT, a-fib on AC, systolic CHF 2/2 dilated CM, chronic gastritis, HTN, iron-deficiency anemia, and intra-abdominal abscess was sent to [facility] by leather dresser due to purpura found on b/l LE's. Patient had unna boots on both legs, when removed at his podiatrists office diffuse purpura was seen on both legs. Patient denied any pain or paresthesias. Patient believes the purpura is 2/2 his unna boots being too tight. Patient was admitted within the last month where he was placed on anticoagulation due to PE and DVT. He stated that he had a similar rash occur on his right inner thigh where his abdominal fluid bag was strapped after anticoagulation was started. Patient is still on Eliquis for at least the next six months due to PE and DVT, but possibly could be on it indefinitely due to his h/o a-fib. Patient denied any new bleeding, melena, hematochezia, CP, SOB, n/v/d, abdominal pain, fever, chills, QUINTEROS, or dizziness. PMH: PE, DVT, a-fib on AC, systolic CHF 2/2 dilated CM, chronic gastritis, HTN, iron-deficiency anemia, and intra-abdominal abscess Surg: Ventral hernia repair, right hemicolectomy due to enlarged polyps, IR drain of abdominal abscess All: NKDA SH: Denies tobacco, EtOH, or illicit drug use FHx: Father with prostate CA Review of Systems - Review of Systems All systems: reviewed and no additional remarkable complaints except (12 point ROS reviewed and is negative other than what is stated in HPI.) Past Patient History - Infectious Disease Hx of Infectious Diseases: None - Past Social History Smoking Status: Never Smoked - CARDIAC Hx Cardiac Disorders: Yes Hx Hypertension: Yes - PULMONARY Hx Respiratory Disorders: No - NEUROLOGICAL Hx Neurological Disorder: No - HEENT Hx HEENT Problems: No - RENAL Hx Chronic Kidney Disease: No - ENDOCRINE/METABOLIC Hx Endocrine Disorders: No - HEMATOLOGICAL/ONCOLOGICAL Hx Blood Disorders: No - INTEGUMENTARY Hx Dermatological Problems: Yes Other/Comment: open wounds on bilateral lower extremities - MUSCULOSKELETAL/RHEUMATOLOGICAL Hx Musculoskeletal Disorders: Yes Hx Arthritis: Yes - GASTROINTESTINAL Hx Gastrointestinal Disorders: Yes (colorectal polyps, ventral hernia) - GENITOURINARY/GYNECOLOGICAL Hx Genitourinary Disorders: No - PSYCHIATRIC Hx Psychophysiologic Disorder: No Hx Substance Use: No - SURGICAL HISTORY Other/Comment: colon resection with ventral hernia repair with mesh placement. Meds Allergies/Adverse Reactions: Allergies Allergy/AdvReac Type Severity Reaction Status Date / Time No Known Allergies Allergy Verified 02/06/18 17:22 - Medications Medications: Current Medications Apixaban (Eliquis) 5 mg PO BID [facility] PRN Reason: Protocol Last Admin: 02/07/18 09:16 Dose: 5 mg Diltiazem HCl (Cardizem Cd) 180 mg PO DAILY [facility] Last Admin: 02/07/18 09:16 Dose: 180 mg Furosemide (Lasix) 40 mg PO BID [facility] Last Admin: 02/07/18 09:17 Dose: 40 mg Sotalol HCl (Betapace) 80 mg PO BID [facility] Last Admin: 02/07/18 09:15 Dose: 80 mg Physical Exam - Constitutional Appears: No Acute Distress - Head Exam Head Exam: NORMAL INSPECTION - Eye Exam Eye Exam: Normal appearance Pupil Exam: NORMAL ACCOMODATION - ENT Exam ENT Exam: Mucous Membranes Moist, Normal Exam - Neck Exam Neck exam: Positive for: Normal Inspection - Respiratory Exam Respiratory Exam: Clear to Auscultation Bilateral. absent: Rales, Rhonchi, Wheezes - Cardiovascular Exam Cardiovascular Exam: RRR, +S1, +S2. absent: Diastolic murmur, Gallop, Rubs, Systolic Murmur - GI/Abdominal Exam GI & Abdominal Exam: Soft. absent: Distended, Guarding, Rebound, Tenderness - Extremities Exam Extremities exam: Positive for: pedal edema (2+), pedal pulses present. Negative for: tenderness Additional comments: diffuse non-palpable, non-blanching purpura on b/l LE below the knee, multiple small <1 cm purpuric lesions above the knee and on right arm - Back Exam Back exam: NORMAL INSPECTION - Neurological Exam Neurological exam: Alert, CN II-XII Intact, Oriented x3 - Psychiatric Exam Psychiatric exam: Normal Affect, Normal Mood - Skin Skin Exam: Intact, Warm Results - Vital Signs Recent Vital Signs: Last Vital Signs Temp 98.8 F 02/07/18 07:34 Pulse 62 02/07/18 09:16 Resp 19 02/07/18 07:34 BP 123/88 02/07/18 09:17 Pulse Ox 98 02/07/18 07:34 - Labs Result Diagrams: 02/07/18 06:00 02/07/18 06:00 Labs: Laboratory Results - last 24 hr 02/07/18 02/07/18 02/07/18 00:10 06:00 06:00 WBC 10.9 RBC 5.41 Hgb 10.9 L Hct 36.3 L MCV 67.1 L MCH 20.1 L MCHC 30.0 L RDW 24.3 H Plt Count 249 Gran % 66.1 Lymph % (Auto) 13.[address] [place] % (Auto) 14.6 H Eos % (Auto) 5.0 Baso % (Auto) 0.5 Gran # 7.23 H Lymph # (Auto) 1.5 [place] # (Auto) 1.6 H Eos # (Auto) 0.6 Baso # (Auto) 0.05 Sodium 140 Potassium 3.7 Chloride 102 Carbon Dioxide 28 Anion Gap 13 BUN 15 Creatinine 0.8 Est GFR ( Amer) > 60 Est GFR (Non-Af Amer) > 60 POC Glucose (mg/dL) Random Glucose 122 H Calcium 8.8 Total Bilirubin 2.4 H Direct Bilirubin 0.8 H AST 28 ALT 29 Alkaline Phosphatase 80 Lactate Dehydrogenase 547 Total Protein 6.5 Albumin 3.1 Globulin 3.4 Albumin/Globulin Ratio 0.9 L Urine Color Gianna Urine Appearance Clear Urine pH 6.0 Ur Specific [place] 1.020 Urine Protein 30 H Urine Glucose (UA) Negative Urine Ketones Negative Urine Blood Trace-lysed H Urine Nitrate Negative Urine Bilirubin Moderate H Urine Urobilinogen 4.0 H Ur Leukocyte Esterase Negative Urine RBC 0 - 2 Urine WBC 0 - 2 Ur Epithelial Cells 0 - 2 02/07/18 07:32 WBC RBC Hgb Hct MCV MCH MCHC RDW Plt Count Gran % Lymph % (Auto) [place] % (Auto) Eos % (Auto) Baso % (Auto) Gran # Lymph # (Auto) [place] # (Auto) Eos # (Auto) Baso # (Auto) Sodium Potassium Chloride Carbon Dioxide Anion Gap BUN Creatinine Est GFR ( Amer) Est GFR (Non-Af Amer) POC Glucose (mg/dL) 103 Random Glucose Calcium Total Bilirubin Direct Bilirubin AST ALT Alkaline Phosphatase Lactate Dehydrogenase Total Protein Albumin Globulin Albumin/Globulin Ratio Urine Color Urine Appearance Urine pH Ur Specific [place] Urine Protein Urine Glucose (UA) Urine Ketones Urine Blood Urine Nitrate Urine Bilirubin Urine Urobilinogen Ur Leukocyte Esterase Urine RBC Urine WBC Ur Epithelial Cells Assessment & Plan - Assessment and Plan (Free Text) Assessment: 57 yo M with PMH of PE, DVT, a-fib on AC, systolic CHF 2/2 dilated CM, chronic gastritis, HTN, iron-deficiency anemia, and intra-abdominal abscess admitted for evaluation and treatment for purpura on b/l LE. The purpura is likely 2/2 to the unna boots being to tight as platelet count is WNL and the purpura distribution is consistent with the unna boots. The purpura appears to be improving after unna boot removal. Plan: - Platelet count WNL - Continue Eliquis for h/o of DVT, PE, and a-fib - Cont wound care with podiatry - Further medical management per primary - Will continue to follow Discussed case with attending. Monty Romeo DO PGY2
[2018-02-07 16:33] VITALS: RESP 20
[2018-02-08 06:45] LABS: BASO # 0.05 K/mm3 (0.0-2.0); BASO % 0.5 % (0.0-3.0); EOS # 0.6 (0.0-0.7); EOS % 6.1 % (1.5-5.0); GRAN # 5.98 (1.4-6.5); GRAN % 61.1 % (50.0-68.0); HEMOGLOBIN 11.5 g/dL (14.0-18.0); LYMPH # 1.6 (1.2-3.4); MEAN CELL VOLUME 67.4 fl (80.0-105.0); MEAN CORPUSCULAR HEMOGLOBIN 20.6 pg (25.0-35.0); MEAN CORPUSCULAR HGB CONC 30.6 g/dl (31.0-37.0); MONO # 1.6 (0.1-0.6); MONO % 16.3 % (1.0-6.0); PLATELET COUNT 285 10^3/uL (120.0-450.0); RBC 5.58 10^6/uL (3.5-6.1); RED CELL DISTRIBUTION WIDTH 24.3 % (11.5-14.5); WHITE BLOOD COUNT 9.8 10^3/ul (4.5-11.0)
[2018-02-08 07:33] LABS: ALBUMIN 3.4 g/dL (3.0-4.8); ALT/SGPT 38 U/L (7-56); AST/SGOT 38 U/L (17-59); BLOOD UREA NITROGEN 15 mg/dL (7-21); CALCIUM 11.1 mg/dL (8.4-10.5); GFR NON-AFRICAN AMERICAN > 60
[2018-02-08 08:31] VITALS: TEMP 98.4; O2SAT 100
--- NOTE | 2018-02-08 08:41 | PN ---
SUBJECTIVE: The patient was seen and examined at bedside on the [facility]. No acute events overnight. He remains afebrile and hemodynamically stable. This morning he reports significant improvement in his bilateral lower extremity petechiae since removal of his Unna boots and otherwise offers no complaints. OBJECTIVE: VITAL SIGNS: Temperature 99.8, pulse 78, blood pressure 117/78, respiratory rate 20, oxygen saturation 97% on room air. GENERAL: No apparent distress. HEENT: PERRL, EOMI. No scleral icterus. Mild conjunctival pallor is noted. NECK: No JVD. LUNGS: Clear to auscultation. CARDIOVASCULAR: Irregularly irregular. Normal S1, S2. ABDOMEN: Normoactive bowel sounds. Soft, nontender, nondistended. KARLA drain in place with scant serosanguineous discharge. EXTREMITIES: Trace lower extremity edema bilaterally with bilateral petechiae noted below the knees. NEUROLOGIC: Awake, alert and oriented x 3. No focal motor deficits. LABORATORY DATA: WBC 9.8 with 61% neutrophils, hemoglobin 11.5, hematocrit 37, platelets 285. Chemistry reviewed and unremarkable. Blood cultures with no growth to date. ASSESSMENT: The patient is a 57-year-old man who was recently discharged after an admission for sepsis secondary to intra-abdominal abscess s/p IR drainage, AFib, acute systolic heart failure secondary to primary dilated cardiomyopathy, right lower lobe subsegmental pulmonary embolism and left lower extremity DVT who was sent to the ED by his back facer for evaluation of a rash to bilateral lower extremities. PLAN: 1. Bilateral lower extremity petechiae with etiology likely secondary to overly tight Unna boots in a patient on anticoagulation therapy. The petechiae appears to be resolving/receding since removal of the Unna boots. Input from Dr. Mckeon appreciated and no further workup is indicated. 2. AFib. The patient remains rate-controlled. Continue Cardizem CD 180 mg p.o. daily, Sotalol 80 mg p.o. b.i.d., Digoxin 0.25 mg p.o. daily and Eliquis 5 mg p.o. b.i.d. Arrangements will be made for outpatient GIORGIO with attempted cardioversion. 3. Intra-abdominal abscess s/p IR IR drainage. The patient will follow up with Dr. Uvaldo Garay on outpatient basis for removal of his drain. Repeat CT of the abdomen is reviewed and demonstrates persistent fluid collection. Arrangements have been made for home visiting nursing services to maintain the wound drain. 4. Subsegmental PE to the right lower lobe. Continue Eliquis 5 mg p.o. b.i.d. for at least 6 months but given his underlying AFib he will likely require lifelong anticoagulation therapy. 5. Primary dilated cardiomyopathy. Continue Lasix 40 mg p.o. b.i.d. 6. Left lower extremity DVT. Continue Eliquis 5 mg p.o. b.i.d. 7. Hypertension. Blood pressure controlled. Continue current medications. 8. Iron-deficiency anemia. H/H remains stable. Continue Protonix 40 mg p.o. daily. 9. Chronic gastritis. Continue Protonix 40 mg p.o. daily. 10. Prophylaxis: GI prophylaxis not indicated as the patient is eating. The patient remains on Eliquis thus DVT prophylaxis not indicated. CODE STATUS: Full code. Keith Wilhelm MD [email or web address]
[2018-02-08] MEDS: diltiaZEM 180 mg/24 Hours CD Cap PO SCH (09:18)
[2018-02-08 09:20] VITALS: BP 110/80; PULSE 60
--- NOTE | 2018-02-08 14:05 | DS ---
ADMITTING DIAGNOSIS: Petechiae of bilateral lower extremities. DISCHARGE DIAGNOSIS: Petechiae of bilateral lower extremities. SECONDARY DIAGNOSES: Atrial fibrillation, dilated cardiomyopathy, intra-abdominal abscess s/p IR drain, subsegmental PE to the right lower lobe, left lower extremity DVT, hypertension, iron-deficiency anemia and chronic gastritis. CONSULTATIONS: Dr. Cadena (Podiatry) and Dr. Mckeon (Hematology/Oncology). IMAGING STUDIES: None. PROCEDURES: None. HISTORY OF PRESENT ILLNESS: The patient is a 57-year-old man who was recently admitted to [facility] for management of sepsis secondary to intra-abdominal abscess ( precipitated by recent ventral hernia repair), new onset AFib with RVR, new onset acute systolic heart failure secondary to primary dilated cardiomyopathy, right subsegmental PE and left lower extremity DVT. The patient was discharged on Eliquis and was doing well at home. He followed with Dr. Cadena [facility] and was noted to have lesions to his bilateral lower extremities and was sent to the ED for further evaluation. Upon arrival to the ED, he was found to be afebrile and hemodynamically stable and with a largely unremarkable physical exam with the exception of lesions to his bilateral lower extremities. There was concern for possible purpura in the ED and the patient was admitted for continued management. HOSPITAL COURSE: Upon admission to the [facility] the patient was restarted on his home medications. After examination of the patient it was determined that the etiology of his lower extremity lesions was petechiae in the setting of anticoagulation therapy and precipitated by overly tight Unna boots. The patient reported that since removal of the Unna boots he had resolution of his symptoms and described the petechiae as receding/improving. Given these findings, the patient was advised that no further workup was indicated and was deemed stable for discharge to home. CONDITION: Good, improved. DISPOSITION: Home. DISCHARGE MEDICATIONS: Eliquis 5 mg p.o. b.i.d., Cardizem CD 180 mg p.o. daily, Sotalol 80 mg p.o. b.i.d., Digoxin 0.25 mg p.o. daily, Lasix 40 mg p.o. b.i.d., Protonix 40 mg p.o. daily and Feosol 324 mg p.o. t.i.d. DISCHARGE INSTRUCTIONS: The patient was advised if he has any recurrence of the symptoms or any development of fevers, chills, rigors or uncontrollable bleeding to present to his PMD or to the nearest ED immediately. FOLLOWUP: The patient to follow up with his PMD within 1 week of discharge. Keith Wilhelm MD MTDD
--- NOTE | 2018-02-08 16:52 | PN ---
DATE: 02/08/2018 SUBJECTIVE: This is a 57-year-old male seen at bedside for bilateral lower extremity petechiae and bruising secondary to tight Unna boots. The patient states that he is feeling better and the redness on the legs are starting to resolve already. The patient states he is going home. He is going down to [place] with his father. He states that he will have visiting nurses and he did state that he would try and make and appointment in [place] for 02/27/2018. I advised the patient that since he is almost 80 miles away that he may ask the visiting nurses for an appropriate wound care center where he is going to be residing with his father. The patient has no new complaints. He states his legs are feeling better. His vital signs were reviewed. His temperature is 98.4, the pulse is 56, blood pressure is 109/80, respirations are 20. Labs are also reviewed. His white blood cell count is normal at 9.8; H and H are 11.5, 37.6 and his platelets are normal at 285. Thus would probably rule out any type of platelet disease causing the bleeding. The patient's ESR was 34 coming in on 02/06/2018. His SMA is grossly within normal limits except bilirubin is slightly high at 2.5. The patient's blood cultures show no growth after 24 hours. Reports were reviewed. report was reviewed and again I do agree with that report. I think that the petechiae is secondary to the tight Unna boots since they are only in the area of the Unna boots and again noted that the platelets are within normal limits. The patient did have a biopsy by Dr. Cadena. Review of the chart shows that the biopsy is not yet back. I will mention to Dr. Cadena to follow up on that so that we can give the patient a call with the results when he is discharged today. The patient's legs were examined. His neurovascular status is unchanged. The redness and the subdermal bleeding is resolving. The ulcerations on the left foot is healed except for one on the lateral ankle, which is small granular with no signs of infection. The patient also has a larger wound on the dorsum of the left foot that wound has mostly granular tissue. There is a small amount of fibrous tissue, but there were no signs of cellulitis or infection to that wound. The right lower extremity has a small ulceration in the area of the biopsy. There is a small drop of blood coming from that area, otherwise there are no signs of infections. ASSESSMENT: Thrombo purpura secondary to the Unna boots and stage II and III ulcerations. PLAN OF TREATMENT: Noted above. The patient will be discharged home and he should seek a wound care center in his general living area so not as to have to travel 80 miles back to [place]. The patient was given the number to the wound care center. He was told that he could call at any time for any advice or if he had any questions about his wounds. Marilynn Messina DPM
== END 2018-02-08 14:45 | disposition home or self-care (01) ==
LOC: ED 16:50 → INTOOBSV 20:01 → ERH 20:01 → 3RNO 22:03
PROVIDERS: ADMIT Student in an Organized Health Care Education/Training Program; ATTEND Student in an Organized Health Care Education/Training Program
DX: D69.2 Other nonthrombocytopenic purpura (principal); D72.829 Elevated white blood cell count, unspecified; D50.9 Iron deficiency anemia, unspecified; I11.0 Hypertensive heart disease with heart failure; I50.23 Acute on chronic systolic (congestive) heart failure; I48.91 Unspecified atrial fibrillation; I42.0 Dilated cardiomyopathy; K29.50 Unspecified chronic gastritis without bleeding; Z86.718 Personal history of other venous thrombosis and embolism; Z86.711 Personal history of pulmonary embolism; Z86.010 Personal history of colon polyps; Z87.19 Personal history of other diseases of the digestive system; Z80.42 Family history of malignant neoplasm of prostate; Z90.49 Acquired absence of other specified parts of digestive tract
CPT/HCPCS: 36415; 80053; 81001; 82248; 82948; 83615; 85025; 85610; 85651; 85730; 86850; 86900; 87040; 99284; G0378

== ENCOUNTER 2018-02-22 09:42 | Day surgery (SDC) | payer BC ==
[2018-02-20 15:24] VITALS: BMI 29.9
[2018-02-22] MEDS ORDERED: Midazolam 2 MG/2 ML VIAL ONE (11:39)
[2018-02-22] MEDS ORDERED: Naloxone 0.4 mg/ml Inj (Adult) ONE (11:39)
[2018-02-22] MEDS ORDERED: Flumazenil 0.1 mg/ml Inj (5ml) IVP ONE (11:39)
[2018-02-22] MEDS ORDERED: Midazolam 2 MG/2 ML VIAL IV ONE ×3 (11:44→11:53)
[2018-02-22] MEDS ORDERED: Sodium Chloride 0.9% 1,000 ML IV SCH (12:30)
[2018-02-22 14:12] VITALS: RESP 18; TEMP 98.3
[2018-02-22 14:15] VITALS: BP 126/87; PULSE 73; O2SAT 98
--- NOTE | 2018-02-22 17:49 | CARD ---
APPROVED REPORT Date of service: 02/22/2018 EXAM: Transesophageal echocardiogram with color flow Doppler. INDICATION Atrial Fibrillation Reason For Test : Rule out Intracardiac Thrombus before Cardioversion PROCEDURE After obtaining informed consent, patient underwent transesophageal echo in the Echo Lab. Type of Sedation : Conscious Sedation Sedation was administered by Dr. brock. Sedation was achieved with Versed and fentanyl 3 mg and 100 mcg intravenously. Transesophageal probe was inserted and advanced into esophagus without difficulty. Echo enhancement indication: R/O Septal defect. Echo enhancement agent administered: Agitated Saline The GIORGIO was performed without complications. Throughout the procedure, the blood pressure, pulse oximetry, cardiac rhythm, and rate were monitored. The patient tolerated the procedure without adverse effects. Recovery from conscious sedation was uneventful and vital signs were stable. Cardioversdion not done as pt has BOO thrombus. LEFT VENTRICLE The Left Ventricle is mildly dilated. There is mild concentric left ventricular hypertrophy. Left ventricle ejection fraction is moderately to severely impaired.EF-25-30 There is global hypokinesis of the left ventricle. A fib No left ventricle thrombus noted on this study. There is no ventricular septal defect visualized. There is no left ventricular aneurysm. There is no mass noted in the left ventricle. RIGHT VENTRICLE The right ventricle is mildly dilated. There is normal right ventricular wall thickness. Systolic function is mildly reduced. ATRIA The left atrium is moderately dilated. 2.4/1.2 cm Thrombus noted in BOO The right atrium is mildly dilated. The interatrial septum is intact with no evidence for an atrial septal defect. AORTIC VALVE The aortic valve is moderately to severely thickened. There is moderate aortic regurgitation. There is no aortic valvular stenosis. There is no aortic valvular vegetation. MITRAL VALVE The mitral valve leaflets are thickened. There is no evidence of mitral valve prolapse. There is no mitral valve stenosis. Mitral regurgitation is moderate, when SBP 138/80 TRICUSPID VALVE The tricuspid valve leaflets display thickening. There is moderate tricuspid regurgitation.RVSP-colud not be accurately assessed B/c of configuration of Tr Jet There is no tricuspid valve prolapse or vegetation. There is no tricuspid valve stenosis. PULMONIC VALVE The pulmonary valve is normal in structure. There is trace to mild pulmonic valvular regurgitation. There is no pulmonic valvular stenosis. GREAT VESSELS The aortic root is normal in size. The ascending aorta is normal in size. The pulmonary artery is normal. PERICARDIAL EFFUSION There is no pericardial effusion. There is no pleural effusion. <Conclusion> Four chamber dilatation, EF-25-30%, Global hypokinesis Moderate MR/AR/TR RVSP could not be assessed acurately , so not recorded b/c of Tr Jet configuration. BOO thrombus noted 2.4/1.2 cm Cradioversion was not done B/c of BOO thrombus.
--- NOTE | 2018-02-22 21:20 | CARD ---
APPROVED REPORT Date of service: 02/22/2018 EKG Measurement Heart [id number] <Conclusion> Atrial fibrillation with rapid ventricular response with premature ventricular or aberrantly conducted complexes ST & T wave abnormality, consider anterolateral ischemia or digitalis effect Abnormal ECG
== END 2018-02-22 14:15 | disposition home or self-care (01) ==
LOC: TEE 09:42 → EDSTATUS 11:00 → TEE 14:15
PROVIDERS: ATTEND Internal Medicine Cardiovascular Disease
DX: I48.91 Unspecified atrial fibrillation (principal); I24.0 Acute coronary thrombosis not resulting in myocardial infarction; I11.0 Hypertensive heart disease with heart failure; I50.9 Heart failure, unspecified; I38 Endocarditis, valve unspecified; I49.9 Cardiac arrhythmia, unspecified; I42.9 Cardiomyopathy, unspecified
CPT/HCPCS: 93005; 93312; J2250; J3010; J7030

== ENCOUNTER 2018-08-16 08:18 | Day surgery (SDC) | payer BC ==
[2018-02-06 17:20] VITALS: PULSE 100
[2018-08-08 10:53] VITALS: BMI 32.3
--- NOTE | 2018-08-16 11:10 | CARD ---
APPROVED REPORT Date of service: 08/16/2018 EKG Measurement Heart [id number] <Conclusion> Atrial fibrillation ST & T wave abnormality, consider anterolateral ischemia or digitalis effect Prolonged QT Abnormal ECG
[2018-08-16] MEDS ORDERED: Midazolam 2 MG/2 ML VIAL ONE (12:07)
[2018-08-16] MEDS ORDERED: Flumazenil 0.1 mg/ml Inj (5ml) IVP ONE (12:08)
[2018-08-16] MEDS ORDERED: Naloxone 0.4 mg/ml Inj (Adult) ONE (12:08)
[2018-08-16] MEDS ORDERED: Midazolam 2 MG/2 ML VIAL IV ONE ×4 (12:09→12:27)
[2018-08-16] MEDS ORDERED: Benzocaine/Butamben/Tetracai 14-2-2% TOP Spray TOP ONE (12:11)
[2018-08-16] MEDS ORDERED: Sodium Chloride 0.9% 1,000 ML IV SCH (12:45)
[2018-08-16 14:39] VITALS: RESP 18; TEMP 98; O2SAT 95
[2018-08-16 15:15] VITALS: BP 133/81; PULSE 63
--- NOTE | 2018-08-16 17:48 | CARD ---
APPROVED REPORT Date of service: 08/16/2018 EXAM: Transesophageal echocardiogram with color flow Doppler and Synchronized Cardioversion. INDICATION Atrial Fibrillation Reason For Test : Giorgio and cardioversion PROCEDURE After obtaining informed consent, patient underwent transesophageal echo in the Echo Lab. Type of Sedation : Conscious Sedation Sedation was administered by Dr. brock. Sedation was achieved with Versed and , Fentanyl 4mg and 150 mcg of fentanyl intravenously. Transesophageal probe was inserted and advanced into esophagus without difficulty. Echo enhancement indication: R/O Septal defect. Echo enhancement agent administered: Agitated Saline The GIORGIO was performed without complications. Synchronized Cardioversion attempted: Successful Rhythm following Synchronized Cardioversion: Normal Sinus Rhythm Throughout the procedure, the blood pressure, pulse oximetry, cardiac rhythm, and rate were monitored. The patient tolerated the procedure without adverse effects. Recovery from conscious sedation was uneventful and vital signs were stable. LEFT VENTRICLE The Left Ventricle is mildly dilated. There is mild concentric left ventricular hypertrophy. Left ventricle systolic function is moderately impaired.EF-25-30% There is moderately bglobal hypokinesis of the left ventricle. Pt. was in Afib No left ventricle thrombus noted on this study. There is no ventricular septal defect visualized. There is no left ventricular aneurysm. There is no mass noted in the left ventricle. RIGHT VENTRICLE The right ventricle is mildly dilated. There is normal right ventricular wall thickness. Systolic function is mildly reduced. ATRIA The left atrium is moderately dilated. The right atrium is mildly dilated. The interatrial septum is intact with no evidence for an atrial septal defect. AORTIC VALVE The aortic valve is moderately thickened. There is mild to moderate aortic regurgitation. There is no aortic valvular stenosis. There is no aortic valvular vegetation. MITRAL VALVE The mitral valve leaflets are thickened. There is no evidence of mitral valve prolapse. There is no mitral valve stenosis. Mitral regurgitation is moderate. TRICUSPID VALVE The tricuspid valve leaflets display thickening. There is mild to moderate tricuspid regurgitation. There is no tricuspid valve prolapse or vegetation. There is no tricuspid valve stenosis. PULMONIC VALVE The pulmonic valve is not well visualized. GREAT VESSELS The aortic root is normal in size. The ascending aorta is normal in size. The pulmonary artery is normal. The IVC was not visualized. PERICARDIAL EFFUSION There is no pericardial effusion. There is no pleural effusion. 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 Mitral regurgitation is moderate. There is mild to moderate tricuspid regurgitation. 200 joules Synchronized Cardioversion done. pt converted to NSR. CC; Dr. Pierce
--- NOTE | 2018-08-16 20:28 | CARD ---
APPROVED REPORT Date of service: 08/16/2018 EKG Measurement Heart [id number] <Conclusion> Normal sinus rhythm Incomplete right bundle branch block Inferior infarct, age undetermined ST & T wave abnormality, consider anterolateral ischemia Abnormal ECG
== END 2018-08-16 15:30 | disposition home or self-care (01) ==
LOC: TEE 08:18
PROVIDERS: ATTEND Internal Medicine Cardiovascular Disease
DX: I48.91 Unspecified atrial fibrillation (principal); I25.10 Atherosclerotic heart disease of native coronary artery without angina pectoris; I11.0 Hypertensive heart disease with heart failure; I50.9 Heart failure, unspecified; I42.9 Cardiomyopathy, unspecified; I08.3 Combined rheumatic disorders of mitral, aortic and tricuspid valves
CPT/HCPCS: 92960; 93005; 93312; J2250; J3010; J7030

== ENCOUNTER 2018-09-25 15:10 | Inpatient (IN) | payer BC ==
[2018-09-25 15:10] VITALS: PULSE 100
[2018-09-25] MEDS ORDERED: Vancomycin 1gm in NS 250ml 1 GM/250 ML BAG IVPB STA (15:42)
[2018-09-25] MEDS ORDERED: Piperacillin/Tazobact 3.375 gm 100 ML IVPB STA (15:42)
[2018-09-25] MEDS ORDERED: Sodium Chloride 0.9% 500 ML IV STA (15:42)
--- NOTE | 2018-09-25 15:46 | ED PDOC ---
Arrival/HPI - General Chief Complaint: Altered Mental Status Time Seen by Provider: 09/25/18 15:29 Historian: Family (Daughter), EMS - History of Present Illness Narrative History of Present Illness (Text): 09/25/18 15:42 A 58 year old male, whose past medical history includes HTN, ventral hernia s/p repair, colorectal polyps s/p colon resection, is brought into the emergency department via EMS for AMS. Patent is febrile in the emergency department. Patient's daughter notes that the patient was not acting normally and has been increasingly weak. She states that he fell out of bed this morning. Patient states that his mouth is dry. Patient HPI/ ROS limited due to patient's altered mental status. PMD: Dr. Wilhelm Time/Duration: Other (Today) Symptom Onset: Sudden Symptom Course: Unchanged Activities at Onset: Rest, Light Context: Home Past Medical History - Provider Review Nursing Documentation Reviewed: Yes - Infectious Disease Hx of Infectious Diseases: None - Cardiac Hx Cardiac Disorders: Yes Hx Hypertension: Yes Hx Pacemaker: No - Pulmonary Hx Respiratory Disorders: No - Neurological Hx Paralysis: No - HEENT Hx HEENT Disorder: No - Renal Hx Renal Disorder: No - Endocrine/Metabolic Hx Endocrine Disorders: No - Hematological/Oncological Hx Blood Transfusions: No - Integumentary Hx Dermatological Disorder: Yes Other/Comment: open wounds on bilateral lower extremities - Musculoskeletal/Rheumatological Hx Musculoskeletal Disorders: No - Gastrointestinal Hx Gastrointestinal Disorders: Yes (colorectal polyps, ventral hernia) - Genitourinary/Gynecological Hx Genitourinary Disorders: No - Psychiatric Hx Emotional Abuse: No Hx Physical Abuse: No Hx Substance Use: No - Surgical History Other/Comment: colon resection with ventral hernia repair with mesh placement. - Anesthesia Hx Anesthesia Reactions: No Hx Malignant Hyperthermia: No - Suicidal Assessment Feels Threatened In Home Enviroment: No Family/Social History - Physician Review Nursing Documentation Reviewed: Yes Family/Social History: No Known Family HX Smoking Status: Never Smoked Hx Alcohol Use: No Hx Substance Use: No Allergies/Home Meds Allergies/Adverse Reactions: Allergies No Known Allergies Allergy (Verified 02/06/18 17:22) Home Medications: Home Meds Medication Instructions Recorded Confirmed Digoxin [Lanoxin] 0.25 mg PO DAILY 02/22/18 08/16/18 Review of Systems - Physician Review All systems were reviewed & negative as marked: Yes - Review of Systems Systems not reviewed;Unavailable: Altered Mental Status Physical Exam Vital Signs Reviewed: Yes Temperature: Afebrile Blood Pressure: Normal Pulse: Regular Respiratory Rate: Normal Appearance: Positive for: Well-Appearing, Non-Toxic, Comfortable Pain Distress: None - Systems Exam Head: Present: Atraumatic, Normocephalic Pupils: Present: PERRL Extroacular Muscles: Present: EOMI Conjunctiva: Present: Normal Mouth: Present: Moist Mucous Membranes Neck: Present: Normal Range of Motion Respiratory/Chest: Present: Clear to Auscultation, Good Air Exchange. No: Respiratory Distress, Accessory Muscle Use Cardiovascular: Present: Regular Rate and Rhythm, Normal S1, S2. No: Murmurs Abdomen: Present: Tenderness (Non- focal abdominal tenderness.). No: Distention, Peritoneal Signs Back: Present: Normal Inspection Upper Extremity: Present: Normal Inspection. No: Cyanosis, Edema Lower Extremity: Present: Normal Inspection. No: Edema Neurological: Present: GCS=15, CN II-XII Intact, Speech Normal Skin: Present: Warm, Dry, Normal Color. No: Rashes Psychiatric: Present: Alert, Oriented x 3, Normal Insight, Normal Concentration Medical Decision Making ED Course and Treatment: 09/25/18 15:47 Impression: A58 year old male is brought into the emergency department for further evaluation of altered mental status noted blood sugar 1400 in er, ro dka, honk, sepsis, intrabaomdinal abscess Plan: -- EKG -- Chest X-ray -- Urinalysis -- Blood/ Urine Culture -- Labs -- IV Fluids, Vancomycin, Zosyn -- Reassess and disposition Prior Visits: Notes and results from previous visits were reviewed. Progress Notes: EKG shows Sinus Tachycardia at [address]- T wave changes. No interval change from 08/16/18. 09/30/18 12:32 noted la, ivf iniated, insulin drip bolus iniated. b/p stable. seen by icu bedside accepts icu, imaging pendign. inpt team will follow. - Lab Interpretations I have reviewed the lab results: Yes - RAD Interpretation Radiology Orders: 09/25/18 15:42 CHEST PORTABLE [RAD] Stat - EKG Interpretation Interpreted by ED Physician: Yes Type: 12 lead EKG - Scribe Statement The provider has reviewed the documentation as recorded by the Scribe Yomaira Winters Provider Scribe Attestation: All medical record entries made by the Scribe were at my direction and personally dictated by me. I have reviewed the chart and agree that the record accurately reflects my personal performance of the history, physical exam, medical decision making, and the department course for this patient. I have also personally directed, reviewed, and agree with the discharge instructions and disposition. Disposition/Present on Arrival - Present on Arrival Any Indicators Present on Arrival: No History of DVT/PE: No History of Uncontrolled Diabetes: No Urinary Catheter: No History of Decub. Ulcer: No History Surgical Site Infection Following: None - Disposition Have Diagnosis and Disposition been Completed?: Yes Diagnosis: Diabetic hyperosmolar non-ketotic state, DKA (diabetic ketoacidoses), Lactic acidosis, Altered mental state Disposition: HOSPITALIZED Disposition Time: 10:00 Condition: CRITICAL
[2018-09-25 16:06] LABS: VENOUS BLOOD GAS BASE EXCESS -9.6 mmol/L (0.0-2.0); VENOUS BLOOD GAS PO2 45 mm/Hg (30-55); VENOUS BLOOD PH 7.27 (7.32-7.43)
[2018-09-25] MEDS ORDERED: Sodium Chloride 0.9% 1,000 ML IV STA ×2 (16:12→18:07)
--- NOTE | 2018-09-25 16:32 | RAD ---
Date of service: 09/25/2018 HISTORY: sepsis COMPARISON: 01/22/2018 TECHNIQUE: 1 view obtained. FINDINGS: LUNGS: No active pulmonary disease. PLEURA: No significant pleural effusion identified, no pneumothorax apparent. CARDIOVASCULAR: No aortic atherosclerotic calcification present. Aortic tortuosity and mild cardiomegaly no pulmonary vascular congestion. OSSEOUS STRUCTURES: No significant abnormalities. VISUALIZED UPPER ABDOMEN: Normal. OTHER FINDINGS: None. IMPRESSION: No active disease.
[2018-09-25 17:15] LABS: INR 1.04; PARTIAL THROMBOPLASTIN TIME 30.8 Seconds (26.9-38.3); PROTHROMBIN TIME 11.5 SECONDS (9.4-12.5)
[2018-09-25 17:24] LABS: HEMOGLOBIN 17.7 g/dL (14.0-18.0); RBC 5.96 10^6/uL (3.5-6.1); WHITE BLOOD COUNT 13.7 10^3/uL (4.5-11.0)
[2018-09-25 17:25] LABS: LYMPH % 6.6 % (22.0-35.0); MEAN CELL VOLUME 95.6 fl (80.0-105.0); MEAN CORPUSCULAR HEMOGLOBIN 29.8 pg (25.0-35.0); MEAN CORPUSCULAR HGB CONC 31.2 g/dl (31.0-37.0); MEAN PLATELET VOLUME 13.7 fl (7.0-11.0); MONO % 7.6 % (1.0-6.0); RED CELL DISTRIBUTION WIDTH 14.5 % (11.5-14.5)
[2018-09-25 17:26] LABS: BASO # 0.05 K/mm3 (0.0-2.0); BASO % 0.4 % (0.0-3.0); EOS % 0.1 % (1.5-5.0); LYMPH # 0.9 (1.2-3.4)
[2018-09-25 17:33] LABS: TROPONIN I 0.03 ng/mL
[2018-09-25 17:38] LABS: ALB/GLOB RATIO 1.5 (1.1-1.8); ALBUMIN 4.1 g/dL (3.0-4.8); CALCIUM 11.1 mg/dL (8.4-10.5)
[2018-09-25] MEDS ORDERED: Insulin Regular 1 UNITS/0.01 ML ML IV STA (17:43)
[2018-09-25] MEDS ORDERED: Insulin Regular 1 UNITS/0.01 ML ML ONE (17:51)
--- NOTE | 2018-09-25 18:12 | CARD ---
APPROVED REPORT Date of service: 09/25/2018 EKG Measurement Heart [id number] <Conclusion> Sinus tachycardia Possible Left atrial enlargement Incomplete Right bundle branch block Inferior infarct, age Old? T wave abnormality, consider lateral ischemia Abnormal ECG
[2018-09-25] MEDS: Insulin Regular 100 UNITS in Sodium Chloride 0.9% 99 ML IV PRN (18:48)
[2018-09-25 18:55] LABS: VENOUS BLOOD GAS BASE EXCESS -12.1 mmol/L (0.0-2.0); VENOUS BLOOD GAS PO2 50 mm/Hg (30-55); VENOUS BLOOD PH 7.22 (7.32-7.43)
--- NOTE | 2018-09-25 19:37 | PCM.SEPTIC ---
Sepsis Progress Note - Reassessment Type Date of Evaluation: 09/25/18 Time of Evaluation: 19:35 Reassessment Type: Non-invasive reassessment - Non Invasive Reassessment Were the most recent vital sign reviewed: Yes Vital Sign (Latest): Temp Pulse Resp BP Pulse Ox 97.8 F 105 H 27 H 118/76 97 09/25/18 19:00 09/25/18 19:00 09/25/18 19:00 09/25/18 19:00 09/25/18 19:00 Cardiovascular: Yes: Regular Rate, Rhythm. No: JVD, Murmur, Tachycardia, Irregularly Irregular Respiratory: Yes: Normal Breath Sounds. No: Accessory Muscle Use, Crackles, Rales, Rhonchi, Stridor, Wheezing Capillary Refill: Normal (Less than 2 sec) Pulses: Normal Radial, Normal Dorsalis Pedis, Normal Posterior Tibialis Skin: Warm, Dry
[2018-09-25 20:13] LABS: PH,URINE 5.5 (4.7-8.0); URINE BILIRUBIN NEGATIVE (NEGATIVE); URINE BLOOD NEGATIVE (NEGATIVE); URINE GLUCOSE (UA) >=1000 mg/dL (NEGATIVE); URINE LEUKOCYTE ESTERASE NEGATIVE Leu/uL (NEGATIVE); URINE PROTEIN NEGATIVE mg/dL (<30 mg/dL); URINE UROBILINOGEN 0.2 E.U./dL (<1 E.U./dL)
[2018-09-25 20:14] LABS: URINE APPEARANCE CLEAR (CLEAR); URINE COLOR LIGHT YELLOW (YELLOW)
--- NOTE | 2018-09-25 21:27 | CP.PCM.PN ---
Subjective - Date & Time of Evaluation Date of Evaluation: 09/25/18 Time of Evaluation: 21:27 - Subjective Subjective: S:Patient was seen because I was asked to cosign in order for potassium supplement. Patient has no complaints. Pertinent medical record was reviewed. Potassium level is 3.5. O:Vital signs stable. Not in acute distress. Lungs: Normal breathing pattern. A:Hypokalemia. P:Potassium supplement as per order. Objective - Vital Signs/Intake and Output Vital Signs (last 24 hours): Temp Pulse Resp BP Pulse Ox 97.8 F 105 H 27 H 118/76 97 09/25/18 19:00 09/25/18 19:00 09/25/18 19:00 09/25/18 19:00 09/25/18 19:00 - Medications Medications: Current Medications Apixaban (Eliquis) 2.5 mg PO BID ANDRES; Protocol Insulin Human Regular 100 (units/ Sodium Chloride) 100 mls @ 9.98 mls/hr IV . Q10H2M PRN; Protocol PRN Reason: TITRATE PER MD ORDER Last Admin: 09/25/18 18:48 Dose: 9.98 mls/hr Sodium Bicarbonate 75 meq/ (Sodium Chloride) 1,075 mls @ 200 mls/hr IV .Q5H23M ANDRES Last Admin: 09/25/18 19:56 Dose: 200 mls/hr Meropenem (Merrem Iv 1 Gm Premix) 1 gm in 50 mls @ 100 mls/hr IVPB Q12 ANDRES; Protocol Stop: 10/04/18 22:01 Doxycycline Hyclate 100 mg/ (Sodium Chloride) 100 mls @ 100 mls/hr IVPB Q12 ANDRES; Protocol Stop: 10/04/18 22:01 - Labs Labs: 09/25/18 16:38 09/25/18 16:38 PT 11.5 SECONDS (9.4-12.5) 09/25/18 16:38 INR 1.04 09/25/18 16:38 APTT 30.8 Seconds (26.9-38.3) 09/25/18 16:38
[2018-09-25 21:34] LABS: TROPONIN I 0.04 ng/mL
[2018-09-25 21:46] LABS: VENOUS BLOOD GAS BASE EXCESS -6.8 mmol/L (0.0-2.0); VENOUS BLOOD GAS PO2 170 mm/Hg (30-55); VENOUS BLOOD PH 7.36 (7.32-7.43)
[2018-09-25 21:49] LABS: BLOOD UREA NITROGEN 52 mg/dL (7-21); CALCIUM 10.2 mg/dL (8.4-10.5); GFR NON-AFRICAN AMERICAN > 60
[2018-09-25] MEDS: Meropenem IV 1 gm in NS 1 GM/50 ML BAG IVPB SCH (21:49)
[2018-09-25] MEDS ORDERED: Sodium Chloride 0.45% 1,000 ML IV SCH (22:45)
[2018-09-25 22:57] VITALS: BMI 29.2
[2018-09-25 23:41] LABS: BLOOD UREA NITROGEN 45 mg/dL (7-21); CALCIUM 8.2 mg/dL (8.4-10.5); GFR NON-AFRICAN AMERICAN > 60
[2018-09-25 23:42] LABS: VENOUS BLOOD GAS BASE EXCESS 3.8 mmol/L (0.0-2.0); VENOUS BLOOD GAS PO2 48 mm/Hg (30-55); VENOUS BLOOD PH 7.35 (7.32-7.43)
[2018-09-26] MEDS ORDERED: Potassium Chloride 20 MEQ in Sodium Chloride 0.45% 1,000 ML IV SCH ×2 (00:30→02:23)
[2018-09-26 06:38] LABS: VENOUS BLOOD GAS PO2 52 mm/Hg (30-55)
[2018-09-26 07:00] LABS: BLOOD UREA NITROGEN 39 mg/dL (7-21); CALCIUM 10.1 mg/dL (8.4-10.5); GFR NON-AFRICAN AMERICAN > 60
--- NOTE | 2018-09-26 07:16 | CP.CCUPN ---
<CalosReneharley Barriga - Last Filed: 09/26/18 11:12> CCU Subjective - Physician Review Events Since Last Encounter (Free Text): 09/26/18 07:01 pt still on insulin drip, gap closed Subjective (Free Text): 09/26/18 07:02 Pt seen and examined this morning, pt obtunded CCU Objective - Vital Signs / Intake & Output Vital Signs (Last 4 hours): Vital Signs Pulse 09/26/18 04:00 105 H Intake and Output (Last 8hrs): Intake & Output 09/25/18 09/26/18 09/26/18 22:59 06:59 14:59 Intake Total 5520 Output Total 1900 Balance 3620 Weight 209 lb 8 oz 209 lb 8 oz Intake: IV 5520 Left Antecubital 5460 Oral 0 Output: Urine 1900 2-way Urethral 1900 Other: # Bowel Movements 5 - Physical Exam Physical Exam Limitations: Positive for: Altered Mental Status Head: Positive for: Atraumatic, Normocephalic Pupils: Positive for: PERRL Extroacular Muscles: Positive for: EOMI Conjunctiva: Positive for: Normal Neck: Positive for: Normal Range of Motion Respiratory/Chest: Positive for: Clear to Auscultation, Good Air Exchange. Negative for: Respiratory Distress, Accessory Muscle Use Cardiovascular: Positive for: Regular Rate and Rhythm, Normal S1, S2. Negative for: Murmurs Abdomen: Positive for: Tenderness (Non- focal abdominal tenderness.). Negative for: Distention, Peritoneal Signs Back: Positive for: Normal Inspection Upper Extremity: Positive for: Normal Inspection. Negative for: Cyanosis, Edema Lower Extremity: Positive for: Normal Inspection. Negative for: Edema Neurological: Positive for: CN II-XII Intact Skin: Positive for: Warm, Dry, Normal Color. Negative for: Rashes Psychiatric: Positive for: Alert, Oriented x 3, Normal Insight, Normal Concentration - Medications Active Medications: Active Medications Generic Name Dose Route Start Last Admin Trade Name Freq PRN Reason Stop Dose Admin Apixaban 2.5 mg 09/26/18 10:00 Eliquis PO BID ANDRES Protocol Insulin Human Regular 100 100 mls @ 9.98 mls/hr 09/25/18 17:50 09/26/18 06:43 units/ Sodium Chloride IV 0.04 units/kg/hr .Q10H2M PRN 4 mls/hr TITRATE PER MD ORDER Titration Protocol 0.1 UNITS/KG/HR Meropenem 1 gm in 50 mls @ 100 mls/hr 09/25/18 22:00 09/25/18 21:49 Merrem Iv 1 Gm Premix IVPB 10/04/18 22:01 100 mls/hr Q12 ANDRES Administration Protocol Doxycycline Hyclate 100 mg/ 100 mls @ 100 mls/hr 09/25/18 22:00 09/25/18 21:51 Sodium Chloride IVPB 10/04/18 22:01 100 mls/hr Q12 ANDRES Administration Protocol Potassium Chloride 20 meq/ 1,010 mls @ 100 mls/hr 09/26/18 02:23 09/26/18 03:27 Sodium Chloride IV 100 mls/hr .Q10H6M ANDRES Administration - Patient Studies Lab Studies: Lab Studies 09/26/18 09/26/18 09/26/18 Range/Units 05:45 05:45 05:01 WBC (4.5-11.0) 10^3/uL RBC (3.5-6.1) 10^6/uL Hgb (14.0-18.0) g/dL Hct (42.0-52.0) % MCV (80.0-105.0) fl MCH (25.0-35.0) pg MCHC (31.0-37.0) g/dl RDW (11.5-14.5) % Plt Count (120.0-450.0) 10^3/uL MPV (7.0-11.0) fl Neut % (Auto) (50.0-68.0) % Lymph % (Auto) (22.0-35.0) % Long % (Auto) (1.0-6.0) % Eos % (Auto) (1.5-5.0) % Baso % (Auto) (0.0-3.0) % Lymph # (Auto) (1.2-3.4) Long # (Auto) (0.1-0.6) Eos # (Auto) (0.0-0.7) Baso # (Auto) (0.0-2.0) K/mm3 Absolute Neuts (auto) (1.4-6.5) PT (9.4-12.5) SECONDS INR APTT (26.9-38.3) Seconds pO2 52 (30-55) mm/Hg VBG pH 7.40 (7.32-7.43) VBG pCO2 42.0 (40-60) VBG HCO3 26.0 (21-28) mmol/l VBG Total CO2 27.3 (22-28) mmol.L VBG O2 Sat (Calc) 89.5 H (40-65) % VBG Base Excess 1.0 (0.0-2.0) mmol/L VBG Potassium 3.9 (3.6-5.2) mmol/L Sodium 163 H* 166.0 H* (132-148) mmol/L Chloride 131 H 127.0 H (98-107) mmol/L Glucose 354 H (75-110) mg/dl Lactate 2.8 H (0.7-2.1) mmol/L FiO2 21.0 % Blood Gas Comments Crit Value Called To Cabrera middleton Crit Value Called By Tank Blood Gas Notified Time 630 Potassium 3.8 (3.6-5.0) mmol/L Carbon Dioxide 26 (21-33) mmol/L Anion Gap 10 (10-20) BUN 39 H (7-21) mg/dL Creatinine 1.0 (0.8-1.5) mg/dl Est GFR ( Amer) > 60 Est GFR (Non-Af Amer) > 60 POC Glucose (mg/dL) 382 H (65-110) mg/dL Random Glucose 335 H* D (70-110) mg/dL Serum Osmolality (272-300) mosm/kg Calcium 10.1 (8.4-10.5) mg/dL Magnesium (1.7-2.2) mg/dL Total Bilirubin (0.2-1.3) mg/dL AST (17-59) U/L ALT (7-56) U/L Alkaline Phosphatase (38-126) U/L Lactate Dehydrogenase (333-699) U/L Total Creatine Kinase (35-230) U/L Troponin I ng/mL NT-Pro-B Natriuret Pep (0-450) pg/mL Total Protein (5.8-8.3) g/dL Albumin (3.0-4.8) g/dL Globulin gm/dL Albumin/Globulin Ratio (1.1-1.8) Lipase (23-300) U/L Venous Blood Potassium 3.9 (3.6-5.2) mmol/L Urine Color (YELLOW) Urine Appearance (CLEAR) Urine pH (4.7-8.0) Ur Specific [place] (1.005-1.035) Urine Protein (<30 mg/dL) mg/dL Urine Glucose (UA) (NEGATIVE) mg/dL Urine Ketones (NEGATIVE) mg/dL Urine Blood (NEGATIVE) Urine Nitrate (NEGATIVE) Urine Bilirubin (NEGATIVE) Urine Urobilinogen (<1 E.U./dL) E.U./dL Ur Leukocyte Esterase (NEGATIVE) Valerie/uL Digoxin (0.8-2.0) ng/mL 09/26/18 09/26/18 09/25/18 Range/Units 03:30 02:26 23:20 WBC (4.5-11.0) 10^3/uL RBC (3.5-6.1) 10^6/uL Hgb (14.0-18.0) g/dL Hct (42.0-52.0) % MCV (80.0-105.0) fl MCH (25.0-35.0) pg MCHC (31.0-37.0) g/dl RDW (11.5-14.5) % Plt Count (120.0-450.0) 10^3/uL MPV (7.0-11.0) fl Neut % (Auto) (50.0-68.0) % Lymph % (Auto) (22.0-35.0) % Long % (Auto) (1.0-6.0) % Eos % (Auto) (1.5-5.0) % Baso % (Auto) (0.0-3.0) % Lymph # (Auto) (1.2-3.4) Long # (Auto) (0.1-0.6) Eos # (Auto) (0.0-0.7) Baso # (Auto) (0.0-2.0) K/mm3 Absolute Neuts (auto) (1.4-6.5) PT (9.4-12.5) SECONDS INR APTT (26.9-38.3) Seconds pO2 48 (30-55) mm/Hg VBG pH 7.35 (7.32-7.43) VBG pCO2 56.0 (40-60) VBG HCO3 30.9 H (21-28) mmol/l VBG Total CO2 32.6 H (22-28) mmol.L VBG O2 Sat (Calc) 84.7 H (40-65) % VBG Base Excess 3.8 H (0.0-2.0) mmol/L VBG Potassium 3.5 L (3.6-5.2) mmol/L Sodium 158.0 H (132-148) mmol/L Chloride 117.0 H (98-107) mmol/L Glucose 541 H* D (75-110) mg/dl Lactate 1.8 (0.7-2.1) mmol/L FiO2 21.0 % Blood Gas Comments Glu 541 na 158 Crit Value Called To Brianna schwarz Crit Value Called By [facility] Blood Gas Notified Time 2340 Potassium (3.6-5.0) mmol/L Carbon Dioxide (21-33) mmol/L Anion Gap (10-20) BUN (7-21) mg/dL Creatinine (0.8-1.5) mg/dl Est GFR ( Amer) Est GFR (Non-Af Amer) POC Glucose (mg/dL) 397 H 460 H* (65-110) mg/dL Random Glucose (70-110) mg/dL Serum Osmolality (272-300) mosm/kg Calcium (8.4-10.5) mg/dL Magnesium (1.7-2.2) mg/dL Total Bilirubin (0.2-1.3) mg/dL AST (17-59) U/L ALT (7-56) U/L Alkaline Phosphatase (38-126) U/L Lactate Dehydrogenase (333-699) U/L Total Creatine Kinase (35-230) U/L Troponin I ng/mL NT-Pro-B Natriuret Pep (0-450) pg/mL Total Protein (5.8-8.3) g/dL Albumin (3.0-4.8) g/dL Globulin gm/dL Albumin/Globulin Ratio (1.1-1.8) Lipase (23-300) U/L Venous Blood Potassium 3.5 L (3.6-5.2) mmol/L Urine Color (YELLOW) Urine Appearance (CLEAR) Urine pH (4.7-8.0) Ur Specific [place] (1.005-1.035) Urine Protein (<30 mg/dL) mg/dL Urine Glucose (UA) (NEGATIVE) mg/dL Urine Ketones (NEGATIVE) mg/dL Urine Blood (NEGATIVE) Urine Nitrate (NEGATIVE) Urine Bilirubin (NEGATIVE) Urine Urobilinogen (<1 E.U./dL) E.U./dL Ur Leukocyte Esterase (NEGATIVE) Valerie/uL Digoxin (0.8-2.0) ng/mL 09/25/18 09/25/18 09/25/18 Range/Units 23:20 22:26 20:55 WBC (4.5-11.0) 10^3/uL RBC (3.5-6.1) 10^6/uL Hgb (14.0-18.0) g/dL Hct (42.0-52.0) % MCV (80.0-105.0) fl MCH (25.0-35.0) pg MCHC (31.0-37.0) g/dl RDW (11.5-14.5) % Plt Count (120.0-450.0) 10^3/uL MPV (7.0-11.0) fl Neut % (Auto) (50.0-68.0) % Lymph % (Auto) (22.0-35.0) % Long % (Auto) (1.0-6.0) % Eos % (Auto) (1.5-5.0) % Baso % (Auto) (0.0-3.0) % Lymph # (Auto) (1.2-3.4) Long # (Auto) (0.1-0.6) Eos # (Auto) (0.0-0.7) Baso # (Auto) (0.0-2.0) K/mm3 Absolute Neuts (auto) (1.4-6.5) PT (9.4-12.5) SECONDS INR APTT (26.9-38.3) Seconds pO2 170 H (30-55) mm/Hg VBG pH 7.36 (7.32-7.43) VBG pCO2 31.0 L (40-60) VBG HCO3 17.5 L (21-28) mmol/l VBG Total CO2 18.5 L (22-28) mmol.L VBG O2 Sat (Calc) 100.3 H (40-65) % VBG Base Excess -6.8 L (0.0-2.0) mmol/L VBG Potassium 3.9 (3.6-5.2) mmol/L Sodium 155 H 161.0 H* (132-148) mmol/L Chloride 119 H 119.0 H (98-107) mmol/L Glucose > 750 H* (75-110) mg/dl Lactate 2.3 H (0.7-2.1) mmol/L FiO2 21.0 % Blood Gas Comments Crit Value Called To Oatman oie Crit Value Called By [facility] Blood Gas Notified Time 2145 Potassium 3.5 L (3.6-5.0) mmol/L Carbon Dioxide 30 (21-33) mmol/L Anion Gap 10 (10-20) BUN 45 H (7-21) mg/dL Creatinine 1.0 (0.8-1.5) mg/dl Est GFR ( Amer) > 60 Est GFR (Non-Af Amer) > 60 POC Glucose (mg/dL) > 500 H* (65-110) mg/dL Random Glucose 502 H* D (70-110) mg/dL Serum Osmolality (272-300) mosm/kg Calcium 8.2 L (8.4-10.5) mg/dL Magnesium (1.7-2.2) mg/dL Total Bilirubin (0.2-1.3) mg/dL AST (17-59) U/L ALT (7-56) U/L Alkaline Phosphatase (38-126) U/L Lactate Dehydrogenase (333-699) U/L Total Creatine Kinase (35-230) U/L Troponin I ng/mL NT-Pro-B Natriuret Pep (0-450) pg/mL Total Protein (5.8-8.3) g/dL Albumin (3.0-4.8) g/dL Globulin gm/dL Albumin/Globulin Ratio (1.1-1.8) Lipase (23-300) U/L Venous Blood Potassium 3.9 (3.6-5.2) mmol/L Urine Color (YELLOW) Urine Appearance (CLEAR) Urine pH (4.7-8.0) Ur Specific [place] (1.005-1.035) Urine Protein (<30 mg/dL) mg/dL Urine Glucose (UA) (NEGATIVE) mg/dL Urine Ketones (NEGATIVE) mg/dL Urine Blood (NEGATIVE) Urine Nitrate (NEGATIVE) Urine Bilirubin (NEGATIVE) Urine Urobilinogen (<1 E.U./dL) E.U./dL Ur Leukocyte Esterase (NEGATIVE) Valerie/uL Digoxin (0.8-2.0) ng/mL 09/25/18 09/25/18 09/25/18 Range/Units 20:55 20:00 19:40 WBC (4.5-11.0) 10^3/uL RBC (3.5-6.1) 10^6/uL Hgb (14.0-18.0) g/dL Hct (42.0-52.0) % MCV (80.0-105.0) fl MCH (25.0-35.0) pg MCHC (31.0-37.0) g/dl RDW (11.5-14.5) % Plt Count (120.0-450.0) 10^3/uL MPV (7.0-11.0) fl Neut % (Auto) (50.0-68.0) % Lymph % (Auto) (22.0-35.0) % Long % (Auto) (1.0-6.0) % Eos % (Auto) (1.5-5.0) % Baso % (Auto) (0.0-3.0) % Lymph # (Auto) (1.2-3.4) Long # (Auto) (0.1-0.6) Eos # (Auto) (0.0-0.7) Baso # (Auto) (0.0-2.0) K/mm3 Absolute Neuts (auto) (1.4-6.5) PT (9.4-12.5) SECONDS INR APTT (26.9-38.3) Seconds pO2 (30-55) mm/Hg VBG pH (7.32-7.43) VBG pCO2 (40-60) VBG HCO3 (21-28) mmol/l VBG Total CO2 (22-28) mmol.L VBG O2 Sat (Calc) (40-65) % VBG Base Excess (0.0-2.0) mmol/L VBG Potassium (3.6-5.2) mmol/L Sodium 157 H* (132-148) mmol/L Chloride 125 H (98-107) mmol/L Glucose (75-110) mg/dl Lactate (0.7-2.1) mmol/L FiO2 % Blood Gas Comments Crit Value Called To Crit Value Called By Blood Gas Notified Time Potassium 4.0 (3.6-5.0) mmol/L Carbon Dioxide 18 L (21-33) mmol/L Anion Gap 18 (10-20) BUN 52 H (7-21) mg/dL Creatinine 1.2 (0.8-1.5) mg/dl Est GFR ( Amer) > 60 Est GFR (Non-Af Amer) > 60 POC Glucose (mg/dL) > 500 H* (65-110) mg/dL Random Glucose 706 H* D (70-110) mg/dL Serum Osmolality (272-300) mosm/kg Calcium 10.2 (8.4-10.5) mg/dL Magnesium (1.7-2.2) mg/dL Total Bilirubin (0.2-1.3) mg/dL AST (17-59) U/L ALT (7-56) U/L Alkaline Phosphatase (38-126) U/L Lactate Dehydrogenase (333-699) U/L Total Creatine Kinase (35-230) U/L Troponin I 0.04 D ng/mL NT-Pro-B Natriuret Pep (0-450) pg/mL Total Protein (5.8-8.3) g/dL Albumin (3.0-4.8) g/dL Globulin gm/dL Albumin/Globulin Ratio (1.1-1.8) Lipase (23-300) U/L Venous Blood Potassium (3.6-5.2) mmol/L Urine Color Light yellow (YELLOW) Urine Appearance Clear (CLEAR) Urine pH 5.5 (4.7-8.0) Ur Specific [place] 1.015 (1.005-1.035) Urine Protein Negative (<30 mg/dL) mg/dL Urine Glucose (UA) >=1000 (NEGATIVE) mg/dL Urine Ketones 40 H (NEGATIVE) mg/dL Urine Blood Negative (NEGATIVE) Urine Nitrate Negative (NEGATIVE) Urine Bilirubin Negative (NEGATIVE) Urine Urobilinogen 0.2 (<1 E.U./dL) E.U./dL Ur Leukocyte Esterase Negative (NEGATIVE) Valerie/uL Digoxin (0.8-2.0) ng/mL 09/25/18 09/25/18 09/25/18 Range/Units 18:47 18:45 16:38 WBC (4.5-11.0) 10^3/uL RBC (3.5-6.1) 10^6/uL Hgb (14.0-18.0) g/dL Hct (42.0-52.0) % MCV (80.0-105.0) fl MCH (25.0-35.0) pg MCHC (31.0-37.0) g/dl RDW (11.5-14.5) % Plt Count (120.0-450.0) 10^3/uL MPV (7.0-11.0) fl Neut % (Auto) (50.0-68.0) % Lymph % (Auto) (22.0-35.0) % Long % (Auto) (1.0-6.0) % Eos % (Auto) (1.5-5.0) % Baso % (Auto) (0.0-3.0) % Lymph # (Auto) (1.2-3.4) Long # (Auto) (0.1-0.6) Eos # (Auto) (0.0-0.7) Baso # (Auto) (0.0-2.0) K/mm3 Absolute Neuts (auto) (1.4-6.5) PT (9.4-12.5) SECONDS INR APTT (26.9-38.3) Seconds pO2 50 (30-55) mm/Hg VBG pH 7.22 L (7.32-7.43) VBG pCO2 36.0 L (40-60) VBG HCO3 14.7 L (21-28) mmol/l VBG Total CO2 15.8 L (22-28) mmol.L VBG O2 Sat (Calc) 83.9 H (40-65) % VBG Base Excess -12.1 L (0.0-2.0) mmol/L VBG Potassium 5.3 H (3.6-5.2) mmol/L Sodium 157.0 H (132-148) mmol/L Chloride 109.0 H (98-107) mmol/L Glucose > 750 H* (75-110) mg/dl Lactate 3.0 H (0.7-2.1) mmol/L FiO2 21.0 % Blood Gas Comments Crit Value Called To Aleksandra cross Crit Value Called By [facility] Blood Gas Notified Time 1852 Potassium (3.6-5.0) mmol/L Carbon Dioxide (21-33) mmol/L Anion Gap (10-20) BUN (7-21) mg/dL Creatinine (0.8-1.5) mg/dl Est GFR ( Amer) Est GFR (Non-Af Amer) POC Glucose (mg/dL) > 500 H* (65-110) mg/dL Random Glucose (70-110) mg/dL Serum Osmolality 412 H (272-300) mosm/kg Calcium (8.4-10.5) mg/dL Magnesium (1.7-2.2) mg/dL Total Bilirubin (0.2-1.3) mg/dL AST (17-59) U/L ALT (7-56) U/L Alkaline Phosphatase (38-126) U/L Lactate Dehydrogenase (333-699) U/L Total Creatine Kinase (35-230) U/L Troponin I ng/mL NT-Pro-B Natriuret Pep (0-450) pg/mL Total Protein (5.8-8.3) g/dL Albumin (3.0-4.8) g/dL Globulin gm/dL Albumin/Globulin Ratio (1.1-1.8) Lipase (23-300) U/L Venous Blood Potassium 5.3 H (3.6-5.2) mmol/L Urine Color (YELLOW) Urine Appearance (CLEAR) Urine pH (4.7-8.0) Ur Specific [place] (1.005-1.035) Urine Protein (<30 mg/dL) mg/dL Urine Glucose (UA) (NEGATIVE) mg/dL Urine Ketones (NEGATIVE) mg/dL Urine Blood (NEGATIVE) Urine Nitrate (NEGATIVE) Urine Bilirubin (NEGATIVE) Urine Urobilinogen (<1 E.U./dL) E.U./dL Ur Leukocyte Esterase (NEGATIVE) Valerie/uL Digoxin (0.8-2.0) ng/mL 09/25/18 09/25/18 09/25/18 Range/Units 16:38 16:38 16:38 WBC 13.7 H (4.5-11.0) 10^3/uL RBC 5.96 (3.5-6.1) 10^6/uL Hgb 17.7 D (14.0-18.0) g/dL Hct 56.7 H* (42.0-52.0) % MCV 95.6 D (80.0-105.0) fl MCH 29.8 (25.0-35.0) pg MCHC 31.2 (31.0-37.0) g/dl RDW 14.5 (11.5-14.5) % Plt Count 189 (120.0-450.0) 10^3/uL MPV 13.7 H (7.0-11.0) fl Neut % (Auto) 85.3 H (50.0-68.0) % Lymph % (Auto) 6.6 L (22.0-35.0) % Long % (Auto) 7.6 H (1.0-6.0) % Eos % (Auto) 0.1 L (1.5-5.0) % Baso % (Auto) 0.4 (0.0-3.0) % Lymph # (Auto) 0.9 L (1.2-3.4) Long # (Auto) 1.0 H (0.1-0.6) Eos # (Auto) 0.0 (0.0-0.7) Baso # (Auto) 0.05 (0.0-2.0) K/mm3 Absolute Neuts (auto) 11.66 H (1.4-6.5) PT 11.5 (9.4-12.5) SECONDS INR 1.04 APTT 30.8 (26.9-38.3) Seconds pO2 (30-55) mm/Hg VBG pH (7.32-7.43) VBG pCO2 (40-60) VBG HCO3 (21-28) mmol/l VBG Total CO2 (22-28) mmol.L VBG O2 Sat (Calc) (40-65) % VBG Base Excess (0.0-2.0) mmol/L VBG Potassium (3.6-5.2) mmol/L Sodium 144 (132-148) mmol/L Chloride 104 (98-107) mmol/L Glucose (75-110) mg/dl Lactate (0.7-2.1) mmol/L FiO2 % Blood Gas Comments Crit Value Called To Crit Value Called By Blood Gas Notified Time Potassium 6.2 H* D (3.6-5.0) mmol/L Carbon Dioxide 16 L (21-33) mmol/L Anion Gap 29 H (10-20) BUN 69 H (7-21) mg/dL Creatinine 1.7 H (0.8-1.5) mg/dl Est GFR ( Amer) 50 Est GFR (Non-Af Amer) 41 POC Glucose (mg/dL) (65-110) mg/dL Random Glucose 1343 H* D (70-110) mg/dL Serum Osmolality (272-300) mosm/kg Calcium 11.1 H (8.4-10.5) mg/dL Magnesium 2.9 H (1.7-2.2) mg/dL Total Bilirubin 1.0 (0.2-1.3) mg/dL AST 26 (17-59) U/L ALT 29 (7-56) U/L Alkaline Phosphatase 226 H D (38-126) U/L Lactate Dehydrogenase 505 (333-699) U/L Total Creatine Kinase 114 (35-230) U/L Troponin I 0.03 D ng/mL NT-Pro-B Natriuret Pep 144 (0-450) pg/mL Total Protein 7.0 (5.8-8.3) g/dL Albumin 4.1 (3.0-4.8) g/dL Globulin 2.9 gm/dL Albumin/Globulin Ratio 1.5 (1.1-1.8) Lipase 352 H (23-300) U/L Venous Blood Potassium (3.6-5.2) mmol/L Urine Color (YELLOW) Urine Appearance (CLEAR) Urine pH (4.7-8.0) Ur Specific [place] (1.005-1.035) Urine Protein (<30 mg/dL) mg/dL Urine Glucose (UA) (NEGATIVE) mg/dL Urine Ketones (NEGATIVE) mg/dL Urine Blood (NEGATIVE) Urine Nitrate (NEGATIVE) Urine Bilirubin (NEGATIVE) Urine Urobilinogen (<1 E.U./dL) E.U./dL Ur Leukocyte Esterase (NEGATIVE) Valerie/uL Digoxin (0.8-2.0) ng/mL 09/25/18 09/25/18 Range/Units 16:38 15:50 WBC (4.5-11.0) 10^3/uL RBC (3.5-6.1) 10^6/uL Hgb (14.0-18.0) g/dL Hct (42.0-52.0) % MCV (80.0-105.0) fl MCH (25.0-35.0) pg MCHC (31.0-37.0) g/dl RDW (11.5-14.5) % Plt Count (120.0-450.0) 10^3/uL MPV (7.0-11.0) fl Neut % (Auto) (50.0-68.0) % Lymph % (Auto) (22.0-35.0) % Long % (Auto) (1.0-6.0) % Eos % (Auto) (1.5-5.0) % Baso % (Auto) (0.0-3.0) % Lymph # (Auto) (1.2-3.4) Long # (Auto) (0.1-0.6) Eos # (Auto) (0.0-0.7) Baso # (Auto) (0.0-2.0) K/mm3 Absolute Neuts (auto) (1.4-6.5) PT (9.4-12.5) SECONDS INR APTT (26.9-38.3) Seconds pO2 45 (30-55) mm/Hg VBG pH 7.27 L (7.32-7.43) VBG pCO2 36.0 L (40-60) VBG HCO3 16.5 L (21-28) mmol/l VBG Total CO2 17.6 L (22-28) mmol.L VBG O2 Sat (Calc) 82.4 H (40-65) % VBG Base Excess -9.6 L (0.0-2.0) mmol/L VBG Potassium 6.5 H* (3.6-5.2) mmol/L Sodium 143.0 (132-148) mmol/L Chloride 100.0 (98-107) mmol/L Glucose > 750 H* (75-110) mg/dl Lactate 3.4 H (0.7-2.1) mmol/L FiO2 21.0 % Blood Gas Comments Crit Value Called To Dr cage Crit Value Called By Reema Blood Gas Notified Time 1605 Potassium (3.6-5.0) mmol/L Carbon Dioxide (21-33) mmol/L Anion Gap (10-20) BUN (7-21) mg/dL Creatinine (0.8-1.5) mg/dl Est GFR ( Amer) Est GFR (Non-Af Amer) POC Glucose (mg/dL) (65-110) mg/dL Random Glucose (70-110) mg/dL Serum Osmolality (272-300) mosm/kg Calcium (8.4-10.5) mg/dL Magnesium (1.7-2.2) mg/dL Total Bilirubin (0.2-1.3) mg/dL AST (17-59) U/L ALT (7-56) U/L Alkaline Phosphatase (38-126) U/L Lactate Dehydrogenase (333-699) U/L Total Creatine Kinase (35-230) U/L Troponin I ng/mL NT-Pro-B Natriuret Pep (0-450) pg/mL Total Protein (5.8-8.3) g/dL Albumin (3.0-4.8) g/dL Globulin gm/dL Albumin/Globulin Ratio (1.1-1.8) Lipase (23-300) U/L Venous Blood Potassium 6.5 H* (3.6-5.2) mmol/L Urine Color (YELLOW) Urine Appearance (CLEAR) Urine pH (4.7-8.0) Ur Specific [place] (1.005-1.035) Urine Protein (<30 mg/dL) mg/dL Urine Glucose (UA) (NEGATIVE) mg/dL Urine Ketones (NEGATIVE) mg/dL Urine Blood (NEGATIVE) Urine Nitrate (NEGATIVE) Urine Bilirubin (NEGATIVE) Urine Urobilinogen (<1 E.U./dL) E.U./dL Ur Leukocyte Esterase (NEGATIVE) Valerie/uL Digoxin 1.2 (0.8-2.0) ng/mL Laboratory Results - last 24 hr 09/25/18 09/25/18 09/25/18 15:50 16:38 16:38 WBC 13.7 H RBC 5.96 Hgb 17.7 D Hct 56.7 H* MCV 95.6 D MCH 29.8 MCHC 31.2 RDW 14.5 Plt Count 189 MPV 13.7 H Neut % (Auto) 85.3 H Lymph % (Auto) 6.6 L Long % (Auto) 7.6 H Eos % (Auto) 0.1 L Baso % (Auto) 0.4 Lymph # (Auto) 0.9 L Long # (Auto) 1.0 H Eos # (Auto) 0.0 Baso # (Auto) 0.05 Absolute Neuts (auto) 11.66 H PT INR APTT pO2 45 VBG pH 7.27 L VBG pCO2 36.0 L VBG HCO3 16.5 L VBG Total CO2 17.6 L VBG O2 Sat (Calc) 82.4 H VBG Base Excess -9.6 L VBG Potassium 6.5 H* Sodium 143.0 Chloride 100.0 Glucose > 750 H* Lactate 3.4 H FiO2 21.0 Blood Gas Comments Crit Value Called To Dr cage Crit Value Called By Reema Blood Gas Notified Time 1605 Potassium Carbon Dioxide Anion Gap BUN Creatinine Est GFR ( Amer) Est GFR (Non-Af Amer) POC Glucose (mg/dL) Random Glucose Serum Osmolality Calcium Magnesium Total Bilirubin AST ALT Alkaline Phosphatase Lactate Dehydrogenase Total Creatine Kinase Troponin I NT-Pro-B Natriuret Pep Total Protein Albumin Globulin Albumin/Globulin Ratio Lipase Venous Blood Potassium 6.5 H* Urine Color Urine Appearance Urine pH Ur Specific [place] Urine Protein Urine Glucose (UA) Urine Ketones Urine Blood Urine Nitrate Urine Bilirubin Urine Urobilinogen Ur Leukocyte Esterase Digoxin 1.2 09/25/18 09/25/18 09/25/18 16:38 16:38 16:38 WBC RBC Hgb Hct MCV MCH MCHC RDW Plt Count MPV Neut % (Auto) Lymph % (Auto) Long % (Auto) Eos % (Auto) Baso % (Auto) Lymph # (Auto) Long # (Auto) Eos # (Auto) Baso # (Auto) Absolute Neuts (auto) PT 11.5 INR 1.04 APTT 30.8 pO2 VBG pH VBG pCO2 VBG HCO3 VBG Total CO2 VBG O2 Sat (Calc) VBG Base Excess VBG Potassium Sodium 144 Chloride 104 Glucose Lactate FiO2 Blood Gas Comments Crit Value Called To Crit Value Called By Blood Gas Notified Time Potassium 6.2 H* D Carbon Dioxide 16 L Anion Gap 29 H BUN 69 H Creatinine 1.7 H Est GFR ( Amer) 50 Est GFR (Non-Af Amer) 41 POC Glucose (mg/dL) Random Glucose 1343 H* D Serum Osmolality 412 H Calcium 11.1 H Magnesium 2.9 H Total Bilirubin 1.0 AST 26 ALT 29 Alkaline Phosphatase 226 H D Lactate Dehydrogenase 505 Total Creatine Kinase 114 Troponin I 0.03 D NT-Pro-B Natriuret Pep 144 Total Protein 7.0 Albumin 4.1 Globulin 2.9 Albumin/Globulin Ratio 1.5 Lipase 352 H Venous Blood Potassium Urine Color Urine Appearance Urine pH Ur Specific [place] Urine Protein Urine Glucose (UA) Urine Ketones Urine Blood Urine Nitrate Urine Bilirubin Urine Urobilinogen Ur Leukocyte Esterase Digoxin 09/25/18 09/25/18 09/25/18 18:45 18:47 19:40 WBC RBC Hgb Hct MCV MCH MCHC RDW Plt Count MPV Neut % (Auto) Lymph % (Auto) Long % (Auto) Eos % (Auto) Baso % (Auto) Lymph # (Auto) Long # (Auto) Eos # (Auto) Baso # (Auto) Absolute Neuts (auto) PT INR APTT pO2 50 VBG pH 7.22 L VBG pCO2 36.0 L VBG HCO3 14.7 L VBG Total CO2 15.8 L VBG O2 Sat (Calc) 83.9 H VBG Base Excess -12.1 L VBG Potassium 5.3 H Sodium 157.0 H Chloride 109.0 H Glucose > 750 H* Lactate 3.0 H FiO2 21.0 Blood Gas Comments Crit Value Called To Aleksandra cross Crit Value Called By Atc Blood Gas Notified Time 185 Potassium Carbon Dioxide Anion Gap BUN Creatinine Est GFR ( Amer) Est GFR (Non-Af Amer) POC Glucose (mg/dL) > 500 H* > 500 H* Random Glucose Serum Osmolality Calcium Magnesium Total Bilirubin AST ALT Alkaline Phosphatase Lactate Dehydrogenase Total Creatine Kinase Troponin I NT-Pro-B Natriuret Pep Total Protein Albumin Globulin Albumin/Globulin Ratio Lipase Venous Blood Potassium 5.3 H Urine Color Urine Appearance Urine pH Ur Specific [place] Urine Protein Urine Glucose (UA) Urine Ketones Urine Blood Urine Nitrate Urine Bilirubin Urine Urobilinogen Ur Leukocyte Esterase Digoxin 09/25/18 09/25/18 09/25/18 20:00 20:55 20:55 WBC RBC Hgb Hct MCV MCH MCHC RDW Plt Count MPV Neut % (Auto) Lymph % (Auto) Long % (Auto) Eos % (Auto) Baso % (Auto) Lymph # (Auto) Long # (Auto) Eos # (Auto) Baso # (Auto) Absolute Neuts (auto) PT INR APTT pO2 170 H VBG pH 7.36 VBG pCO2 31.0 L VBG HCO3 17.5 L VBG Total CO2 18.5 L VBG O2 Sat (Calc) 100.3 H VBG Base Excess -6.8 L VBG Potassium 3.9 Sodium 157 H* 161.0 H* Chloride 125 H 119.0 H Glucose > 750 H* Lactate 2.3 H FiO2 21.0 Blood Gas Comments Crit Value Called To [place] oie Crit Value Called By Atc Blood Gas Notified Time 2145 Potassium 4.0 Carbon Dioxide 18 L Anion Gap 18 BUN 52 H Creatinine 1.2 Est GFR ( Amer) > 60 Est GFR (Non-Af Amer) > 60 POC Glucose (mg/dL) Random Glucose 706 H* D Serum Osmolality Calcium 10.2 Magnesium Total Bilirubin AST ALT Alkaline Phosphatase Lactate Dehydrogenase Total Creatine Kinase Troponin I 0.04 D NT-Pro-B Natriuret Pep Total Protein Albumin Globulin Albumin/Globulin Ratio Lipase Venous Blood Potassium 3.9 Urine Color Light yellow Urine Appearance Clear Urine pH 5.5 Ur Specific [place] 1.015 Urine Protein Negative Urine Glucose (UA) >=1000 Urine Ketones 40 H Urine Blood Negative Urine Nitrate Negative Urine Bilirubin Negative Urine Urobilinogen 0.2 Ur Leukocyte Esterase Negative Digoxin 09/25/18 09/25/18 09/25/18 22:26 23:20 23:20 WBC RBC Hgb Hct MCV MCH MCHC RDW Plt Count MPV Neut % (Auto) Lymph % (Auto) Long % (Auto) Eos % (Auto) Baso % (Auto) Lymph # (Auto) Long # (Auto) Eos # (Auto) Baso # (Auto) Absolute Neuts (auto) PT INR APTT pO2 48 VBG pH 7.35 VBG pCO2 56.0 VBG HCO3 30.9 H VBG Total CO2 32.6 H VBG O2 Sat (Calc) 84.7 H VBG Base Excess 3.8 H VBG Potassium 3.5 L Sodium 155 H 158.0 H Chloride 119 H 117.0 H Glucose 541 H* D Lactate 1.8 FiO2 21.0 Blood Gas Comments Glu 541 na 158 Crit Value Called To Brianna schwarz Crit Value Called By [facility] Blood Gas Notified Time 2340 Potassium 3.5 L Carbon Dioxide 30 Anion Gap 10 BUN 45 H Creatinine 1.0 Est GFR ( Amer) > 60 Est GFR (Non-Af Amer) > 60 POC Glucose (mg/dL) > 500 H* Random Glucose 502 H* D Serum Osmolality Calcium 8.2 L Magnesium Total Bilirubin AST ALT Alkaline Phosphatase Lactate Dehydrogenase Total Creatine Kinase Troponin I NT-Pro-B Natriuret Pep Total Protein Albumin Globulin Albumin/Globulin Ratio Lipase Venous Blood Potassium 3.5 L Urine Color Urine Appearance Urine pH Ur Specific [place] Urine Protein Urine Glucose (UA) Urine Ketones Urine Blood Urine Nitrate Urine Bilirubin Urine Urobilinogen Ur Leukocyte Esterase Digoxin 09/26/18 09/26/18 09/26/18 02:26 03:30 05:01 WBC RBC Hgb Hct MCV MCH MCHC RDW Plt Count MPV Neut % (Auto) Lymph % (Auto) Long % (Auto) Eos % (Auto) Baso % (Auto) Lymph # (Auto) Long # (Auto) Eos # (Auto) Baso # (Auto) Absolute Neuts (auto) PT INR APTT pO2 VBG pH VBG pCO2 VBG HCO3 VBG Total CO2 VBG O2 Sat (Calc) VBG Base Excess VBG Potassium Sodium Chloride Glucose Lactate FiO2 Blood Gas Comments Crit Value Called To Crit Value Called By Blood Gas Notified Time Potassium Carbon Dioxide Anion Gap BUN Creatinine Est GFR ( Amer) Est GFR (Non-Af Amer) POC Glucose (mg/dL) 460 H* 397 H 382 H Random Glucose Serum Osmolality Calcium Magnesium Total Bilirubin AST ALT Alkaline Phosphatase Lactate Dehydrogenase Total Creatine Kinase Troponin I NT-Pro-B Natriuret Pep Total Protein Albumin Globulin Albumin/Globulin Ratio Lipase Venous Blood Potassium Urine Color Urine Appearance Urine pH Ur Specific [place] Urine Protein Urine Glucose (UA) Urine Ketones Urine Blood Urine Nitrate Urine Bilirubin Urine Urobilinogen Ur Leukocyte Esterase Digoxin 09/26/18 09/26/18 05:45 05:45 WBC RBC Hgb Hct MCV MCH MCHC RDW Plt Count MPV Neut % (Auto) Lymph % (Auto) Long % (Auto) Eos % (Auto) Baso % (Auto) Lymph # (Auto) Long # (Auto) Eos # (Auto) Baso # (Auto) Absolute Neuts (auto) PT INR APTT pO2 52 VBG pH 7.40 VBG pCO2 42.0 VBG HCO3 26.0 VBG Total CO2 27.3 VBG O2 Sat (Calc) 89.5 H VBG Base Excess 1.0 VBG Potassium 3.9 Sodium 166.0 H* 163 H* Chloride 127.0 H 131 H Glucose 354 H Lactate 2.8 H FiO2 21.0 Blood Gas Comments Crit Value Called To Cabrera middleton Crit Value Called By Tank Blood Gas Notified Time 630 Potassium 3.8 Carbon Dioxide 26 Anion Gap 10 BUN 39 H Creatinine 1.0 Est GFR ( Amer) > 60 Est GFR (Non-Af Amer) > 60 POC Glucose (mg/dL) Random Glucose 335 H* D Serum Osmolality Calcium 10.1 Magnesium Total Bilirubin AST ALT Alkaline Phosphatase Lactate Dehydrogenase Total Creatine Kinase Troponin I NT-Pro-B Natriuret Pep Total Protein Albumin Globulin Albumin/Globulin Ratio Lipase Venous Blood Potassium 3.9 Urine Color Urine Appearance Urine pH Ur Specific [place] Urine Protein Urine Glucose (UA) Urine Ketones Urine Blood Urine Nitrate Urine Bilirubin Urine Urobilinogen Ur Leukocyte Esterase Digoxin Radiology Impressions: Radiology Impressions Chest X-Ray 09/25/18 15:42 IMPRESSION: No active disease. EKG/Cardiology Studies: Cardiology / EKG Studies 09/25/18 15:41 ELECTROCARDIOGRAM Stat Comment: Reason For Exam: weakness Fingerstick Blood Sugar Results: 308 Assessment/Plan - Assessment and Plan (Free Text) Assessment: Pt is a 58 yo male with a PMH of HTN, iron deficiency anemia, intra abdominal abscess, systolic CHF, dilated cardiomyopathy, DVT/PE, chronic gastritis and colorectal polyps sp colon resection who presents to the ED because of AMS, progressive weakness who was admitted to the ICU for DKA. Plan: Neuro - obtunded - oriented to person - Follow up EEG - CT head- shows generalized atrophy - 1:1 sitter - avoid geodon and haldol, pt is currently taking sotalol - Neuro consulted, Dr Jhaveri Cardio - bi ventricular failure, systolic CHF, dilated cardiomyopathy, HTN, Atrial fibrillation, EF 24% - eliquis, diltiazem, sotalol - continue to monitor Pulm - maintain O2 >92% GI - pantoprazole - continue to monitor Nephro/ - continue to monitor potassium ID - WBC 13.7 - 100.1F - doxy, merrem - follow up legionella, HIV - procal pending - lactate 3.4 on admission, 1.1 Heme/Onc - history of DVT/PE Endo - new onset DM - DKA - anion gap of 24 on admission - gap is now closed - given 3L NS in ER, pt was on Bicarb drip - glucose on admission 1300, UA ketones, blood gas on admission pH 7.27 - pt on insulin drip 4 units per hour - replete K PRN - most recent fingerstick 292, will transition to SC insulin - follow up BHB - D5 in water Spoke with daughter Jazmín ([phone]), states father rarely drinks alcohol Pt seen, examined, assessment and plan discussed with Dr Tj Live PGY1 - Date & Time Date: 09/26/18 Time: 07:32 <Bulmaro Spencer - Last Filed: 09/26/18 14:02> CCU Objective - Vital Signs / Intake & Output Vital Signs (Last 4 hours): Vital Signs Temp Pulse Resp BP Pulse Ox 09/26/18 13:25 69 09/26/18 12:20 66 31 H 97 09/26/18 12:10 67 29 H 96 09/26/18 12:00 98.7 F 65 26 H 134/90 91 L 09/26/18 11:50 78 20 94 L 09/26/18 11:40 73 25 H 97 09/26/18 11:30 77 18 09/26/18 11:29 75 31 H 09/26/18 11:28 76 30 H 09/26/18 11:27 77 24 09/26/18 11:26 78 30 H 09/26/18 11:25 77 27 H 09/26/18 11:24 76 29 H 09/26/18 11:23 79 15 09/26/18 11:22 79 20 09/26/18 11:21 76 29 H 09/26/18 11:20 81 23 09/26/18 11:19 79 15 09/26/18 11:18 74 27 H 09/26/18 11:17 80 30 H 09/26/18 11:16 84 28 H 09/26/18 11:15 84 28 H 09/26/18 11:14 84 29 H 09/26/18 11:13 85 28 H 09/26/18 11:12 87 26 H 09/26/18 11:11 87 29 H 09/26/18 11:10 87 28 H 09/26/18 11:09 87 31 H 09/26/18 11:08 88 20 09/26/18 11:07 88 27 H 09/26/18 11:06 89 31 H 09/26/18 11:05 89 30 H 09/26/18 11:04 90 30 H 09/26/18 11:03 92 H 29 H 09/26/18 11:02 89 29 H 09/26/18 11:01 93 H 29 H 09/26/18 11:00 166/95 H 09/26/18 10:59 95 H 09/26/18 10:58 97 H 21 09/26/18 10:57 98 H 32 H 09/26/18 10:56 98 H 26 H 09/26/18 10:55 102 H 29 H 09/26/18 10:54 101 H 09/26/18 10:53 102 H 23 09/26/18 10:52 102 H 30 H 09/26/18 10:51 103 H 24 09/26/18 10:50 105 H 31 H 09/26/18 10:49 102 H 29 H 09/26/18 10:48 105 H 23 09/26/18 10:19 110 H 160/109 H Intake and Output (Last 8hrs): Intake & Output 09/25/18 09/26/18 09/26/18 22:59 06:59 14:59 Intake Total 5520 26 Output Total 1900 Balance 3620 26 Weight 209 lb 8 oz 209 lb 8 oz Intake: IV 5520 26 Left Antecubital 5460 Oral 0 Output: Urine 1900 2-way Urethral 1900 Other: # Bowel Movements 5 - Medications Active Medications: Active Medications Generic Name Dose Route Start Last Admin Trade Name Gene PRN Reason Stop Dose Admin Apixaban 2.5 mg 09/26/18 10:00 09/26/18 10:19 Eliquis PO 2.5 mg BID ANDRES Administration Protocol Diltiazem HCl 180 mg 09/26/18 10:00 09/26/18 10:00 Cardizem Cd PO Not Given DAILY ANDRES Insulin Human Regular 100 100 mls @ 9.98 mls/hr 09/25/18 17:50 09/26/18 11:30 units/ Sodium Chloride IV 0.06 units/kg/hr .Q10H2M PRN 6 mls/hr TITRATE PER MD ORDER Titration Protocol 0.1 UNITS/KG/HR Meropenem 1 gm in 50 mls @ 100 mls/hr 09/25/18 22:00 09/26/18 09:21 Merrem Iv 1 Gm Premix IVPB 10/04/18 22:01 100 mls/hr Q12 ANDRES Administration Protocol Doxycycline Hyclate 100 mg/ 100 mls @ 100 mls/hr 09/25/18 22:00 09/26/18 09:25 Sodium Chloride IVPB 10/04/18 22:01 100 mls/hr Q12 ANDRES Administration Protocol Dextrose 1,000 mls @ 150 mls/hr 09/26/18 08:15 09/26/18 08:26 Dextrose 5% In Water 1000 Ml IV 150 mls/hr .Q6H40M ANDRES Administration Dexmedetomidine HCl 400 mcg in 100 mls @ 4.751 mls/hr 09/26/18 10:37 09/26/18 10:49 Precedex 400mcg/100ml IV 0.2 mcg/kg/hr .Q21H3M PRN 4.751 mls/hr Agitation Administration Protocol 0.2 MCG/KG/HR Melatonin 1 mg 09/26/18 22:00 Melatonin PO HS ANDRES Nystatin/Triamcinolone Acetonide 0 ea 09/26/18 10:00 09/26/18 10:48 Nystatin/Triamcinolone Cream TOP 1 applic BID ANDRES Administration Pantoprazole Sodium 40 mg 09/26/18 10:00 09/26/18 10:20 Protonix Inj IVP 40 mg DAILY ANDRES Administration Sotalol HCl 80 mg 09/26/18 10:00 09/26/18 10:19 Betapace PO 80 mg BID ANDRES Administration - Patient Studies Lab Studies: Lab Studies 09/26/18 09/26/18 09/26/18 Range/Units 13:29 12:23 11:49 WBC (4.5-11.0) 10^3/uL RBC (3.5-6.1) 10^6/uL Hgb (14.0-18.0) g/dL Hct (42.0-52.0) % MCV (80.0-105.0) fl MCH (25.0-35.0) pg MCHC (31.0-37.0) g/dl RDW (11.5-14.5) % Plt Count (120.0-450.0) 10^3/uL MPV (7.0-11.0) fl Neut % (Auto) (50.0-68.0) % Lymph % (Auto) (22.0-35.0) % Long % (Auto) (1.0-6.0) % Eos % (Auto) (1.5-5.0) % Baso % (Auto) (0.0-3.0) % Lymph # (Auto) (1.2-3.4) Long # (Auto) (0.1-0.6) Eos # (Auto) (0.0-0.7) Baso # (Auto) (0.0-2.0) K/mm3 Absolute Neuts (auto) (1.4-6.5) PT (9.4-12.5) SECONDS INR APTT (26.9-38.3) Seconds pCO2 (35-45) mm/Hg pO2 (30-55) mm/Hg HCO3 (21-28) mmol/L ABG pH (7.35-7.45) ABG Total CO2 (22-28) mmol.L ABG O2 Saturation (95-98) % ABG Base Excess (-2.0-3.0) mmol/L ABG Potassium (3.6-5.2) mmol/L VBG pH (7.32-7.43) VBG pCO2 (40-60) VBG HCO3 (21-28) mmol/l VBG Total CO2 (22-28) mmol.L VBG O2 Sat (Calc) (40-65) % VBG Base Excess (0.0-2.0) mmol/L VBG Potassium (3.6-5.2) mmol/L Sodium (132-148) mmol/L Chloride (98-107) mmol/L Glucose (75-110) mg/dl Lactate (0.7-2.1) mmol/L FiO2 % Blood Gas Comments Crit Value Called To Crit Value Called By Blood Gas Notified Time Potassium (3.6-5.0) mmol/L Carbon Dioxide (21-33) mmol/L Anion Gap (10-20) BUN (7-21) mg/dL Creatinine (0.8-1.5) mg/dl Est GFR ( Amer) Est GFR (Non-Af Amer) POC Glucose (mg/dL) 404 H* 404 H* 369 H (65-110) mg/dL Random Glucose (70-110) mg/dL Hemoglobin A1c (4.2-6.5) % Serum Osmolality (272-300) mosm/kg Calcium (8.4-10.5) mg/dL Magnesium (1.7-2.2) mg/dL Total Bilirubin (0.2-1.3) mg/dL AST (17-59) U/L ALT (7-56) U/L Alkaline Phosphatase (38-126) U/L Lactate Dehydrogenase (333-699) U/L Total Creatine Kinase (35-230) U/L Troponin I ng/mL NT-Pro-B Natriuret Pep (0-450) pg/mL Total Protein (5.8-8.3) g/dL Albumin (3.0-4.8) g/dL Globulin gm/dL Albumin/Globulin Ratio (1.1-1.8) Lipase (23-300) U/L Procalcitonin (0.19-0.49) NG/ML Arterial Blood Potassium (3.6-5.2) mmol/L Venous Blood Potassium (3.6-5.2) mmol/L Urine Color (YELLOW) Urine Appearance (CLEAR) Urine pH (4.7-8.0) Ur Specific [place] (1.005-1.035) Urine Protein (<30 mg/dL) mg/dL Urine Glucose (UA) (NEGATIVE) mg/dL Urine Ketones (NEGATIVE) mg/dL Urine Blood (NEGATIVE) Urine Nitrate (NEGATIVE) Urine Bilirubin (NEGATIVE) Urine Urobilinogen (<1 E.U./dL) E.U./dL Ur Leukocyte Esterase (NEGATIVE) Valerie/uL Digoxin (0.8-2.0) ng/mL B-Hydroxybutyrate (0.02-0.27) mM HIV 1&2 Ag/Ab, 4th Gen (Nonreactive) 09/26/18 09/26/18 09/26/18 Range/Units 10:45 10:30 10:30 WBC (4.5-11.0) 10^3/uL RBC (3.5-6.1) 10^6/uL Hgb (14.0-18.0) g/dL Hct (42.0-52.0) % MCV (80.0-105.0) fl MCH (25.0-35.0) pg MCHC (31.0-37.0) g/dl RDW (11.5-14.5) % Plt Count (120.0-450.0) 10^3/uL MPV (7.0-11.0) fl Neut % (Auto) (50.0-68.0) % Lymph % (Auto) (22.0-35.0) % Long % (Auto) (1.0-6.0) % Eos % (Auto) (1.5-5.0) % Baso % (Auto) (0.0-3.0) % Lymph # (Auto) (1.2-3.4) Long # (Auto) (0.1-0.6) Eos # (Auto) (0.0-0.7) Baso # (Auto) (0.0-2.0) K/mm3 Absolute Neuts (auto) (1.4-6.5) PT (9.4-12.5) SECONDS INR APTT (26.9-38.3) Seconds pCO2 (35-45) mm/Hg pO2 86 H (30-55) mm/Hg HCO3 (21-28) mmol/L ABG pH (7.35-7.45) ABG Total CO2 (22-28) mmol.L ABG O2 Saturation (95-98) % ABG Base Excess (-2.0-3.0) mmol/L ABG Potassium (3.6-5.2) mmol/L VBG pH 7.31 L (7.32-7.43) VBG pCO2 48.0 (40-60) VBG HCO3 24.2 (21-28) mmol/l VBG Total CO2 25.7 (22-28) mmol.L VBG O2 Sat (Calc) 97.5 H (40-65) % VBG Base Excess -2.5 L (0.0-2.0) mmol/L VBG Potassium 3.8 (3.6-5.2) mmol/L Sodium 163 H* 166.0 H* (132-148) mmol/L Chloride 131 H 127.0 H (98-107) mmol/L Glucose 326 H (75-110) mg/dl Lactate 2.8 H (0.7-2.1) mmol/L FiO2 21.0 % Blood Gas Comments Crit Value Called To Soumya martinez Crit Value Called By Simona ley Blood Gas Notified Time 1040 Potassium 4.0 (3.6-5.0) mmol/L Carbon Dioxide 25 (21-33) mmol/L Anion Gap 10 (10-20) BUN 33 H (7-21) mg/dL Creatinine 1.0 (0.8-1.5) mg/dl Est GFR ( Amer) > 60 Est GFR (Non-Af Amer) > 60 POC Glucose (mg/dL) 335 H (65-110) mg/dL Random Glucose 316 H* (70-110) mg/dL Hemoglobin A1c (4.2-6.5) % Serum Osmolality (272-300) mosm/kg Calcium 10.3 (8.4-10.5) mg/dL Magnesium (1.7-2.2) mg/dL Total Bilirubin 1.1 (0.2-1.3) mg/dL AST 27 (17-59) U/L ALT 26 (7-56) U/L Alkaline Phosphatase 109 (38-126) U/L Lactate Dehydrogenase (333-699) U/L Total Creatine Kinase (35-230) U/L Troponin I ng/mL NT-Pro-B Natriuret Pep (0-450) pg/mL Total Protein 6.9 (5.8-8.3) g/dL Albumin 3.6 (3.0-4.8) g/dL Globulin 3.3 gm/dL Albumin/Globulin Ratio 1.1 (1.1-1.8) Lipase (23-300) U/L Procalcitonin (0.19-0.49) NG/ML Arterial Blood Potassium (3.6-5.2) mmol/L Venous Blood Potassium 3.8 (3.6-5.2) mmol/L Urine Color (YELLOW) Urine Appearance (CLEAR) Urine pH (4.7-8.0) Ur Specific [place] (1.005-1.035) Urine Protein (<30 mg/dL) mg/dL Urine Glucose (UA) (NEGATIVE) mg/dL Urine Ketones (NEGATIVE) mg/dL Urine Blood (NEGATIVE) Urine Nitrate (NEGATIVE) Urine Bilirubin (NEGATIVE) Urine Urobilinogen (<1 E.U./dL) E.U./dL Ur Leukocyte Esterase (NEGATIVE) Valerie/uL Digoxin (0.8-2.0) ng/mL B-Hydroxybutyrate (0.02-0.27) mM HIV 1&2 Ag/Ab, 4th Gen (Nonreactive) 09/26/18 09/26/18 09/26/18 Range/Units 10:30 09:10 08:15 WBC 8.9 D (4.5-11.0) 10^3/uL RBC 6.03 (3.5-6.1) 10^6/uL Hgb 18.0 (14.0-18.0) g/dL Hct 54.3 H (42.0-52.0) % MCV 90.0 D (80.0-105.0) fl MCH 29.9 (25.0-35.0) pg MCHC 33.1 (31.0-37.0) g/dl RDW 13.8 (11.5-14.5) % Plt Count 140 (120.0-450.0) 10^3/uL MPV 12.4 H (7.0-11.0) fl Neut % (Auto) 73.1 H (50.0-68.0) % Lymph % (Auto) 13.0 L (22.0-35.0) % Long % (Auto) 10.2 H (1.0-6.0) % Eos % (Auto) 3.5 (1.5-5.0) % Baso % (Auto) 0.2 (0.0-3.0) % Lymph # (Auto) 1.2 (1.2-3.4) Long # (Auto) 0.9 H (0.1-0.6) Eos # (Auto) 0.3 (0.0-0.7) Baso # (Auto) 0.02 (0.0-2.0) K/mm3 Absolute Neuts (auto) 6.53 H (1.4-6.5) PT (9.4-12.5) SECONDS INR APTT (26.9-38.3) Seconds pCO2 39 (35-45) mm/Hg pO2 86.0 (30-55) mm/Hg HCO3 24.7 (21-28) mmol/L ABG pH 7.41 (7.35-7.45) ABG Total CO2 25.9 (22-28) mmol.L ABG O2 Saturation 98.6 H (95-98) % ABG Base Excess 0.1 (-2.0-3.0) mmol/L ABG Potassium 3.6 (3.6-5.2) mmol/L VBG pH (7.32-7.43) VBG pCO2 (40-60) VBG HCO3 (21-28) mmol/l VBG Total CO2 (22-28) mmol.L VBG O2 Sat (Calc) (40-65) % VBG Base Excess (0.0-2.0) mmol/L VBG Potassium (3.6-5.2) mmol/L Sodium 165.0 H* (132-148) mmol/L Chloride 129.0 H (98-107) mmol/L Glucose 304 H (75-110) mg/dl Lactate 1.1 (0.7-2.1) mmol/L FiO2 32.0 % Blood Gas Comments Crit Value Called To Dr spencer Crit Value Called By Haroldo ramos Blood Gas Notified Time 820 Potassium (3.6-5.0) mmol/L Carbon Dioxide (21-33) mmol/L Anion Gap (10-20) BUN (7-21) mg/dL Creatinine (0.8-1.5) mg/dl Est GFR ( Amer) Est GFR (Non-Af Amer) POC Glucose (mg/dL) 292 H (65-110) mg/dL Random Glucose (70-110) mg/dL Hemoglobin A1c (4.2-6.5) % Serum Osmolality (272-300) mosm/kg Calcium (8.4-10.5) mg/dL Magnesium (1.7-2.2) mg/dL Total Bilirubin (0.2-1.3) mg/dL AST (17-59) U/L ALT (7-56) U/L Alkaline Phosphatase (38-126) U/L Lactate Dehydrogenase (333-699) U/L Total Creatine Kinase (35-230) U/L Troponin I ng/mL NT-Pro-B Natriuret Pep (0-450) pg/mL Total Protein (5.8-8.3) g/dL Albumin (3.0-4.8) g/dL Globulin gm/dL Albumin/Globulin Ratio (1.1-1.8) Lipase (23-300) U/L Procalcitonin (0.19-0.49) NG/ML Arterial Blood Potassium 3.6 (3.6-5.2) mmol/L Venous Blood Potassium (3.6-5.2) mmol/L Urine Color (YELLOW) Urine Appearance (CLEAR) Urine pH (4.7-8.0) Ur Specific [place] (1.005-1.035) Urine Protein (<30 mg/dL) mg/dL Urine Glucose (UA) (NEGATIVE) mg/dL Urine Ketones (NEGATIVE) mg/dL Urine Blood (NEGATIVE) Urine Nitrate (NEGATIVE) Urine Bilirubin (NEGATIVE) Urine Urobilinogen (<1 E.U./dL) E.U./dL Ur Leukocyte Esterase (NEGATIVE) Valerie/uL Digoxin (0.8-2.0) ng/mL B-Hydroxybutyrate (0.02-0.27) mM HIV 1&2 Ag/Ab, 4th Gen (Nonreactive) 09/26/18 09/26/18 09/26/18 Range/Units 08:00 06:41 05:45 WBC (4.5-11.0) 10^3/uL RBC (3.5-6.1) 10^6/uL Hgb (14.0-18.0) g/dL Hct (42.0-52.0) % MCV (80.0-105.0) fl MCH (25.0-35.0) pg MCHC (31.0-37.0) g/dl RDW (11.5-14.5) % Plt Count (120.0-450.0) 10^3/uL MPV (7.0-11.0) fl Neut % (Auto) (50.0-68.0) % Lymph % (Auto) (22.0-35.0) % Long % (Auto) (1.0-6.0) % Eos % (Auto) (1.5-5.0) % Baso % (Auto) (0.0-3.0) % Lymph # (Auto) (1.2-3.4) Long # (Auto) (0.1-0.6) Eos # (Auto) (0.0-0.7) Baso # (Auto) (0.0-2.0) K/mm3 Absolute Neuts (auto) (1.4-6.5) PT (9.4-12.5) SECONDS INR APTT (26.9-38.3) Seconds pCO2 (35-45) mm/Hg pO2 (30-55) mm/Hg HCO3 (21-28) mmol/L ABG pH (7.35-7.45) ABG Total CO2 (22-28) mmol.L ABG O2 Saturation (95-98) % ABG Base Excess (-2.0-3.0) mmol/L ABG Potassium (3.6-5.2) mmol/L VBG pH (7.32-7.43) VBG pCO2 (40-60) VBG HCO3 (21-28) mmol/l VBG Total CO2 (22-28) mmol.L VBG O2 Sat (Calc) (40-65) % VBG Base Excess (0.0-2.0) mmol/L VBG Potassium (3.6-5.2) mmol/L Sodium (132-148) mmol/L Chloride (98-107) mmol/L Glucose (75-110) mg/dl Lactate (0.7-2.1) mmol/L FiO2 % Blood Gas Comments Crit Value Called To Crit Value Called By Blood Gas Notified Time Potassium (3.6-5.0) mmol/L Carbon Dioxide (21-33) mmol/L Anion Gap (10-20) BUN (7-21) mg/dL Creatinine (0.8-1.5) mg/dl Est GFR ( Amer) Est GFR (Non-Af Amer) POC Glucose (mg/dL) 287 H 308 H (65-110) mg/dL Random Glucose (70-110) mg/dL Hemoglobin A1c 14.4 H (4.2-6.5) % Serum Osmolality (272-300) mosm/kg Calcium (8.4-10.5) mg/dL Magnesium (1.7-2.2) mg/dL Total Bilirubin (0.2-1.3) mg/dL AST (17-59) U/L ALT (7-56) U/L Alkaline Phosphatase (38-126) U/L Lactate Dehydrogenase (333-699) U/L Total Creatine Kinase (35-230) U/L Troponin I ng/mL NT-Pro-B Natriuret Pep (0-450) pg/mL Total Protein (5.8-8.3) g/dL Albumin (3.0-4.8) g/dL Globulin gm/dL Albumin/Globulin Ratio (1.1-1.8) Lipase (23-300) U/L Procalcitonin (0.19-0.49) NG/ML Arterial Blood Potassium (3.6-5.2) mmol/L Venous Blood Potassium (3.6-5.2) mmol/L Urine Color (YELLOW) Urine Appearance (CLEAR) Urine pH (4.7-8.0) Ur Specific [place] (1.005-1.035) Urine Protein (<30 mg/dL) mg/dL Urine Glucose (UA) (NEGATIVE) mg/dL Urine Ketones (NEGATIVE) mg/dL Urine Blood (NEGATIVE) Urine Nitrate (NEGATIVE) Urine Bilirubin (NEGATIVE) Urine Urobilinogen (<1 E.U./dL) E.U./dL Ur Leukocyte Esterase (NEGATIVE) Valerie/uL Digoxin (0.8-2.0) ng/mL B-Hydroxybutyrate (0.02-0.27) mM HIV 1&2 Ag/Ab, 4th Gen (Nonreactive) 09/26/18 09/26/18 09/26/18 Range/Units 05:45 05:45 05:01 WBC (4.5-11.0) 10^3/uL RBC (3.5-6.1) 10^6/uL Hgb (14.0-18.0) g/dL Hct (42.0-52.0) % MCV (80.0-105.0) fl MCH (25.0-35.0) pg MCHC (31.0-37.0) g/dl RDW (11.5-14.5) % Plt Count (120.0-450.0) 10^3/uL MPV (7.0-11.0) fl Neut % (Auto) (50.0-68.0) % Lymph % (Auto) (22.0-35.0) % Long % (Auto) (1.0-6.0) % Eos % (Auto) (1.5-5.0) % Baso % (Auto) (0.0-3.0) % Lymph # (Auto) (1.2-3.4) Long # (Auto) (0.1-0.6) Eos # (Auto) (0.0-0.7) Baso # (Auto) (0.0-2.0) K/mm3 Absolute Neuts (auto) (1.4-6.5) PT (9.4-12.5) SECONDS INR APTT (26.9-38.3) Seconds pCO2 (35-45) mm/Hg pO2 52 (30-55) mm/Hg HCO3 (21-28) mmol/L ABG pH (7.35-7.45) ABG Total CO2 (22-28) mmol.L ABG O2 Saturation (95-98) % ABG Base Excess (-2.0-3.0) mmol/L ABG Potassium (3.6-5.2) mmol/L VBG pH 7.40 (7.32-7.43) VBG pCO2 42.0 (40-60) VBG HCO3 26.0 (21-28) mmol/l VBG Total CO2 27.3 (22-28) mmol.L VBG O2 Sat (Calc) 89.5 H (40-65) % VBG Base Excess 1.0 (0.0-2.0) mmol/L VBG Potassium 3.9 (3.6-5.2) mmol/L Sodium 163 H* 166.0 H* (132-148) mmol/L Chloride 131 H 127.0 H (98-107) mmol/L Glucose 354 H (75-110) mg/dl Lactate 2.8 H (0.7-2.1) mmol/L FiO2 21.0 % Blood Gas Comments Crit Value Called To Cabrera middleton Crit Value Called By Tank Blood Gas Notified Time 630 Potassium 3.8 (3.6-5.0) mmol/L Carbon Dioxide 26 (21-33) mmol/L Anion Gap 10 (10-20) BUN 39 H (7-21) mg/dL Creatinine 1.0 (0.8-1.5) mg/dl Est GFR ( Amer) > 60 Est GFR (Non-Af Amer) > 60 POC Glucose (mg/dL) 382 H (65-110) mg/dL Random Glucose 335 H* D (70-110) mg/dL Hemoglobin A1c (4.2-6.5) % Serum Osmolality (272-300) mosm/kg Calcium 10.1 (8.4-10.5) mg/dL Magnesium (1.7-2.2) mg/dL Total Bilirubin (0.2-1.3) mg/dL AST (17-59) U/L ALT (7-56) U/L Alkaline Phosphatase (38-126) U/L Lactate Dehydrogenase (333-699) U/L Total Creatine Kinase (35-230) U/L Troponin I ng/mL NT-Pro-B Natriuret Pep (0-450) pg/mL Total Protein (5.8-8.3) g/dL Albumin (3.0-4.8) g/dL Globulin gm/dL Albumin/Globulin Ratio (1.1-1.8) Lipase (23-300) U/L Procalcitonin (0.19-0.49) NG/ML Arterial Blood Potassium (3.6-5.2) mmol/L Venous Blood Potassium 3.9 (3.6-5.2) mmol/L Urine Color (YELLOW) Urine Appearance (CLEAR) Urine pH (4.7-8.0) Ur Specific [place] (1.005-1.035) Urine Protein (<30 mg/dL) mg/dL Urine Glucose (UA) (NEGATIVE) mg/dL Urine Ketones (NEGATIVE) mg/dL Urine Blood (NEGATIVE) Urine Nitrate (NEGATIVE) Urine Bilirubin (NEGATIVE) Urine Urobilinogen (<1 E.U./dL) E.U./dL Ur Leukocyte Esterase (NEGATIVE) Valerie/uL Digoxin (0.8-2.0) ng/mL B-Hydroxybutyrate (0.02-0.27) mM HIV 1&2 Ag/Ab, 4th Gen (Nonreactive) 09/26/18 09/26/18 09/25/18 Range/Units 03:30 02:26 23:20 WBC (4.5-11.0) 10^3/uL RBC (3.5-6.1) 10^6/uL Hgb (14.0-18.0) g/dL Hct (42.0-52.0) % MCV (80.0-105.0) fl MCH (25.0-35.0) pg MCHC (31.0-37.0) g/dl RDW (11.5-14.5) % Plt Count (120.0-450.0) 10^3/uL MPV (7.0-11.0) fl Neut % (Auto) (50.0-68.0) % Lymph % (Auto) (22.0-35.0) % Long % (Auto) (1.0-6.0) % Eos % (Auto) (1.5-5.0) % Baso % (Auto) (0.0-3.0) % Lymph # (Auto) (1.2-3.4) Long # (Auto) (0.1-0.6) Eos # (Auto) (0.0-0.7) Baso # (Auto) (0.0-2.0) K/mm3 Absolute Neuts (auto) (1.4-6.5) PT (9.4-12.5) SECONDS INR APTT (26.9-38.3) Seconds pCO2 (35-45) mm/Hg pO2 48 (30-55) mm/Hg HCO3 (21-28) mmol/L ABG pH (7.35-7.45) ABG Total CO2 (22-28) mmol.L ABG O2 Saturation (95-98) % ABG Base Excess (-2.0-3.0) mmol/L ABG Potassium (3.6-5.2) mmol/L VBG pH 7.35 (7.32-7.43) VBG pCO2 56.0 (40-60) VBG HCO3 30.9 H (21-28) mmol/l VBG Total CO2 32.6 H (22-28) mmol.L VBG O2 Sat (Calc) 84.7 H (40-65) % VBG Base Excess 3.8 H (0.0-2.0) mmol/L VBG Potassium 3.5 L (3.6-5.2) mmol/L Sodium 158.0 H (132-148) mmol/L Chloride 117.0 H (98-107) mmol/L Glucose 541 H* D (75-110) mg/dl Lactate 1.8 (0.7-2.1) mmol/L FiO2 21.0 % Blood Gas Comments Glu 541 na 158 Crit Value Called To Brianna schwarz Crit Value Called By [facility] Blood Gas Notified Time 2340 Potassium (3.6-5.0) mmol/L Carbon Dioxide (21-33) mmol/L Anion Gap (10-20) BUN (7-21) mg/dL Creatinine (0.8-1.5) mg/dl Est GFR ( Amer) Est GFR (Non-Af Amer) POC Glucose (mg/dL) 397 H 460 H* (65-110) mg/dL Random Glucose (70-110) mg/dL Hemoglobin A1c (4.2-6.5) % Serum Osmolality (272-300) mosm/kg Calcium (8.4-10.5) mg/dL Magnesium (1.7-2.2) mg/dL Total Bilirubin (0.2-1.3) mg/dL AST (17-59) U/L ALT (7-56) U/L Alkaline Phosphatase (38-126) U/L Lactate Dehydrogenase (333-699) U/L Total Creatine Kinase (35-230) U/L Troponin I ng/mL NT-Pro-B Natriuret Pep (0-450) pg/mL Total Protein (5.8-8.3) g/dL Albumin (3.0-4.8) g/dL Globulin gm/dL Albumin/Globulin Ratio (1.1-1.8) Lipase (23-300) U/L Procalcitonin (0.19-0.49) NG/ML Arterial Blood Potassium (3.6-5.2) mmol/L Venous Blood Potassium 3.5 L (3.6-5.2) mmol/L Urine Color (YELLOW) Urine Appearance (CLEAR) Urine pH (4.7-8.0) Ur Specific [place] (1.005-1.035) Urine Protein (<30 mg/dL) mg/dL Urine Glucose (UA) (NEGATIVE) mg/dL Urine Ketones (NEGATIVE) mg/dL Urine Blood (NEGATIVE) Urine Nitrate (NEGATIVE) Urine Bilirubin (NEGATIVE) Urine Urobilinogen (<1 E.U./dL) E.U./dL Ur Leukocyte Esterase (NEGATIVE) Valerie/uL Digoxin (0.8-2.0) ng/mL B-Hydroxybutyrate (0.02-0.27) mM HIV 1&2 Ag/Ab, 4th Gen (Nonreactive) 09/25/18 09/25/18 09/25/18 Range/Units 23:20 22:26 21:40 WBC (4.5-11.0) 10^3/uL RBC (3.5-6.1) 10^6/uL Hgb (14.0-18.0) g/dL Hct (42.0-52.0) % MCV (80.0-105.0) fl MCH (25.0-35.0) pg MCHC (31.0-37.0) g/dl RDW (11.5-14.5) % Plt Count (120.0-450.0) 10^3/uL MPV (7.0-11.0) fl Neut % (Auto) (50.0-68.0) % Lymph % (Auto) (22.0-35.0) % Long % (Auto) (1.0-6.0) % Eos % (Auto) (1.5-5.0) % Baso % (Auto) (0.0-3.0) % Lymph # (Auto) (1.2-3.4) Long # (Auto) (0.1-0.6) Eos # (Auto) (0.0-0.7) Baso # (Auto) (0.0-2.0) K/mm3 Absolute Neuts (auto) (1.4-6.5) PT (9.4-12.5) SECONDS INR APTT (26.9-38.3) Seconds pCO2 (35-45) mm/Hg pO2 (30-55) mm/Hg HCO3 (21-28) mmol/L ABG pH (7.35-7.45) ABG Total CO2 (22-28) mmol.L ABG O2 Saturation (95-98) % ABG Base Excess (-2.0-3.0) mmol/L ABG Potassium (3.6-5.2) mmol/L VBG pH (7.32-7.43) VBG pCO2 (40-60) VBG HCO3 (21-28) mmol/l VBG Total CO2 (22-28) mmol.L VBG O2 Sat (Calc) (40-65) % VBG Base Excess (0.0-2.0) mmol/L VBG Potassium (3.6-5.2) mmol/L Sodium 155 H (132-148) mmol/L Chloride 119 H (98-107) mmol/L Glucose (75-110) mg/dl Lactate (0.7-2.1) mmol/L FiO2 % Blood Gas Comments Crit Value Called To Crit Value Called By Blood Gas Notified Time Potassium 3.5 L (3.6-5.0) mmol/L Carbon Dioxide 30 (21-33) mmol/L Anion Gap 10 (10-20) BUN 45 H (7-21) mg/dL Creatinine 1.0 (0.8-1.5) mg/dl Est GFR ( Amer) > 60 Est GFR (Non-Af Amer) > 60 POC Glucose (mg/dL) > 500 H* (65-110) mg/dL Random Glucose 502 H* D (70-110) mg/dL Hemoglobin A1c (4.2-6.5) % Serum Osmolality (272-300) mosm/kg Calcium 8.2 L (8.4-10.5) mg/dL Magnesium (1.7-2.2) mg/dL Total Bilirubin (0.2-1.3) mg/dL AST (17-59) U/L ALT (7-56) U/L Alkaline Phosphatase (38-126) U/L Lactate Dehydrogenase (333-699) U/L Total Creatine Kinase (35-230) U/L Troponin I ng/mL NT-Pro-B Natriuret Pep (0-450) pg/mL Total Protein (5.8-8.3) g/dL Albumin (3.0-4.8) g/dL Globulin gm/dL Albumin/Globulin Ratio (1.1-1.8) Lipase (23-300) U/L Procalcitonin (0.19-0.49) NG/ML Arterial Blood Potassium (3.6-5.2) mmol/L Venous Blood Potassium (3.6-5.2) mmol/L Urine Color (YELLOW) Urine Appearance (CLEAR) Urine pH (4.7-8.0) Ur Specific [place] (1.005-1.035) Urine Protein (<30 mg/dL) mg/dL Urine Glucose (UA) (NEGATIVE) mg/dL Urine Ketones (NEGATIVE) mg/dL Urine Blood (NEGATIVE) Urine Nitrate (NEGATIVE) Urine Bilirubin (NEGATIVE) Urine Urobilinogen (<1 E.U./dL) E.U./dL Ur Leukocyte Esterase (NEGATIVE) Valerie/uL Digoxin (0.8-2.0) ng/mL B-Hydroxybutyrate (0.02-0.27) mM HIV 1&2 Ag/Ab, 4th Gen Nonreactive (Nonreactive) 09/25/18 09/25/18 09/25/18 Range/Units 20:55 20:55 20:55 WBC (4.5-11.0) 10^3/uL RBC (3.5-6.1) 10^6/uL Hgb (14.0-18.0) g/dL Hct (42.0-52.0) % MCV (80.0-105.0) fl MCH (25.0-35.0) pg MCHC (31.0-37.0) g/dl RDW (11.5-14.5) % Plt Count (120.0-450.0) 10^3/uL MPV (7.0-11.0) fl Neut % (Auto) (50.0-68.0) % Lymph % (Auto) (22.0-35.0) % Long % (Auto) (1.0-6.0) % Eos % (Auto) (1.5-5.0) % Baso % (Auto) (0.0-3.0) % Lymph # (Auto) (1.2-3.4) Long # (Auto) (0.1-0.6) Eos # (Auto) (0.0-0.7) Baso # (Auto) (0.0-2.0) K/mm3 Absolute Neuts (auto) (1.4-6.5) PT (9.4-12.5) SECONDS INR APTT (26.9-38.3) Seconds pCO2 (35-45) mm/Hg pO2 170 H (30-55) mm/Hg HCO3 (21-28) mmol/L ABG pH (7.35-7.45) ABG Total CO2 (22-28) mmol.L ABG O2 Saturation (95-98) % ABG Base Excess (-2.0-3.0) mmol/L ABG Potassium (3.6-5.2) mmol/L VBG pH 7.36 (7.32-7.43) VBG pCO2 31.0 L (40-60) VBG HCO3 17.5 L (21-28) mmol/l VBG Total CO2 18.5 L (22-28) mmol.L VBG O2 Sat (Calc) 100.3 H (40-65) % VBG Base Excess -6.8 L (0.0-2.0) mmol/L VBG Potassium 3.9 (3.6-5.2) mmol/L Sodium 161.0 H* 157 H* (132-148) mmol/L Chloride 119.0 H 125 H (98-107) mmol/L Glucose > 750 H* (75-110) mg/dl Lactate 2.3 H (0.7-2.1) mmol/L FiO2 21.0 % Blood Gas Comments Crit Value Called To Bella oie Crit Value Called By [facility] Blood Gas Notified Time 2145 Potassium 4.0 (3.6-5.0) mmol/L Carbon Dioxide 18 L (21-33) mmol/L Anion Gap 18 (10-20) BUN 52 H (7-21) mg/dL Creatinine 1.2 (0.8-1.5) mg/dl Est GFR ( Amer) > 60 Est GFR (Non-Af Amer) > 60 POC Glucose (mg/dL) (65-110) mg/dL Random Glucose 706 H* D (70-110) mg/dL Hemoglobin A1c (4.2-6.5) % Serum Osmolality (272-300) mosm/kg Calcium 10.2 (8.4-10.5) mg/dL Magnesium (1.7-2.2) mg/dL Total Bilirubin (0.2-1.3) mg/dL AST (17-59) U/L ALT (7-56) U/L Alkaline Phosphatase (38-126) U/L Lactate Dehydrogenase (333-699) U/L Total Creatine Kinase (35-230) U/L Troponin I 0.04 D ng/mL NT-Pro-B Natriuret Pep (0-450) pg/mL Total Protein (5.8-8.3) g/dL Albumin (3.0-4.8) g/dL Globulin gm/dL Albumin/Globulin Ratio (1.1-1.8) Lipase (23-300) U/L Procalcitonin 0.17 L (0.19-0.49) NG/ML Arterial Blood Potassium (3.6-5.2) mmol/L Venous Blood Potassium 3.9 (3.6-5.2) mmol/L Urine Color (YELLOW) Urine Appearance (CLEAR) Urine pH (4.7-8.0) Ur Specific [place] (1.005-1.035) Urine Protein (<30 mg/dL) mg/dL Urine Glucose (UA) (NEGATIVE) mg/dL Urine Ketones (NEGATIVE) mg/dL Urine Blood (NEGATIVE) Urine Nitrate (NEGATIVE) Urine Bilirubin (NEGATIVE) Urine Urobilinogen (<1 E.U./dL) E.U./dL Ur Leukocyte Esterase (NEGATIVE) Valerie/uL Digoxin (0.8-2.0) ng/mL B-Hydroxybutyrate (0.02-0.27) mM HIV 1&2 Ag/Ab, 4th Gen (Nonreactive) 09/25/18 09/25/18 09/25/18 Range/Units 20:00 19:40 18:47 WBC (4.5-11.0) 10^3/uL RBC (3.5-6.1) 10^6/uL Hgb (14.0-18.0) g/dL Hct (42.0-52.0) % MCV (80.0-105.0) fl MCH (25.0-35.0) pg MCHC (31.0-37.0) g/dl RDW (11.5-14.5) % Plt Count (120.0-450.0) 10^3/uL MPV (7.0-11.0) fl Neut % (Auto) (50.0-68.0) % Lymph % (Auto) (22.0-35.0) % Long % (Auto) (1.0-6.0) % Eos % (Auto) (1.5-5.0) % Baso % (Auto) (0.0-3.0) % Lymph # (Auto) (1.2-3.4) Long # (Auto) (0.1-0.6) Eos # (Auto) (0.0-0.7) Baso # (Auto) (0.0-2.0) K/mm3 Absolute Neuts (auto) (1.4-6.5) PT (9.4-12.5) SECONDS INR APTT (26.9-38.3) Seconds pCO2 (35-45) mm/Hg pO2 50 (30-55) mm/Hg HCO3 (21-28) mmol/L ABG pH (7.35-7.45) ABG Total CO2 (22-28) mmol.L ABG O2 Saturation (95-98) % ABG Base Excess (-2.0-3.0) mmol/L ABG Potassium (3.6-5.2) mmol/L VBG pH 7.22 L (7.32-7.43) VBG pCO2 36.0 L (40-60) VBG HCO3 14.7 L (21-28) mmol/l VBG Total CO2 15.8 L (22-28) mmol.L VBG O2 Sat (Calc) 83.9 H (40-65) % VBG Base Excess -12.1 L (0.0-2.0) mmol/L VBG Potassium 5.3 H (3.6-5.2) mmol/L Sodium 157.0 H (132-148) mmol/L Chloride 109.0 H (98-107) mmol/L Glucose > 750 H* (75-110) mg/dl Lactate 3.0 H (0.7-2.1) mmol/L FiO2 21.0 % Blood Gas Comments Crit Value Called To Aleksandra cross Crit Value Called By [facility] Blood Gas Notified Time 1852 Potassium (3.6-5.0) mmol/L Carbon Dioxide (21-33) mmol/L Anion Gap (10-20) BUN (7-21) mg/dL Creatinine (0.8-1.5) mg/dl Est GFR ( Amer) Est GFR (Non-Af Amer) POC Glucose (mg/dL) > 500 H* (65-110) mg/dL Random Glucose (70-110) mg/dL Hemoglobin A1c (4.2-6.5) % Serum Osmolality (272-300) mosm/kg Calcium (8.4-10.5) mg/dL Magnesium (1.7-2.2) mg/dL Total Bilirubin (0.2-1.3) mg/dL AST (17-59) U/L ALT (7-56) U/L Alkaline Phosphatase (38-126) U/L Lactate Dehydrogenase (333-699) U/L Total Creatine Kinase (35-230) U/L Troponin I ng/mL NT-Pro-B Natriuret Pep (0-450) pg/mL Total Protein (5.8-8.3) g/dL Albumin (3.0-4.8) g/dL Globulin gm/dL Albumin/Globulin Ratio (1.1-1.8) Lipase (23-300) U/L Procalcitonin (0.19-0.49) NG/ML Arterial Blood Potassium (3.6-5.2) mmol/L Venous Blood Potassium 5.3 H (3.6-5.2) mmol/L Urine Color Light yellow (YELLOW) Urine Appearance Clear (CLEAR) Urine pH 5.5 (4.7-8.0) Ur Specific [place] 1.015 (1.005-1.035) Urine Protein Negative (<30 mg/dL) mg/dL Urine Glucose (UA) >=1000 (NEGATIVE) mg/dL Urine Ketones 40 H (NEGATIVE) mg/dL Urine Blood Negative (NEGATIVE) Urine Nitrate Negative (NEGATIVE) Urine Bilirubin Negative (NEGATIVE) Urine Urobilinogen 0.2 (<1 E.U./dL) E.U./dL Ur Leukocyte Esterase Negative (NEGATIVE) Valerie/uL Digoxin (0.8-2.0) ng/mL B-Hydroxybutyrate (0.02-0.27) mM HIV 1&2 Ag/Ab, 4th Gen (Nonreactive) 09/25/18 09/25/18 09/25/18 Range/Units 18:45 16:38 16:38 WBC (4.5-11.0) 10^3/uL RBC (3.5-6.1) 10^6/uL Hgb (14.0-18.0) g/dL Hct (42.0-52.0) % MCV (80.0-105.0) fl MCH (25.0-35.0) pg MCHC (31.0-37.0) g/dl RDW (11.5-14.5) % Plt Count (120.0-450.0) 10^3/uL MPV (7.0-11.0) fl Neut % (Auto) (50.0-68.0) % Lymph % (Auto) (22.0-35.0) % Long % (Auto) (1.0-6.0) % Eos % (Auto) (1.5-5.0) % Baso % (Auto) (0.0-3.0) % Lymph # (Auto) (1.2-3.4) Long # (Auto) (0.1-0.6) Eos # (Auto) (0.0-0.7) Baso # (Auto) (0.0-2.0) K/mm3 Absolute Neuts (auto) (1.4-6.5) PT (9.4-12.5) SECONDS INR APTT (26.9-38.3) Seconds pCO2 (35-45) mm/Hg pO2 (30-55) mm/Hg HCO3 (21-28) mmol/L ABG pH (7.35-7.45) ABG Total CO2 (22-28) mmol.L ABG O2 Saturation (95-98) % ABG Base Excess (-2.0-3.0) mmol/L ABG Potassium (3.6-5.2) mmol/L VBG pH (7.32-7.43) VBG pCO2 (40-60) VBG HCO3 (21-28) mmol/l VBG Total CO2 (22-28) mmol.L VBG O2 Sat (Calc) (40-65) % VBG Base Excess (0.0-2.0) mmol/L VBG Potassium (3.6-5.2) mmol/L Sodium 144 (132-148) mmol/L Chloride 104 (98-107) mmol/L Glucose (75-110) mg/dl Lactate (0.7-2.1) mmol/L FiO2 % Blood Gas Comments Crit Value Called To Crit Value Called By Blood Gas Notified Time Potassium 6.2 H* D (3.6-5.0) mmol/L Carbon Dioxide 16 L (21-33) mmol/L Anion Gap 29 H (10-20) BUN 69 H (7-21) mg/dL Creatinine 1.7 H (0.8-1.5) mg/dl Est GFR ( Amer) 50 Est GFR (Non-Af Amer) 41 POC Glucose (mg/dL) > 500 H* (65-110) mg/dL Random Glucose 1343 H* D (70-110) mg/dL Hemoglobin A1c (4.2-6.5) % Serum Osmolality 412 H (272-300) mosm/kg Calcium 11.1 H (8.4-10.5) mg/dL Magnesium 2.9 H (1.7-2.2) mg/dL Total Bilirubin 1.0 (0.2-1.3) mg/dL AST 26 (17-59) U/L ALT 29 (7-56) U/L Alkaline Phosphatase 226 H D (38-126) U/L Lactate Dehydrogenase 505 (333-699) U/L Total Creatine Kinase 114 (35-230) U/L Troponin I 0.03 D ng/mL NT-Pro-B Natriuret Pep 144 (0-450) pg/mL Total Protein 7.0 (5.8-8.3) g/dL Albumin 4.1 (3.0-4.8) g/dL Globulin 2.9 gm/dL Albumin/Globulin Ratio 1.5 (1.1-1.8) Lipase 352 H (23-300) U/L Procalcitonin (0.19-0.49) NG/ML Arterial Blood Potassium (3.6-5.2) mmol/L Venous Blood Potassium (3.6-5.2) mmol/L Urine Color (YELLOW) Urine Appearance (CLEAR) Urine pH (4.7-8.0) Ur Specific [place] (1.005-1.035) Urine Protein (<30 mg/dL) mg/dL Urine Glucose (UA) (NEGATIVE) mg/dL Urine Ketones (NEGATIVE) mg/dL Urine Blood (NEGATIVE) Urine Nitrate (NEGATIVE) Urine Bilirubin (NEGATIVE) Urine Urobilinogen (<1 E.U./dL) E.U./dL Ur Leukocyte Esterase (NEGATIVE) Valerie/uL Digoxin (0.8-2.0) ng/mL B-Hydroxybutyrate 7.02 H (0.02-0.27) mM HIV 1&2 Ag/Ab, 4th Gen (Nonreactive) 09/25/18 09/25/18 09/25/18 Range/Units 16:38 16:38 16:38 WBC 13.7 H (4.5-11.0) 10^3/uL RBC 5.96 (3.5-6.1) 10^6/uL Hgb 17.7 D (14.0-18.0) g/dL Hct 56.7 H* (42.0-52.0) % MCV 95.6 D (80.0-105.0) fl MCH 29.8 (25.0-35.0) pg MCHC 31.2 (31.0-37.0) g/dl RDW 14.5 (11.5-14.5) % Plt Count 189 (120.0-450.0) 10^3/uL MPV 13.7 H (7.0-11.0) fl Neut % (Auto) 85.3 H (50.0-68.0) % Lymph % (Auto) 6.6 L (22.0-35.0) % Long % (Auto) 7.6 H (1.0-6.0) % Eos % (Auto) 0.1 L (1.5-5.0) % Baso % (Auto) 0.4 (0.0-3.0) % Lymph # (Auto) 0.9 L (1.2-3.4) Long # (Auto) 1.0 H (0.1-0.6) Eos # (Auto) 0.0 (0.0-0.7) Baso # (Auto) 0.05 (0.0-2.0) K/mm3 Absolute Neuts (auto) 11.66 H (1.4-6.5) PT 11.5 (9.4-12.5) SECONDS INR 1.04 APTT 30.8 (26.9-38.3) Seconds pCO2 (35-45) mm/Hg pO2 (30-55) mm/Hg HCO3 (21-28) mmol/L ABG pH (7.35-7.45) ABG Total CO2 (22-28) mmol.L ABG O2 Saturation (95-98) % ABG Base Excess (-2.0-3.0) mmol/L ABG Potassium (3.6-5.2) mmol/L VBG pH (7.32-7.43) VBG pCO2 (40-60) VBG HCO3 (21-28) mmol/l VBG Total CO2 (22-28) mmol.L VBG O2 Sat (Calc) (40-65) % VBG Base Excess (0.0-2.0) mmol/L VBG Potassium (3.6-5.2) mmol/L Sodium (132-148) mmol/L Chloride (98-107) mmol/L Glucose (75-110) mg/dl Lactate (0.7-2.1) mmol/L FiO2 % Blood Gas Comments Crit Value Called To Crit Value Called By Blood Gas Notified Time Potassium (3.6-5.0) mmol/L Carbon Dioxide (21-33) mmol/L Anion Gap (10-20) BUN (7-21) mg/dL Creatinine (0.8-1.5) mg/dl Est GFR ( Amer) Est GFR (Non-Af Amer) POC Glucose (mg/dL) (65-110) mg/dL Random Glucose (70-110) mg/dL Hemoglobin A1c (4.2-6.5) % Serum Osmolality (272-300) mosm/kg Calcium (8.4-10.5) mg/dL Magnesium (1.7-2.2) mg/dL Total Bilirubin (0.2-1.3) mg/dL AST (17-59) U/L ALT (7-56) U/L Alkaline Phosphatase (38-126) U/L Lactate Dehydrogenase (333-699) U/L Total Creatine Kinase (35-230) U/L Troponin I ng/mL NT-Pro-B Natriuret Pep (0-450) pg/mL Total Protein (5.8-8.3) g/dL Albumin (3.0-4.8) g/dL Globulin gm/dL Albumin/Globulin Ratio (1.1-1.8) Lipase (23-300) U/L Procalcitonin (0.19-0.49) NG/ML Arterial Blood Potassium (3.6-5.2) mmol/L Venous Blood Potassium (3.6-5.2) mmol/L Urine Color (YELLOW) Urine Appearance (CLEAR) Urine pH (4.7-8.0) Ur Specific [place] (1.005-1.035) Urine Protein (<30 mg/dL) mg/dL Urine Glucose (UA) (NEGATIVE) mg/dL Urine Ketones (NEGATIVE) mg/dL Urine Blood (NEGATIVE) Urine Nitrate (NEGATIVE) Urine Bilirubin (NEGATIVE) Urine Urobilinogen (<1 E.U./dL) E.U./dL Ur Leukocyte Esterase (NEGATIVE) Valerie/uL Digoxin 1.2 (0.8-2.0) ng/mL B-Hydroxybutyrate (0.02-0.27) mM HIV 1&2 Ag/Ab, 4th Gen (Nonreactive) 09/25/18 Range/Units 15:50 WBC (4.5-11.0) 10^3/uL RBC (3.5-6.1) 10^6/uL Hgb (14.0-18.0) g/dL Hct (42.0-52.0) % MCV (80.0-105.0) fl MCH (25.0-35.0) pg MCHC (31.0-37.0) g/dl RDW (11.5-14.5) % Plt Count (120.0-450.0) 10^3/uL MPV (7.0-11.0) fl Neut % (Auto) (50.0-68.0) % Lymph % (Auto) (22.0-35.0) % Long % (Auto) (1.0-6.0) % Eos % (Auto) (1.5-5.0) % Baso % (Auto) (0.0-3.0) % Lymph # (Auto) (1.2-3.4) Long # (Auto) (0.1-0.6) Eos # (Auto) (0.0-0.7) Baso # (Auto) (0.0-2.0) K/mm3 Absolute Neuts (auto) (1.4-6.5) PT (9.4-12.5) SECONDS INR APTT (26.9-38.3) Seconds pCO2 (35-45) mm/Hg pO2 45 (30-55) mm/Hg HCO3 (21-28) mmol/L ABG pH (7.35-7.45) ABG Total CO2 (22-28) mmol.L ABG O2 Saturation (95-98) % ABG Base Excess (-2.0-3.0) mmol/L ABG Potassium (3.6-5.2) mmol/L VBG pH 7.27 L (7.32-7.43) VBG pCO2 36.0 L (40-60) VBG HCO3 16.5 L (21-28) mmol/l VBG Total CO2 17.6 L (22-28) mmol.L VBG O2 Sat (Calc) 82.4 H (40-65) % VBG Base Excess -9.6 L (0.0-2.0) mmol/L VBG Potassium 6.5 H* (3.6-5.2) mmol/L Sodium 143.0 (132-148) mmol/L Chloride 100.0 (98-107) mmol/L Glucose > 750 H* (75-110) mg/dl Lactate 3.4 H (0.7-2.1) mmol/L FiO2 21.0 % Blood Gas Comments Crit Value Called To Dr cage Crit Value Called By Reema Blood Gas Notified Time 1605 Potassium (3.6-5.0) mmol/L Carbon Dioxide (21-33) mmol/L Anion Gap (10-20) BUN (7-21) mg/dL Creatinine (0.8-1.5) mg/dl Est GFR ( Amer) Est GFR (Non-Af Amer) POC Glucose (mg/dL) (65-110) mg/dL Random Glucose (70-110) mg/dL Hemoglobin A1c (4.2-6.5) % Serum Osmolality (272-300) mosm/kg Calcium (8.4-10.5) mg/dL Magnesium (1.7-2.2) mg/dL Total Bilirubin (0.2-1.3) mg/dL AST (17-59) U/L ALT (7-56) U/L Alkaline Phosphatase (38-126) U/L Lactate Dehydrogenase (333-699) U/L Total Creatine Kinase (35-230) U/L Troponin I ng/mL NT-Pro-B Natriuret Pep (0-450) pg/mL Total Protein (5.8-8.3) g/dL Albumin (3.0-4.8) g/dL Globulin gm/dL Albumin/Globulin Ratio (1.1-1.8) Lipase (23-300) U/L Procalcitonin (0.19-0.49) NG/ML Arterial Blood Potassium (3.6-5.2) mmol/L Venous Blood Potassium 6.5 H* (3.6-5.2) mmol/L Urine Color (YELLOW) Urine Appearance (CLEAR) Urine pH (4.7-8.0) Ur Specific [place] (1.005-1.035) Urine Protein (<30 mg/dL) mg/dL Urine Glucose (UA) (NEGATIVE) mg/dL Urine Ketones (NEGATIVE) mg/dL Urine Blood (NEGATIVE) Urine Nitrate (NEGATIVE) Urine Bilirubin (NEGATIVE) Urine Urobilinogen (<1 E.U./dL) E.U./dL Ur Leukocyte Esterase (NEGATIVE) Valerie/uL Digoxin (0.8-2.0) ng/mL B-Hydroxybutyrate (0.02-0.27) mM HIV 1&2 Ag/Ab, 4th Gen (Nonreactive) Laboratory Results - last 24 hr 09/25/18 09/25/18 09/25/18 15:50 16:38 16:38 WBC 13.7 H RBC 5.96 Hgb 17.7 D Hct 56.7 H* MCV 95.6 D MCH 29.8 MCHC 31.2 RDW 14.5 Plt Count 189 MPV 13.7 H Neut % (Auto) 85.3 H Lymph % (Auto) 6.6 L Long % (Auto) 7.6 H Eos % (Auto) 0.1 L Baso % (Auto) 0.4 Lymph # (Auto) 0.9 L Long # (Auto) 1.0 H Eos # (Auto) 0.0 Baso # (Auto) 0.05 Absolute Neuts (auto) 11.66 H PT INR APTT pCO2 pO2 45 HCO3 ABG pH ABG Total CO2 ABG O2 Saturation ABG Base Excess ABG Potassium VBG pH 7.27 L VBG pCO2 36.0 L VBG HCO3 16.5 L VBG Total CO2 17.6 L VBG O2 Sat (Calc) 82.4 H VBG Base Excess -9.6 L VBG Potassium 6.5 H* Sodium 143.0 Chloride 100.0 Glucose > 750 H* Lactate 3.4 H FiO2 21.0 Blood Gas Comments Crit Value Called To Dr cage Crit Value Called By Reema Blood Gas Notified Time 1605 Potassium Carbon Dioxide Anion Gap BUN Creatinine Est GFR ( Amer) Est GFR (Non-Af Amer) POC Glucose (mg/dL) Random Glucose Hemoglobin A1c Serum Osmolality Calcium Magnesium Total Bilirubin AST ALT Alkaline Phosphatase Lactate Dehydrogenase Total Creatine Kinase Troponin I NT-Pro-B Natriuret Pep Total Protein Albumin Globulin Albumin/Globulin Ratio Lipase Procalcitonin Arterial Blood Potassium Venous Blood Potassium 6.5 H* Urine Color Urine Appearance Urine pH Ur Specific [place] Urine Protein Urine Glucose (UA) Urine Ketones Urine Blood Urine Nitrate Urine Bilirubin Urine Urobilinogen Ur Leukocyte Esterase Digoxin 1.2 B-Hydroxybutyrate HIV 1&2 Ag/Ab, 4th Gen 09/25/18 09/25/18 09/25/18 16:38 16:38 16:38 WBC RBC Hgb Hct MCV MCH MCHC RDW Plt Count MPV Neut % (Auto) Lymph % (Auto) Long % (Auto) Eos % (Auto) Baso % (Auto) Lymph # (Auto) Long # (Auto) Eos # (Auto) Baso # (Auto) Absolute Neuts (auto) PT 11.5 INR 1.04 APTT 30.8 pCO2 pO2 HCO3 ABG pH ABG Total CO2 ABG O2 Saturation ABG Base Excess ABG Potassium VBG pH VBG pCO2 VBG HCO3 VBG Total CO2 VBG O2 Sat (Calc) VBG Base Excess VBG Potassium Sodium 144 Chloride 104 Glucose Lactate FiO2 Blood Gas Comments Crit Value Called To Crit Value Called By Blood Gas Notified Time Potassium 6.2 H* D Carbon Dioxide 16 L Anion Gap 29 H BUN 69 H Creatinine 1.7 H Est GFR ( Amer) 50 Est GFR (Non-Af Amer) 41 POC Glucose (mg/dL) Random Glucose 1343 H* D Hemoglobin A1c Serum Osmolality 412 H Calcium 11.1 H Magnesium 2.9 H Total Bilirubin 1.0 AST 26 ALT 29 Alkaline Phosphatase 226 H D Lactate Dehydrogenase 505 Total Creatine Kinase 114 Troponin I 0.03 D NT-Pro-B Natriuret Pep 144 Total Protein 7.0 Albumin 4.1 Globulin 2.9 Albumin/Globulin Ratio 1.5 Lipase 352 H Procalcitonin Arterial Blood Potassium Venous Blood Potassium Urine Color Urine Appearance Urine pH Ur Specific [place] Urine Protein Urine Glucose (UA) Urine Ketones Urine Blood Urine Nitrate Urine Bilirubin Urine Urobilinogen Ur Leukocyte Esterase Digoxin B-Hydroxybutyrate 7.02 H HIV 1&2 Ag/Ab, 4th Gen 09/25/18 09/25/18 09/25/18 18:45 18:47 19:40 WBC RBC Hgb Hct MCV MCH MCHC RDW Plt Count MPV Neut % (Auto) Lymph % (Auto) Long % (Auto) Eos % (Auto) Baso % (Auto) Lymph # (Auto) Long # (Auto) Eos # (Auto) Baso # (Auto) Absolute Neuts (auto) PT INR APTT pCO2 pO2 50 HCO3 ABG pH ABG Total CO2 ABG O2 Saturation ABG Base Excess ABG Potassium VBG pH 7.22 L VBG pCO2 36.0 L VBG HCO3 14.7 L VBG Total CO2 15.8 L VBG O2 Sat (Calc) 83.9 H VBG Base Excess -12.1 L VBG Potassium 5.3 H Sodium 157.0 H Chloride 109.0 H Glucose > 750 H* Lactate 3.0 H FiO2 21.0 Blood Gas Comments Crit Value Called To Aleksandra cross Crit Value Called By Atc Blood Gas Notified Time 1853 Potassium Carbon Dioxide Anion Gap BUN Creatinine Est GFR ( Amer) Est GFR (Non-Af Amer) POC Glucose (mg/dL) > 500 H* > 500 H* Random Glucose Hemoglobin A1c Serum Osmolality Calcium Magnesium Total Bilirubin AST ALT Alkaline Phosphatase Lactate Dehydrogenase Total Creatine Kinase Troponin I NT-Pro-B Natriuret Pep Total Protein Albumin Globulin Albumin/Globulin Ratio Lipase Procalcitonin Arterial Blood Potassium Venous Blood Potassium 5.3 H Urine Color Urine Appearance Urine pH Ur Specific [place] Urine Protein Urine Glucose (UA) Urine Ketones Urine Blood Urine Nitrate Urine Bilirubin Urine Urobilinogen Ur Leukocyte Esterase Digoxin B-Hydroxybutyrate HIV 1&2 Ag/Ab, 4th Gen 09/25/18 09/25/18 09/25/18 20:00 20:55 20:55 WBC RBC Hgb Hct MCV MCH MCHC RDW Plt Count MPV Neut % (Auto) Lymph % (Auto) Long % (Auto) Eos % (Auto) Baso % (Auto) Lymph # (Auto) Long # (Auto) Eos # (Auto) Baso # (Auto) Absolute Neuts (auto) PT INR APTT pCO2 pO2 170 H HCO3 ABG pH ABG Total CO2 ABG O2 Saturation ABG Base Excess ABG Potassium VBG pH 7.36 VBG pCO2 31.0 L VBG HCO3 17.5 L VBG Total CO2 18.5 L VBG O2 Sat (Calc) 100.3 H VBG Base Excess -6.8 L VBG Potassium 3.9 Sodium 157 H* 161.0 H* Chloride 125 H 119.0 H Glucose > 750 H* Lactate 2.3 H FiO2 21.0 Blood Gas Comments Crit Value Called To Bella oie Crit Value Called By [facility] Blood Gas Notified Time 2145 Potassium 4.0 Carbon Dioxide 18 L Anion Gap 18 BUN 52 H Creatinine 1.2 Est GFR ( Amer) > 60 Est GFR (Non-Af Amer) > 60 POC Glucose (mg/dL) Random Glucose 706 H* D Hemoglobin A1c Serum Osmolality Calcium 10.2 Magnesium Total Bilirubin AST ALT Alkaline Phosphatase Lactate Dehydrogenase Total Creatine Kinase Troponin I 0.04 D NT-Pro-B Natriuret Pep Total Protein Albumin Globulin Albumin/Globulin Ratio Lipase Procalcitonin Arterial Blood Potassium Venous Blood Potassium 3.9 Urine Color Light yellow Urine Appearance Clear Urine pH 5.5 Ur Specific [place] 1.015 Urine Protein Negative Urine Glucose (UA) >=1000 Urine Ketones 40 H Urine Blood Negative Urine Nitrate Negative Urine Bilirubin Negative Urine Urobilinogen 0.2 Ur Leukocyte Esterase Negative Digoxin B-Hydroxybutyrate HIV 1&2 Ag/Ab, 4th Gen 09/25/18 09/25/18 09/25/18 20:55 21:40 22:26 WBC RBC Hgb Hct MCV MCH MCHC RDW Plt Count MPV Neut % (Auto) Lymph % (Auto) Long % (Auto) Eos % (Auto) Baso % (Auto) Lymph # (Auto) Long # (Auto) Eos # (Auto) Baso # (Auto) Absolute Neuts (auto) PT INR APTT pCO2 pO2 HCO3 ABG pH ABG Total CO2 ABG O2 Saturation ABG Base Excess ABG Potassium VBG pH VBG pCO2 VBG HCO3 VBG Total CO2 VBG O2 Sat (Calc) VBG Base Excess VBG Potassium Sodium Chloride Glucose Lactate FiO2 Blood Gas Comments Crit Value Called To Crit Value Called By Blood Gas Notified Time Potassium Carbon Dioxide Anion Gap BUN Creatinine Est GFR ( Amer) Est GFR (Non-Af Amer) POC Glucose (mg/dL) > 500 H* Random Glucose Hemoglobin A1c Serum Osmolality Calcium Magnesium Total Bilirubin AST ALT Alkaline Phosphatase Lactate Dehydrogenase Total Creatine Kinase Troponin I NT-Pro-B Natriuret Pep Total Protein Albumin Globulin Albumin/Globulin Ratio Lipase Procalcitonin 0.17 L Arterial Blood Potassium Venous Blood Potassium Urine Color Urine Appearance Urine pH Ur Specific [place] Urine Protein Urine Glucose (UA) Urine Ketones Urine Blood Urine Nitrate Urine Bilirubin Urine Urobilinogen Ur Leukocyte Esterase Digoxin B-Hydroxybutyrate HIV 1&2 Ag/Ab, 4th Gen Nonreactive 09/25/18 09/25/18 09/26/18 23:20 23:20 02:26 WBC RBC Hgb Hct MCV MCH MCHC RDW Plt Count MPV Neut % (Auto) Lymph % (Auto) Long % (Auto) Eos % (Auto) Baso % (Auto) Lymph # (Auto) Long # (Auto) Eos # (Auto) Baso # (Auto) Absolute Neuts (auto) PT INR APTT pCO2 pO2 48 HCO3 ABG pH ABG Total CO2 ABG O2 Saturation ABG Base Excess ABG Potassium VBG pH 7.35 VBG pCO2 56.0 VBG HCO3 30.9 H VBG Total CO2 32.6 H VBG O2 Sat (Calc) 84.7 H VBG Base Excess 3.8 H VBG Potassium 3.5 L Sodium 155 H 158.0 H Chloride 119 H 117.0 H Glucose 541 H* D Lactate 1.8 FiO2 21.0 Blood Gas Comments Glu 541 na 158 Crit Value Called To Brianna schwarz Crit Value Called By Valentino Blood Gas Notified Time 2340 Potassium 3.5 L Carbon Dioxide 30 Anion Gap 10 BUN 45 H Creatinine 1.0 Est GFR ( Amer) > 60 Est GFR (Non-Af Amer) > 60 POC Glucose (mg/dL) 460 H* Random Glucose 502 H* D Hemoglobin A1c Serum Osmolality Calcium 8.2 L Magnesium Total Bilirubin AST ALT Alkaline Phosphatase Lactate Dehydrogenase Total Creatine Kinase Troponin I NT-Pro-B Natriuret Pep Total Protein Albumin Globulin Albumin/Globulin Ratio Lipase Procalcitonin Arterial Blood Potassium Venous Blood Potassium 3.5 L Urine Color Urine Appearance Urine pH Ur Specific [place] Urine Protein Urine Glucose (UA) Urine Ketones Urine Blood Urine Nitrate Urine Bilirubin Urine Urobilinogen Ur Leukocyte Esterase Digoxin B-Hydroxybutyrate HIV 1&2 Ag/Ab, 4th Gen 09/26/18 09/26/18 09/26/18 03:30 05:01 05:45 WBC RBC Hgb Hct MCV MCH MCHC RDW Plt Count MPV Neut % (Auto) Lymph % (Auto) Long % (Auto) Eos % (Auto) Baso % (Auto) Lymph # (Auto) Long # (Auto) Eos # (Auto) Baso # (Auto) Absolute Neuts (auto) PT INR APTT pCO2 pO2 52 HCO3 ABG pH ABG Total CO2 ABG O2 Saturation ABG Base Excess ABG Potassium VBG pH 7.40 VBG pCO2 42.0 VBG HCO3 26.0 VBG Total CO2 27.3 VBG O2 Sat (Calc) 89.5 H VBG Base Excess 1.0 VBG Potassium 3.9 Sodium 166.0 H* Chloride 127.0 H Glucose 354 H Lactate 2.8 H FiO2 21.0 Blood Gas Comments Crit Value Called To Cabrera middleton Crit Value Called By Tank Blood Gas Notified Time 630 Potassium Carbon Dioxide Anion Gap BUN Creatinine Est GFR ( Amer) Est GFR (Non-Af Amer) POC Glucose (mg/dL) 397 H 382 H Random Glucose Hemoglobin A1c Serum Osmolality Calcium Magnesium Total Bilirubin AST ALT Alkaline Phosphatase Lactate Dehydrogenase Total Creatine Kinase Troponin I NT-Pro-B Natriuret Pep Total Protein Albumin Globulin Albumin/Globulin Ratio Lipase Procalcitonin Arterial Blood Potassium Venous Blood Potassium 3.9 Urine Color Urine Appearance Urine pH Ur Specific [place] Urine Protein Urine Glucose (UA) Urine Ketones Urine Blood Urine Nitrate Urine Bilirubin Urine Urobilinogen Ur Leukocyte Esterase Digoxin B-Hydroxybutyrate HIV 1&2 Ag/Ab, 4th Gen 09/26/18 09/26/18 09/26/18 05:45 05:45 06:41 WBC RBC Hgb Hct MCV MCH MCHC RDW Plt Count MPV Neut % (Auto) Lymph % (Auto) Long % (Auto) Eos % (Auto) Baso % (Auto) Lymph # (Auto) Long # (Auto) Eos # (Auto) Baso # (Auto) Absolute Neuts (auto) PT INR APTT pCO2 pO2 HCO3 ABG pH ABG Total CO2 ABG O2 Saturation ABG Base Excess ABG Potassium VBG pH VBG pCO2 VBG HCO3 VBG Total CO2 VBG O2 Sat (Calc) VBG Base Excess VBG Potassium Sodium 163 H* Chloride 131 H Glucose Lactate FiO2 Blood Gas Comments Crit Value Called To Crit Value Called By Blood Gas Notified Time Potassium 3.8 Carbon Dioxide 26 Anion Gap 10 BUN 39 H Creatinine 1.0 Est GFR ( Amer) > 60 Est GFR (Non-Af Amer) > 60 POC Glucose (mg/dL) 308 H Random Glucose 335 H* D Hemoglobin A1c 14.4 H Serum Osmolality Calcium 10.1 Magnesium Total Bilirubin AST ALT Alkaline Phosphatase Lactate Dehydrogenase Total Creatine Kinase Troponin I NT-Pro-B Natriuret Pep Total Protein Albumin Globulin Albumin/Globulin Ratio Lipase Procalcitonin Arterial Blood Potassium Venous Blood Potassium Urine Color Urine Appearance Urine pH Ur Specific [place] Urine Protein Urine Glucose (UA) Urine Ketones Urine Blood Urine Nitrate Urine Bilirubin Urine Urobilinogen Ur Leukocyte Esterase Digoxin B-Hydroxybutyrate HIV 1&2 Ag/Ab, 4th Gen 09/26/18 09/26/18 09/26/18 08:00 08:15 09:10 WBC RBC Hgb Hct MCV MCH MCHC RDW Plt Count MPV Neut % (Auto) Lymph % (Auto) Long % (Auto) Eos % (Auto) Baso % (Auto) Lymph # (Auto) Long # (Auto) Eos # (Auto) Baso # (Auto) Absolute Neuts (auto) PT INR APTT pCO2 39 pO2 86.0 HCO3 24.7 ABG pH 7.41 ABG Total CO2 25.9 ABG O2 Saturation 98.6 H ABG Base Excess 0.1 ABG Potassium 3.6 VBG pH VBG pCO2 VBG HCO3 VBG Total CO2 VBG O2 Sat (Calc) VBG Base Excess VBG Potassium Sodium 165.0 H* Chloride 129.0 H Glucose 304 H Lactate 1.1 FiO2 32.0 Blood Gas Comments Crit Value Called To Dr spencer Crit Value Called By Haroldo ramos Blood Gas Notified Time 820 Potassium Carbon Dioxide Anion Gap BUN Creatinine Est GFR ( Amer) Est GFR (Non-Af Amer) POC Glucose (mg/dL) 287 H 292 H Random Glucose Hemoglobin A1c Serum Osmolality Calcium Magnesium Total Bilirubin AST ALT Alkaline Phosphatase Lactate Dehydrogenase Total Creatine Kinase Troponin I NT-Pro-B Natriuret Pep Total Protein Albumin Globulin Albumin/Globulin Ratio Lipase Procalcitonin Arterial Blood Potassium 3.6 Venous Blood Potassium Urine Color Urine Appearance Urine pH Ur Specific [place] Urine Protein Urine Glucose (UA) Urine Ketones Urine Blood Urine Nitrate Urine Bilirubin Urine Urobilinogen Ur Leukocyte Esterase Digoxin B-Hydroxybutyrate HIV 1&2 Ag/Ab, 4th Gen 09/26/18 09/26/18 09/26/18 10:30 10:30 10:30 WBC 8.9 D RBC 6.03 Hgb 18.0 Hct 54.3 H MCV 90.0 D MCH 29.9 MCHC 33.1 RDW 13.8 Plt Count 140 MPV 12.4 H Neut % (Auto) 73.1 H Lymph % (Auto) 13.0 L Long % (Auto) 10.2 H Eos % (Auto) 3.5 Baso % (Auto) 0.2 Lymph # (Auto) 1.2 Long # (Auto) 0.9 H Eos # (Auto) 0.3 Baso # (Auto) 0.02 Absolute Neuts (auto) 6.53 H PT INR APTT pCO2 pO2 86 H HCO3 ABG pH ABG Total CO2 ABG O2 Saturation ABG Base Excess ABG Potassium VBG pH 7.31 L VBG pCO2 48.0 VBG HCO3 24.2 VBG Total CO2 25.7 VBG O2 Sat (Calc) 97.5 H VBG Base Excess -2.5 L VBG Potassium 3.8 Sodium 166.0 H* 163 H* Chloride 127.0 H 131 H Glucose 326 H Lactate 2.8 H FiO2 21.0 Blood Gas Comments Crit Value Called To Soumya martinez Crit Value Called By Simona ley Blood Gas Notified Time 1040 Potassium 4.0 Carbon Dioxide 25 Anion Gap 10 BUN 33 H Creatinine 1.0 Est GFR ( Amer) > 60 Est GFR (Non-Af Amer) > 60 POC Glucose (mg/dL) Random Glucose 316 H* Hemoglobin A1c Serum Osmolality Calcium 10.3 Magnesium Total Bilirubin 1.1 AST 27 ALT 26 Alkaline Phosphatase 109 Lactate Dehydrogenase Total Creatine Kinase Troponin I NT-Pro-B Natriuret Pep Total Protein 6.9 Albumin 3.6 Globulin 3.3 Albumin/Globulin Ratio 1.1 Lipase Procalcitonin Arterial Blood Potassium Venous Blood Potassium 3.8 Urine Color Urine Appearance Urine pH Ur Specific [place] Urine Protein Urine Glucose (UA) Urine Ketones Urine Blood Urine Nitrate Urine Bilirubin Urine Urobilinogen Ur Leukocyte Esterase Digoxin B-Hydroxybutyrate HIV 1&2 Ag/Ab, 4th Gen 09/26/18 09/26/18 09/26/18 10:45 11:49 12:23 WBC RBC Hgb Hct MCV MCH MCHC RDW Plt Count MPV Neut % (Auto) Lymph % (Auto) Long % (Auto) Eos % (Auto) Baso % (Auto) Lymph # (Auto) Long # (Auto) Eos # (Auto) Baso # (Auto) Absolute Neuts (auto) PT INR APTT pCO2 pO2 HCO3 ABG pH ABG Total CO2 ABG O2 Saturation ABG Base Excess ABG Potassium VBG pH VBG pCO2 VBG HCO3 VBG Total CO2 VBG O2 Sat (Calc) VBG Base Excess VBG Potassium Sodium Chloride Glucose Lactate FiO2 Blood Gas Comments Crit Value Called To Crit Value Called By Blood Gas Notified Time Potassium Carbon Dioxide Anion Gap BUN Creatinine Est GFR ( Amer) Est GFR (Non-Af Amer) POC Glucose (mg/dL) 335 H 369 H 404 H* Random Glucose Hemoglobin A1c Serum Osmolality Calcium Magnesium Total Bilirubin AST ALT Alkaline Phosphatase Lactate Dehydrogenase Total Creatine Kinase Troponin I NT-Pro-B Natriuret Pep Total Protein Albumin Globulin Albumin/Globulin Ratio Lipase Procalcitonin Arterial Blood Potassium Venous Blood Potassium Urine Color Urine Appearance Urine pH Ur Specific [place] Urine Protein Urine Glucose (UA) Urine Ketones Urine Blood Urine Nitrate Urine Bilirubin Urine Urobilinogen Ur Leukocyte Esterase Digoxin B-Hydroxybutyrate HIV 1&2 Ag/Ab, 4th Gen 09/26/18 13:29 WBC RBC Hgb Hct MCV MCH MCHC RDW Plt Count MPV Neut % (Auto) Lymph % (Auto) Long % (Auto) Eos % (Auto) Baso % (Auto) Lymph # (Auto) Long # (Auto) Eos # (Auto) Baso # (Auto) Absolute Neuts (auto) PT INR APTT pCO2 pO2 HCO3 ABG pH ABG Total CO2 ABG O2 Saturation ABG Base Excess ABG Potassium VBG pH VBG pCO2 VBG HCO3 VBG Total CO2 VBG O2 Sat (Calc) VBG Base Excess VBG Potassium Sodium Chloride Glucose Lactate FiO2 Blood Gas Comments Crit Value Called To Crit Value Called By Blood Gas Notified Time Potassium Carbon Dioxide Anion Gap BUN Creatinine Est GFR ( Amer) Est GFR (Non-Af Amer) POC Glucose (mg/dL) 404 H* Random Glucose Hemoglobin A1c Serum Osmolality Calcium Magnesium Total Bilirubin AST ALT Alkaline Phosphatase Lactate Dehydrogenase Total Creatine Kinase Troponin I NT-Pro-B Natriuret Pep Total Protein Albumin Globulin Albumin/Globulin Ratio Lipase Procalcitonin Arterial Blood Potassium Venous Blood Potassium Urine Color Urine Appearance Urine pH Ur Specific [place] Urine Protein Urine Glucose (UA) Urine Ketones Urine Blood Urine Nitrate Urine Bilirubin Urine Urobilinogen Ur Leukocyte Esterase Digoxin B-Hydroxybutyrate HIV 1&2 Ag/Ab, 4th Gen Radiology Impressions: Radiology Impressions Chest X-Ray 09/25/18 15:42 IMPRESSION: No active disease. Abdomen/Pelvis CT 09/25/18 17:39 IMPRESSION: Interval removal of drainage catheter within the anterior abdominal wall collection. Anterior abdominal wall abscess persists but appears smaller measuring approximately 6.7 x 5.6 cm.. This process resides within the anterior abdominal wall and does not demonstrate evidence of extension into the peritoneal cavity. Decompressed urinary bladder containing Kumar catheter and air. Urinary bladder air may be secondary to recent instrumentation. Correlate clinically. Minimal nonspecific bilateral perinephric stranding. 2.6 cm right renal cyst. No obstructing calculus or hydronephrosis identified. Scattered nonobstructing left lower pole renal calculi. Preliminary impression was provided by [facility]. Head CT 09/25/18 19:55 IMPRESSION: Generalized atrophy. Nonspecific white matter changes. Preliminary impression was provided by [facility]. EKG/Cardiology Studies: Cardiology / EKG Studies 09/25/18 15:41 ELECTROCARDIOGRAM Stat Comment: Reason For Exam: weakness Attending/Attestation - Attestation I have personally seen and examined this patient.: Yes I have fully participated in the care of the patient.: Yes I have reviewed all pertinent clinical information: Yes Notes (Text): 09/26/18 14:[address] Spencer note
--- NOTE | 2018-09-26 07:33 | CON ---
DATE: 09/25/2018 CONSULTATION REPORT HISTORY OF PRESENT ILLNESS: This is 58-year-old gentleman with history of biventricular failure including severe left ventricular systolic dysfunction with ejection fraction of 24%, atrial fibrillation (converted a month ago electively), history of DVT and PE, who presented at this time with about a one-week history of tiredness, failure to thrive, which culminated in confusion and disorientation that started yesterday. The patient was brought in by his daughter to the emergency room where he was found to have severely elevated blood glucose and AMS. The patient was found to have acute kidney injury, lactic acidosis, and was started on insulin drip, IV fluids, as well as ICU consult was called for further management and monitoring. No chest pain, no shortness of breath, no nausea, no vomiting, no diarrhea. The patient, however, has urinary incontinence and was found to have a fever as well. T-max is 100.1. PAST MEDICAL HISTORY: Hypertension, atrial fibrillation, biventricular failure. FAMILY HISTORY: Noncontributory. SOCIAL HISTORY: No alcohol or illicit drug abuse. No tobacco smoking. ALLERGIES: NKDA. HOME MEDICATIONS: Cardizem, sotalol, Lasix, digoxin, apixaban. FAMILY HISTORY: Noncontributory. REVIEW OF SYSTEMS: Review of 12-organ system other than mentioned in the history of present illness is negative. PHYSICAL EXAMINATION: VITAL SIGNS: T-max 100.1, heart rate 104, blood pressure 116/77, HR 77, oxygen saturation 96% on room air. HEENT: Head and neck atraumatic. LUNGS: Clear to auscultation bilaterally. HEART: Regular rate and rhythm. S1, S2 normal. ABDOMEN: Soft, nontender, and nondistended. MUSCULOSKELETAL: No C/C/E. NEUROLOGICAL: The patient moves all extremities spontaneously. SKIN: There is rash in the groin area and it appears to be fungal in nature. PSYCHIATRIC: The patient is lethargic, confused; however, does remember who is his cardiology doctor. LABORATORY DATA: VBG showed a pH of 7.27, lactic acid 3.4. WBC 13.7, hemoglobin 17.7, platelet count 189. Sodium 144, potassium 6.2, chloride 104, carbon dioxide 16, BUN 69, creatinine 1.7, glucose 1343, serum osmolality 412, calcium 11.1, magnesium 2.9, AST 26, ALT 29, total bilirubin 1, lipase slightly elevated at 352; however, the patient does not have any abdominal tenderness or pain. INR 1.04. PTT 30.8, PT 11.5. Digoxin level 1.2, beta-hydroxybutyrate is pending. Chest x-ray, no active pulmonary disease. EKG showed sinus tachycardia, ST depression in V4, V5, V6, I, aVL; of note, troponin is 0.03, two hours ago. Of note, the patient received 3 liters of normal saline as a bolus here in the emergency room. ASSESSMENT AND PLAN: This 58-year-old gentleman who presented with new-onset DM2, manifested as HONK or DKA (serum and urine for ketones are pending, but AG is significant). We will proceed with aggressive IVF resuscitation, patient received 3L NS as a bolus in ER, we will start bicarb drip (BICAR-ICU trial), insulin drip, BMP q4h, accu q1H. Possibility of infection driven event cant be ruled out and we will proceed with septic workup, including procal, blood, urine culture and empiric abx, ID consult. provided prior hx of abdominal abscess--we will obtain CT abdo/pelvis. will get mcgarry in and monitor u/o. hopefully once blood glucose control improves his mental status improves as well. will get second troponin and cardiology consult as patient has h/o biventricular failure--I am not sure though at present time if it contribute significantly to this acute episode. Once AG closed wiill switch to longer acting formulation of insulin sc. once BG drops below 250 will switch IVF to D5 containign solution. dvt/gi prophylaxis, npo. ccm time 40 min Bulmaro Spencer MD [facility]
[2018-09-26 08:20] LABS: ARTERIAL BLOOD GAS HCO3 24.7 mmol/L (21-28); ARTERIAL BLOOD GAS O2 SAT 98.6 % (95-98); ARTERIAL BLOOD GAS PCO2 39 mm/Hg (35-45); ARTERIAL BLOOD GAS PH 7.41 (7.35-7.45); ARTERIAL BLOOD GAS TCO2 25.9 mmol.L (22-28)
[2018-09-26] MEDS: Insulin Regular 100 UNITS in Sodium Chloride 0.9% 99 ML IV PRN (08:29)
--- NOTE | 2018-09-26 08:36 | CT ---
Date of service: 09/25/2018 PROCEDURE: CT HEAD WITHOUT CONTRAST. HISTORY: WEAKNESS COMPARISON: None available. TECHNIQUE: Axial computed tomography images were obtained through the head/brain without intravenous contrast. Radiation dose: Total exam DLP = 1116.75 mGy-cm. This CT exam was performed using one or more of the following dose reduction techniques: Automated exposure control, adjustment of the mA and/or kV according to patient size, and/or use of iterative reconstruction technique. FINDINGS: Streak artifact obscures evaluation of the skull base. HEMORRHAGE: No intracranial hemorrhage. BRAIN: Diffuse atrophy with prominence of the ventricles and sulci noted. No mass effect or edema. Intracranial atherosclerosis. Scattered periventricular and subcortical white matter hypodensities, which are nonspecific, but often seen with chronic microvascular ischemic disease. Please note that MRI with diffusion imaging is more sensitive in the detection of acute ischemic event. VENTRICLES: No hydrocephalus. CALVARIUM: Unremarkable. PARANASAL SINUSES: Unremarkable as visualized. No significant inflammatory changes. MASTOID AIR CELLS: Unremarkable as visualized. No inflammatory changes. OTHER FINDINGS: None. IMPRESSION: Generalized atrophy. Nonspecific white matter changes. Preliminary impression was provided by [facility].
[2018-09-26] MEDS: Meropenem IV 1 gm in NS 1 GM/50 ML BAG IVPB SCH ×2 (09:21→21:05)
--- NOTE | 2018-09-26 09:49 | CT ---
PROCEDURE: CT Abdomen and Pelvis without Oral or IV contrast. HISTORY: sepsis/abd pain h/o of abscess COMPARISON: CT abdomen and pelvis without contrast performed 02/28/18 TECHNIQUE: Contiguous axial images of the abdomen and pelvis. No oral or IV contrast administered. Coronal and Sagittal reformats generated and reviewed. Radiation dose: Total exam DLP = 1148.61 mGy-cm. This CT exam was performed using one or more of the following dose reduction techniques: Automated exposure control, adjustment of the mA and/or kV according to patient size, and/or use of iterative reconstruction technique. FINDINGS: There is limited evaluation of the solid organs without the administration of IV contrast. LOWER THORAX: Bibasilar infiltrates. There is no visible pleural effusion or pneumothorax. Partially imaged cardiomegaly. LIVER: Unremarkable unenhanced appearance. GALLBLADDER AND BILE DUCTS: Unremarkable unenhanced appearance. PANCREAS: Unremarkable unenhanced appearance. SPLEEN: Unremarkable unenhanced appearance. ADRENALS: Unremarkable unenhanced appearance. KIDNEYS AND URETERS: Minimal nonspecific bilateral perinephric stranding. 2.6 cm right renal hypodensity measures approximately 10 Hounsfield units consistent with cyst. No obstructing calculus or hydronephrosis identified. Scattered nonobstructing left lower pole renal calculi. BLADDER: Decompressed urinary bladder containing Kumar catheter and air. Urinary bladder air may be secondary to recent instrumentation. Correlate clinically. REPRODUCTIVE: Prostate calcifications. APPENDIX: No secondary signs of acute appendicitis. BOWEL: The stomach is nondistended. Lack of oral contrast limits evaluation for bowel pathology. The bowel loops appear within normal limits of caliber without evidence of intestinal obstruction. PERITONEUM: No significant free fluid. No definite free air. LYMPH NODES: No bulky lymphadenopathy identified. VASCULATURE: Atherosclerotic calcifications of the aorta and branches. No aortic aneurysm. BONES: Degenerative changes. OTHER FINDINGS: Interval removal of drainage catheter within the anterior abdominal wall collection. Anterior abdominal wall abscess persists but appears smaller measuring approximately 6.7 x 5.6 cm (series 3, image 131). This process resides within the anterior abdominal wall and does not demonstrate evidence of extension into the peritoneal cavity. IMPRESSION: Interval removal of drainage catheter within the anterior abdominal wall collection. Anterior abdominal wall abscess persists but appears smaller measuring approximately 6.7 x 5.6 cm.. This process resides within the anterior abdominal wall and does not demonstrate evidence of extension into the peritoneal cavity. Decompressed urinary bladder containing Kumar catheter and air. Urinary bladder air may be secondary to recent instrumentation. Correlate clinically. Minimal nonspecific bilateral perinephric stranding. 2.6 cm right renal cyst. No obstructing calculus or hydronephrosis identified. Scattered nonobstructing left lower pole renal calculi. Preliminary impression was provided by [employer].
[2018-09-26] MEDS: diltiaZEM 180 mg/24 Hours CD Cap PO SCH ×2 (10:00→10:20)
--- NOTE | 2018-09-26 10:27 | HP ---
HISTORY OF PRESENT ILLNESS: The patient is a 58-year-old man with multiple medical comorbidities who presented for evaluation of a 1 week history of fatigue, malaise and altered mental status. The patient was reportedly in his usual state of health until approximately 1 week prior to presentation when he developed the aforementioned symptoms. He was noted by his family to be more lethargic and "not acting himself." The patient also reportedly had increased thirst and urination associated with his symptoms. Due to his decline in mental status, he was brought to the ED for further evaluation. Workup in the ED demonstrated multiple lab derangements including profound hyperglycemia with a serum glucose of 1343, anion gap metabolic acidosis and acute kidney injury. The patient was evaluated by the ICU and subsequently admitted for continued management of DKA, SUZI and altered mental status. PAST MEDICAL HISTORY: Atrial fibrillation, dilated cardiomyopathy, chronic systolic CHF, hypertension, GERD, iron-deficiency anemia secondary to chronic gastritis, history of left lower extremity DVT and a history of right subsegmental PE. PAST SURGICAL HISTORY: Ventral hernia repair, right hemicolectomy secondary to multiple benign polyps and IR drainage of intra-abdominal abscess. ALLERGIES: NKDA. MEDICATIONS: Eliquis 5 mg p.o. b.i.d., Cardizem CD 180 mg p.o. daily, Sotalol 80 mg p.o. b.i.d., Digoxin 0.25 mg p.o. daily, Lasix 40 mg p.o. b.i.d., Protonix 40 mg p.o. daily and Feosol 324 mg p.o. t.i.d. FAMILY HISTORY: Noncontributory. SOCIAL HISTORY: The patient has no history of any toxic habits. REVIEW OF SYSTEMS: Unobtainable secondary to the patient's altered mental status. PHYSICAL EXAMINATION: VITAL SIGNS: T 97.7, P 102, BP 123/85, RR 24 and O2 saturation 98% on 2 liters nasal cannula. GENERAL: Obtunded but arousable man, lying in bed, in no apparent distress. HEENT: PERRL, EOMI. No scleral icterus. Mild conjunctival pallor is noted. Dry mucous membranes are noted. NECK: No JVD. LUNGS: Decreased breath sounds at the bases. CARDIOVASCULAR: Irregularly irregular. Normal S1 and S2. ABDOMEN: Normoactive bowel sounds, soft, tender to palpation to lower abdomen with grimacing, nondistended. EXTREMITIES: Trace pedal edema bilaterally. NEUROLOGIC: Obtunded but arousable, moving all extremities. LABORATORY DATA: WBC 13.7 with 85% neutrophils, hemoglobin 17.7, hematocrit 57, platelets 189. Sodium 163, potassium 3.8, chloride 131, bicarb 26, BUN 39, creatinine 1, glucose 335. Serum osmolality 412. Urinalysis demonstrated clear, light yellow urine with a glucose > 1000, ketones of 40, SG of 1.015 and no nitrates or leukocyte esterase. IMAGING STUDIES: 1. Chest x-ray demonstrated no active disease. 2. CT of the head without contrast demonstrated generalized atrophy with nonspecific white matter changes, but otherwise no acute pathology. ASSESSMENT: The patient is a 58-year-old man with multiple medical comorbidities who presented for evaluation of a 1 week history of malaise and altered mental status and was admitted to the ICU for management of diabetic ketoacidosis. PLAN: 1. DKA. Input from Dr. Spencer and the ICU team noted and greatly appreciated. Continue with aggressive IV fluid hydration, insulin drip and serial chemistries. The patient has been pancultured and started on empiric antibiotics. Evaluation with Dr. Poole is pending. A1c is pending. 2. Altered mental status, consider secondary to toxic metabolic encephalopathy. Workup is ongoing. Evaluation with Dr. Live of neurology is pending. We will continue with frequent neuro checks and targeted care to the patient's underlying comorbidities. EEG is pending. The patient may require an LP if his mental status does not improve over the next several hours. 3. Atrial fibrillation. The patient remains rate-controlled. Continue Cardizem CD 180 mg p.o. daily, Sotalol 80 mg p.o. b.i.d. and Eliquis 2.5 mg p.o. b.i.d. Pending improvement in his renal parameters we will increase Eliquis back to 5 mg p.o. b.i.d. 4. Hypernatremia. The patient remains on IV fluid hydration and bicarbonate drip. Evaluation with Dr. Landers of Nephrology is pending. Continue to monitor serial chemistries to avoid rapid over correction of serum sodium. 5. Acute kidney injury, resolving. Continue with IV fluid hydration and as above evaluation with Dr. Landers is pending. 6. Primary dilated cardiomyopathy. The patient is on Lasix at home however this remains on hold as he is being aggressively fluid resuscitated. 7. Hypertension. Blood pressure controlled. Continue with current medications. 8. History of iron-deficiency anemia secondary to chronic gastritis. Labs likely reflect hemoconcentration. We will monitor CBC and transfuse as needed. 9. History of left lower extremity DVT/subsegmental PE to the right lower lobe. Continue Eliquis 2.5 mg p.o. b.i.d. As above, pending improvement in renal function we will increase Eliquis back to 5 mg p.o. b.i.d. 10. Chronic gastritis. Continue Protonix 40 mg IV daily. 11. Prophylaxis. Continue Protonix for GI prophylaxis. DVT prophylaxis not indicated as the patient remains on Eliquis. CODE STATUS: Full code. Keith Wilhelm MD MTDD
[2018-09-26 10:41] LABS: VENOUS BLOOD GAS BASE EXCESS -2.5 mmol/L (0.0-2.0); VENOUS BLOOD GAS PO2 86 mm/Hg (30-55); VENOUS BLOOD PH 7.31 (7.32-7.43)
[2018-09-26 10:43] LABS: BASO # 0.02 K/mm3 (0.0-2.0); BASO % 0.2 % (0.0-3.0); EOS # 0.3 (0.0-0.7); EOS % 3.5 % (1.5-5.0); LYMPH # 1.2 (1.2-3.4); MEAN CORPUSCULAR HEMOGLOBIN 29.9 pg (25.0-35.0); MEAN CORPUSCULAR HGB CONC 33.1 g/dl (31.0-37.0); MEAN PLATELET VOLUME 12.4 fl (7.0-11.0); MONO # 0.9 (0.1-0.6); MONO % 10.2 % (1.0-6.0); RBC 6.03 10^6/uL (3.5-6.1); RED CELL DISTRIBUTION WIDTH 13.8 % (11.5-14.5); WHITE BLOOD COUNT 8.9 10^3/uL (4.5-11.0)
[2018-09-26] MEDS: Nystatin-Triamcinolone Cream(30 gm) TOP SCH ×2 (10:48→19:00)
[2018-09-26] MEDS: Dexmedetomidine 400mcg/100mL 400 MCG/100 ML BOTTLE IV PRN ×2 (10:49→20:26)
[2018-09-26 10:59] LABS: ALB/GLOB RATIO 1.1 (1.1-1.8); ALBUMIN 3.6 g/dL (3.0-4.8); ALT/SGPT 26 U/L (7-56); AST/SGOT 27 U/L (17-59); BLOOD UREA NITROGEN 33 mg/dL (7-21); CALCIUM 10.3 mg/dL (8.4-10.5); GFR NON-AFRICAN AMERICAN > 60
--- NOTE | 2018-09-26 12:22 | PN ---
DATE: 09/26/2018 SUBJECTIVE: The patient was seen and examined at bedside. He is very lethargic, however arousable, but unable to maintain conversation. He is protecting his airways. PHYSICAL EXAMINATION VITAL SIGNS: Blood pressure 140/91, heart rate 103, oxygen saturation 98% on 2 liters nasal cannula, and respiratory rate 24. The patient is on D5 at 150 mL per hour. He is on insulin drip. ENT: Head and neck atraumatic. LUNGS: Clear to auscultation bilaterally. HEART: Regular rate and rhythm. S1 and S2 normal. ABDOMEN: Soft, nontender and nondistended. MUSCULOSKELETAL: No C/C/E. NEUROLOGIC: The patient was seen moving all extremities spontaneously. SKIN: Moist. PSYCHIATRIC: The patient is very lethargic. LABORATORY DATA: Sodium 163 (IV fluids were switched from half normal saline to D5 at 150 mL per hour), potassium 3.8, chloride 131, carbon dioxide 26, BUN 39, creatinine 1, and glucose 287. WBC is 13.7, hemoglobin 17.7, platelet count 189. ABGs showed pH 7.41, pCO2 of 39, pO2 of 86, and lactic acid 1.1. MEDICATIONS: Apixaban, D5 at 150 mL per hour, doxycycline, insulin drip and meropenem. CAT scan of the abdomen and pelvis revealed palpable bilateral perinephric straining, this finding can sometimes indicate pyelonephritis, punctate nonobstructive calculi noted in the anterior mid and low left renal pole, suspected postinflammatory scarring in a posterior lower abdominal wall healed incision. Lung bases appear clear. No pleural effusion. Pancreas is unremarkable. His CT had showed no acute intracranial pathology. ASSESSMENT AND PLAN: This is a 58-year-old gentleman with new-onset diabetes complicated by diabetic ketoacidosis, requiring insulin drip, aggressive fluid resuscitation and BMP every 4 hours as well as Accu-Chek every 1 hour. At present time, his anion gap is closed; however, the patient developed substantial hypernatremia. IV fluids at the present time switched to D5 containing solution. We will continue with BMP every 4 hours. Nephrology consult was also requested. The patient's mental status is of concern. Head CT did not show acute intracranial pathologies. EEG will be requested. Neurology consult will be requested as well. I am doubtful that sodium elevation play significant role in his mental status change, however we will correct it. We are going to get Nephrology consult though to address this issue. Dr. Rodriguez saw the patient at bedside, and his input will also be appreciated. We will have low threshold for intubation if his mental status deteriorates (for airway protection). The patient is not cooperative with attempted spinal tap and sedating him would put him at high risk for intubation. However, if the patient's mental status deteriorates to the point that he would require intubation, the next step will be spinal tap. We will continue target euvolemia, euglycemia, normothermia, and oxygen saturation more than 90%. The patient renal function improved. He appears to be euvolemic. We will try to avoid hyperchloremia. I will try to avoid hypoglycemia. Since possibility of infection is there, an ID consult is appreciated. The patient is on meropenem and doxycycline. The patient did receive one dose of vancomycin yesterday. Procalcitonin level is pending. Blood culture and urine culture were sent. Topical antifungal cream in the groin area was ordered and applied. Addendum: patient mental status fluctuates and patient is confused and disoriented and at times aggressive and pulling all tubing off. Likely delirium and may be withdrawing from etoh. will start precedex drip. will avoid antipsychotics, as patient was taking sotalol and have biventricular failure, which may cause unsafe QTc prolongation. optimize circadian and sleep pattern, frequent re-orientation, melatonin at bedtime (in extrapolation of Magi et al, [facility], 2018; 46: [id number]). Avoid pain, treat anxiety. Repeated Na 159 (down from 163), will continue with D5W IV, but will increase insulin drip to level 4 protocol. [facility] time 40 min Bulmaro Spencer MD VENKAT
[2018-09-26 14:27] LABS: BLOOD UREA NITROGEN 32 mg/dL (7-21); CALCIUM 9.5 mg/dL (8.4-10.5); GFR NON-AFRICAN AMERICAN > 60
[2018-09-26 14:28] LABS: VENOUS BLOOD GAS BASE EXCESS -1.1 mmol/L (0.0-2.0); VENOUS BLOOD GAS PO2 196 mm/Hg (30-55); VENOUS BLOOD PH 7.35 (7.32-7.43)
[2018-09-26] MEDS ORDERED: Insulin Regular 100 UNITS in Sodium Chloride 0.9% 99 ML IV PRN ×2 (14:31→22:34)
[2018-09-26] MEDS ORDERED: Insulin Regular 1 UNITS/0.01 ML ML IVP ONE (15:07)
--- NOTE | 2018-09-26 15:11 | CP.PCM.CON ---
History of Present Illness - History of Present Illness History of Present Illness: Nephrology Consultation Note: Assessment: critical Acute Kidney Injury (N17.9) likely due to severe hyperglycemia HAGMA with DKA and hyperosmolar state AMS, sepsis Hypernatremia, hyperkalemia, hypermagnesemia hypercalcemia hypertension systolic CHF LVEF 25% A fib, ventral hernia, overweight Plan No acute need for renal replacement therapy at this time. Hypertension control with meds as ordered. Maintain hemodynamics stable. Avoid hypotension. Patient not on ACEI/ARB due to recent SUZI. pt on A fib rate control meds Monitor Input/Output, daily weights and renal function with basic metabolic panel continue with hypotonic fluids. Pt on insulin drip and NPO, if difficult to control sugar with D5W, suggest 0.45% saline instead supplement lytes as needed lasix on hold Dose meds/antibiotics for improved GFR >60. Glycemic control Further work up/management as per primary team Thanks for allowing me to participate in care of your patient. Will follow patient with you. Please call if any Qs. had d/w team and family bedside Dr Ilya Landers Office: [phone] Chief Complaint; unable Reason for consult: Acute Kidney Injury HPI: Pt is a 58 M with hx of hypertension (years) systolic CHF LVEF 25% A fib, ventral hernia, overweight, presented with complaints of AMS and found to have hyperosmolar state with hyperglycemia and new onset DM. pt with SUZI and hypernatremia hence renal consulted. pt was started on abx as well for concerns of infection as febrile initially. No knwon OTC/herbal meds or NSAIDs No recent iodinated contrast exposure. No obvious episodes of low BP. ROS: pt sedated and unable to provide any hx Physical Examination: General Appearance: sedated ill appearing Vitals reviewed and noted as below Head; Atraumatic, normocephalic ENT: no ulcers no thrush. Tongue is midline. Oropharynx: no rash or ulcers. EYES: Pupils are equal, round and reactive to light accommodation. Eye muscles and extraocular movement intact. Sclera is anicteric. Neck; supple no lymphadenopathy, no thyromegaly or bruit Lungs: Normal respiratory rate/effort. Breath sounds bilateral equal and clear anteriorly Heart: Normal rate. s1s2 normal. No rub or gallop. Extremities: no edema. No varicose veins Neurological: Patient is sedated Skin: Warm and dry. Normal turgor. No rash. Palpitation: Normal elasticity for age Abdomen: Abdomen is soft. Bowel sounds +. There is no abdominal tenderness, no guarding/rigidity no organomegaly Psych: deferred MSK: no joint tenderness or swelling. Digits and nails normal, no deformity : kidney or bladder not palpable. has mcgarry Labs/imaging reviewed. Past medical history, past surgical history, family history, social history, allergy reviewed and noted as below Family hx: no hx of CKD. Rest non-contributory UA ketones and glucose ++ Past Patient History - Infectious Disease Hx of Infectious Diseases: None - Past Social History Smoking Status: Unknown If Ever Smoked - CARDIAC Hx Cardiac Disorders: Yes Hx Hypertension: Yes Hx Pacemaker: No - PULMONARY Hx Respiratory Disorders: No - NEUROLOGICAL Hx Neurological Disorder: No - HEENT Hx HEENT Problems: No - RENAL Hx Chronic Kidney Disease: No - ENDOCRINE/METABOLIC Hx Endocrine Disorders: No - HEMATOLOGICAL/ONCOLOGICAL Hx Blood Disorders: No - INTEGUMENTARY Hx Dermatological Problems: Yes Other/Comment: open wounds on bilateral lower extremities - MUSCULOSKELETAL/RHEUMATOLOGICAL Hx Musculoskeletal Disorders: No Hx Falls: Yes - GASTROINTESTINAL Hx Gastrointestinal Disorders: Yes (colorectal polyps, ventral hernia) - GENITOURINARY/GYNECOLOGICAL Hx Genitourinary Disorders: No - PSYCHIATRIC Hx Emotional Abuse: No Hx Physical Abuse: No - SURGICAL HISTORY Other/Comment: colon resection with ventral hernia repair with mesh placement. - ANESTHESIA Hx Anesthesia Reactions: No Hx Malignant Hyperthermia: No Meds Allergies/Adverse Reactions: Allergies Allergy/AdvReac Type Severity Reaction Status Date / Time No Known Allergies Allergy Verified 02/06/18 17:22 - Medications Medications: Current Medications Apixaban (Eliquis) 2.5 mg PO BID [facility]; Protocol Last Admin: 09/26/18 10:19 Dose: 2.5 mg Diltiazem HCl (Cardizem Cd) 180 mg PO DAILY [facility] Last Admin: 09/26/18 10:00 Dose: Not Given Meropenem (Merrem Iv 1 Gm Premix) 1 gm in 50 mls @ 100 mls/hr IVPB Q12 [facility]; Protocol Stop: 10/04/18 22:01 Last Admin: 09/26/18 09:21 Dose: 100 mls/hr Doxycycline Hyclate 100 mg/ (Sodium Chloride) 100 mls @ 100 mls/hr IVPB Q12 [facility]; Protocol Stop: 10/04/18 22:01 Last Admin: 09/26/18 09:25 Dose: 100 mls/hr Dextrose (Dextrose 5% In Water 1000 Ml) 1,000 mls @ 150 mls/hr IV .Q6H40M [facility] Last Admin: 09/26/18 08:26 Dose: 150 mls/hr Dexmedetomidine HCl (Precedex 400mcg/100ml) 400 mcg in 100 mls @ 4.751 mls/hr IV .Q21H3M PRN; Protocol PRN Reason: Agitation Last Titration: 09/26/18 14:00 Dose: 0.6 mcg/kg/hr, 14.254 mls/hr Insulin Human Regular 100 (units/ Sodium Chloride) 100 mls @ 0 mls/hr IV .Q0M PRN; Protocol PRN Reason: TITRATE PER PROTOCOL Melatonin (Melatonin) 1 mg PO HS [facility] Nystatin/Triamcinolone Acetonide (Nystatin/Triamcinolone Cream) 0 ea TOP BID [facility] Last Admin: 09/26/18 10:48 Dose: 1 applic Pantoprazole Sodium (Protonix Inj) 40 mg IVP DAILY [facility] Last Admin: 09/26/18 10:20 Dose: 40 mg Sotalol HCl (Betapace) 80 mg PO BID [facility] Last Admin: 09/26/18 10:19 Dose: 80 mg Results - Vital Signs Recent Vital Signs: Last Vital Signs Temp 98.7 F 09/26/18 12:00 Pulse 69 09/26/18 13:25 Resp 31 H 09/26/18 12:20 BP 134/90 09/26/18 12:00 Pulse Ox 97 09/26/18 12:20 - Labs Result Diagrams: 09/26/18 10:30 09/26/18 14:00 Labs: Laboratory Results - last 24 hr 09/25/18 09/25/18 09/25/18 15:50 16:38 16:38 WBC 13.7 H RBC 5.96 Hgb 17.7 D Hct 56.7 H* MCV 95.6 D MCH 29.8 MCHC 31.2 RDW 14.5 Plt Count 189 MPV 13.7 H Neut % (Auto) 85.3 H Lymph % (Auto) 6.6 L Cotton % (Auto) 7.6 H Eos % (Auto) 0.1 L Baso % (Auto) 0.4 Lymph # (Auto) 0.9 L Cotton # (Auto) 1.0 H Eos # (Auto) 0.0 Baso # (Auto) 0.05 Absolute Neuts (auto) 11.66 H PT INR APTT pCO2 pO2 45 HCO3 ABG pH ABG Total CO2 ABG O2 Saturation ABG Base Excess ABG Potassium VBG pH 7.27 L VBG pCO2 36.0 L VBG HCO3 16.5 L VBG Total CO2 17.6 L VBG O2 Sat (Calc) 82.4 H VBG Base Excess -9.6 L VBG Potassium 6.5 H* Sodium 143.0 Chloride 100.0 Glucose > 750 H* Lactate 3.4 H FiO2 21.0 Blood Gas Comments Crit Value Called To Dr cage Crit Value Called By Reema Blood Gas Notified Time 1605 Potassium Carbon Dioxide Anion Gap BUN Creatinine Est GFR ( Amer) Est GFR (Non-Af Amer) POC Glucose (mg/dL) Random Glucose Hemoglobin A1c Serum Osmolality Calcium Magnesium Total Bilirubin AST ALT Alkaline Phosphatase Lactate Dehydrogenase Total Creatine Kinase Troponin I NT-Pro-B Natriuret Pep Total Protein Albumin Globulin Albumin/Globulin Ratio Lipase Procalcitonin Arterial Blood Potassium Venous Blood Potassium 6.5 H* Urine Color Urine Appearance Urine pH Ur Specific [place] Urine Protein Urine Glucose (UA) Urine Ketones Urine Blood Urine Nitrate Urine Bilirubin Urine Urobilinogen Ur Leukocyte Esterase Digoxin 1.2 B-Hydroxybutyrate HIV 1&2 Ag/Ab, 4th Gen 09/25/18 09/25/18 09/25/18 16:38 16:38 16:38 WBC RBC Hgb Hct MCV MCH MCHC RDW Plt Count MPV Neut % (Auto) Lymph % (Auto) Cotton % (Auto) Eos % (Auto) Baso % (Auto) Lymph # (Auto) Cotton # (Auto) Eos # (Auto) Baso # (Auto) Absolute Neuts (auto) PT 11.5 INR 1.04 APTT 30.8 pCO2 pO2 HCO3 ABG pH ABG Total CO2 ABG O2 Saturation ABG Base Excess ABG Potassium VBG pH VBG pCO2 VBG HCO3 VBG Total CO2 VBG O2 Sat (Calc) VBG Base Excess VBG Potassium Sodium 144 Chloride 104 Glucose Lactate FiO2 Blood Gas Comments Crit Value Called To Crit Value Called By Blood Gas Notified Time Potassium 6.2 H* D Carbon Dioxide 16 L Anion Gap 29 H BUN 69 H Creatinine 1.7 H Est GFR ( Amer) 50 Est GFR (Non-Af Amer) 41 POC Glucose (mg/dL) Random Glucose 1343 H* D Hemoglobin A1c Serum Osmolality 412 H Calcium 11.1 H Magnesium 2.9 H Total Bilirubin 1.0 AST 26 ALT 29 Alkaline Phosphatase 226 H D Lactate Dehydrogenase 505 Total Creatine Kinase 114 Troponin I 0.03 D NT-Pro-B Natriuret Pep 144 Total Protein 7.0 Albumin 4.1 Globulin 2.9 Albumin/Globulin Ratio 1.5 Lipase 352 H Procalcitonin Arterial Blood Potassium Venous Blood Potassium Urine Color Urine Appearance Urine pH Ur Specific [place] Urine Protein Urine Glucose (UA) Urine Ketones Urine Blood Urine Nitrate Urine Bilirubin Urine Urobilinogen Ur Leukocyte Esterase Digoxin B-Hydroxybutyrate 7.02 H HIV 1&2 Ag/Ab, 4th Gen 09/25/18 09/25/18 09/25/18 18:45 18:47 19:40 WBC RBC Hgb Hct MCV MCH MCHC RDW Plt Count MPV Neut % (Auto) Lymph % (Auto) Cotton % (Auto) Eos % (Auto) Baso % (Auto) Lymph # (Auto) Cotton # (Auto) Eos # (Auto) Baso # (Auto) Absolute Neuts (auto) PT INR APTT pCO2 pO2 50 HCO3 ABG pH ABG Total CO2 ABG O2 Saturation ABG Base Excess ABG Potassium VBG pH 7.22 L VBG pCO2 36.0 L VBG HCO3 14.7 L VBG Total CO2 15.8 L VBG O2 Sat (Calc) 83.9 H VBG Base Excess -12.1 L VBG Potassium 5.3 H Sodium 157.0 H Chloride 109.0 H Glucose > 750 H* Lactate 3.0 H FiO2 21.0 Blood Gas Comments Crit Value Called To Aleksandra cross Crit Value Called By Atc Blood Gas Notified Time 185 Potassium Carbon Dioxide Anion Gap BUN Creatinine Est GFR ( Amer) Est GFR (Non-Af Amer) POC Glucose (mg/dL) > 500 H* > 500 H* Random Glucose Hemoglobin A1c Serum Osmolality Calcium Magnesium Total Bilirubin AST ALT Alkaline Phosphatase Lactate Dehydrogenase Total Creatine Kinase Troponin I NT-Pro-B Natriuret Pep Total Protein Albumin Globulin Albumin/Globulin Ratio Lipase Procalcitonin Arterial Blood Potassium Venous Blood Potassium 5.3 H Urine Color Urine Appearance Urine pH Ur Specific [place] Urine Protein Urine Glucose (UA) Urine Ketones Urine Blood Urine Nitrate Urine Bilirubin Urine Urobilinogen Ur Leukocyte Esterase Digoxin B-Hydroxybutyrate HIV 1&2 Ag/Ab, 4th Gen 09/25/18 09/25/18 09/25/18 20:00 20:55 20:55 WBC RBC Hgb Hct MCV MCH MCHC RDW Plt Count MPV Neut % (Auto) Lymph % (Auto) Cotton % (Auto) Eos % (Auto) Baso % (Auto) Lymph # (Auto) Cotton # (Auto) Eos # (Auto) Baso # (Auto) Absolute Neuts (auto) PT INR APTT pCO2 pO2 170 H HCO3 ABG pH ABG Total CO2 ABG O2 Saturation ABG Base Excess ABG Potassium VBG pH 7.36 VBG pCO2 31.0 L VBG HCO3 17.5 L VBG Total CO2 18.5 L VBG O2 Sat (Calc) 100.3 H VBG Base Excess -6.8 L VBG Potassium 3.9 Sodium 157 H* 161.0 H* Chloride 125 H 119.0 H Glucose > 750 H* Lactate 2.3 H FiO2 21.0 Blood Gas Comments Crit Value Called To [place] oie Crit Value Called By [facility] Blood Gas Notified Time 2144 Potassium 4.0 Carbon Dioxide 18 L Anion Gap 18 BUN 52 H Creatinine 1.2 Est GFR ( Amer) > 60 Est GFR (Non-Af Amer) > 60 POC Glucose (mg/dL) Random Glucose 706 H* D Hemoglobin A1c Serum Osmolality Calcium 10.2 Magnesium Total Bilirubin AST ALT Alkaline Phosphatase Lactate Dehydrogenase Total Creatine Kinase Troponin I 0.04 D NT-Pro-B Natriuret Pep Total Protein Albumin Globulin Albumin/Globulin Ratio Lipase Procalcitonin Arterial Blood Potassium Venous Blood Potassium 3.9 Urine Color Light yellow Urine Appearance Clear Urine pH 5.5 Ur Specific [place] 1.015 Urine Protein Negative Urine Glucose (UA) >=1000 Urine Ketones 40 H Urine Blood Negative Urine Nitrate Negative Urine Bilirubin Negative Urine Urobilinogen 0.2 Ur Leukocyte Esterase Negative Digoxin B-Hydroxybutyrate HIV 1&2 Ag/Ab, 4th Gen 09/25/18 09/25/18 09/25/18 20:55 21:40 22:26 WBC RBC Hgb Hct MCV MCH MCHC RDW Plt Count MPV Neut % (Auto) Lymph % (Auto) Cotton % (Auto) Eos % (Auto) Baso % (Auto) Lymph # (Auto) Cotton # (Auto) Eos # (Auto) Baso # (Auto) Absolute Neuts (auto) PT INR APTT pCO2 pO2 HCO3 ABG pH ABG Total CO2 ABG O2 Saturation ABG Base Excess ABG Potassium VBG pH VBG pCO2 VBG HCO3 VBG Total CO2 VBG O2 Sat (Calc) VBG Base Excess VBG Potassium Sodium Chloride Glucose Lactate FiO2 Blood Gas Comments Crit Value Called To Crit Value Called By Blood Gas Notified Time Potassium Carbon Dioxide Anion Gap BUN Creatinine Est GFR ( Amer) Est GFR (Non-Af Amer) POC Glucose (mg/dL) > 500 H* Random Glucose Hemoglobin A1c Serum Osmolality Calcium Magnesium Total Bilirubin AST ALT Alkaline Phosphatase Lactate Dehydrogenase Total Creatine Kinase Troponin I NT-Pro-B Natriuret Pep Total Protein Albumin Globulin Albumin/Globulin Ratio Lipase Procalcitonin 0.17 L Arterial Blood Potassium Venous Blood Potassium Urine Color Urine Appearance Urine pH Ur Specific [place] Urine Protein Urine Glucose (UA) Urine Ketones Urine Blood Urine Nitrate Urine Bilirubin Urine Urobilinogen Ur Leukocyte Esterase Digoxin B-Hydroxybutyrate HIV 1&2 Ag/Ab, 4th Gen Nonreactive 09/25/18 09/25/18 09/26/18 23:20 23:20 02:26 WBC RBC Hgb Hct MCV MCH MCHC RDW Plt Count MPV Neut % (Auto) Lymph % (Auto) Cotton % (Auto) Eos % (Auto) Baso % (Auto) Lymph # (Auto) Cotton # (Auto) Eos # (Auto) Baso # (Auto) Absolute Neuts (auto) PT INR APTT pCO2 pO2 48 HCO3 ABG pH ABG Total CO2 ABG O2 Saturation ABG Base Excess ABG Potassium VBG pH 7.35 VBG pCO2 56.0 VBG HCO3 30.9 H VBG Total CO2 32.6 H VBG O2 Sat (Calc) 84.7 H VBG Base Excess 3.8 H VBG Potassium 3.5 L Sodium 155 H 158.0 H Chloride 119 H 117.0 H Glucose 541 H* D Lactate 1.8 FiO2 21.0 Blood Gas Comments Glu 541 na 158 Crit Value Called To Brianna schwarz Crit Value Called By [facility] Blood Gas Notified Time 2340 Potassium 3.5 L Carbon Dioxide 30 Anion Gap 10 BUN 45 H Creatinine 1.0 Est GFR ( Amer) > 60 Est GFR (Non-Af Amer) > 60 POC Glucose (mg/dL) 460 H* Random Glucose 502 H* D Hemoglobin A1c Serum Osmolality Calcium 8.2 L Magnesium Total Bilirubin AST ALT Alkaline Phosphatase Lactate Dehydrogenase Total Creatine Kinase Troponin I NT-Pro-B Natriuret Pep Total Protein Albumin Globulin Albumin/Globulin Ratio Lipase Procalcitonin Arterial Blood Potassium Venous Blood Potassium 3.5 L Urine Color Urine Appearance Urine pH Ur Specific [place] Urine Protein Urine Glucose (UA) Urine Ketones Urine Blood Urine Nitrate Urine Bilirubin Urine Urobilinogen Ur Leukocyte Esterase Digoxin B-Hydroxybutyrate HIV 1&2 Ag/Ab, 4th Gen 09/26/18 09/26/18 09/26/18 03:30 05:01 05:45 WBC RBC Hgb Hct MCV MCH MCHC RDW Plt Count MPV Neut % (Auto) Lymph % (Auto) Cotton % (Auto) Eos % (Auto) Baso % (Auto) Lymph # (Auto) Cotton # (Auto) Eos # (Auto) Baso # (Auto) Absolute Neuts (auto) PT INR APTT pCO2 pO2 52 HCO3 ABG pH ABG Total CO2 ABG O2 Saturation ABG Base Excess ABG Potassium VBG pH 7.40 VBG pCO2 42.0 VBG HCO3 26.0 VBG Total CO2 27.3 VBG O2 Sat (Calc) 89.5 H VBG Base Excess 1.0 VBG Potassium 3.9 Sodium 166.0 H* Chloride 127.0 H Glucose 354 H Lactate 2.8 H FiO2 21.0 Blood Gas Comments Crit Value Called To Cabrera middleton Crit Value Called By marii Blood Gas Notified Time 630 Potassium Carbon Dioxide Anion Gap BUN Creatinine Est GFR ( Amer) Est GFR (Non-Af Amer) POC Glucose (mg/dL) 397 H 382 H Random Glucose Hemoglobin A1c Serum Osmolality Calcium Magnesium Total Bilirubin AST ALT Alkaline Phosphatase Lactate Dehydrogenase Total Creatine Kinase Troponin I NT-Pro-B Natriuret Pep Total Protein Albumin Globulin Albumin/Globulin Ratio Lipase Procalcitonin Arterial Blood Potassium Venous Blood Potassium 3.9 Urine Color Urine Appearance Urine pH Ur Specific [place] Urine Protein Urine Glucose (UA) Urine Ketones Urine Blood Urine Nitrate Urine Bilirubin Urine Urobilinogen Ur Leukocyte Esterase Digoxin B-Hydroxybutyrate HIV 1&2 Ag/Ab, 4th Gen 09/26/18 09/26/18 09/26/18 05:45 05:45 06:41 WBC RBC Hgb Hct MCV MCH MCHC RDW Plt Count MPV Neut % (Auto) Lymph % (Auto) Cotton % (Auto) Eos % (Auto) Baso % (Auto) Lymph # (Auto) Cotton # (Auto) Eos # (Auto) Baso # (Auto) Absolute Neuts (auto) PT INR APTT pCO2 pO2 HCO3 ABG pH ABG Total CO2 ABG O2 Saturation ABG Base Excess ABG Potassium VBG pH VBG pCO2 VBG HCO3 VBG Total CO2 VBG O2 Sat (Calc) VBG Base Excess VBG Potassium Sodium 163 H* Chloride 131 H Glucose Lactate FiO2 Blood Gas Comments Crit Value Called To Crit Value Called By Blood Gas Notified Time Potassium 3.8 Carbon Dioxide 26 Anion Gap 10 BUN 39 H Creatinine 1.0 Est GFR ( Amer) > 60 Est GFR (Non-Af Amer) > 60 POC Glucose (mg/dL) 308 H Random Glucose 335 H* D Hemoglobin A1c 14.4 H Serum Osmolality Calcium 10.1 Magnesium Total Bilirubin AST ALT Alkaline Phosphatase Lactate Dehydrogenase Total Creatine Kinase Troponin I NT-Pro-B Natriuret Pep Total Protein Albumin Globulin Albumin/Globulin Ratio Lipase Procalcitonin Arterial Blood Potassium Venous Blood Potassium Urine Color Urine Appearance Urine pH Ur Specific [place] Urine Protein Urine Glucose (UA) Urine Ketones Urine Blood Urine Nitrate Urine Bilirubin Urine Urobilinogen Ur Leukocyte Esterase Digoxin B-Hydroxybutyrate HIV 1&2 Ag/Ab, 4th Gen 09/26/18 09/26/18 09/26/18 08:00 08:15 09:10 WBC RBC Hgb Hct MCV MCH MCHC RDW Plt Count MPV Neut % (Auto) Lymph % (Auto) Cotton % (Auto) Eos % (Auto) Baso % (Auto) Lymph # (Auto) Cotton # (Auto) Eos # (Auto) Baso # (Auto) Absolute Neuts (auto) PT INR APTT pCO2 39 pO2 86.0 HCO3 24.7 ABG pH 7.41 ABG Total CO2 25.9 ABG O2 Saturation 98.6 H ABG Base Excess 0.1 ABG Potassium 3.6 VBG pH VBG pCO2 VBG HCO3 VBG Total CO2 VBG O2 Sat (Calc) VBG Base Excess VBG Potassium Sodium 165.0 H* Chloride 129.0 H Glucose 304 H Lactate 1.1 FiO2 32.0 Blood Gas Comments Crit Value Called To Dr urena Crit Value Called By Haroldo ramos Blood Gas Notified Time 820 Potassium Carbon Dioxide Anion Gap BUN Creatinine Est GFR ( Amer) Est GFR (Non-Af Amer) POC Glucose (mg/dL) 287 H 292 H Random Glucose Hemoglobin A1c Serum Osmolality Calcium Magnesium Total Bilirubin AST ALT Alkaline Phosphatase Lactate Dehydrogenase Total Creatine Kinase Troponin I NT-Pro-B Natriuret Pep Total Protein Albumin Globulin Albumin/Globulin Ratio Lipase Procalcitonin Arterial Blood Potassium 3.6 Venous Blood Potassium Urine Color Urine Appearance Urine pH Ur Specific [place] Urine Protein Urine Glucose (UA) Urine Ketones Urine Blood Urine Nitrate Urine Bilirubin Urine Urobilinogen Ur Leukocyte Esterase Digoxin B-Hydroxybutyrate HIV 1&2 Ag/Ab, 4th Gen 09/26/18 09/26/18 09/26/18 10:30 10:30 10:30 WBC 8.9 D RBC 6.03 Hgb 18.0 Hct 54.3 H MCV 90.0 D MCH 29.9 MCHC 33.1 RDW 13.8 Plt Count 140 MPV 12.4 H Neut % (Auto) 73.1 H Lymph % (Auto) 13.0 L Cotton % (Auto) 10.2 H Eos % (Auto) 3.5 Baso % (Auto) 0.2 Lymph # (Auto) 1.2 Cotton # (Auto) 0.9 H Eos # (Auto) 0.3 Baso # (Auto) 0.02 Absolute Neuts (auto) 6.53 H PT INR APTT pCO2 pO2 86 H HCO3 ABG pH ABG Total CO2 ABG O2 Saturation ABG Base Excess ABG Potassium VBG pH 7.31 L VBG pCO2 48.0 VBG HCO3 24.2 VBG Total CO2 25.7 VBG O2 Sat (Calc) 97.5 H VBG Base Excess -2.5 L VBG Potassium 3.8 Sodium 166.0 H* 163 H* Chloride 127.0 H 131 H Glucose 326 H Lactate 2.8 H FiO2 21.0 Blood Gas Comments Crit Value Called To Soumya martinez Crit Value Called By Simona ley Blood Gas Notified Time 1040 Potassium 4.0 Carbon Dioxide 25 Anion Gap 10 BUN 33 H Creatinine 1.0 Est GFR ( Amer) > 60 Est GFR (Non-Af Amer) > 60 POC Glucose (mg/dL) Random Glucose 316 H* Hemoglobin A1c Serum Osmolality Calcium 10.3 Magnesium Total Bilirubin 1.1 AST 27 ALT 26 Alkaline Phosphatase 109 Lactate Dehydrogenase Total Creatine Kinase Troponin I NT-Pro-B Natriuret Pep Total Protein 6.9 Albumin 3.6 Globulin 3.3 Albumin/Globulin Ratio 1.1 Lipase Procalcitonin Arterial Blood Potassium Venous Blood Potassium 3.8 Urine Color Urine Appearance Urine pH Ur Specific [place] Urine Protein Urine Glucose (UA) Urine Ketones Urine Blood Urine Nitrate Urine Bilirubin Urine Urobilinogen Ur Leukocyte Esterase Digoxin B-Hydroxybutyrate HIV 1&2 Ag/Ab, 4th Gen 09/26/18 09/26/18 09/26/18 10:45 11:49 12:23 WBC RBC Hgb Hct MCV MCH MCHC RDW Plt Count MPV Neut % (Auto) Lymph % (Auto) Cotton % (Auto) Eos % (Auto) Baso % (Auto) Lymph # (Auto) Cotton # (Auto) Eos # (Auto) Baso # (Auto) Absolute Neuts (auto) PT INR APTT pCO2 pO2 HCO3 ABG pH ABG Total CO2 ABG O2 Saturation ABG Base Excess ABG Potassium VBG pH VBG pCO2 VBG HCO3 VBG Total CO2 VBG O2 Sat (Calc) VBG Base Excess VBG Potassium Sodium Chloride Glucose Lactate FiO2 Blood Gas Comments Crit Value Called To Crit Value Called By Blood Gas Notified Time Potassium Carbon Dioxide Anion Gap BUN Creatinine Est GFR ( Amer) Est GFR (Non-Af Amer) POC Glucose (mg/dL) 335 H 369 H 404 H* Random Glucose Hemoglobin A1c Serum Osmolality Calcium Magnesium Total Bilirubin AST ALT Alkaline Phosphatase Lactate Dehydrogenase Total Creatine Kinase Troponin I NT-Pro-B Natriuret Pep Total Protein Albumin Globulin Albumin/Globulin Ratio Lipase Procalcitonin Arterial Blood Potassium Venous Blood Potassium Urine Color Urine Appearance Urine pH Ur Specific [place] Urine Protein Urine Glucose (UA) Urine Ketones Urine Blood Urine Nitrate Urine Bilirubin Urine Urobilinogen Ur Leukocyte Esterase Digoxin B-Hydroxybutyrate HIV 1&2 Ag/Ab, 4th Gen 09/26/18 09/26/18 09/26/18 13:29 14:00 14:00 WBC RBC Hgb Hct MCV MCH MCHC RDW Plt Count MPV Neut % (Auto) Lymph % (Auto) Cotton % (Auto) Eos % (Auto) Baso % (Auto) Lymph # (Auto) Cotton # (Auto) Eos # (Auto) Baso # (Auto) Absolute Neuts (auto) PT INR APTT pCO2 pO2 196 H HCO3 ABG pH ABG Total CO2 ABG O2 Saturation ABG Base Excess ABG Potassium VBG pH 7.35 VBG pCO2 45.0 VBG HCO3 24.8 VBG Total CO2 26.2 VBG O2 Sat (Calc) 100.6 H VBG Base Excess -1.1 L VBG Potassium 4.1 Sodium 160.0 H* 159 H* Chloride 127.0 H 128 H Glucose 487 H* D Lactate 1.5 FiO2 21.0 Blood Gas Comments Crit Value Called To Allegra martinez Crit Value Called By Sonali Blood Gas Notified Time 1426 Potassium 4.1 Carbon Dioxide 26 Anion Gap 9 L BUN 32 H Creatinine 0.9 Est GFR ( Amer) > 60 Est GFR (Non-Af Amer) > 60 POC Glucose (mg/dL) 404 H* Random Glucose 456 H* D Hemoglobin A1c Serum Osmolality Calcium 9.5 Magnesium Total Bilirubin AST ALT Alkaline Phosphatase Lactate Dehydrogenase Total Creatine Kinase Troponin I NT-Pro-B Natriuret Pep Total Protein Albumin Globulin Albumin/Globulin Ratio Lipase Procalcitonin Arterial Blood Potassium Venous Blood Potassium 4.1 Urine Color Urine Appearance Urine pH Ur Specific [place] Urine Protein Urine Glucose (UA) Urine Ketones Urine Blood Urine Nitrate Urine Bilirubin Urine Urobilinogen Ur Leukocyte Esterase Digoxin B-Hydroxybutyrate HIV 1&2 Ag/Ab, 4th Gen 09/26/18 14:31 WBC RBC Hgb Hct MCV MCH MCHC RDW Plt Count MPV Neut % (Auto) Lymph % (Auto) Cotton % (Auto) Eos % (Auto) Baso % (Auto) Lymph # (Auto) Cotton # (Auto) Eos # (Auto) Baso # (Auto) Absolute Neuts (auto) PT INR APTT pCO2 pO2 HCO3 ABG pH ABG Total CO2 ABG O2 Saturation ABG Base Excess ABG Potassium VBG pH VBG pCO2 VBG HCO3 VBG Total CO2 VBG O2 Sat (Calc) VBG Base Excess VBG Potassium Sodium Chloride Glucose Lactate FiO2 Blood Gas Comments Crit Value Called To Crit Value Called By Blood Gas Notified Time Potassium Carbon Dioxide Anion Gap BUN Creatinine Est GFR ( Amer) Est GFR (Non-Af Amer) POC Glucose (mg/dL) 460 H* Random Glucose Hemoglobin A1c Serum Osmolality Calcium Magnesium Total Bilirubin AST ALT Alkaline Phosphatase Lactate Dehydrogenase Total Creatine Kinase Troponin I NT-Pro-B Natriuret Pep Total Protein Albumin Globulin Albumin/Globulin Ratio Lipase Procalcitonin Arterial Blood Potassium Venous Blood Potassium Urine Color Urine Appearance Urine pH Ur Specific [place] Urine Protein Urine Glucose (UA) Urine Ketones Urine Blood Urine Nitrate Urine Bilirubin Urine Urobilinogen Ur Leukocyte Esterase Digoxin B-Hydroxybutyrate HIV 1&2 Ag/Ab, 4th Gen
[2018-09-26 19:25] LABS: BLOOD UREA NITROGEN 33 mg/dL (7-21); GFR NON-AFRICAN AMERICAN > 60
[2018-09-26] MEDS ORDERED: DEXTROSE IV SCH (20:00)
[2018-09-26] MEDS ORDERED: WATER IV SCH (20:00)
[2018-09-26] MEDS ORDERED: POTASSIUM CH IV SCH (20:00)
[2018-09-26] MEDS ORDERED: D5W IV SCH (20:00)
--- NOTE | 2018-09-26 20:22 | CON ---
DATE: 09/26/2018 HISTORY OF PRESENT ILLNESS: This is a 58-year-old male with past medical history of ventricular dysfunction and atrial fibrillation, DVT and PE. The patient complained of tiredness and confusion and disoriented, brought here to emergency room. Blood sugar was found to be really elevated and with lactic acidosis. He was started on insulin drip and CAT scan of the head was done. PAST MEDICAL HISTORY: Hypertension, atrial fibrillation and biventricular failure. SOCIAL HISTORY: He does not smoke, does not drink. ALLERGIES: NO KNOWN DRUG ALLERGY. REVIEW OF SYSTEMS: A 10-point review of system was negative except the patient was totally confused. Spontaneous movement of the extremities noted. Deep tendon reflexes 1+. Both plantars are downgoing. Sensory appears intact. Cerebellar gait deferred. IMPRESSION: A 58-year-old male with new onset of diabetes. He presented here with diabetic ketoacidosis and also having sepsis. PLAN: Workup is in progress. Continue present management. We will do the CAT scan of the head without contrast. EEG was done, we will follow it up. Thank you for the consultation. Laurent Live MD
[2018-09-26] MEDS: Melatonin 3 MG Tab PO SCH (21:47)
[2018-09-26] MEDS: Potassium Chl 40mEq & D5W 1,000 ML IV SCH (21:47)
[2018-09-27 00:59] LABS: BLOOD UREA NITROGEN 34 mg/dL (7-21); CALCIUM 9.6 mg/dL (8.4-10.5); GFR NON-AFRICAN AMERICAN > 60
--- NOTE | 2018-09-27 03:15 | CON ---
DATE: 09/26/2018 The patient is seen earlier this morning at 1:28 in the ICU, bed #3. CHIEF COMPLAINT: Change in mental times unknown days of duration. HISTORY OF PRESENT ILLNESS: This is a 58-year-old male with history of hypertension, colorectal polyp, atrial fibrillation with rapid ventricular response, intraabdominal abscess with an IR drainage in the past complicated with pulmonary emboli, systolic congestive heart failure, dilated cardiomyopathy. He was admitted with change in mental status, had a low-grade fever. Infectious Disease consultation is requested. REVIEW OF SYSTEMS: A 12-point review of systems is performed. PAST MEDICAL HISTORY: Significant for pulmonary emboli, hypertension, colorectal polyp, intraabdominal abscess, atrial fibrillation rapid ventricular response, systolic congestive heart failure, dilated cardiomyopathy. PAST SURGICAL HISTORY: Significant for ventral hernia repair, colon resection. ALLERGIES: THE PATIENT HAS NO KNOWN ALLERGIES. MEDICATIONS AT HOME: Eliquis, Lanoxin, Lasix, Cardizem. PHYSICAL EXAMINATION: VITAL SIGNS: The patient is seen in bed with temperature of 98 and T-max of 100.1. Heart rate of 65, it was as high as 117. Respiratory rate of 26. Blood pressure is 108/60. HEENT: Unremarkable. NECK: Supple. LUNGS: Have decreased breath sounds. HEART: Normal S1 and S2. ABDOMEN: Soft and nontender. No rebound, no guarding, no masses. LABORATORY DATA: Reveals a white count of 13,700, hemoglobin of 17, hematocrit of 76, and platelets of 189. Coagulation is noted. Chemistries reveals a BUN of 32, creatinine of 0.9, sodium of 159. Urinalysis is noted. Toxicology is noted. HIV is negative. Microbiology reveals the blood cultures to be negative. Dr. Keith Wilhelm's note is reviewed. Dr. Landers's consultation is reviewed. The patient does have elevated blood sugar with increased anion gap, metabolic acidosis with bicarb of 16 on admission. The patient's chest x-ray was reported to be negative. The patient had cardioversion last month. CAT scan of the abdomen and pelvis negative and drainage catheter, anterior abdominal wall collection nonspecific perinephric stranding. CAT scan of the head, generalized atrophy. ASSESSMENT AND PLAN: This is a 58-year-old male who is admitted with hyperglycemia and metabolic acidosis. Systemic inflammatory response syndrome with metabolic acidosis with increased anion gap with diabetic ketoacidosis, acute kidney injury, currently on meropenem and doxycycline and workup in progress, cultures . The patient received a dose of vancomycin. Blood cultures are negative. We will follow with you. José Miguel Poole MD
[2018-09-27 05:28] LABS: BLOOD UREA NITROGEN 36 mg/dL (7-21); CALCIUM 9.5 mg/dL (8.4-10.5); GFR NON-AFRICAN AMERICAN > 60
[2018-09-27] MEDS: Potassium Chl 40mEq & D5W 1,000 ML IV SCH ×2 (06:14→08:05)
[2018-09-27 06:45] LABS: BASO # 0.02 K/mm3 (0.0-2.0); BASO % 0.2 % (0.0-3.0); EOS # 0.3 (0.0-0.7); EOS % 3.5 % (1.5-5.0); LYMPH # 1.7 (1.2-3.4); LYMPH % 18.6 % (22.0-35.0); MEAN CELL VOLUME 91.3 fl (80.0-105.0); MEAN CORPUSCULAR HEMOGLOBIN 29.7 pg (25.0-35.0); MEAN CORPUSCULAR HGB CONC 32.5 g/dl (31.0-37.0); MEAN PLATELET VOLUME 12.6 fl (7.0-11.0); MONO # 1.1 (0.1-0.6); MONO % 11.6 % (1.0-6.0); RBC 4.95 10^6/uL (3.5-6.1); RED CELL DISTRIBUTION WIDTH 13.9 % (11.5-14.5); WHITE BLOOD COUNT 9.1 10^3/uL (4.5-11.0)
[2018-09-27 06:48] LABS: HEMOGLOBIN 14.7 g/dL (14.0-18.0)
--- NOTE | 2018-09-27 07:25 | CP.CCUPN ---
<Rene Live - Last Filed: 09/27/18 10:54> CCU Subjective - Physician Review Events Since Last Encounter (Free Text): 09/27/18 07:22 no acute events overnight Subjective (Free Text): 09/26/18 07:02 Pt seen and examined this morning, pt obtunded 09/27/18 07:23 pt seen and examined this morning, NAD CCU Objective - Vital Signs / Intake & Output Vital Signs (Last 4 hours): Vital Signs Temp Pulse Resp BP Pulse Ox 09/27/18 06:40 64 22 97 09/27/18 06:30 63 18 98 09/27/18 06:20 64 20 96 09/27/18 06:10 67 16 98 09/27/18 06:00 67 16 123/75 97 09/27/18 05:50 59 L 24 98 09/27/18 05:40 58 L 26 H 98 09/27/18 05:30 57 L 25 H 98 09/27/18 05:20 57 L 27 H 98 09/27/18 05:10 59 L 24 98 09/27/18 05:00 65 26 H 109/64 98 09/27/18 04:50 60 24 97 09/27/18 04:40 62 26 H 96 09/27/18 04:30 99.1 F 60 16 98 09/27/18 04:20 55 L 10 L 98 09/27/18 04:10 56 L 28 H 97 09/27/18 04:00 60 18 104/49 L 96 09/27/18 03:50 55 L 12 97 09/27/18 03:40 61 26 H 97 09/27/18 03:30 62 22 97 Intake and Output (Last 8hrs): Intake & Output 09/26/18 09/27/18 09/27/18 22:59 06:59 14:59 Intake Total 2176 1552 Output Total 600 150 Balance 1576 1402 Weight 212 lb 9.6 oz Intake: IV 1975 1552 Left Wrist 180 1350 Right Antecubital 1600 132 Oral 200 0 Output: Urine 600 150 2-way Urethral 600 150 Stool 0 Other: # Bowel Movements 1 - Physical Exam Head: Positive for: Atraumatic, Normocephalic Pupils: Positive for: PERRL Extroacular Muscles: Positive for: EOMI Conjunctiva: Positive for: Normal Mouth: Positive for: Moist Mucous Membranes Neck: Positive for: Normal Range of Motion Respiratory/Chest: Positive for: Clear to Auscultation, Good Air Exchange. Negative for: Respiratory Distress, Accessory Muscle Use Cardiovascular: Positive for: Regular Rate and Rhythm, Normal S1, S2. Negative for: Murmurs Abdomen: Positive for: Tenderness (Non- focal abdominal tenderness.). Negative for: Distention, Peritoneal Signs Back: Positive for: Normal Inspection Upper Extremity: Positive for: Normal Inspection. Negative for: Cyanosis, Edema Lower Extremity: Positive for: Normal Inspection. Negative for: Edema Skin: Positive for: Warm, Dry, Normal Color. Negative for: Rashes Psychiatric: Positive for: Alert, Oriented x 3, Normal Insight, Normal Concentration - Medications Active Medications: Active Medications Generic Name Dose Route Start Last Admin Trade Name Freq PRN Reason Stop Dose Admin Apixaban 2.5 mg 09/26/18 10:00 09/26/18 19:00 Eliquis PO Not Given BID ANDRES Protocol Diltiazem HCl 180 mg 09/26/18 10:00 09/26/18 10:00 Cardizem Cd PO Not Given DAILY ANDRES Meropenem 1 gm in 50 mls @ 100 mls/hr 09/25/18 22:00 09/26/18 21:05 Merrem Iv 1 Gm Premix IVPB 10/04/18 22:01 100 mls/hr Q12 ANDRES Administration Protocol Doxycycline Hyclate 100 mg/ 100 mls @ 100 mls/hr 09/25/18 22:00 09/26/18 21:04 Sodium Chloride IVPB 10/04/18 22:01 100 mls/hr Q12 ANDRES Administration Protocol Dexmedetomidine HCl 400 mcg in 100 mls @ 4.751 mls/hr 09/26/18 10:37 09/27/18 03:00 Precedex 400mcg/100ml IV 0.1 mcg/kg/hr .Q21H3M PRN 2.376 mls/hr Agitation Titration Protocol 0.2 MCG/KG/HR Potassium Chloride/Dextrose 1,000 mls @ 100 mls/hr 09/26/18 20:00 09/27/18 06:14 Potassium Chl 40 Meq In D5w IV Not Given .Q10H ANDRES Insulin Human Regular 100 100 mls @ 2 mls/hr 09/26/18 22:34 09/27/18 04:30 units/ Sodium Chloride IV 5 unit/hr .Q24H PRN 5 mls/hr TITRATE PER MD ORDER Titration Protocol Per Protocol Melatonin 1 mg 09/26/18 22:00 09/26/18 21:47 Melatonin PO 1 mg HS ANDRES Administration Nystatin/Triamcinolone Acetonide 0 ea 09/26/18 10:00 09/26/18 19:00 Nystatin/Triamcinolone Cream TOP 1 applic BID ANDRES Administration Pantoprazole Sodium 40 mg 09/26/18 10:00 09/26/18 10:20 Protonix Inj IVP 40 mg DAILY ANDRES Administration Sotalol HCl 80 mg 09/26/18 10:00 09/26/18 19:00 Betapace PO Not Given BID ANDRES - Patient Studies Lab Studies: Microbiology Studies 09/25/18 16:38 Blood Culture - Preliminary Blood NO GROWTH AFTER 24 HOURS 09/25/18 16:38 Blood Culture - Preliminary Blood NO GROWTH AFTER 24 HOURS Lab Studies 09/27/18 09/27/18 09/27/18 Range/Units 06:04 05:40 04:27 WBC 9.1 (4.5-11.0) 10^3/uL RBC 4.95 (3.5-6.1) 10^6/uL Hgb 14.7 D (14.0-18.0) g/dL Hct 45.2 (42.0-52.0) % MCV 91.3 (80.0-105.0) fl MCH 29.7 (25.0-35.0) pg MCHC 32.5 (31.0-37.0) g/dl RDW 13.9 (11.5-14.5) % Plt Count 131 (120.0-450.0) 10^3/uL MPV 12.6 H (7.0-11.0) fl Neut % (Auto) 66.1 (50.0-68.0) % Lymph % (Auto) 18.6 L (22.0-35.0) % Stearns % (Auto) 11.6 H (1.0-6.0) % Eos % (Auto) 3.5 (1.5-5.0) % Baso % (Auto) 0.2 (0.0-3.0) % Lymph # (Auto) 1.7 (1.2-3.4) Stearns # (Auto) 1.1 H (0.1-0.6) Eos # (Auto) 0.3 (0.0-0.7) Baso # (Auto) 0.02 (0.0-2.0) K/mm3 Absolute Neuts (auto) 6.00 (1.4-6.5) pCO2 (35-45) mm/Hg pO2 (80-100) mm/Hg HCO3 (21-28) mmol/L ABG pH (7.35-7.45) ABG Total CO2 (22-28) mmol.L ABG O2 Saturation (95-98) % ABG Base Excess (-2.0-3.0) mmol/L ABG Potassium (3.6-5.2) mmol/L VBG pH (7.32-7.43) VBG pCO2 (40-60) VBG HCO3 (21-28) mmol/l VBG Total CO2 (22-28) mmol.L VBG O2 Sat (Calc) (40-65) % VBG Base Excess (0.0-2.0) mmol/L VBG Potassium (3.6-5.2) mmol/L Sodium (132-148) mmol/L Chloride (98-107) mmol/L Glucose (75-110) mg/dl Lactate (0.7-2.1) mmol/L FiO2 % Crit Value Called To Crit Value Called By Blood Gas Notified Time Potassium (3.6-5.0) mmol/L Carbon Dioxide (21-33) mmol/L Anion Gap (10-20) BUN (7-21) mg/dL Creatinine (0.8-1.5) mg/dl Est GFR ( Amer) Est GFR (Non-Af Amer) POC Glucose (mg/dL) 257 H 246 H (65-110) mg/dL Random Glucose (70-110) mg/dL Hemoglobin A1c (4.2-6.5) % Calcium (8.4-10.5) mg/dL Phosphorus (2.5-4.5) mg/dL Magnesium (1.7-2.2) mg/dL Total Bilirubin (0.2-1.3) mg/dL AST (17-59) U/L ALT (7-56) U/L Alkaline Phosphatase (38-126) U/L Total Protein (5.8-8.3) g/dL Albumin (3.0-4.8) g/dL Globulin gm/dL Albumin/Globulin Ratio (1.1-1.8) Procalcitonin (0.19-0.49) NG/ML Arterial Blood Potassium (3.6-5.2) mmol/L Venous Blood Potassium (3.6-5.2) mmol/L B-Hydroxybutyrate (0.02-0.27) mM HIV 1&2 Ag/Ab, 4th Gen (Nonreactive) 09/27/18 09/27/18 09/27/18 Range/Units 04:20 03:10 01:58 WBC (4.5-11.0) 10^3/uL RBC (3.5-6.1) 10^6/uL Hgb (14.0-18.0) g/dL Hct (42.0-52.0) % MCV (80.0-105.0) fl MCH (25.0-35.0) pg MCHC (31.0-37.0) g/dl RDW (11.5-14.5) % Plt Count (120.0-450.0) 10^3/uL MPV (7.0-11.0) fl Neut % (Auto) (50.0-68.0) % Lymph % (Auto) (22.0-35.0) % Stearns % (Auto) (1.0-6.0) % Eos % (Auto) (1.5-5.0) % Baso % (Auto) (0.0-3.0) % Lymph # (Auto) (1.2-3.4) Stearns # (Auto) (0.1-0.6) Eos # (Auto) (0.0-0.7) Baso # (Auto) (0.0-2.0) K/mm3 Absolute Neuts (auto) (1.4-6.5) pCO2 (35-45) mm/Hg pO2 (80-100) mm/Hg HCO3 (21-28) mmol/L ABG pH (7.35-7.45) ABG Total CO2 (22-28) mmol.L ABG O2 Saturation (95-98) % ABG Base Excess (-2.0-3.0) mmol/L ABG Potassium (3.6-5.2) mmol/L VBG pH (7.32-7.43) VBG pCO2 (40-60) VBG HCO3 (21-28) mmol/l VBG Total CO2 (22-28) mmol.L VBG O2 Sat (Calc) (40-65) % VBG Base Excess (0.0-2.0) mmol/L VBG Potassium (3.6-5.2) mmol/L Sodium 160 H* (132-148) mmol/L Chloride 130 H (98-107) mmol/L Glucose (75-110) mg/dl Lactate (0.7-2.1) mmol/L FiO2 % Crit Value Called To Crit Value Called By Blood Gas Notified Time Potassium 4.3 (3.6-5.0) mmol/L Carbon Dioxide 25 (21-33) mmol/L Anion Gap 8 L (10-20) BUN 36 H (7-21) mg/dL Creatinine 1.2 (0.8-1.5) mg/dl Est GFR ( Amer) > 60 Est GFR (Non-Af Amer) > 60 POC Glucose (mg/dL) 260 H 183 H (65-110) mg/dL Random Glucose 238 H (70-110) mg/dL Hemoglobin A1c (4.2-6.5) % Calcium 9.5 (8.4-10.5) mg/dL Phosphorus 3.2 (2.5-4.5) mg/dL Magnesium 2.4 H (1.7-2.2) mg/dL Total Bilirubin (0.2-1.3) mg/dL AST (17-59) U/L ALT (7-56) U/L Alkaline Phosphatase (38-126) U/L Total Protein (5.8-8.3) g/dL Albumin (3.0-4.8) g/dL Globulin gm/dL Albumin/Globulin Ratio (1.1-1.8) Procalcitonin (0.19-0.49) NG/ML Arterial Blood Potassium (3.6-5.2) mmol/L Venous Blood Potassium (3.6-5.2) mmol/L B-Hydroxybutyrate (0.02-0.27) mM HIV 1&2 Ag/Ab, 4th Gen (Nonreactive) 09/27/18 09/27/18 09/27/18 Range/Units 01:14 00:30 00:03 WBC (4.5-11.0) 10^3/uL RBC (3.5-6.1) 10^6/uL Hgb (14.0-18.0) g/dL Hct (42.0-52.0) % MCV (80.0-105.0) fl MCH (25.0-35.0) pg MCHC (31.0-37.0) g/dl RDW (11.5-14.5) % Plt Count (120.0-450.0) 10^3/uL MPV (7.0-11.0) fl Neut % (Auto) (50.0-68.0) % Lymph % (Auto) (22.0-35.0) % Stearns % (Auto) (1.0-6.0) % Eos % (Auto) (1.5-5.0) % Baso % (Auto) (0.0-3.0) % Lymph # (Auto) (1.2-3.4) Stearns # (Auto) (0.1-0.6) Eos # (Auto) (0.0-0.7) Baso # (Auto) (0.0-2.0) K/mm3 Absolute Neuts (auto) (1.4-6.5) pCO2 (35-45) mm/Hg pO2 (80-100) mm/Hg HCO3 (21-28) mmol/L ABG pH (7.35-7.45) ABG Total CO2 (22-28) mmol.L ABG O2 Saturation (95-98) % ABG Base Excess (-2.0-3.0) mmol/L ABG Potassium (3.6-5.2) mmol/L VBG pH (7.32-7.43) VBG pCO2 (40-60) VBG HCO3 (21-28) mmol/l VBG Total CO2 (22-28) mmol.L VBG O2 Sat (Calc) (40-65) % VBG Base Excess (0.0-2.0) mmol/L VBG Potassium (3.6-5.2) mmol/L Sodium 161 H* (132-148) mmol/L Chloride 132 H (98-107) mmol/L Glucose (75-110) mg/dl Lactate (0.7-2.1) mmol/L FiO2 % Crit Value Called To Crit Value Called By Blood Gas Notified Time Potassium 3.9 (3.6-5.0) mmol/L Carbon Dioxide 26 (21-33) mmol/L Anion Gap 6 L (10-20) BUN 34 H (7-21) mg/dL Creatinine 1.0 (0.8-1.5) mg/dl Est GFR ( Amer) > 60 Est GFR (Non-Af Amer) > 60 POC Glucose (mg/dL) 157 H 107 (65-110) mg/dL Random Glucose 114 H (70-110) mg/dL Hemoglobin A1c (4.2-6.5) % Calcium 9.6 (8.4-10.5) mg/dL Phosphorus (2.5-4.5) mg/dL Magnesium 2.4 H (1.7-2.2) mg/dL Total Bilirubin (0.2-1.3) mg/dL AST (17-59) U/L ALT (7-56) U/L Alkaline Phosphatase (38-126) U/L Total Protein (5.8-8.3) g/dL Albumin (3.0-4.8) g/dL Globulin gm/dL Albumin/Globulin Ratio (1.1-1.8) Procalcitonin (0.19-0.49) NG/ML Arterial Blood Potassium (3.6-5.2) mmol/L Venous Blood Potassium (3.6-5.2) mmol/L B-Hydroxybutyrate (0.02-0.27) mM HIV 1&2 Ag/Ab, 4th Gen (Nonreactive) 09/26/18 09/26/18 09/26/18 Range/Units 23:11 21:51 21:00 WBC (4.5-11.0) 10^3/uL RBC (3.5-6.1) 10^6/uL Hgb (14.0-18.0) g/dL Hct (42.0-52.0) % MCV (80.0-105.0) fl MCH (25.0-35.0) pg MCHC (31.0-37.0) g/dl RDW (11.5-14.5) % Plt Count (120.0-450.0) 10^3/uL MPV (7.0-11.0) fl Neut % (Auto) (50.0-68.0) % Lymph % (Auto) (22.0-35.0) % Stearns % (Auto) (1.0-6.0) % Eos % (Auto) (1.5-5.0) % Baso % (Auto) (0.0-3.0) % Lymph # (Auto) (1.2-3.4) Stearns # (Auto) (0.1-0.6) Eos # (Auto) (0.0-0.7) Baso # (Auto) (0.0-2.0) K/mm3 Absolute Neuts (auto) (1.4-6.5) pCO2 (35-45) mm/Hg pO2 (80-100) mm/Hg HCO3 (21-28) mmol/L ABG pH (7.35-7.45) ABG Total CO2 (22-28) mmol.L ABG O2 Saturation (95-98) % ABG Base Excess (-2.0-3.0) mmol/L ABG Potassium (3.6-5.2) mmol/L VBG pH (7.32-7.43) VBG pCO2 (40-60) VBG HCO3 (21-28) mmol/l VBG Total CO2 (22-28) mmol.L VBG O2 Sat (Calc) (40-65) % VBG Base Excess (0.0-2.0) mmol/L VBG Potassium (3.6-5.2) mmol/L Sodium (132-148) mmol/L Chloride (98-107) mmol/L Glucose (75-110) mg/dl Lactate (0.7-2.1) mmol/L FiO2 % Crit Value Called To Crit Value Called By Blood Gas Notified Time Potassium (3.6-5.0) mmol/L Carbon Dioxide (21-33) mmol/L Anion Gap (10-20) BUN (7-21) mg/dL Creatinine (0.8-1.5) mg/dl Est GFR ( Amer) Est GFR (Non-Af Amer) POC Glucose (mg/dL) 140 H 100 116 H (65-110) mg/dL Random Glucose (70-110) mg/dL Hemoglobin A1c (4.2-6.5) % Calcium (8.4-10.5) mg/dL Phosphorus (2.5-4.5) mg/dL Magnesium (1.7-2.2) mg/dL Total Bilirubin (0.2-1.3) mg/dL AST (17-59) U/L ALT (7-56) U/L Alkaline Phosphatase (38-126) U/L Total Protein (5.8-8.3) g/dL Albumin (3.0-4.8) g/dL Globulin gm/dL Albumin/Globulin Ratio (1.1-1.8) Procalcitonin (0.19-0.49) NG/ML Arterial Blood Potassium (3.6-5.2) mmol/L Venous Blood Potassium (3.6-5.2) mmol/L B-Hydroxybutyrate (0.02-0.27) mM HIV 1&2 Ag/Ab, 4th Gen (Nonreactive) 09/26/18 09/26/18 09/26/18 Range/Units 20:26 19:05 18:33 WBC (4.5-11.0) 10^3/uL RBC (3.5-6.1) 10^6/uL Hgb (14.0-18.0) g/dL Hct (42.0-52.0) % MCV (80.0-105.0) fl MCH (25.0-35.0) pg MCHC (31.0-37.0) g/dl RDW (11.5-14.5) % Plt Count (120.0-450.0) 10^3/uL MPV (7.0-11.0) fl Neut % (Auto) (50.0-68.0) % Lymph % (Auto) (22.0-35.0) % Stearns % (Auto) (1.0-6.0) % Eos % (Auto) (1.5-5.0) % Baso % (Auto) (0.0-3.0) % Lymph # (Auto) (1.2-3.4) Stearns # (Auto) (0.1-0.6) Eos # (Auto) (0.0-0.7) Baso # (Auto) (0.0-2.0) K/mm3 Absolute Neuts (auto) (1.4-6.5) pCO2 (35-45) mm/Hg pO2 (80-100) mm/Hg HCO3 (21-28) mmol/L ABG pH (7.35-7.45) ABG Total CO2 (22-28) mmol.L ABG O2 Saturation (95-98) % ABG Base Excess (-2.0-3.0) mmol/L ABG Potassium (3.6-5.2) mmol/L VBG pH (7.32-7.43) VBG pCO2 (40-60) VBG HCO3 (21-28) mmol/l VBG Total CO2 (22-28) mmol.L VBG O2 Sat (Calc) (40-65) % VBG Base Excess (0.0-2.0) mmol/L VBG Potassium (3.6-5.2) mmol/L Sodium 161 H* (132-148) mmol/L Chloride 130 H (98-107) mmol/L Glucose (75-110) mg/dl Lactate (0.7-2.1) mmol/L FiO2 % Crit Value Called To Crit Value Called By Blood Gas Notified Time Potassium 3.3 L (3.6-5.0) mmol/L Carbon Dioxide 25 (21-33) mmol/L Anion Gap 11 (10-20) BUN 33 H (7-21) mg/dL Creatinine 1.0 (0.8-1.5) mg/dl Est GFR ( Amer) > 60 Est GFR (Non-Af Amer) > 60 POC Glucose (mg/dL) 192 H 261 H (65-110) mg/dL Random Glucose 298 H (70-110) mg/dL Hemoglobin A1c (4.2-6.5) % Calcium 10.0 (8.4-10.5) mg/dL Phosphorus (2.5-4.5) mg/dL Magnesium (1.7-2.2) mg/dL Total Bilirubin (0.2-1.3) mg/dL AST (17-59) U/L ALT (7-56) U/L Alkaline Phosphatase (38-126) U/L Total Protein (5.8-8.3) g/dL Albumin (3.0-4.8) g/dL Globulin gm/dL Albumin/Globulin Ratio (1.1-1.8) Procalcitonin (0.19-0.49) NG/ML Arterial Blood Potassium (3.6-5.2) mmol/L Venous Blood Potassium (3.6-5.2) mmol/L B-Hydroxybutyrate (0.02-0.27) mM HIV 1&2 Ag/Ab, 4th Gen (Nonreactive) 09/26/18 09/26/18 09/26/18 Range/Units 18:00 17:01 16:15 WBC (4.5-11.0) 10^3/uL RBC (3.5-6.1) 10^6/uL Hgb (14.0-18.0) g/dL Hct (42.0-52.0) % MCV (80.0-105.0) fl MCH (25.0-35.0) pg MCHC (31.0-37.0) g/dl RDW (11.5-14.5) % Plt Count (120.0-450.0) 10^3/uL MPV (7.0-11.0) fl Neut % (Auto) (50.0-68.0) % Lymph % (Auto) (22.0-35.0) % Stearns % (Auto) (1.0-6.0) % Eos % (Auto) (1.5-5.0) % Baso % (Auto) (0.0-3.0) % Lymph # (Auto) (1.2-3.4) Stearns # (Auto) (0.1-0.6) Eos # (Auto) (0.0-0.7) Baso # (Auto) (0.0-2.0) K/mm3 Absolute Neuts (auto) (1.4-6.5) pCO2 (35-45) mm/Hg pO2 (80-100) mm/Hg HCO3 (21-28) mmol/L ABG pH (7.35-7.45) ABG Total CO2 (22-28) mmol.L ABG O2 Saturation (95-98) % ABG Base Excess (-2.0-3.0) mmol/L ABG Potassium (3.6-5.2) mmol/L VBG pH (7.32-7.43) VBG pCO2 (40-60) VBG HCO3 (21-28) mmol/l VBG Total CO2 (22-28) mmol.L VBG O2 Sat (Calc) (40-65) % VBG Base Excess (0.0-2.0) mmol/L VBG Potassium (3.6-5.2) mmol/L Sodium (132-148) mmol/L Chloride (98-107) mmol/L Glucose (75-110) mg/dl Lactate (0.7-2.1) mmol/L FiO2 % Crit Value Called To Crit Value Called By Blood Gas Notified Time Potassium (3.6-5.0) mmol/L Carbon Dioxide (21-33) mmol/L Anion Gap (10-20) BUN (7-21) mg/dL Creatinine (0.8-1.5) mg/dl Est GFR ( Amer) Est GFR (Non-Af Amer) POC Glucose (mg/dL) 297 H 377 H 424 H* (65-110) mg/dL Random Glucose (70-110) mg/dL Hemoglobin A1c (4.2-6.5) % Calcium (8.4-10.5) mg/dL Phosphorus (2.5-4.5) mg/dL Magnesium (1.7-2.2) mg/dL Total Bilirubin (0.2-1.3) mg/dL AST (17-59) U/L ALT (7-56) U/L Alkaline Phosphatase (38-126) U/L Total Protein (5.8-8.3) g/dL Albumin (3.0-4.8) g/dL Globulin gm/dL Albumin/Globulin Ratio (1.1-1.8) Procalcitonin (0.19-0.49) NG/ML Arterial Blood Potassium (3.6-5.2) mmol/L Venous Blood Potassium (3.6-5.2) mmol/L B-Hydroxybutyrate (0.02-0.27) mM HIV 1&2 Ag/Ab, 4th Gen (Nonreactive) 04/09/26/18 09/26/18 Range/Units 15:34 15:01 14:31 WBC (4.5-11.0) 10^3/uL RBC (3.5-6.1) 10^6/uL Hgb (14.0-18.0) g/dL Hct (42.0-52.0) % MCV (80.0-105.0) fl MCH (25.0-35.0) pg MCHC (31.0-37.0) g/dl RDW (11.5-14.5) % Plt Count (120.0-450.0) 10^3/uL MPV (7.0-11.0) fl Neut % (Auto) (50.0-68.0) % Lymph % (Auto) (22.0-35.0) % Stearns % (Auto) (1.0-6.0) % Eos % (Auto) (1.5-5.0) % Baso % (Auto) (0.0-3.0) % Lymph # (Auto) (1.2-3.4) Stearns # (Auto) (0.1-0.6) Eos # (Auto) (0.0-0.7) Baso # (Auto) (0.0-2.0) K/mm3 Absolute Neuts (auto) (1.4-6.5) pCO2 (35-45) mm/Hg pO2 (80-100) mm/Hg HCO3 (21-28) mmol/L ABG pH (7.35-7.45) ABG Total CO2 (22-28) mmol.L ABG O2 Saturation (95-98) % ABG Base Excess (-2.0-3.0) mmol/L ABG Potassium (3.6-5.2) mmol/L VBG pH (7.32-7.43) VBG pCO2 (40-60) VBG HCO3 (21-28) mmol/l VBG Total CO2 (22-28) mmol.L VBG O2 Sat (Calc) (40-65) % VBG Base Excess (0.0-2.0) mmol/L VBG Potassium (3.6-5.2) mmol/L Sodium (132-148) mmol/L Chloride (98-107) mmol/L Glucose (75-110) mg/dl Lactate (0.7-2.1) mmol/L FiO2 % Crit Value Called To Crit Value Called By Blood Gas Notified Time Potassium (3.6-5.0) mmol/L Carbon Dioxide (21-33) mmol/L Anion Gap (10-20) BUN (7-21) mg/dL Creatinine (0.8-1.5) mg/dl Est GFR ( Amer) Est GFR (Non-Af Amer) POC Glucose (mg/dL) 480 H* > 500 H* 460 H* (65-110) mg/dL Random Glucose (70-110) mg/dL Hemoglobin A1c (4.2-6.5) % Calcium (8.4-10.5) mg/dL Phosphorus (2.5-4.5) mg/dL Magnesium (1.7-2.2) mg/dL Total Bilirubin (0.2-1.3) mg/dL AST (17-59) U/L ALT (7-56) U/L Alkaline Phosphatase (38-126) U/L Total Protein (5.8-8.3) g/dL Albumin (3.0-4.8) g/dL Globulin gm/dL Albumin/Globulin Ratio (1.1-1.8) Procalcitonin (0.19-0.49) NG/ML Arterial Blood Potassium (3.6-5.2) mmol/L Venous Blood Potassium (3.6-5.2) mmol/L B-Hydroxybutyrate (0.02-0.27) mM HIV 1&2 Ag/Ab, 4th Gen (Nonreactive) 09/26/18 09/26/18 09/26/18 Range/Units 14:00 14:00 13:29 WBC (4.5-11.0) 10^3/uL RBC (3.5-6.1) 10^6/uL Hgb (14.0-18.0) g/dL Hct (42.0-52.0) % MCV (80.0-105.0) fl MCH (25.0-35.0) pg MCHC (31.0-37.0) g/dl RDW (11.5-14.5) % Plt Count (120.0-450.0) 10^3/uL MPV (7.0-11.0) fl Neut % (Auto) (50.0-68.0) % Lymph % (Auto) (22.0-35.0) % Stearns % (Auto) (1.0-6.0) % Eos % (Auto) (1.5-5.0) % Baso % (Auto) (0.0-3.0) % Lymph # (Auto) (1.2-3.4) Stearns # (Auto) (0.1-0.6) Eos # (Auto) (0.0-0.7) Baso # (Auto) (0.0-2.0) K/mm3 Absolute Neuts (auto) (1.4-6.5) pCO2 (35-45) mm/Hg pO2 196 H (80-100) mm/Hg HCO3 (21-28) mmol/L ABG pH (7.35-7.45) ABG Total CO2 (22-28) mmol.L ABG O2 Saturation (95-98) % ABG Base Excess (-2.0-3.0) mmol/L ABG Potassium (3.6-5.2) mmol/L VBG pH 7.35 (7.32-7.43) VBG pCO2 45.0 (40-60) VBG HCO3 24.8 (21-28) mmol/l VBG Total CO2 26.2 (22-28) mmol.L VBG O2 Sat (Calc) 100.6 H (40-65) % VBG Base Excess -1.1 L (0.0-2.0) mmol/L VBG Potassium 4.1 (3.6-5.2) mmol/L Sodium 159 H* 160.0 H* (132-148) mmol/L Chloride 128 H 127.0 H (98-107) mmol/L Glucose 487 H* D (75-110) mg/dl Lactate 1.5 (0.7-2.1) mmol/L FiO2 21.0 % Crit Value Called To Allegra martinez Crit Value Called By [email or web address] Blood Gas Notified Time 1426 Potassium 4.1 (3.6-5.0) mmol/L Carbon Dioxide 26 (21-33) mmol/L Anion Gap 9 L (10-20) BUN 32 H (7-21) mg/dL Creatinine 0.9 (0.8-1.5) mg/dl Est GFR ( Amer) > 60 Est GFR (Non-Af Amer) > 60 POC Glucose (mg/dL) 404 H* (65-110) mg/dL Random Glucose 456 H* D (70-110) mg/dL Hemoglobin A1c (4.2-6.5) % Calcium 9.5 (8.4-10.5) mg/dL Phosphorus (2.5-4.5) mg/dL Magnesium (1.7-2.2) mg/dL Total Bilirubin (0.2-1.3) mg/dL AST (17-59) U/L ALT (7-56) U/L Alkaline Phosphatase (38-126) U/L Total Protein (5.8-8.3) g/dL Albumin (3.0-4.8) g/dL Globulin gm/dL Albumin/Globulin Ratio (1.1-1.8) Procalcitonin (0.19-0.49) NG/ML Arterial Blood Potassium (3.6-5.2) mmol/L Venous Blood Potassium 4.1 (3.6-5.2) mmol/L B-Hydroxybutyrate (0.02-0.27) mM HIV 1&2 Ag/Ab, 4th Gen (Nonreactive) 09/26/18 09/26/18 09/26/18 Range/Units 12:23 11:49 10:45 WBC (4.5-11.0) 10^3/uL RBC (3.5-6.1) 10^6/uL Hgb (14.0-18.0) g/dL Hct (42.0-52.0) % MCV (80.0-105.0) fl MCH (25.0-35.0) pg MCHC (31.0-37.0) g/dl RDW (11.5-14.5) % Plt Count (120.0-450.0) 10^3/uL MPV (7.0-11.0) fl Neut % (Auto) (50.0-68.0) % Lymph % (Auto) (22.0-35.0) % Stearns % (Auto) (1.0-6.0) % Eos % (Auto) (1.5-5.0) % Baso % (Auto) (0.0-3.0) % Lymph # (Auto) (1.2-3.4) Stearns # (Auto) (0.1-0.6) Eos # (Auto) (0.0-0.7) Baso # (Auto) (0.0-2.0) K/mm3 Absolute Neuts (auto) (1.4-6.5) pCO2 (35-45) mm/Hg pO2 (80-100) mm/Hg HCO3 (21-28) mmol/L ABG pH (7.35-7.45) ABG Total CO2 (22-28) mmol.L ABG O2 Saturation (95-98) % ABG Base Excess (-2.0-3.0) mmol/L ABG Potassium (3.6-5.2) mmol/L VBG pH (7.32-7.43) VBG pCO2 (40-60) VBG HCO3 (21-28) mmol/l VBG Total CO2 (22-28) mmol.L VBG O2 Sat (Calc) (40-65) % VBG Base Excess (0.0-2.0) mmol/L VBG Potassium (3.6-5.2) mmol/L Sodium (132-148) mmol/L Chloride (98-107) mmol/L Glucose (75-110) mg/dl Lactate (0.7-2.1) mmol/L FiO2 % Crit Value Called To Crit Value Called By Blood Gas Notified Time Potassium (3.6-5.0) mmol/L Carbon Dioxide (21-33) mmol/L Anion Gap (10-20) BUN (7-21) mg/dL Creatinine (0.8-1.5) mg/dl Est GFR ( Amer) Est GFR (Non-Af Amer) POC Glucose (mg/dL) 404 H* 369 H 335 H (65-110) mg/dL Random Glucose (70-110) mg/dL Hemoglobin A1c (4.2-6.5) % Calcium (8.4-10.5) mg/dL Phosphorus (2.5-4.5) mg/dL Magnesium (1.7-2.2) mg/dL Total Bilirubin (0.2-1.3) mg/dL AST (17-59) U/L ALT (7-56) U/L Alkaline Phosphatase (38-126) U/L Total Protein (5.8-8.3) g/dL Albumin (3.0-4.8) g/dL Globulin gm/dL Albumin/Globulin Ratio (1.1-1.8) Procalcitonin (0.19-0.49) NG/ML Arterial Blood Potassium (3.6-5.2) mmol/L Venous Blood Potassium (3.6-5.2) mmol/L B-Hydroxybutyrate (0.02-0.27) mM HIV 1&2 Ag/Ab, 4th Gen (Nonreactive) 09/26/18 09/26/18 09/26/18 Range/Units 10:30 10:30 10:30 WBC 8.9 D (4.5-11.0) 10^3/uL RBC 6.03 (3.5-6.1) 10^6/uL Hgb 18.0 (14.0-18.0) g/dL Hct 54.3 H (42.0-52.0) % MCV 90.0 D (80.0-105.0) fl MCH 29.9 (25.0-35.0) pg MCHC 33.1 (31.0-37.0) g/dl RDW 13.8 (11.5-14.5) % Plt Count 140 (120.0-450.0) 10^3/uL MPV 12.4 H (7.0-11.0) fl Neut % (Auto) 73.1 H (50.0-68.0) % Lymph % (Auto) 13.0 L (22.0-35.0) % Stearns % (Auto) 10.2 H (1.0-6.0) % Eos % (Auto) 3.5 (1.5-5.0) % Baso % (Auto) 0.2 (0.0-3.0) % Lymph # (Auto) 1.2 (1.2-3.4) Stearns # (Auto) 0.9 H (0.1-0.6) Eos # (Auto) 0.3 (0.0-0.7) Baso # (Auto) 0.02 (0.0-2.0) K/mm3 Absolute Neuts (auto) 6.53 H (1.4-6.5) pCO2 (35-45) mm/Hg pO2 86 H (80-100) mm/Hg HCO3 (21-28) mmol/L ABG pH (7.35-7.45) ABG Total CO2 (22-28) mmol.L ABG O2 Saturation (95-98) % ABG Base Excess (-2.0-3.0) mmol/L ABG Potassium (3.6-5.2) mmol/L VBG pH 7.31 L (7.32-7.43) VBG pCO2 48.0 (40-60) VBG HCO3 24.2 (21-28) mmol/l VBG Total CO2 25.7 (22-28) mmol.L VBG O2 Sat (Calc) 97.5 H (40-65) % VBG Base Excess -2.5 L (0.0-2.0) mmol/L VBG Potassium 3.8 (3.6-5.2) mmol/L Sodium 163 H* 166.0 H* (132-148) mmol/L Chloride 131 H 127.0 H (98-107) mmol/L Glucose 326 H (75-110) mg/dl Lactate 2.8 H (0.7-2.1) mmol/L FiO2 21.0 % Crit Value Called To Soumya martinez Crit Value Called By Simona ley Blood Gas Notified Time 1040 Potassium 4.0 (3.6-5.0) mmol/L Carbon Dioxide 25 (21-33) mmol/L Anion Gap 10 (10-20) BUN 33 H (7-21) mg/dL Creatinine 1.0 (0.8-1.5) mg/dl Est GFR ( Amer) > 60 Est GFR (Non-Af Amer) > 60 POC Glucose (mg/dL) (65-110) mg/dL Random Glucose 316 H* (70-110) mg/dL Hemoglobin A1c (4.2-6.5) % Calcium 10.3 (8.4-10.5) mg/dL Phosphorus (2.5-4.5) mg/dL Magnesium (1.7-2.2) mg/dL Total Bilirubin 1.1 (0.2-1.3) mg/dL AST 27 (17-59) U/L ALT 26 (7-56) U/L Alkaline Phosphatase 109 (38-126) U/L Total Protein 6.9 (5.8-8.3) g/dL Albumin 3.6 (3.0-4.8) g/dL Globulin 3.3 gm/dL Albumin/Globulin Ratio 1.1 (1.1-1.8) Procalcitonin (0.19-0.49) NG/ML Arterial Blood Potassium (3.6-5.2) mmol/L Venous Blood Potassium 3.8 (3.6-5.2) mmol/L B-Hydroxybutyrate (0.02-0.27) mM HIV 1&2 Ag/Ab, 4th Gen (Nonreactive) 09/26/18 09/26/18 09/26/18 Range/Units 09:10 08:15 08:00 WBC (4.5-11.0) 10^3/uL RBC (3.5-6.1) 10^6/uL Hgb (14.0-18.0) g/dL Hct (42.0-52.0) % MCV (80.0-105.0) fl MCH (25.0-35.0) pg MCHC (31.0-37.0) g/dl RDW (11.5-14.5) % Plt Count (120.0-450.0) 10^3/uL MPV (7.0-11.0) fl Neut % (Auto) (50.0-68.0) % Lymph % (Auto) (22.0-35.0) % Stearns % (Auto) (1.0-6.0) % Eos % (Auto) (1.5-5.0) % Baso % (Auto) (0.0-3.0) % Lymph # (Auto) (1.2-3.4) Stearns # (Auto) (0.1-0.6) Eos # (Auto) (0.0-0.7) Baso # (Auto) (0.0-2.0) K/mm3 Absolute Neuts (auto) (1.4-6.5) pCO2 39 (35-45) mm/Hg pO2 86.0 (80-100) mm/Hg HCO3 24.7 (21-28) mmol/L ABG pH 7.41 (7.35-7.45) ABG Total CO2 25.9 (22-28) mmol.L ABG O2 Saturation 98.6 H (95-98) % ABG Base Excess 0.1 (-2.0-3.0) mmol/L ABG Potassium 3.6 (3.6-5.2) mmol/L VBG pH (7.32-7.43) VBG pCO2 (40-60) VBG HCO3 (21-28) mmol/l VBG Total CO2 (22-28) mmol.L VBG O2 Sat (Calc) (40-65) % VBG Base Excess (0.0-2.0) mmol/L VBG Potassium (3.6-5.2) mmol/L Sodium 165.0 H* (132-148) mmol/L Chloride 129.0 H (98-107) mmol/L Glucose 304 H (75-110) mg/dl Lactate 1.1 (0.7-2.1) mmol/L FiO2 32.0 % Crit Value Called To Dr urena Crit Value Called By Haroldo ramos Blood Gas Notified Time 820 Potassium (3.6-5.0) mmol/L Carbon Dioxide (21-33) mmol/L Anion Gap (10-20) BUN (7-21) mg/dL Creatinine (0.8-1.5) mg/dl Est GFR ( Amer) Est GFR (Non-Af Amer) POC Glucose (mg/dL) 292 H 287 H (65-110) mg/dL Random Glucose (70-110) mg/dL Hemoglobin A1c (4.2-6.5) % Calcium (8.4-10.5) mg/dL Phosphorus (2.5-4.5) mg/dL Magnesium (1.7-2.2) mg/dL Total Bilirubin (0.2-1.3) mg/dL AST (17-59) U/L ALT (7-56) U/L Alkaline Phosphatase (38-126) U/L Total Protein (5.8-8.3) g/dL Albumin (3.0-4.8) g/dL Globulin gm/dL Albumin/Globulin Ratio (1.1-1.8) Procalcitonin (0.19-0.49) NG/ML Arterial Blood Potassium 3.6 (3.6-5.2) mmol/L Venous Blood Potassium (3.6-5.2) mmol/L B-Hydroxybutyrate (0.02-0.27) mM HIV 1&2 Ag/Ab, 4th Gen (Nonreactive) 09/26/18 09/26/18 09/25/18 Range/Units 06:41 05:45 21:40 WBC (4.5-11.0) 10^3/uL RBC (3.5-6.1) 10^6/uL Hgb (14.0-18.0) g/dL Hct (42.0-52.0) % MCV (80.0-105.0) fl MCH (25.0-35.0) pg MCHC (31.0-37.0) g/dl RDW (11.5-14.5) % Plt Count (120.0-450.0) 10^3/uL MPV (7.0-11.0) fl Neut % (Auto) (50.0-68.0) % Lymph % (Auto) (22.0-35.0) % Stearns % (Auto) (1.0-6.0) % Eos % (Auto) (1.5-5.0) % Baso % (Auto) (0.0-3.0) % Lymph # (Auto) (1.2-3.4) Stearns # (Auto) (0.1-0.6) Eos # (Auto) (0.0-0.7) Baso # (Auto) (0.0-2.0) K/mm3 Absolute Neuts (auto) (1.4-6.5) pCO2 (35-45) mm/Hg pO2 (80-100) mm/Hg HCO3 (21-28) mmol/L ABG pH (7.35-7.45) ABG Total CO2 (22-28) mmol.L ABG O2 Saturation (95-98) % ABG Base Excess (-2.0-3.0) mmol/L ABG Potassium (3.6-5.2) mmol/L VBG pH (7.32-7.43) VBG pCO2 (40-60) VBG HCO3 (21-28) mmol/l VBG Total CO2 (22-28) mmol.L VBG O2 Sat (Calc) (40-65) % VBG Base Excess (0.0-2.0) mmol/L VBG Potassium (3.6-5.2) mmol/L Sodium (132-148) mmol/L Chloride (98-107) mmol/L Glucose (75-110) mg/dl Lactate (0.7-2.1) mmol/L FiO2 % Crit Value Called To Crit Value Called By Blood Gas Notified Time Potassium (3.6-5.0) mmol/L Carbon Dioxide (21-33) mmol/L Anion Gap (10-20) BUN (7-21) mg/dL Creatinine (0.8-1.5) mg/dl Est GFR ( Amer) Est GFR (Non-Af Amer) POC Glucose (mg/dL) 308 H (65-110) mg/dL Random Glucose (70-110) mg/dL Hemoglobin A1c 14.4 H (4.2-6.5) % Calcium (8.4-10.5) mg/dL Phosphorus (2.5-4.5) mg/dL Magnesium (1.7-2.2) mg/dL Total Bilirubin (0.2-1.3) mg/dL AST (17-59) U/L ALT (7-56) U/L Alkaline Phosphatase (38-126) U/L Total Protein (5.8-8.3) g/dL Albumin (3.0-4.8) g/dL Globulin gm/dL Albumin/Globulin Ratio (1.1-1.8) Procalcitonin (0.19-0.49) NG/ML Arterial Blood Potassium (3.6-5.2) mmol/L Venous Blood Potassium (3.6-5.2) mmol/L B-Hydroxybutyrate (0.02-0.27) mM HIV 1&2 Ag/Ab, 4th Gen Nonreactive (Nonreactive) 09/25/18 09/25/18 Range/Units 20:55 16:38 WBC (4.5-11.0) 10^3/uL RBC (3.5-6.1) 10^6/uL Hgb (14.0-18.0) g/dL Hct (42.0-52.0) % MCV (80.0-105.0) fl MCH (25.0-35.0) pg MCHC (31.0-37.0) g/dl RDW (11.5-14.5) % Plt Count (120.0-450.0) 10^3/uL MPV (7.0-11.0) fl Neut % (Auto) (50.0-68.0) % Lymph % (Auto) (22.0-35.0) % Stearns % (Auto) (1.0-6.0) % Eos % (Auto) (1.5-5.0) % Baso % (Auto) (0.0-3.0) % Lymph # (Auto) (1.2-3.4) Stearns # (Auto) (0.1-0.6) Eos # (Auto) (0.0-0.7) Baso # (Auto) (0.0-2.0) K/mm3 Absolute Neuts (auto) (1.4-6.5) pCO2 (35-45) mm/Hg pO2 (80-100) mm/Hg HCO3 (21-28) mmol/L ABG pH (7.35-7.45) ABG Total CO2 (22-28) mmol.L ABG O2 Saturation (95-98) % ABG Base Excess (-2.0-3.0) mmol/L ABG Potassium (3.6-5.2) mmol/L VBG pH (7.32-7.43) VBG pCO2 (40-60) VBG HCO3 (21-28) mmol/l VBG Total CO2 (22-28) mmol.L VBG O2 Sat (Calc) (40-65) % VBG Base Excess (0.0-2.0) mmol/L VBG Potassium (3.6-5.2) mmol/L Sodium (132-148) mmol/L Chloride (98-107) mmol/L Glucose (75-110) mg/dl Lactate (0.7-2.1) mmol/L FiO2 % Crit Value Called To Crit Value Called By Blood Gas Notified Time Potassium (3.6-5.0) mmol/L Carbon Dioxide (21-33) mmol/L Anion Gap (10-20) BUN (7-21) mg/dL Creatinine (0.8-1.5) mg/dl Est GFR ( Amer) Est GFR (Non-Af Amer) POC Glucose (mg/dL) (65-110) mg/dL Random Glucose (70-110) mg/dL Hemoglobin A1c (4.2-6.5) % Calcium (8.4-10.5) mg/dL Phosphorus (2.5-4.5) mg/dL Magnesium (1.7-2.2) mg/dL Total Bilirubin (0.2-1.3) mg/dL AST (17-59) U/L ALT (7-56) U/L Alkaline Phosphatase (38-126) U/L Total Protein (5.8-8.3) g/dL Albumin (3.0-4.8) g/dL Globulin gm/dL Albumin/Globulin Ratio (1.1-1.8) Procalcitonin 0.17 L (0.19-0.49) NG/ML Arterial Blood Potassium (3.6-5.2) mmol/L Venous Blood Potassium (3.6-5.2) mmol/L B-Hydroxybutyrate 7.02 H (0.02-0.27) mM HIV 1&2 Ag/Ab, 4th Gen (Nonreactive) Laboratory Results - last 24 hr 09/25/18 09/25/18 09/25/18 16:38 20:55 21:40 WBC RBC Hgb Hct MCV MCH MCHC RDW Plt Count MPV Neut % (Auto) Lymph % (Auto) Stearns % (Auto) Eos % (Auto) Baso % (Auto) Lymph # (Auto) Stearns # (Auto) Eos # (Auto) Baso # (Auto) Absolute Neuts (auto) pCO2 pO2 HCO3 ABG pH ABG Total CO2 ABG O2 Saturation ABG Base Excess ABG Potassium VBG pH VBG pCO2 VBG HCO3 VBG Total CO2 VBG O2 Sat (Calc) VBG Base Excess VBG Potassium Sodium Chloride Glucose Lactate FiO2 Crit Value Called To Crit Value Called By Blood Gas Notified Time Potassium Carbon Dioxide Anion Gap BUN Creatinine Est GFR ( Amer) Est GFR (Non-Af Amer) POC Glucose (mg/dL) Random Glucose Hemoglobin A1c Calcium Phosphorus Magnesium Total Bilirubin AST ALT Alkaline Phosphatase Total Protein Albumin Globulin Albumin/Globulin Ratio Procalcitonin 0.17 L Arterial Blood Potassium Venous Blood Potassium B-Hydroxybutyrate 7.02 H HIV 1&2 Ag/Ab, 4th Gen Nonreactive 09/26/18 09/26/18 09/26/18 05:45 06:41 08:00 WBC RBC Hgb Hct MCV MCH MCHC RDW Plt Count MPV Neut % (Auto) Lymph % (Auto) Stearns % (Auto) Eos % (Auto) Baso % (Auto) Lymph # (Auto) Stearns # (Auto) Eos # (Auto) Baso # (Auto) Absolute Neuts (auto) pCO2 pO2 HCO3 ABG pH ABG Total CO2 ABG O2 Saturation ABG Base Excess ABG Potassium VBG pH VBG pCO2 VBG HCO3 VBG Total CO2 VBG O2 Sat (Calc) VBG Base Excess VBG Potassium Sodium Chloride Glucose Lactate FiO2 Crit Value Called To Crit Value Called By Blood Gas Notified Time Potassium Carbon Dioxide Anion Gap BUN Creatinine Est GFR ( Amer) Est GFR (Non-Af Amer) POC Glucose (mg/dL) 308 H 287 H Random Glucose Hemoglobin A1c 14.4 H Calcium Phosphorus Magnesium Total Bilirubin AST ALT Alkaline Phosphatase Total Protein Albumin Globulin Albumin/Globulin Ratio Procalcitonin Arterial Blood Potassium Venous Blood Potassium B-Hydroxybutyrate HIV 1&2 Ag/Ab, 4th Gen 09/26/18 09/26/18 09/26/18 08:15 09:10 10:30 WBC 8.9 D RBC 6.03 Hgb 18.0 Hct 54.3 H MCV 90.0 D MCH 29.9 MCHC 33.1 RDW 13.8 Plt Count 140 MPV 12.4 H Neut % (Auto) 73.1 H Lymph % (Auto) 13.0 L Stearns % (Auto) 10.2 H Eos % (Auto) 3.5 Baso % (Auto) 0.2 Lymph # (Auto) 1.2 Stearns # (Auto) 0.9 H Eos # (Auto) 0.3 Baso # (Auto) 0.02 Absolute Neuts (auto) 6.53 H pCO2 39 pO2 86.0 HCO3 24.7 ABG pH 7.41 ABG Total CO2 25.9 ABG O2 Saturation 98.6 H ABG Base Excess 0.1 ABG Potassium 3.6 VBG pH VBG pCO2 VBG HCO3 VBG Total CO2 VBG O2 Sat (Calc) VBG Base Excess VBG Potassium Sodium 165.0 H* Chloride 129.0 H Glucose 304 H Lactate 1.1 FiO2 32.0 Crit Value Called To Dr urena Crit Value Called By Haroldo ramos Blood Gas Notified Time 820 Potassium Carbon Dioxide Anion Gap BUN Creatinine Est GFR ( Amer) Est GFR (Non-Af Amer) POC Glucose (mg/dL) 292 H Random Glucose Hemoglobin A1c Calcium Phosphorus Magnesium Total Bilirubin AST ALT Alkaline Phosphatase Total Protein Albumin Globulin Albumin/Globulin Ratio Procalcitonin Arterial Blood Potassium 3.6 Venous Blood Potassium B-Hydroxybutyrate HIV 1&2 Ag/Ab, 4th Gen 09/26/18 09/26/18 09/26/18 10:30 10:30 10:45 WBC RBC Hgb Hct MCV MCH MCHC RDW Plt Count MPV Neut % (Auto) Lymph % (Auto) Stearns % (Auto) Eos % (Auto) Baso % (Auto) Lymph # (Auto) Stearns # (Auto) Eos # (Auto) Baso # (Auto) Absolute Neuts (auto) pCO2 pO2 86 H HCO3 ABG pH ABG Total CO2 ABG O2 Saturation ABG Base Excess ABG Potassium VBG pH 7.31 L VBG pCO2 48.0 VBG HCO3 24.2 VBG Total CO2 25.7 VBG O2 Sat (Calc) 97.5 H VBG Base Excess -2.5 L VBG Potassium 3.8 Sodium 166.0 H* 163 H* Chloride 127.0 H 131 H Glucose 326 H Lactate 2.8 H FiO2 21.0 Crit Value Called To Soumya martinez Crit Value Called By Simona ley Blood Gas Notified Time 1040 Potassium 4.0 Carbon Dioxide 25 Anion Gap 10 BUN 33 H Creatinine 1.0 Est GFR ( Amer) > 60 Est GFR (Non-Af Amer) > 60 POC Glucose (mg/dL) 335 H Random Glucose 316 H* Hemoglobin A1c Calcium 10.3 Phosphorus Magnesium Total Bilirubin 1.1 AST 27 ALT 26 Alkaline Phosphatase 109 Total Protein 6.9 Albumin 3.6 Globulin 3.3 Albumin/Globulin Ratio 1.1 Procalcitonin Arterial Blood Potassium Venous Blood Potassium 3.8 B-Hydroxybutyrate HIV 1&2 Ag/Ab, 4th Gen 09/26/18 09/26/18 09/26/18 11:49 12:23 13:29 WBC RBC Hgb Hct MCV MCH MCHC RDW Plt Count MPV Neut % (Auto) Lymph % (Auto) Stearns % (Auto) Eos % (Auto) Baso % (Auto) Lymph # (Auto) Stearns # (Auto) Eos # (Auto) Baso # (Auto) Absolute Neuts (auto) pCO2 pO2 HCO3 ABG pH ABG Total CO2 ABG O2 Saturation ABG Base Excess ABG Potassium VBG pH VBG pCO2 VBG HCO3 VBG Total CO2 VBG O2 Sat (Calc) VBG Base Excess VBG Potassium Sodium Chloride Glucose Lactate FiO2 Crit Value Called To Crit Value Called By Blood Gas Notified Time Potassium Carbon Dioxide Anion Gap BUN Creatinine Est GFR ( Amer) Est GFR (Non-Af Amer) POC Glucose (mg/dL) 369 H 404 H* 404 H* Random Glucose Hemoglobin A1c Calcium Phosphorus Magnesium Total Bilirubin AST ALT Alkaline Phosphatase Total Protein Albumin Globulin Albumin/Globulin Ratio Procalcitonin Arterial Blood Potassium Venous Blood Potassium B-Hydroxybutyrate HIV 1&2 Ag/Ab, 4th Gen 09/26/18 09/26/18 09/26/18 14:00 14:00 14:31 WBC RBC Hgb Hct MCV MCH MCHC RDW Plt Count MPV Neut % (Auto) Lymph % (Auto) Stearns % (Auto) Eos % (Auto) Baso % (Auto) Lymph # (Auto) Stearns # (Auto) Eos # (Auto) Baso # (Auto) Absolute Neuts (auto) pCO2 pO2 196 H HCO3 ABG pH ABG Total CO2 ABG O2 Saturation ABG Base Excess ABG Potassium VBG pH 7.35 VBG pCO2 45.0 VBG HCO3 24.8 VBG Total CO2 26.2 VBG O2 Sat (Calc) 100.6 H VBG Base Excess -1.1 L VBG Potassium 4.1 Sodium 160.0 H* 159 H* Chloride 127.0 H 128 H Glucose 487 H* D Lactate 1.5 FiO2 21.0 Crit Value Called To Allegra martinez Crit Value Called By Sonali Blood Gas Notified Time 1426 Potassium 4.1 Carbon Dioxide 26 Anion Gap 9 L BUN 32 H Creatinine 0.9 Est GFR ( Amer) > 60 Est GFR (Non-Af Amer) > 60 POC Glucose (mg/dL) 460 H* Random Glucose 456 H* D Hemoglobin A1c Calcium 9.5 Phosphorus Magnesium Total Bilirubin AST ALT Alkaline Phosphatase Total Protein Albumin Globulin Albumin/Globulin Ratio Procalcitonin Arterial Blood Potassium Venous Blood Potassium 4.1 B-Hydroxybutyrate HIV 1&2 Ag/Ab, 4th Gen 09/26/18 09/26/18 09/26/18 15:01 15:34 16:15 WBC RBC Hgb Hct MCV MCH MCHC RDW Plt Count MPV Neut % (Auto) Lymph % (Auto) Stearns % (Auto) Eos % (Auto) Baso % (Auto) Lymph # (Auto) Stearns # (Auto) Eos # (Auto) Baso # (Auto) Absolute Neuts (auto) pCO2 pO2 HCO3 ABG pH ABG Total CO2 ABG O2 Saturation ABG Base Excess ABG Potassium VBG pH VBG pCO2 VBG HCO3 VBG Total CO2 VBG O2 Sat (Calc) VBG Base Excess VBG Potassium Sodium Chloride Glucose Lactate FiO2 Crit Value Called To Crit Value Called By Blood Gas Notified Time Potassium Carbon Dioxide Anion Gap BUN Creatinine Est GFR ( Amer) Est GFR (Non-Af Amer) POC Glucose (mg/dL) > 500 H* 480 H* 424 H* Random Glucose Hemoglobin A1c Calcium Phosphorus Magnesium Total Bilirubin AST ALT Alkaline Phosphatase Total Protein Albumin Globulin Albumin/Globulin Ratio Procalcitonin Arterial Blood Potassium Venous Blood Potassium B-Hydroxybutyrate HIV 1&2 Ag/Ab, 4th Gen 09/26/18 09/26/18 09/26/18 17:01 18:00 18:33 WBC RBC Hgb Hct MCV MCH MCHC RDW Plt Count MPV Neut % (Auto) Lymph % (Auto) Stearns % (Auto) Eos % (Auto) Baso % (Auto) Lymph # (Auto) Stearns # (Auto) Eos # (Auto) Baso # (Auto) Absolute Neuts (auto) pCO2 pO2 HCO3 ABG pH ABG Total CO2 ABG O2 Saturation ABG Base Excess ABG Potassium VBG pH VBG pCO2 VBG HCO3 VBG Total CO2 VBG O2 Sat (Calc) VBG Base Excess VBG Potassium Sodium 161 H* Chloride 130 H Glucose Lactate FiO2 Crit Value Called To Crit Value Called By Blood Gas Notified Time Potassium 3.3 L Carbon Dioxide 25 Anion Gap 11 BUN 33 H Creatinine 1.0 Est GFR ( Amer) > 60 Est GFR (Non-Af Amer) > 60 POC Glucose (mg/dL) 377 H 297 H Random Glucose 298 H Hemoglobin A1c Calcium 10.0 Phosphorus Magnesium Total Bilirubin AST ALT Alkaline Phosphatase Total Protein Albumin Globulin Albumin/Globulin Ratio Procalcitonin Arterial Blood Potassium Venous Blood Potassium B-Hydroxybutyrate HIV 1&2 Ag/Ab, 4th Gen 09/26/18 09/26/18 09/26/18 19:05 20:26 21:00 WBC RBC Hgb Hct MCV MCH MCHC RDW Plt Count MPV Neut % (Auto) Lymph % (Auto) Stearns % (Auto) Eos % (Auto) Baso % (Auto) Lymph # (Auto) Stearns # (Auto) Eos # (Auto) Baso # (Auto) Absolute Neuts (auto) pCO2 pO2 HCO3 ABG pH ABG Total CO2 ABG O2 Saturation ABG Base Excess ABG Potassium VBG pH VBG pCO2 VBG HCO3 VBG Total CO2 VBG O2 Sat (Calc) VBG Base Excess VBG Potassium Sodium Chloride Glucose Lactate FiO2 Crit Value Called To Crit Value Called By Blood Gas Notified Time Potassium Carbon Dioxide Anion Gap BUN Creatinine Est GFR ( Amer) Est GFR (Non-Af Amer) POC Glucose (mg/dL) 261 H 192 H 116 H Random Glucose Hemoglobin A1c Calcium Phosphorus Magnesium Total Bilirubin AST ALT Alkaline Phosphatase Total Protein Albumin Globulin Albumin/Globulin Ratio Procalcitonin Arterial Blood Potassium Venous Blood Potassium B-Hydroxybutyrate HIV 1&2 Ag/Ab, 4th Gen 09/26/18 09/26/18 09/27/18 21:51 23:11 00:03 WBC RBC Hgb Hct MCV MCH MCHC RDW Plt Count MPV Neut % (Auto) Lymph % (Auto) Stearns % (Auto) Eos % (Auto) Baso % (Auto) Lymph # (Auto) Stearns # (Auto) Eos # (Auto) Baso # (Auto) Absolute Neuts (auto) pCO2 pO2 HCO3 ABG pH ABG Total CO2 ABG O2 Saturation ABG Base Excess ABG Potassium VBG pH VBG pCO2 VBG HCO3 VBG Total CO2 VBG O2 Sat (Calc) VBG Base Excess VBG Potassium Sodium Chloride Glucose Lactate FiO2 Crit Value Called To Crit Value Called By Blood Gas Notified Time Potassium Carbon Dioxide Anion Gap BUN Creatinine Est GFR ( Amer) Est GFR (Non-Af Amer) POC Glucose (mg/dL) 100 140 H 107 Random Glucose Hemoglobin A1c Calcium Phosphorus Magnesium Total Bilirubin AST ALT Alkaline Phosphatase Total Protein Albumin Globulin Albumin/Globulin Ratio Procalcitonin Arterial Blood Potassium Venous Blood Potassium B-Hydroxybutyrate HIV 1&2 Ag/Ab, 4th Gen 09/27/18 09/27/18 09/27/18 00:30 01:14 01:58 WBC RBC Hgb Hct MCV MCH MCHC RDW Plt Count MPV Neut % (Auto) Lymph % (Auto) Stearns % (Auto) Eos % (Auto) Baso % (Auto) Lymph # (Auto) Stearns # (Auto) Eos # (Auto) Baso # (Auto) Absolute Neuts (auto) pCO2 pO2 HCO3 ABG pH ABG Total CO2 ABG O2 Saturation ABG Base Excess ABG Potassium VBG pH VBG pCO2 VBG HCO3 VBG Total CO2 VBG O2 Sat (Calc) VBG Base Excess VBG Potassium Sodium 161 H* Chloride 132 H Glucose Lactate FiO2 Crit Value Called To Crit Value Called By Blood Gas Notified Time Potassium 3.9 Carbon Dioxide 26 Anion Gap 6 L BUN 34 H Creatinine 1.0 Est GFR ( Amer) > 60 Est GFR (Non-Af Amer) > 60 POC Glucose (mg/dL) 157 H 183 H Random Glucose 114 H Hemoglobin A1c Calcium 9.6 Phosphorus Magnesium 2.4 H Total Bilirubin AST ALT Alkaline Phosphatase Total Protein Albumin Globulin Albumin/Globulin Ratio Procalcitonin Arterial Blood Potassium Venous Blood Potassium B-Hydroxybutyrate HIV 1&2 Ag/Ab, 4th Gen 09/27/18 09/27/18 09/27/18 03:10 04:20 04:27 WBC RBC Hgb Hct MCV MCH MCHC RDW Plt Count MPV Neut % (Auto) Lymph % (Auto) Stearns % (Auto) Eos % (Auto) Baso % (Auto) Lymph # (Auto) Stearns # (Auto) Eos # (Auto) Baso # (Auto) Absolute Neuts (auto) pCO2 pO2 HCO3 ABG pH ABG Total CO2 ABG O2 Saturation ABG Base Excess ABG Potassium VBG pH VBG pCO2 VBG HCO3 VBG Total CO2 VBG O2 Sat (Calc) VBG Base Excess VBG Potassium Sodium 160 H* Chloride 130 H Glucose Lactate FiO2 Crit Value Called To Crit Value Called By Blood Gas Notified Time Potassium 4.3 Carbon Dioxide 25 Anion Gap 8 L BUN 36 H Creatinine 1.2 Est GFR ( Amer) > 60 Est GFR (Non-Af Amer) > 60 POC Glucose (mg/dL) 260 H 246 H Random Glucose 238 H Hemoglobin A1c Calcium 9.5 Phosphorus 3.2 Magnesium 2.4 H Total Bilirubin AST ALT Alkaline Phosphatase Total Protein Albumin Globulin Albumin/Globulin Ratio Procalcitonin Arterial Blood Potassium Venous Blood Potassium B-Hydroxybutyrate HIV 1&2 Ag/Ab, 4th Gen 09/27/18 09/27/18 05:40 06:04 WBC 9.1 RBC 4.95 Hgb 14.7 D Hct 45.2 MCV 91.3 MCH 29.7 MCHC 32.5 RDW 13.9 Plt Count 131 MPV 12.6 H Neut % (Auto) 66.1 Lymph % (Auto) 18.6 L Stearns % (Auto) 11.6 H Eos % (Auto) 3.5 Baso % (Auto) 0.2 Lymph # (Auto) 1.7 Stearns # (Auto) 1.1 H Eos # (Auto) 0.3 Baso # (Auto) 0.02 Absolute Neuts (auto) 6.00 pCO2 pO2 HCO3 ABG pH ABG Total CO2 ABG O2 Saturation ABG Base Excess ABG Potassium VBG pH VBG pCO2 VBG HCO3 VBG Total CO2 VBG O2 Sat (Calc) VBG Base Excess VBG Potassium Sodium Chloride Glucose Lactate FiO2 Crit Value Called To Crit Value Called By Blood Gas Notified Time Potassium Carbon Dioxide Anion Gap BUN Creatinine Est GFR ( Amer) Est GFR (Non-Af Amer) POC Glucose (mg/dL) 257 H Random Glucose Hemoglobin A1c Calcium Phosphorus Magnesium Total Bilirubin AST ALT Alkaline Phosphatase Total Protein Albumin Globulin Albumin/Globulin Ratio Procalcitonin Arterial Blood Potassium Venous Blood Potassium B-Hydroxybutyrate HIV 1&2 Ag/Ab, 4th Gen Radiology Impressions: Radiology Impressions Abdomen/Pelvis CT 09/25/18 17:39 IMPRESSION: Interval removal of drainage catheter within the anterior abdominal wall collection. Anterior abdominal wall abscess persists but appears smaller measuring approximately 6.7 x 5.6 cm.. This process resides within the anterior abdominal wall and does not demonstrate evidence of extension into the peritoneal cavity. Decompressed urinary bladder containing Kumar catheter and air. Urinary bladder air may be secondary to recent instrumentation. Correlate clinically. Minimal nonspecific bilateral perinephric stranding. 2.6 cm right renal cyst. No obstructing calculus or hydronephrosis identified. Scattered nonobstructing left lower pole renal calculi. Preliminary impression was provided by [facility]. Head CT 09/25/18 19:55 IMPRESSION: Generalized atrophy. Nonspecific white matter changes. Preliminary impression was provided by [facility]. Fingerstick Blood Sugar Results: 257 Assessment/Plan - Assessment and Plan (Free Text) Assessment: Pt is a 58 yo male with a PMH of HTN, iron deficiency anemia, intra abdominal abscess, systolic CHF, dilated cardiomyopathy, DVT/PE, chronic gastritis and colorectal polyps sp colon resection who presents to the ED because of AMS, progressive weakness who was admitted to the ICU for DKA. Plan: Neuro - oriented to person - EEG follow up - CT head- shows generalized atrophy - avoid geodon and haldol, pt is currently taking sotalol - Neuro consulted, Dr Live Cardio - bi ventricular failure, systolic CHF, dilated cardiomyopathy, HTN, Atrial fibrillation, EF 24% - eliquis, diltiazem, sotalol - continue to monitor Pulm - maintain O2 >92% GI - pantoprazole - continue to monitor Nephro/ - discontinue K supplementation - 1/2 NS 125 ID - leukocytosis has resolved - doxmarii merrem - follow up legionella, HIV - procal 0.17 - lactate 1.5 Heme/Onc - history of DVT/PE Endo - new onset DM - DKA, anion gap of 24 on admission, gap is now closed - 3L NS in ER, pt was on Bicarb drip, glucose on admission 1300, UA ketones, blood gas on admission pH 7.27 - will transition to SC insulin, levemir 15 - BHB 7.02 - stop insulin drip Spoke with daughter Jazmín ([phone]), states father rarely drinks alcohol Pt seen, examined, assessment and plan discussed with Dr Cynthia Live PGY1 - Date & Time Date: 09/27/18 Time: 07:25 <Brennen Marie - Last Filed: 09/27/18 14:33> CCU Objective - Vital Signs / Intake & Output Vital Signs (Last 4 hours): Vital Signs Pulse 09/27/18 11:56 56 L Intake and Output (Last 8hrs): Intake & Output 09/26/18 09/27/18 09/27/18 22:59 06:59 14:59 Intake Total 2176 1552 78 Output Total 600 150 Balance 1576 1402 78 Weight 212 lb 9.6 oz Intake: IV 1975 1552 78 Left Wrist 180 1350 Right Antecubital 1600 132 Oral 200 0 Output: Urine 600 150 2-way Urethral 600 150 Stool 0 Other: # Bowel Movements 1 - Medications Active Medications: Active Medications Generic Name Dose Route Start Last Admin Trade Name Freq PRN Reason Stop Dose Admin Apixaban 2.5 mg 09/26/18 10:00 09/27/18 09:45 Eliquis PO Not Given BID ANDRES Protocol Diltiazem HCl 180 mg 09/26/18 10:00 09/27/18 09:45 Cardizem Cd PO Not Given DAILY ANDRES Meropenem 1 gm in 50 mls @ 100 mls/hr 09/25/18 22:00 09/27/18 09:44 Merrem Iv 1 Gm Premix IVPB 10/04/18 22:01 100 mls/hr Q12 ANDRES Administration Protocol Doxycycline Hyclate 100 mg/ 100 mls @ 100 mls/hr 09/25/18 22:00 09/27/18 09:44 Sodium Chloride IVPB 10/04/18 22:01 100 mls/hr Q12 ANDRES Administration Protocol Dexmedetomidine HCl 400 mcg in 100 mls @ 4.751 mls/hr 09/26/18 10:37 09/27/18 10:24 Precedex 400mcg/100ml IV Infused .[id number] PRN Titration Agitation Protocol 0.2 MCG/KG/HR Sodium Chloride 1,000 mls @ 100 mls/hr 09/27/18 10:00 09/27/18 10:02 Sodium Chloride 0.45% IV 100 mls/hr .Q10H ANDRES Administration Insulin Human Regular 0 units 09/27/18 11:30 09/27/18 12:00 Humulin R Med SC Not Given ACHS ANDRES Protocol Melatonin 1 mg 09/26/18 22:00 09/26/18 21:47 Melatonin PO 1 mg HS ANDRES Administration Nystatin/Triamcinolone Acetonide 0 ea 09/26/18 10:00 09/27/18 10:10 Nystatin/Triamcinolone Cream TOP 1 applic BID ANDRES Administration Pantoprazole Sodium 40 mg 09/26/18 10:00 09/27/18 09:46 Protonix Inj IVP 40 mg DAILY ANDRES Administration Sotalol HCl 80 mg 09/26/18 10:00 09/27/18 09:45 Betapace PO Not Given BID ANDRES - Patient Studies Lab Studies: Microbiology Studies 09/25/18 22:20 MRSA Culture (Admit) - Final Naris MRSA NOT DETECTED 09/25/18 20:40 Urine Culture - Final Urine,Kumar No Growth (<1,000 CFU/ML) 09/25/18 16:38 Blood Culture - Preliminary Blood NO GROWTH AFTER 24 HOURS 09/25/18 16:38 Blood Culture - Preliminary Blood NO GROWTH AFTER 24 HOURS Lab Studies 09/27/18 09/27/18 09/27/18 Range/Units 11:49 09:54 08:53 WBC (4.5-11.0) 10^3/uL RBC (3.5-6.1) 10^6/uL Hgb (14.0-18.0) g/dL Hct (42.0-52.0) % MCV (80.0-105.0) fl MCH (25.0-35.0) pg MCHC (31.0-37.0) g/dl RDW (11.5-14.5) % Plt Count (120.0-450.0) 10^3/uL MPV (7.0-11.0) fl Neut % (Auto) (50.0-68.0) % Lymph % (Auto) (22.0-35.0) % Stearns % (Auto) (1.0-6.0) % Eos % (Auto) (1.5-5.0) % Baso % (Auto) (0.0-3.0) % Lymph # (Auto) (1.2-3.4) Stearns # (Auto) (0.1-0.6) Eos # (Auto) (0.0-0.7) Baso # (Auto) (0.0-2.0) K/mm3 Absolute Neuts (auto) (1.4-6.5) pO2 (30-55) mm/Hg VBG pH (7.32-7.43) VBG pCO2 (40-60) VBG HCO3 (21-28) mmol/l VBG Total CO2 (22-28) mmol.L VBG O2 Sat (Calc) (40-65) % VBG Base Excess (0.0-2.0) mmol/L VBG Potassium (3.6-5.2) mmol/L Sodium 158 H* (132-148) mmol/L Chloride 129 H (98-107) mmol/L Glucose (75-110) mg/dl Lactate (0.7-2.1) mmol/L FiO2 % Crit Value Called To Crit Value Called By Blood Gas Notified Time Potassium 4.3 (3.6-5.0) mmol/L Carbon Dioxide 25 (21-33) mmol/L Anion Gap 8 L (10-20) BUN 35 H (7-21) mg/dL Creatinine 1.1 (0.8-1.5) mg/dl Est GFR ( Amer) > 60 Est GFR (Non-Af Amer) > 60 POC Glucose (mg/dL) 216 H 236 H (65-110) mg/dL Random Glucose 214 H (70-110) mg/dL Calcium 9.6 (8.4-10.5) mg/dL Phosphorus (2.5-4.5) mg/dL Magnesium (1.7-2.2) mg/dL Venous Blood Potassium (3.6-5.2) mmol/L 09/27/18 09/27/18 09/27/18 Range/Units 08:45 07:59 07:05 WBC (4.5-11.0) 10^3/uL RBC (3.5-6.1) 10^6/uL Hgb (14.0-18.0) g/dL Hct (42.0-52.0) % MCV (80.0-105.0) fl MCH (25.0-35.0) pg MCHC (31.0-37.0) g/dl RDW (11.5-14.5) % Plt Count (120.0-450.0) 10^3/uL MPV (7.0-11.0) fl Neut % (Auto) (50.0-68.0) % Lymph % (Auto) (22.0-35.0) % Stearns % (Auto) (1.0-6.0) % Eos % (Auto) (1.5-5.0) % Baso % (Auto) (0.0-3.0) % Lymph # (Auto) (1.2-3.4) Stearns # (Auto) (0.1-0.6) Eos # (Auto) (0.0-0.7) Baso # (Auto) (0.0-2.0) K/mm3 Absolute Neuts (auto) (1.4-6.5) pO2 (30-55) mm/Hg VBG pH (7.32-7.43) VBG pCO2 (40-60) VBG HCO3 (21-28) mmol/l VBG Total CO2 (22-28) mmol.L VBG O2 Sat (Calc) (40-65) % VBG Base Excess (0.0-2.0) mmol/L VBG Potassium (3.6-5.2) mmol/L Sodium 158 H* (132-148) mmol/L Chloride 129 H (98-107) mmol/L Glucose (75-110) mg/dl Lactate (0.7-2.1) mmol/L FiO2 % Crit Value Called To Crit Value Called By Blood Gas Notified Time Potassium 4.4 (3.6-5.0) mmol/L Carbon Dioxide 25 (21-33) mmol/L Anion Gap 8 L (10-20) BUN 36 H (7-21) mg/dL Creatinine 1.1 (0.8-1.5) mg/dl Est GFR ( Amer) > 60 Est GFR (Non-Af Amer) > 60 POC Glucose (mg/dL) 225 H 229 H (65-110) mg/dL Random Glucose 227 H (70-110) mg/dL Calcium 9.5 (8.4-10.5) mg/dL Phosphorus (2.5-4.5) mg/dL Magnesium (1.7-2.2) mg/dL Venous Blood Potassium (3.6-5.2) mmol/L 09/27/18 09/27/18 09/27/18 Range/Units 06:04 05:40 04:27 WBC 9.1 (4.5-11.0) 10^3/uL RBC 4.95 (3.5-6.1) 10^6/uL Hgb 14.7 D (14.0-18.0) g/dL Hct 45.2 (42.0-52.0) % MCV 91.3 (80.0-105.0) fl MCH 29.7 (25.0-35.0) pg MCHC 32.5 (31.0-37.0) g/dl RDW 13.9 (11.5-14.5) % Plt Count 131 (120.0-450.0) 10^3/uL MPV 12.6 H (7.0-11.0) fl Neut % (Auto) 66.1 (50.0-68.0) % Lymph % (Auto) 18.6 L (22.0-35.0) % Stearns % (Auto) 11.6 H (1.0-6.0) % Eos % (Auto) 3.5 (1.5-5.0) % Baso % (Auto) 0.2 (0.0-3.0) % Lymph # (Auto) 1.7 (1.2-3.4) Stearns # (Auto) 1.1 H (0.1-0.6) Eos # (Auto) 0.3 (0.0-0.7) Baso # (Auto) 0.02 (0.0-2.0) K/mm3 Absolute Neuts (auto) 6.00 (1.4-6.5) pO2 (30-55) mm/Hg VBG pH (7.32-7.43) VBG pCO2 (40-60) VBG HCO3 (21-28) mmol/l VBG Total CO2 (22-28) mmol.L VBG O2 Sat (Calc) (40-65) % VBG Base Excess (0.0-2.0) mmol/L VBG Potassium (3.6-5.2) mmol/L Sodium (132-148) mmol/L Chloride (98-107) mmol/L Glucose (75-110) mg/dl Lactate (0.7-2.1) mmol/L FiO2 % Crit Value Called To Crit Value Called By Blood Gas Notified Time Potassium (3.6-5.0) mmol/L Carbon Dioxide (21-33) mmol/L Anion Gap (10-20) BUN (7-21) mg/dL Creatinine (0.8-1.5) mg/dl Est GFR ( Amer) Est GFR (Non-Af Amer) POC Glucose (mg/dL) 257 H 246 H (65-110) mg/dL Random Glucose (70-110) mg/dL Calcium (8.4-10.5) mg/dL Phosphorus (2.5-4.5) mg/dL Magnesium (1.7-2.2) mg/dL Venous Blood Potassium (3.6-5.2) mmol/L 09/27/18 09/27/18 09/27/18 Range/Units 04:20 03:10 01:58 WBC (4.5-11.0) 10^3/uL RBC (3.5-6.1) 10^6/uL Hgb (14.0-18.0) g/dL Hct (42.0-52.0) % MCV (80.0-105.0) fl MCH (25.0-35.0) pg MCHC (31.0-37.0) g/dl RDW (11.5-14.5) % Plt Count (120.0-450.0) 10^3/uL MPV (7.0-11.0) fl Neut % (Auto) (50.0-68.0) % Lymph % (Auto) (22.0-35.0) % Stearns % (Auto) (1.0-6.0) % Eos % (Auto) (1.5-5.0) % Baso % (Auto) (0.0-3.0) % Lymph # (Auto) (1.2-3.4) Stearns # (Auto) (0.1-0.6) Eos # (Auto) (0.0-0.7) Baso # (Auto) (0.0-2.0) K/mm3 Absolute Neuts (auto) (1.4-6.5) pO2 (30-55) mm/Hg VBG pH (7.32-7.43) VBG pCO2 (40-60) VBG HCO3 (21-28) mmol/l VBG Total CO2 (22-28) mmol.L VBG O2 Sat (Calc) (40-65) % VBG Base Excess (0.0-2.0) mmol/L VBG Potassium (3.6-5.2) mmol/L Sodium 160 H* (132-148) mmol/L Chloride 130 H (98-107) mmol/L Glucose (75-110) mg/dl Lactate (0.7-2.1) mmol/L FiO2 % Crit Value Called To Crit Value Called By Blood Gas Notified Time Potassium 4.3 (3.6-5.0) mmol/L Carbon Dioxide 25 (21-33) mmol/L Anion Gap 8 L (10-20) BUN 36 H (7-21) mg/dL Creatinine 1.2 (0.8-1.5) mg/dl Est GFR ( Amer) > 60 Est GFR (Non-Af Amer) > 60 POC Glucose (mg/dL) 260 H 183 H (65-110) mg/dL Random Glucose 238 H (70-110) mg/dL Calcium 9.5 (8.4-10.5) mg/dL Phosphorus 3.2 (2.5-4.5) mg/dL Magnesium 2.4 H (1.7-2.2) mg/dL Venous Blood Potassium (3.6-5.2) mmol/L 09/27/18 09/27/18 09/27/18 Range/Units 01:14 00:30 00:03 WBC (4.5-11.0) 10^3/uL RBC (3.5-6.1) 10^6/uL Hgb (14.0-18.0) g/dL Hct (42.0-52.0) % MCV (80.0-105.0) fl MCH (25.0-35.0) pg MCHC (31.0-37.0) g/dl RDW (11.5-14.5) % Plt Count (120.0-450.0) 10^3/uL MPV (7.0-11.0) fl Neut % (Auto) (50.0-68.0) % Lymph % (Auto) (22.0-35.0) % Stearns % (Auto) (1.0-6.0) % Eos % (Auto) (1.5-5.0) % Baso % (Auto) (0.0-3.0) % Lymph # (Auto) (1.2-3.4) Stearns # (Auto) (0.1-0.6) Eos # (Auto) (0.0-0.7) Baso # (Auto) (0.0-2.0) K/mm3 Absolute Neuts (auto) (1.4-6.5) pO2 (30-55) mm/Hg VBG pH (7.32-7.43) VBG pCO2 (40-60) VBG HCO3 (21-28) mmol/l VBG Total CO2 (22-28) mmol.L VBG O2 Sat (Calc) (40-65) % VBG Base Excess (0.0-2.0) mmol/L VBG Potassium (3.6-5.2) mmol/L Sodium 161 H* (132-148) mmol/L Chloride 132 H (98-107) mmol/L Glucose (75-110) mg/dl Lactate (0.7-2.1) mmol/L FiO2 % Crit Value Called To Crit Value Called By Blood Gas Notified Time Potassium 3.9 (3.6-5.0) mmol/L Carbon Dioxide 26 (21-33) mmol/L Anion Gap 6 L (10-20) BUN 34 H (7-21) mg/dL Creatinine 1.0 (0.8-1.5) mg/dl Est GFR ( Amer) > 60 Est GFR (Non-Af Amer) > 60 POC Glucose (mg/dL) 157 H 107 (65-110) mg/dL Random Glucose 114 H (70-110) mg/dL Calcium 9.6 (8.4-10.5) mg/dL Phosphorus (2.5-4.5) mg/dL Magnesium 2.4 H (1.7-2.2) mg/dL Venous Blood Potassium (3.6-5.2) mmol/L 09/26/18 09/26/18 09/26/18 Range/Units 23:11 21:51 21:00 WBC (4.5-11.0) 10^3/uL RBC (3.5-6.1) 10^6/uL Hgb (14.0-18.0) g/dL Hct (42.0-52.0) % MCV (80.0-105.0) fl MCH (25.0-35.0) pg MCHC (31.0-37.0) g/dl RDW (11.5-14.5) % Plt Count (120.0-450.0) 10^3/uL MPV (7.0-11.0) fl Neut % (Auto) (50.0-68.0) % Lymph % (Auto) (22.0-35.0) % Stearns % (Auto) (1.0-6.0) % Eos % (Auto) (1.5-5.0) % Baso % (Auto) (0.0-3.0) % Lymph # (Auto) (1.2-3.4) Stearns # (Auto) (0.1-0.6) Eos # (Auto) (0.0-0.7) Baso # (Auto) (0.0-2.0) K/mm3 Absolute Neuts (auto) (1.4-6.5) pO2 (30-55) mm/Hg VBG pH (7.32-7.43) VBG pCO2 (40-60) VBG HCO3 (21-28) mmol/l VBG Total CO2 (22-28) mmol.L VBG O2 Sat (Calc) (40-65) % VBG Base Excess (0.0-2.0) mmol/L VBG Potassium (3.6-5.2) mmol/L Sodium (132-148) mmol/L Chloride (98-107) mmol/L Glucose (75-110) mg/dl Lactate (0.7-2.1) mmol/L FiO2 % Crit Value Called To Crit Value Called By Blood Gas Notified Time Potassium (3.6-5.0) mmol/L Carbon Dioxide (21-33) mmol/L Anion Gap (10-20) BUN (7-21) mg/dL Creatinine (0.8-1.5) mg/dl Est GFR ( Amer) Est GFR (Non-Af Amer) POC Glucose (mg/dL) 140 H 100 116 H (65-110) mg/dL Random Glucose (70-110) mg/dL Calcium (8.4-10.5) mg/dL Phosphorus (2.5-4.5) mg/dL Magnesium (1.7-2.2) mg/dL Venous Blood Potassium (3.6-5.2) mmol/L 04/24/19 04/24/19 04/24/19 Range/Units 20:26 19:05 18:33 WBC (4.5-11.0) 10^3/uL RBC (3.5-6.1) 10^6/uL Hgb (14.0-18.0) g/dL Hct (42.0-52.0) % MCV (80.0-105.0) fl MCH (25.0-35.0) pg MCHC (31.0-37.0) g/dl RDW (11.5-14.5) % Plt Count (120.0-450.0) 10^3/uL MPV (7.0-11.0) fl Neut % (Auto) (50.0-68.0) % Lymph % (Auto) (22.0-35.0) % Stearns % (Auto) (1.0-6.0) % Eos % (Auto) (1.5-5.0) % Baso % (Auto) (0.0-3.0) % Lymph # (Auto) (1.2-3.4) Stearns # (Auto) (0.1-0.6) Eos # (Auto) (0.0-0.7) Baso # (Auto) (0.0-2.0) K/mm3 Absolute Neuts (auto) (1.4-6.5) pO2 (30-55) mm/Hg VBG pH (7.32-7.43) VBG pCO2 (40-60) VBG HCO3 (21-28) mmol/l VBG Total CO2 (22-28) mmol.L VBG O2 Sat (Calc) (40-65) % VBG Base Excess (0.0-2.0) mmol/L VBG Potassium (3.6-5.2) mmol/L Sodium 161 H* (132-148) mmol/L Chloride 130 H (98-107) mmol/L Glucose (75-110) mg/dl Lactate (0.7-2.1) mmol/L FiO2 % Crit Value Called To Crit Value Called By Blood Gas Notified Time Potassium 3.3 L (3.6-5.0) mmol/L Carbon Dioxide 25 (21-33) mmol/L Anion Gap 11 (10-20) BUN 33 H (7-21) mg/dL Creatinine 1.0 (0.8-1.5) mg/dl Est GFR ( Amer) > 60 Est GFR (Non-Af Amer) > 60 POC Glucose (mg/dL) 192 H 261 H (65-110) mg/dL Random Glucose 298 H (70-110) mg/dL Calcium 10.0 (8.4-10.5) mg/dL Phosphorus (2.5-4.5) mg/dL Magnesium (1.7-2.2) mg/dL Venous Blood Potassium (3.6-5.2) mmol/L 09/26/18 09/26/18 09/26/18 Range/Units 18:00 17:01 16:15 WBC (4.5-11.0) 10^3/uL RBC (3.5-6.1) 10^6/uL Hgb (14.0-18.0) g/dL Hct (42.0-52.0) % MCV (80.0-105.0) fl MCH (25.0-35.0) pg MCHC (31.0-37.0) g/dl RDW (11.5-14.5) % Plt Count (120.0-450.0) 10^3/uL MPV (7.0-11.0) fl Neut % (Auto) (50.0-68.0) % Lymph % (Auto) (22.0-35.0) % Stearns % (Auto) (1.0-6.0) % Eos % (Auto) (1.5-5.0) % Baso % (Auto) (0.0-3.0) % Lymph # (Auto) (1.2-3.4) Stearns # (Auto) (0.1-0.6) Eos # (Auto) (0.0-0.7) Baso # (Auto) (0.0-2.0) K/mm3 Absolute Neuts (auto) (1.4-6.5) pO2 (30-55) mm/Hg VBG pH (7.32-7.43) VBG pCO2 (40-60) VBG HCO3 (21-28) mmol/l VBG Total CO2 (22-28) mmol.L VBG O2 Sat (Calc) (40-65) % VBG Base Excess (0.0-2.0) mmol/L VBG Potassium (3.6-5.2) mmol/L Sodium (132-148) mmol/L Chloride (98-107) mmol/L Glucose (75-110) mg/dl Lactate (0.7-2.1) mmol/L FiO2 % Crit Value Called To Crit Value Called By Blood Gas Notified Time Potassium (3.6-5.0) mmol/L Carbon Dioxide (21-33) mmol/L Anion Gap (10-20) BUN (7-21) mg/dL Creatinine (0.8-1.5) mg/dl Est GFR ( Amer) Est GFR (Non-Af Amer) POC Glucose (mg/dL) 297 H 377 H 424 H* (65-110) mg/dL Random Glucose (70-110) mg/dL Calcium (8.4-10.5) mg/dL Phosphorus (2.5-4.5) mg/dL Magnesium (1.7-2.2) mg/dL Venous Blood Potassium (3.6-5.2) mmol/L 09/26/18 09/26/18 09/26/18 Range/Units 15:34 15:01 14:31 WBC (4.5-11.0) 10^3/uL RBC (3.5-6.1) 10^6/uL Hgb (14.0-18.0) g/dL Hct (42.0-52.0) % MCV (80.0-105.0) fl MCH (25.0-35.0) pg MCHC (31.0-37.0) g/dl RDW (11.5-14.5) % Plt Count (120.0-450.0) 10^3/uL MPV (7.0-11.0) fl Neut % (Auto) (50.0-68.0) % Lymph % (Auto) (22.0-35.0) % Stearns % (Auto) (1.0-6.0) % Eos % (Auto) (1.5-5.0) % Baso % (Auto) (0.0-3.0) % Lymph # (Auto) (1.2-3.4) Stearns # (Auto) (0.1-0.6) Eos # (Auto) (0.0-0.7) Baso # (Auto) (0.0-2.0) K/mm3 Absolute Neuts (auto) (1.4-6.5) pO2 (30-55) mm/Hg VBG pH (7.32-7.43) VBG pCO2 (40-60) VBG HCO3 (21-28) mmol/l VBG Total CO2 (22-28) mmol.L VBG O2 Sat (Calc) (40-65) % VBG Base Excess (0.0-2.0) mmol/L VBG Potassium (3.6-5.2) mmol/L Sodium (132-148) mmol/L Chloride (98-107) mmol/L Glucose (75-110) mg/dl Lactate (0.7-2.1) mmol/L FiO2 % Crit Value Called To Crit Value Called By Blood Gas Notified Time Potassium (3.6-5.0) mmol/L Carbon Dioxide (21-33) mmol/L Anion Gap (10-20) BUN (7-21) mg/dL Creatinine (0.8-1.5) mg/dl Est GFR ( Amer) Est GFR (Non-Af Amer) POC Glucose (mg/dL) 480 H* > 500 H* 460 H* (65-110) mg/dL Random Glucose (70-110) mg/dL Calcium (8.4-10.5) mg/dL Phosphorus (2.5-4.5) mg/dL Magnesium (1.7-2.2) mg/dL Venous Blood Potassium (3.6-5.2) mmol/L 09/26/18 Range/Units 14:00 WBC (4.5-11.0) 10^3/uL RBC (3.5-6.1) 10^6/uL Hgb (14.0-18.0) g/dL Hct (42.0-52.0) % MCV (80.0-105.0) fl MCH (25.0-35.0) pg MCHC (31.0-37.0) g/dl RDW (11.5-14.5) % Plt Count (120.0-450.0) 10^3/uL MPV (7.0-11.0) fl Neut % (Auto) (50.0-68.0) % Lymph % (Auto) (22.0-35.0) % Stearns % (Auto) (1.0-6.0) % Eos % (Auto) (1.5-5.0) % Baso % (Auto) (0.0-3.0) % Lymph # (Auto) (1.2-3.4) Stearns # (Auto) (0.1-0.6) Eos # (Auto) (0.0-0.7) Baso # (Auto) (0.0-2.0) K/mm3 Absolute Neuts (auto) (1.4-6.5) pO2 196 H (30-55) mm/Hg VBG pH 7.35 (7.32-7.43) VBG pCO2 45.0 (40-60) VBG HCO3 24.8 (21-28) mmol/l VBG Total CO2 26.2 (22-28) mmol.L VBG O2 Sat (Calc) 100.6 H (40-65) % VBG Base Excess -1.1 L (0.0-2.0) mmol/L VBG Potassium 4.1 (3.6-5.2) mmol/L Sodium 160.0 H* (132-148) mmol/L Chloride 127.0 H (98-107) mmol/L Glucose 487 H* D (75-110) mg/dl Lactate 1.5 (0.7-2.1) mmol/L FiO2 21.0 % Crit Value Called To Allegra martinez Crit Value Called By Sonali Blood Gas Notified Time 1426 Potassium (3.6-5.0) mmol/L Carbon Dioxide (21-33) mmol/L Anion Gap (10-20) BUN (7-21) mg/dL Creatinine (0.8-1.5) mg/dl Est GFR ( Amer) Est GFR (Non-Af Amer) POC Glucose (mg/dL) (65-110) mg/dL Random Glucose (70-110) mg/dL Calcium (8.4-10.5) mg/dL Phosphorus (2.5-4.5) mg/dL Magnesium (1.7-2.2) mg/dL Venous Blood Potassium 4.1 (3.6-5.2) mmol/L Laboratory Results - last 24 hr 09/26/18 09/26/18 09/26/18 14:00 14:31 15:01 WBC RBC Hgb Hct MCV MCH MCHC RDW Plt Count MPV Neut % (Auto) Lymph % (Auto) Stearns % (Auto) Eos % (Auto) Baso % (Auto) Lymph # (Auto) Stearns # (Auto) Eos # (Auto) Baso # (Auto) Absolute Neuts (auto) pO2 196 H VBG pH 7.35 VBG pCO2 45.0 VBG HCO3 24.8 VBG Total CO2 26.2 VBG O2 Sat (Calc) 100.6 H VBG Base Excess -1.1 L VBG Potassium 4.1 Sodium 160.0 H* Chloride 127.0 H Glucose 487 H* D Lactate 1.5 FiO2 21.0 Crit Value Called To Allegra martinez Crit Value Called By Sonali Blood Gas Notified Time 1426 Potassium Carbon Dioxide Anion Gap BUN Creatinine Est GFR ( Amer) Est GFR (Non-Af Amer) POC Glucose (mg/dL) 460 H* > 500 H* Random Glucose Calcium Phosphorus Magnesium Venous Blood Potassium 4.1 09/26/18 09/26/18 09/26/18 15:34 16:15 17:01 WBC RBC Hgb Hct MCV MCH MCHC RDW Plt Count MPV Neut % (Auto) Lymph % (Auto) Stearns % (Auto) Eos % (Auto) Baso % (Auto) Lymph # (Auto) Stearns # (Auto) Eos # (Auto) Baso # (Auto) Absolute Neuts (auto) pO2 VBG pH VBG pCO2 VBG HCO3 VBG Total CO2 VBG O2 Sat (Calc) VBG Base Excess VBG Potassium Sodium Chloride Glucose Lactate FiO2 Crit Value Called To Crit Value Called By Blood Gas Notified Time Potassium Carbon Dioxide Anion Gap BUN Creatinine Est GFR ( Amer) Est GFR (Non-Af Amer) POC Glucose (mg/dL) 480 H* 424 H* 377 H Random Glucose Calcium Phosphorus Magnesium Venous Blood Potassium 09/26/18 09/26/18 09/26/18 18:00 18:33 19:05 WBC RBC Hgb Hct MCV MCH MCHC RDW Plt Count MPV Neut % (Auto) Lymph % (Auto) Stearns % (Auto) Eos % (Auto) Baso % (Auto) Lymph # (Auto) Stearns # (Auto) Eos # (Auto) Baso # (Auto) Absolute Neuts (auto) pO2 VBG pH VBG pCO2 VBG HCO3 VBG Total CO2 VBG O2 Sat (Calc) VBG Base Excess VBG Potassium Sodium 161 H* Chloride 130 H Glucose Lactate FiO2 Crit Value Called To Crit Value Called By Blood Gas Notified Time Potassium 3.3 L Carbon Dioxide 25 Anion Gap 11 BUN 33 H Creatinine 1.0 Est GFR ( Amer) > 60 Est GFR (Non-Af Amer) > 60 POC Glucose (mg/dL) 297 H 261 H Random Glucose 298 H Calcium 10.0 Phosphorus Magnesium Venous Blood Potassium 09/26/18 09/26/18 09/26/18 20:26 21:00 21:51 WBC RBC Hgb Hct MCV MCH MCHC RDW Plt Count MPV Neut % (Auto) Lymph % (Auto) Stearns % (Auto) Eos % (Auto) Baso % (Auto) Lymph # (Auto) Stearns # (Auto) Eos # (Auto) Baso # (Auto) Absolute Neuts (auto) pO2 VBG pH VBG pCO2 VBG HCO3 VBG Total CO2 VBG O2 Sat (Calc) VBG Base Excess VBG Potassium Sodium Chloride Glucose Lactate FiO2 Crit Value Called To Crit Value Called By Blood Gas Notified Time Potassium Carbon Dioxide Anion Gap BUN Creatinine Est GFR ( Amer) Est GFR (Non-Af Amer) POC Glucose (mg/dL) 192 H 116 H 100 Random Glucose Calcium Phosphorus Magnesium Venous Blood Potassium 09/26/18 09/27/18 09/27/18 23:11 00:03 00:30 WBC RBC Hgb Hct MCV MCH MCHC RDW Plt Count MPV Neut % (Auto) Lymph % (Auto) Stearns % (Auto) Eos % (Auto) Baso % (Auto) Lymph # (Auto) Stearns # (Auto) Eos # (Auto) Baso # (Auto) Absolute Neuts (auto) pO2 VBG pH VBG pCO2 VBG HCO3 VBG Total CO2 VBG O2 Sat (Calc) VBG Base Excess VBG Potassium Sodium 161 H* Chloride 132 H Glucose Lactate FiO2 Crit Value Called To Crit Value Called By Blood Gas Notified Time Potassium 3.9 Carbon Dioxide 26 Anion Gap 6 L BUN 34 H Creatinine 1.0 Est GFR ( Amer) > 60 Est GFR (Non-Af Amer) > 60 POC Glucose (mg/dL) 140 H 107 Random Glucose 114 H Calcium 9.6 Phosphorus Magnesium 2.4 H Venous Blood Potassium 09/27/18 09/27/18 09/27/18 01:14 01:58 03:10 WBC RBC Hgb Hct MCV MCH MCHC RDW Plt Count MPV Neut % (Auto) Lymph % (Auto) Stearns % (Auto) Eos % (Auto) Baso % (Auto) Lymph # (Auto) Stearns # (Auto) Eos # (Auto) Baso # (Auto) Absolute Neuts (auto) pO2 VBG pH VBG pCO2 VBG HCO3 VBG Total CO2 VBG O2 Sat (Calc) VBG Base Excess VBG Potassium Sodium Chloride Glucose Lactate FiO2 Crit Value Called To Crit Value Called By Blood Gas Notified Time Potassium Carbon Dioxide Anion Gap BUN Creatinine Est GFR ( Amer) Est GFR (Non-Af Amer) POC Glucose (mg/dL) 157 H 183 H 260 H Random Glucose Calcium Phosphorus Magnesium Venous Blood Potassium 09/27/18 09/27/18 09/27/18 04:20 04:27 05:40 WBC 9.1 RBC 4.95 Hgb 14.7 D Hct 45.2 MCV 91.3 MCH 29.7 MCHC 32.5 RDW 13.9 Plt Count 131 MPV 12.6 H Neut % (Auto) 66.1 Lymph % (Auto) 18.6 L Stearns % (Auto) 11.6 H Eos % (Auto) 3.5 Baso % (Auto) 0.2 Lymph # (Auto) 1.7 Stearns # (Auto) 1.1 H Eos # (Auto) 0.3 Baso # (Auto) 0.02 Absolute Neuts (auto) 6.00 pO2 VBG pH VBG pCO2 VBG HCO3 VBG Total CO2 VBG O2 Sat (Calc) VBG Base Excess VBG Potassium Sodium 160 H* Chloride 130 H Glucose Lactate FiO2 Crit Value Called To Crit Value Called By Blood Gas Notified Time Potassium 4.3 Carbon Dioxide 25 Anion Gap 8 L BUN 36 H Creatinine 1.2 Est GFR ( Amer) > 60 Est GFR (Non-Af Amer) > 60 POC Glucose (mg/dL) 246 H Random Glucose 238 H Calcium 9.5 Phosphorus 3.2 Magnesium 2.4 H Venous Blood Potassium 09/27/18 09/27/18 09/27/18 06:04 07:05 07:59 WBC RBC Hgb Hct MCV MCH MCHC RDW Plt Count MPV Neut % (Auto) Lymph % (Auto) Stearns % (Auto) Eos % (Auto) Baso % (Auto) Lymph # (Auto) Stearns # (Auto) Eos # (Auto) Baso # (Auto) Absolute Neuts (auto) pO2 VBG pH VBG pCO2 VBG HCO3 VBG Total CO2 VBG O2 Sat (Calc) VBG Base Excess VBG Potassium Sodium Chloride Glucose Lactate FiO2 Crit Value Called To Crit Value Called By Blood Gas Notified Time Potassium Carbon Dioxide Anion Gap BUN Creatinine Est GFR ( Amer) Est GFR (Non-Af Amer) POC Glucose (mg/dL) 257 H 229 H 225 H Random Glucose Calcium Phosphorus Magnesium Venous Blood Potassium 09/27/18 09/27/18 09/27/18 08:45 08:53 09:54 WBC RBC Hgb Hct MCV MCH MCHC RDW Plt Count MPV Neut % (Auto) Lymph % (Auto) Stearns % (Auto) Eos % (Auto) Baso % (Auto) Lymph # (Auto) Stearns # (Auto) Eos # (Auto) Baso # (Auto) Absolute Neuts (auto) pO2 VBG pH VBG pCO2 VBG HCO3 VBG Total CO2 VBG O2 Sat (Calc) VBG Base Excess VBG Potassium Sodium 158 H* Chloride 129 H Glucose Lactate FiO2 Crit Value Called To Crit Value Called By Blood Gas Notified Time Potassium 4.4 Carbon Dioxide 25 Anion Gap 8 L BUN 36 H Creatinine 1.1 Est GFR ( Amer) > 60 Est GFR (Non-Af Amer) > 60 POC Glucose (mg/dL) 236 H 216 H Random Glucose 227 H Calcium 9.5 Phosphorus Magnesium Venous Blood Potassium 09/27/18 11:49 WBC RBC Hgb Hct MCV MCH MCHC RDW Plt Count MPV Neut % (Auto) Lymph % (Auto) Stearns % (Auto) Eos % (Auto) Baso % (Auto) Lymph # (Auto) Stearns # (Auto) Eos # (Auto) Baso # (Auto) Absolute Neuts (auto) pO2 VBG pH VBG pCO2 VBG HCO3 VBG Total CO2 VBG O2 Sat (Calc) VBG Base Excess VBG Potassium Sodium 158 H* Chloride 129 H Glucose Lactate FiO2 Crit Value Called To Crit Value Called By Blood Gas Notified Time Potassium 4.3 Carbon Dioxide 25 Anion Gap 8 L BUN 35 H Creatinine 1.1 Est GFR ( Amer) > 60 Est GFR (Non-Af Amer) > 60 POC Glucose (mg/dL) Random Glucose 214 H Calcium 9.6 Phosphorus Magnesium Venous Blood Potassium Assessment/Plan - Assessment and Plan (Free Text) Plan: I saw and examined the patient on rounds with resident, agree with note with following additions/exceptions: Patient is 58 yo male with a PMH of HTN, iron deficiency anemia, intra abdominal abscess, systolic CHF, dilated cardiomyopathy, DVT/PE, chronic gastritis and colorectal polyps sp colon resection admitted with DKA, weakness, AMS, to the ICU Currently afebrile, HD stable, comfortable in NAD, doing well Mental status improving Neurology following Renal following Hypernatremia, not improving, IVF switched to 1/2NS, 2/2 hyperglycemia caused by D5W Hypernatremia HX DVT PE AMS DKA resolved Recommend: - cont with supp o2, as needed, duonebs PRN, BIPAP at night - abx as per ID, Merrem Doxy - BP control - DC insulin drip - 1/2NS 100cc/hr - follow up renal - follow VEEG results, Neurology - FS control - BP control - OOB to chair PT eval - advance diet - GI ppx - DVT ppx - Monitor in MICU Critical care time 35 minutes
--- NOTE | 2018-09-27 07:35 | CON ---
DATE: 09/26/2018 CONSULT SERVICE: Cardiology. REASON FOR CONSULTATION AND FOLLOWUP: Cardiac evaluation, history of cardiomyopathy, history of new onset atrial fibrillation, admitted with altered mental status, diabetic ketoacidosis. The patient was seen, but it was noticed that the patient has been followed up by Dr. Pierce, so we will transfer care to Dr. Pierce. Vito Rodriguez MD
[2018-09-27 09:31] LABS: BLOOD UREA NITROGEN 36 mg/dL (7-21); CALCIUM 9.5 mg/dL (8.4-10.5); GFR NON-AFRICAN AMERICAN > 60
[2018-09-27] MEDS: Meropenem IV 1 gm in NS 1 GM/50 ML BAG IVPB SCH ×2 (09:44→21:40)
[2018-09-27] MEDS: diltiaZEM 180 mg/24 Hours CD Cap PO SCH (09:45)
--- NOTE | 2018-09-27 09:55 | PN ---
SUBJECTIVE: The patient was seen and examined at bedside in the ICU. No acute events overnight. He remains afebrile, hemodynamically stable and is demonstrating gradual clinical improvement. This morning he remains somnolent but certainly more awake and alert and offers no complaints. OBJECTIVE: VITAL SIGNS: T 98.1, P 64, BP 123/75, RR 22 and O2 saturation 97% on 2 liters nasal cannula. GENERAL: Somnolent but arousable man, lying in bed, in no apparent distress. HEENT: PERRL, EOMI. No scleral icterus. Mild conjunctival pallor is noted. Dry mucous membranes are noted. NECK: No JVD. LUNGS: Coarse anterior breath sounds. CARDIOVASCULAR: Irregularly irregular. Normal S1, S2. ABDOMEN: Normoactive bowel sounds, soft, nontender, nondistended. EXTREMITIES: Trace pedal edema bilaterally. NEUROLOGIC: Somnolent but arousable, answering questions appropriately, moving all extremities. LABORATORY DATA: WBC 9.1 with 66% neutrophils, hemoglobin 14.7, hematocrit 45, platelets 131. Sodium 160, potassium 4.3, chloride 113, bicarb 25, BUN 36, creatinine 1.2, glucose 238. Hemoglobin A1c 14.4. Blood cultures with no growth to date. Urine culture with no growth to date. ASSESSMENT: The patient is a 58-year-old man with multiple medical comorbidities who presented for evaluation of a 1 week history of malaise and altered mental status and was admitted to the ICU for management of DKA, SUZI and hypernatremia. PLAN: 1. DKA, resolving. Input from Dr. Spencer greatly appreciated. Continue with care as per ICU team. 2. Altered mental status, consider secondary to toxic metabolic encephalopathy, improving. Input from Dr. Live noted. EEG results pending. Continue to target care towards the patient's underlying comorbidities. 3. SIRS syndrome. Input from Dr. Poole noted and the patient remains on empiric antibiotics consisting of Doxycycline 100 mg p.o. every 12 hours and Meropenem 1 g IV every 12 hours. We will continue to monitor for fever and leukocytosis and await culture reports. 4. T2DM, newly diagnosed. A1c of 14.4. Continue with current management for DKA as per #1. The patient will require diabetic education once medically stabilized and initiation of diabetic medications. 5. Atrial fibrillation. The patient remains rate-controlled. Continue Cardizem CD 180 mg p.o. daily, Sotalol 80 mg p.o. b.i.d. and Eliquis 2.5 mg p.o. b.i.d. Now that renal function is improving we may increase Eliquis to 5 mg p.o. b.i.d. 6. Hypernatremia. Input from Dr. Landers noted. We will continue with current care and monitoring serial chemistries to avoid rapid overcorrection of serum sodium. 7. Acute kidney injury, resolved. Continue with care as per Dr. Landers. Monitor strict I&O's, avoid nephrotoxins. 8. Primary dilated cardiomyopathy, evaluation with Dr. Pierce is pending. 9. Hypertension. Blood pressure controlled. Continue with current medications. 10. History of iron-deficiency anemia secondary to chronic gastritis. Labs with stable H/H. Continue to monitor CBC and transfuse as needed. 11. History of left lower extremity DVT/subsegmental PE to the right lower lobe. Continue Eliquis 2.5 mg p.o. b.i.d. As above, given resolution of renal dysfunction we may increase Eliquis to 5 mg p.o. b.i.d. 12. Chronic gastritis. Continue Protonix 40 mg IV daily. 13. Prophylaxis. Continue Protonix for GI prophylaxis. DVT prophylaxis not indicated as the patient remains on Eliquis. CODE STATUS: Full code. Keith Wilhelm MD MTDD
[2018-09-27] MEDS ORDERED: Insulin Detemir 100 units/ml Vial (Levemir) SC ONE (09:57)
[2018-09-27] MEDS: Sodium Chloride 0.45% 1,000 ML IV SCH (10:02)
[2018-09-27] MEDS: Nystatin-Triamcinolone Cream(30 gm) TOP SCH ×2 (10:10→17:31)
--- NOTE | 2018-09-27 11:04 | PCM.EEG ---
Electroencephalogram Report - Electroencephalogram Report Procedure Date: 09/26/18 Medication: Precedex, Meropenen, Interpretation: Technical Information: This was a 16-channel EEG, 1-channel EKG routine EEG performed using [employer] equipment. Electrodes were applied using the 10/20 international placement system. Start; 12;21 End; 13;06 Total 45 minutes. Clinical Information: Alter mental status. EEG Details During the entire study was not discernible awake EEG architecture, the tracing was monotonous and showed diffuse bilateral attenuation with frequencies in the 4 to 5 Hz., there was no clear reactivity of the EEG, not clear if patient was stimulated or not. T Drowsiness not seen, sleep not seen. Hyperventilation was not performed. Photic stimulation was not performed. Interictal activity; none Focal abnormality; none Impression: This is an abnormal EEG record that demonstrate the presence of moderate non specific diffuse disturbance of cortical activity, this is keeping with a diffuse mary matter dysfunction, these findings are not specific. No seizures. Patient is not in status epilepticus.
[2018-09-27] MEDS: Insulin Reg-MEDIUM-Coverage SC SCH ×3 (12:00→22:00)
[2018-09-27 12:20] LABS: CALCIUM 9.6 mg/dL (8.4-10.5)
[2018-09-27 12:22] LABS: BLOOD UREA NITROGEN 35 mg/dL (7-21); GFR NON-AFRICAN AMERICAN > 60
--- NOTE | 2018-09-27 12:27 | CP.PCM.PCO ---
Physician Communication Note - Physician Communication Note Physician Communication Note: toxic/metabolic encephalopathy. EEG is slow,no sz activity. c/w icu mx
--- NOTE | 2018-09-27 13:48 | CP.PCM.PN ---
Subjective - Date & Time of Evaluation Date of Evaluation: 09/27/18 Time of Evaluation: 13:46 - Subjective Subjective: Nephrology Consultation Note: Assessment: sahil Acute Kidney Injury (N17.9) likely due to severe hyperglycemia HAGMA with DKA and hyperosmolar state AMS, sepsis Hypernatremia, hyperkalemia, hypermagnesemia hypercalcemia hypertension systolic CHF LVEF 25% A fib, ventral hernia, overweight Plan No acute need for renal replacement therapy at this time. Hypertension control with meds as ordered. Maintain hemodynamics stable. Avoid h ypotension. Patient not on ACEI/ARB due to recent SUZI. can resume once BP stable. pt on A fib rate control meds Monitor Input/Output, daily weights and renal function with basic metabolic panel continue with hypotonic fluids. Agree with 0.45% saline. pt will have oral water intake starting today. please allow unrestricted access to water until hypernatremia resolves. supplement lytes as needed lasix on hold Dose meds/antibiotics for improved GFR >60. Glycemic control Further work up/management as per primary team Thanks for allowing me to participate in care of your patient. Will follow pat ient with you. Please call if any Qs. had d/w team and family bedside Dr Ilya Landers Office: [phone] Chief Complaint; unable Reason for consult: Acute Kidney Injury HPI: Pt is a 58 M with hx of hypertension (years) systolic CHF LVEF 25% A fib, ventral hernia, overweight, presented with complaints of AMS and found to have hyperosmolar state with hyperglycemia and new onset DM. pt with SUZI and hypernatremia hence renal consulted. pt was started on abx as well for concerns of infection as febrile initially. No knwon OTC/herbal meds or NSAIDs No recent iodinated contrast exposure. No obvious episodes of low BP. ROS: pt awake, feel thirsty, asking for water. denies SOB Physical Examination: General Appearance: awake alert mild confusion Vitals reviewed and noted as below Head; Atraumatic, normocephalic ENT: no ulcers no thrush. Tongue is midline/DRY. Oropharynx: no rash or ulcers. EYES: Pupils are equal, round and reactive to light accommodation. Eye muscles and extraocular movement intact. Sclera is anicteric. Neck; supple no lymphadenopathy, no thyromegaly or bruit Lungs: Normal respiratory rate/effort. Breath sounds bilateral equal and clear anteriorly Heart: Normal rate. s1s2 normal. No rub or gallop. Extremities: no edema. No varicose veins Neurological: Patient is awake alert today follow commands Skin: Warm and dry. Normal turgor. No rash. Palpitation: Normal elasticity for age Abdomen: Abdomen is soft. Bowel sounds +. There is no abdominal tenderness, no guarding/rigidity no organomegaly Psych: deferred MSK: no joint tenderness or swelling. Digits and nails normal, no deformity : kidney or bladder not palpable. has mcgarry Labs/imaging reviewed. Past medical history, past surgical history, family history, social history, allergy reviewed and noted as below Family hx: no hx of CKD. Rest non-contributory UA ketones and glucose ++ Objective - Vital Signs/Intake and Output Vital Signs (last 24 hours): Temp Pulse Resp BP Pulse Ox 99.1 F 56 L 22 123/75 97 09/27/18 04:30 09/27/18 11:56 09/27/18 06:40 09/27/18 06:00 09/27/18 06:40 Intake and Output: 09/27/18 09/27/18 06:59 18:59 Intake Total 1663 78 Output Total 150 Balance 1513 78 - Medications Medications: Current Medications Apixaban (Eliquis) 2.5 mg PO BID ANDRES; Protocol Last Admin: 09/27/18 09:45 Dose: Not Given Diltiazem HCl (Cardizem Cd) 180 mg PO DAILY [facility] Last Admin: 09/27/18 09:45 Dose: Not Given Meropenem (Merrem Iv 1 Gm Premix) 1 gm in 50 mls @ 100 mls/hr IVPB Q12 ANDRES; Protocol Stop: 10/04/18 22:01 Last Admin: 09/27/18 09:44 Dose: 100 mls/hr Doxycycline Hyclate 100 mg/ (Sodium Chloride) 100 mls @ 100 mls/hr IVPB Q12 ANDRES; Protocol Stop: 10/04/18 22:01 Last Admin: 09/27/18 09:44 Dose: 100 mls/hr Dexmedetomidine HCl (Precedex 400mcg/100ml) 400 mcg in 100 mls @ 4.751 mls/hr IV .Q21H3M PRN; Protocol PRN Reason: Agitation Last Titration: 09/27/18 10:24 Dose: Infused Sodium Chloride (Sodium Chloride 0.45%) 1,000 mls @ 100 mls/hr IV .Q10H ANDRES Last Admin: 09/27/18 10:02 Dose: 100 mls/hr Insulin Human Regular (Humulin R Med) 0 units SC ACHS ANDRES; Protocol Melatonin (Melatonin) 1 mg PO HS ANDRES Last Admin: 09/26/18 21:47 Dose: 1 mg Nystatin/Triamcinolone Acetonide (Nystatin/Triamcinolone Cream) 0 ea TOP BID ANDRES Last Admin: 09/27/18 10:10 Dose: 1 applic Pantoprazole Sodium (Protonix Inj) 40 mg IVP DAILY [facility] Last Admin: 09/27/18 09:46 Dose: 40 mg Sotalol HCl (Betapace) 80 mg PO BID ANDRES Last Admin: 09/27/18 09:45 Dose: Not Given - Labs Labs: 09/27/18 05:40 09/27/18 11:49 PT 11.5 SECONDS (9.4-12.5) 09/25/18 16:38 INR 1.04 09/25/18 16:38 APTT 30.8 Seconds (26.9-38.3) 09/25/18 16:38
--- NOTE | 2018-09-27 15:15 | CON ---
DATE OF CONSULTATION: 09/27/2018 CARDIOLOGY CONSULTATION HISTORY: The patient is a 58-year-old male, who presents with altered mental status. According to the daughter, the patient has been progressively weak over the past week. There was a syncopal episode, which prompted him to come into the hospital. PAST MEDICAL HISTORY: His past medical history includes history of hypertension, documented dilated cardiomyopathy with an EF of 35-40%. In the emergency room, his glucose was found to be over 500 and was aggressively treated with hydration as well as insulin. Currently, the patient is awake. He is more alert. In the past, the patient has chronic atrial fibrillation, for which he has been treated with Cardizem, Lanoxin as well as Eliquis as well as Betapace Social history and review of systems are unavailable at this time. PHYSICAL EXAMINATION: GENERAL: The patient is awake, alert. VITAL SIGNS: Blood pressure is 123/75, the heart rate is in the 60s, atrial fibrillation. NECK: Negative JVD. LUNGS: Without rales. CARDIAC: Heart rate S1, S2. EXTREMITIES: Without edema. LABORATORY DATA: Sodium is still 158. The glucose is 227. The hemoglobin is 14.7. IMPRESSION: 1. Hyperosmolar coma. 2. Diabetes mellitus. 3. Atrial fibrillation. 4. Dilated cardiomyopathy. 5. Coronary artery disease. PLAN: Given these findings, the patient is doing much better with aggressive medical treatment. Currently, there is no evidence for CHF. Uvaldo Pierce MD
[2018-09-27 15:49] LABS: BLOOD UREA NITROGEN 32 mg/dL (7-21); CALCIUM 9.7 mg/dL (8.4-10.5); GFR NON-AFRICAN AMERICAN > 60
--- NOTE | 2018-09-27 21:07 | PN ---
DATE: 09/27/2018 SUBJECTIVE: The patient is seen in 129, bed 1. The patient has periods of confusion, his fever is down. He is responsive. PHYSICAL EXAMINATION: VITAL SIGNS: Temperature is 98, blood pressure is 103/60, and pulse rate of 75. HEENT: Unremarkable. NECK: Supple. LUNGS: Decreased breath sounds. HEART: Normal S1 and S2. ABDOMEN: Soft and nontender. LABORATORY DATA: Reveals white count of 9.1, hemoglobin of 14, and 131. BUN is 32 and creatinine is 1. HIV is negative. Microbiology reveals blood cultures are negative. Urine cultures are negative. MRSA is not detected. REVIEW OF ORDERS: Reveal the patient is on doxycycline and meropenem. ASSESSMENT AND PLAN: This is a 58-year-old male with hypertension, colorectal polyp, atrial fibrillation, rapid ventricular response, history of intraabdominal abscess with IR draining in the past, history of pulmonary emboli, systolic congestive heart failure, dilated cardiomyopathy, and admitted with change of mental status. Had a CAT scan of the abdomen and pelvis with interval removal of the drainage catheter within the anterior abdominal wall collection, anterior abdominal wall abscess with cyst, but appears smaller. Dr. Live's note is reviewed. Dr. Keith Wilhelm's note is reviewed with systemic inflammatory response syndrome and metabolic acidosis, increased anion gap and diabetic ketoacidosis, acute kidney injury, on doxycycline and meropenem. final culture results. We will follow with you. José Miguel Poole MD
[2018-09-27 21:10] LABS: BLOOD UREA NITROGEN 31 mg/dL (7-21); CALCIUM 9.1 mg/dL (8.4-10.5); GFR NON-AFRICAN AMERICAN > 60
[2018-09-27] MEDS: Melatonin 3 MG Tab PO SCH (21:40)
[2018-09-28 04:43] LABS: BASO # 0.01 K/mm3 (0.0-2.0); BASO % 0.2 % (0.0-3.0); EOS # 0.2 (0.0-0.7); EOS % 3.6 % (1.5-5.0); HEMOGLOBIN 14.9 g/dL (14.0-18.0); LYMPH # 1.5 (1.2-3.4); LYMPH % 22.6 % (22.0-35.0); MEAN CELL VOLUME 92.7 fl (80.0-105.0); MEAN CORPUSCULAR HEMOGLOBIN 29.4 pg (25.0-35.0); MEAN CORPUSCULAR HGB CONC 31.7 g/dl (31.0-37.0); MEAN PLATELET VOLUME 12.6 fl (7.0-11.0); MONO # 0.5 (0.1-0.6); MONO % 7.9 % (1.0-6.0); RBC 5.07 10^6/uL (3.5-6.1); WHITE BLOOD COUNT 6.4 10^3/uL (4.5-11.0)
[2018-09-28 04:56] LABS: ALBUMIN 2.7 g/dL (3.0-4.8); ALT/SGPT 37 U/L (7-56); AST/SGOT 50 U/L (17-59); BLOOD UREA NITROGEN 28 mg/dL (7-21); GFR NON-AFRICAN AMERICAN > 60
[2018-09-28] MEDS: Sodium Chloride 0.45% 1,000 ML IV SCH (07:00)
--- NOTE | 2018-09-28 07:02 | CP.CCUPN ---
<CalosReneharley Barriga - Last Filed: 09/28/18 13:43> CCU Subjective - Physician Review Events Since Last Encounter (Free Text): 09/28/18 06:58 no acute events overnight Subjective (Free Text): 09/26/18 07:02 Pt seen and examined this morning, pt obtunded 09/27/18 07:23 pt seen and examined this morning, NAD 09/28/18 07:02 pt seen and examined, AOx3, NAD CCU Objective - Vital Signs / Intake & Output Intake and Output (Last 8hrs): Intake & Output 09/27/18 09/27/18 09/28/18 14:59 22:59 06:59 Intake Total 78 1940 Output Total 700 Balance 78 1240 Intake: IV 78 1220 IVF 1050 antibiotics 150 insulin 8 precedex 12 Oral 720 Output: Urine 700 2-way Urethral 700 Other: # Bowel Movements 2 - Physical Exam Head: Positive for: Atraumatic, Normocephalic Pupils: Positive for: PERRL Extroacular Muscles: Positive for: EOMI Conjunctiva: Positive for: Normal Mouth: Positive for: Moist Mucous Membranes Neck: Positive for: Normal Range of Motion Respiratory/Chest: Positive for: Clear to Auscultation, Good Air Exchange. Negative for: Respiratory Distress, Accessory Muscle Use Cardiovascular: Positive for: Regular Rate and Rhythm, Normal S1, S2. Negative for: Murmurs Abdomen: Positive for: Tenderness (Non- focal abdominal tenderness.). Negative for: Distention, Peritoneal Signs Back: Positive for: Normal Inspection Upper Extremity: Positive for: Normal Inspection. Negative for: Cyanosis, Edema Lower Extremity: Positive for: Normal Inspection. Negative for: Edema Skin: Positive for: Warm, Dry, Normal Color. Negative for: Rashes Psychiatric: Positive for: Alert, Oriented x 3, Normal Insight, Normal Concentration - Medications Active Medications: Active Medications Generic Name Dose Route Start Last Admin Trade Name Freq PRN Reason Stop Dose Admin Apixaban 2.5 mg 09/26/18 10:00 09/27/18 17:30 Eliquis PO 2.5 mg BID ANDRES Administration Protocol Diltiazem HCl 180 mg 09/26/18 10:00 09/27/18 09:45 Cardizem Cd PO Not Given DAILY [facility] Meropenem 1 gm in 50 mls @ 100 mls/hr 09/25/18 22:00 09/27/18 21:40 Merrem Iv 1 Gm Premix IVPB 10/04/18 22:01 100 mls/hr Q12 ANDRES Administration Protocol Doxycycline Hyclate 100 mg/ 100 mls @ 100 mls/hr 09/25/18 22:00 09/27/18 21:40 Sodium Chloride IVPB 10/04/18 22:01 100 mls/hr Q12 ANDRES Administration Protocol Dexmedetomidine HCl 400 mcg in 100 mls @ 4.751 mls/hr 09/26/18 10:37 09/27/18 10:24 Precedex 400mcg/100ml IV Infused .Q21H3M PRN Titration Agitation Protocol 0.2 MCG/KG/HR Sodium Chloride 1,000 mls @ 100 mls/hr 09/27/18 10:00 09/27/18 10:02 Sodium Chloride 0.45% IV 100 mls/hr .Q10H ANDRES Administration Insulin Human Regular 0 units 09/27/18 11:30 09/27/18 22:00 Humulin R Med SC 2 units ACHS ANDRES Administration Protocol Melatonin 1 mg 09/26/18 22:00 09/27/18 21:40 Melatonin PO 1 mg HS ANDRES Administration Nystatin/Triamcinolone Acetonide 0 ea 09/26/18 10:00 09/27/18 17:31 Nystatin/Triamcinolone Cream TOP 1 applic BID ANDRES Administration Pantoprazole Sodium 40 mg 09/26/18 10:00 09/27/18 09:46 Protonix Inj IVP 40 mg DAILY ANDRES Administration Sotalol HCl 80 mg 09/26/18 10:00 09/27/18 17:30 Betapace PO 80 mg BID ANDRES Administration - Patient Studies Lab Studies: Microbiology Studies 09/25/18 16:38 Blood Culture - Preliminary Blood NO GROWTH AFTER 48 HOURS 09/25/18 16:38 Blood Culture - Preliminary Blood NO GROWTH AFTER 48 HOURS 09/25/18 22:20 MRSA Culture (Admit) - Final Naris MRSA NOT DETECTED 09/25/18 20:40 Urine Culture - Final Urine,Kumar No Growth (<1,000 CFU/ML) Lab Studies 09/28/18 09/28/18 09/28/18 Range/Units 04:05 04:05 02:11 WBC 6.4 D (4.5-11.0) 10^3/uL RBC 5.07 (3.5-6.1) 10^6/uL Hgb 14.9 (14.0-18.0) g/dL Hct 47.0 (42.0-52.0) % MCV 92.7 (80.0-105.0) fl MCH 29.4 (25.0-35.0) pg MCHC 31.7 (31.0-37.0) g/dl RDW 14.0 (11.5-14.5) % Plt Count 105 L (120.0-450.0) 10^3/uL MPV 12.6 H (7.0-11.0) fl Neut % (Auto) 65.7 (50.0-68.0) % Lymph % (Auto) 22.6 (22.0-35.0) % Stevens % (Auto) 7.9 H (1.0-6.0) % Eos % (Auto) 3.6 (1.5-5.0) % Baso % (Auto) 0.2 (0.0-3.0) % Lymph # (Auto) 1.5 (1.2-3.4) Stevens # (Auto) 0.5 (0.1-0.6) Eos # (Auto) 0.2 (0.0-0.7) Baso # (Auto) 0.01 (0.0-2.0) K/mm3 Absolute Neuts (auto) 4.22 (1.4-6.5) Sodium 152 H (132-148) mmol/L Potassium 4.1 (3.6-5.0) mmol/L Chloride 122 H (98-107) mmol/L Carbon Dioxide 25 (21-33) mmol/L Anion Gap 9 L (10-20) BUN 28 H (7-21) mg/dL Creatinine 0.9 (0.8-1.5) mg/dl Est GFR ( Amer) > 60 Est GFR (Non-Af Amer) > 60 POC Glucose (mg/dL) 299 H (65-110) mg/dL Random Glucose 304 H* (70-110) mg/dL Calcium 9.0 (8.4-10.5) mg/dL Total Bilirubin 0.9 (0.2-1.3) mg/dL AST 50 (17-59) U/L ALT 37 (7-56) U/L Alkaline Phosphatase 71 (38-126) U/L Total Protein 5.6 L (5.8-8.3) g/dL Albumin 2.7 L (3.0-4.8) g/dL Globulin 2.8 gm/dL Albumin/Globulin Ratio 1.0 L (1.1-1.8) Ur L.pneumophila Ag (NEGATIVE) 09/27/18 09/27/18 09/27/18 Range/Units 21:49 20:40 16:57 WBC (4.5-11.0) 10^3/uL RBC (3.5-6.1) 10^6/uL Hgb (14.0-18.0) g/dL Hct (42.0-52.0) % MCV (80.0-105.0) fl MCH (25.0-35.0) pg MCHC (31.0-37.0) g/dl RDW (11.5-14.5) % Plt Count (120.0-450.0) 10^3/uL MPV (7.0-11.0) fl Neut % (Auto) (50.0-68.0) % Lymph % (Auto) (22.0-35.0) % Stevens % (Auto) (1.0-6.0) % Eos % (Auto) (1.5-5.0) % Baso % (Auto) (0.0-3.0) % Lymph # (Auto) (1.2-3.4) Stevens # (Auto) (0.1-0.6) Eos # (Auto) (0.0-0.7) Baso # (Auto) (0.0-2.0) K/mm3 Absolute Neuts (auto) (1.4-6.5) Sodium 151 H (132-148) mmol/L Potassium 4.2 (3.6-5.0) mmol/L Chloride 123 H (98-107) mmol/L Carbon Dioxide 23 (21-33) mmol/L Anion Gap 10 (10-20) BUN 31 H (7-21) mg/dL Creatinine 0.9 (0.8-1.5) mg/dl Est GFR ( Amer) > 60 Est GFR (Non-Af Amer) > 60 POC Glucose (mg/dL) 342 H 220 H (65-110) mg/dL Random Glucose 337 H* D (70-110) mg/dL Calcium 9.1 (8.4-10.5) mg/dL Total Bilirubin (0.2-1.3) mg/dL AST (17-59) U/L ALT (7-56) U/L Alkaline Phosphatase (38-126) U/L Total Protein (5.8-8.3) g/dL Albumin (3.0-4.8) g/dL Globulin gm/dL Albumin/Globulin Ratio (1.1-1.8) Ur L.pneumophila Ag (NEGATIVE) 09/27/18 09/27/18 09/27/18 Range/Units 15:27 11:49 10:58 WBC (4.5-11.0) 10^3/uL RBC (3.5-6.1) 10^6/uL Hgb (14.0-18.0) g/dL Hct (42.0-52.0) % MCV (80.0-105.0) fl MCH (25.0-35.0) pg MCHC (31.0-37.0) g/dl RDW (11.5-14.5) % Plt Count (120.0-450.0) 10^3/uL MPV (7.0-11.0) fl Neut % (Auto) (50.0-68.0) % Lymph % (Auto) (22.0-35.0) % Stevens % (Auto) (1.0-6.0) % Eos % (Auto) (1.5-5.0) % Baso % (Auto) (0.0-3.0) % Lymph # (Auto) (1.2-3.4) Stevens # (Auto) (0.1-0.6) Eos # (Auto) (0.0-0.7) Baso # (Auto) (0.0-2.0) K/mm3 Absolute Neuts (auto) (1.4-6.5) Sodium 155 H 158 H* (132-148) mmol/L Potassium 3.9 4.3 (3.6-5.0) mmol/L Chloride 127 H 129 H (98-107) mmol/L Carbon Dioxide 23 25 (21-33) mmol/L Anion Gap 9 L 8 L (10-20) BUN 32 H 35 H (7-21) mg/dL Creatinine 1.0 1.1 (0.8-1.5) mg/dl Est GFR ( Amer) > 60 > 60 Est GFR (Non-Af Amer) > 60 > 60 POC Glucose (mg/dL) 221 H (65-110) mg/dL Random Glucose 190 H 214 H (70-110) mg/dL Calcium 9.7 9.6 (8.4-10.5) mg/dL Total Bilirubin (0.2-1.3) mg/dL AST (17-59) U/L ALT (7-56) U/L Alkaline Phosphatase (38-126) U/L Total Protein (5.8-8.3) g/dL Albumin (3.0-4.8) g/dL Globulin gm/dL Albumin/Globulin Ratio (1.1-1.8) Ur L.pneumophila Ag (NEGATIVE) 09/27/18 09/27/18 09/27/18 Range/Units 09:54 08:53 08:45 WBC (4.5-11.0) 10^3/uL RBC (3.5-6.1) 10^6/uL Hgb (14.0-18.0) g/dL Hct (42.0-52.0) % MCV (80.0-105.0) fl MCH (25.0-35.0) pg MCHC (31.0-37.0) g/dl RDW (11.5-14.5) % Plt Count (120.0-450.0) 10^3/uL MPV (7.0-11.0) fl Neut % (Auto) (50.0-68.0) % Lymph % (Auto) (22.0-35.0) % Stevens % (Auto) (1.0-6.0) % Eos % (Auto) (1.5-5.0) % Baso % (Auto) (0.0-3.0) % Lymph # (Auto) (1.2-3.4) Stevens # (Auto) (0.1-0.6) Eos # (Auto) (0.0-0.7) Baso # (Auto) (0.0-2.0) K/mm3 Absolute Neuts (auto) (1.4-6.5) Sodium 158 H* (132-148) mmol/L Potassium 4.4 (3.6-5.0) mmol/L Chloride 129 H (98-107) mmol/L Carbon Dioxide 25 (21-33) mmol/L Anion Gap 8 L (10-20) BUN 36 H (7-21) mg/dL Creatinine 1.1 (0.8-1.5) mg/dl Est GFR ( Amer) > 60 Est GFR (Non-Af Amer) > 60 POC Glucose (mg/dL) 216 H 236 H (65-110) mg/dL Random Glucose 227 H (70-110) mg/dL Calcium 9.5 (8.4-10.5) mg/dL Total Bilirubin (0.2-1.3) mg/dL AST (17-59) U/L ALT (7-56) U/L Alkaline Phosphatase (38-126) U/L Total Protein (5.8-8.3) g/dL Albumin (3.0-4.8) g/dL Globulin gm/dL Albumin/Globulin Ratio (1.1-1.8) Ur L.pneumophila Ag (NEGATIVE) 09/27/18 09/27/18 09/26/18 Range/Units 07:59 07:05 20:00 WBC (4.5-11.0) 10^3/uL RBC (3.5-6.1) 10^6/uL Hgb (14.0-18.0) g/dL Hct (42.0-52.0) % MCV (80.0-105.0) fl MCH (25.0-35.0) pg MCHC (31.0-37.0) g/dl RDW (11.5-14.5) % Plt Count (120.0-450.0) 10^3/uL MPV (7.0-11.0) fl Neut % (Auto) (50.0-68.0) % Lymph % (Auto) (22.0-35.0) % Stevens % (Auto) (1.0-6.0) % Eos % (Auto) (1.5-5.0) % Baso % (Auto) (0.0-3.0) % Lymph # (Auto) (1.2-3.4) Stevens # (Auto) (0.1-0.6) Eos # (Auto) (0.0-0.7) Baso # (Auto) (0.0-2.0) K/mm3 Absolute Neuts (auto) (1.4-6.5) Sodium (132-148) mmol/L Potassium (3.6-5.0) mmol/L Chloride (98-107) mmol/L Carbon Dioxide (21-33) mmol/L Anion Gap (10-20) BUN (7-21) mg/dL Creatinine (0.8-1.5) mg/dl Est GFR ( Amer) Est GFR (Non-Af Amer) POC Glucose (mg/dL) 225 H 229 H (65-110) mg/dL Random Glucose (70-110) mg/dL Calcium (8.4-10.5) mg/dL Total Bilirubin (0.2-1.3) mg/dL AST (17-59) U/L ALT (7-56) U/L Alkaline Phosphatase (38-126) U/L Total Protein (5.8-8.3) g/dL Albumin (3.0-4.8) g/dL Globulin gm/dL Albumin/Globulin Ratio (1.1-1.8) Ur L.pneumophila Ag Negative (NEGATIVE) Laboratory Results - last 24 hr 09/26/18 09/27/18 09/27/18 20:00 07:05 07:59 WBC RBC Hgb Hct MCV MCH MCHC RDW Plt Count MPV Neut % (Auto) Lymph % (Auto) Stevens % (Auto) Eos % (Auto) Baso % (Auto) Lymph # (Auto) Stevens # (Auto) Eos # (Auto) Baso # (Auto) Absolute Neuts (auto) Sodium Potassium Chloride Carbon Dioxide Anion Gap BUN Creatinine Est GFR ( Amer) Est GFR (Non-Af Amer) POC Glucose (mg/dL) 229 H 225 H Random Glucose Calcium Total Bilirubin AST ALT Alkaline Phosphatase Total Protein Albumin Globulin Albumin/Globulin Ratio Ur L.pneumophila Ag Negative 09/27/18 09/27/18 09/27/18 08:45 08:53 09:54 WBC RBC Hgb Hct MCV MCH MCHC RDW Plt Count MPV Neut % (Auto) Lymph % (Auto) Stevens % (Auto) Eos % (Auto) Baso % (Auto) Lymph # (Auto) Stevens # (Auto) Eos # (Auto) Baso # (Auto) Absolute Neuts (auto) Sodium 158 H* Potassium 4.4 Chloride 129 H Carbon Dioxide 25 Anion Gap 8 L BUN 36 H Creatinine 1.1 Est GFR ( Amer) > 60 Est GFR (Non-Af Amer) > 60 POC Glucose (mg/dL) 236 H 216 H Random Glucose 227 H Calcium 9.5 Total Bilirubin AST ALT Alkaline Phosphatase Total Protein Albumin Globulin Albumin/Globulin Ratio Ur L.pneumophila Ag 09/27/18 09/27/18 09/27/18 10:58 11:49 15:27 WBC RBC Hgb Hct MCV MCH MCHC RDW Plt Count MPV Neut % (Auto) Lymph % (Auto) Stevens % (Auto) Eos % (Auto) Baso % (Auto) Lymph # (Auto) Stevens # (Auto) Eos # (Auto) Baso # (Auto) Absolute Neuts (auto) Sodium 158 H* 155 H Potassium 4.3 3.9 Chloride 129 H 127 H Carbon Dioxide 25 23 Anion Gap 8 L 9 L BUN 35 H 32 H Creatinine 1.1 1.0 Est GFR ( Amer) > 60 > 60 Est GFR (Non-Af Amer) > 60 > 60 POC Glucose (mg/dL) 221 H Random Glucose 214 H 190 H Calcium 9.6 9.7 Total Bilirubin AST ALT Alkaline Phosphatase Total Protein Albumin Globulin Albumin/Globulin Ratio Ur L.pneumophila Ag 09/27/18 09/27/18 09/27/18 16:57 20:40 21:49 WBC RBC Hgb Hct MCV MCH MCHC RDW Plt Count MPV Neut % (Auto) Lymph % (Auto) Stevens % (Auto) Eos % (Auto) Baso % (Auto) Lymph # (Auto) Stevens # (Auto) Eos # (Auto) Baso # (Auto) Absolute Neuts (auto) Sodium 151 H Potassium 4.2 Chloride 123 H Carbon Dioxide 23 Anion Gap 10 BUN 31 H Creatinine 0.9 Est GFR ( Amer) > 60 Est GFR (Non-Af Amer) > 60 POC Glucose (mg/dL) 220 H 342 H Random Glucose 337 H* D Calcium 9.1 Total Bilirubin AST ALT Alkaline Phosphatase Total Protein Albumin Globulin Albumin/Globulin Ratio Ur L.pneumophila Ag 09/28/18 09/28/18 09/28/18 02:11 04:05 04:05 WBC 6.4 D RBC 5.07 Hgb 14.9 Hct 47.0 MCV 92.7 MCH 29.4 MCHC 31.7 RDW 14.0 Plt Count 105 L MPV 12.6 H Neut % (Auto) 65.7 Lymph % (Auto) 22.6 Stevens % (Auto) 7.9 H Eos % (Auto) 3.6 Baso % (Auto) 0.2 Lymph # (Auto) 1.5 Stevens # (Auto) 0.5 Eos # (Auto) 0.2 Baso # (Auto) 0.01 Absolute Neuts (auto) 4.22 Sodium 152 H Potassium 4.1 Chloride 122 H Carbon Dioxide 25 Anion Gap 9 L BUN 28 H Creatinine 0.9 Est GFR ( Amer) > 60 Est GFR (Non-Af Amer) > 60 POC Glucose (mg/dL) 299 H Random Glucose 304 H* Calcium 9.0 Total Bilirubin 0.9 AST 50 ALT 37 Alkaline Phosphatase 71 Total Protein 5.6 L Albumin 2.7 L Globulin 2.8 Albumin/Globulin Ratio 1.0 L Ur L.pneumophila Ag Fingerstick Blood Sugar Results: 342 Critical Care Progress Note - Nutrition Nutrition: Nutrition Category Date Time Status Liquid Diet [DIET] Diets 09/27/18 Breakfast Ordered Assessment/Plan - Assessment and Plan (Free Text) Assessment: Pt is a 58 yo male with a PMH of HTN, iron deficiency anemia, intra abdominal abscess, systolic CHF, dilated cardiomyopathy, DVT/PE, chronic gastritis and colorectal polyps sp colon resection who presents to the ED because of AMS, progressive weakness who was admitted to the ICU for DKA. Plan: Neuro - AOx3 - Abnormal EEG: non specific diffuse disturbance of cortical activity, mary matter disfunction which is non specific, no seizures, no status epilepticus - CT head- shows generalized atrophy - avoid geodon and haldol, pt is currently taking sotalol - Neuro consulted, Dr Delvalle Cardio - bi ventricular failure, systolic CHF, dilated cardiomyopathy, HTN, Atrial fibrillation, EF 24% - eliquis, diltiazem, sotalol - continue to monitor Pulm - maintain O2 >92% GI - pantoprazole - continue to monitor Nephro/ - 1/2 NS 125 ID - leukocytosis has resolved - doxy, merrem - legionella, HIV NEGATIVE - procal 0.17 - lactate 1.5 Heme/Onc - history of DVT/PE Endo - new onset DM - DKA, anion gap of 24 on admission, gap is now closed - 3L NS in ER, pt was on Bicarb drip, glucose on admission 1300, UA ketones, blood gas on admission pH 7.27 - will transition to SC insulin, levemir 15 - BHB 7.02 Pt seen, examined, assessment and plan discussed with Dr Victor Manuel Live PGY1 - Date & Time Date: 09/28/18 Time: 07:10 <Victor Manuel Wall - Last Filed: 09/28/18 18:45> CCU Objective - Vital Signs / Intake & Output Vital Signs (Last 4 hours): Vital Signs Pulse Resp BP Pulse Ox 09/28/18 18:40 62 127/64 09/28/18 18:21 67 18 127/64 09/28/18 18:00 68 24 91 L 09/28/18 17:00 56 L 23 94 L 09/28/18 16:00 61 22 97 09/28/18 15:58 57 L 09/28/18 15:00 61 25 H 94 L Intake and Output (Last 8hrs): Intake & Output 09/28/18 09/28/18 09/28/18 06:59 14:59 22:59 Intake Total 1500 1350 Output Total 450 1000 Balance 1050 350 Intake: IV 1200 500 IVF 1200 500 Oral 300 850 Output: Urine 450 1000 Urine, Voided 450 1000 Other: # Voids Urine, Voided 4 # Bowel Movements 2 - Medications Active Medications: Active Medications Generic Name Dose Route Start Last Admin Trade Name Freq PRN Reason Stop Dose Admin Apixaban 2.5 mg 09/26/18 10:00 09/28/18 17:36 Eliquis PO 2.5 mg BID ANDRES Administration Protocol Diltiazem HCl 180 mg 09/26/18 10:00 09/28/18 09:29 Cardizem Cd PO 180 mg DAILY ANDRES Administration Meropenem 1 gm in 50 mls @ 100 mls/hr 09/25/18 22:00 09/28/18 09:30 Merrem Iv 1 Gm Premix IVPB 10/04/18 22:01 100 mls/hr Q12 ANDRES Administration Protocol Doxycycline Hyclate 100 mg/ 100 mls @ 100 mls/hr 09/25/18 22:00 09/28/18 09:48 Sodium Chloride IVPB 10/04/18 22:01 100 mls/hr Q12 ANDRES Administration Protocol Insulin Detemir 24 unit 09/28/18 22:00 Levemir SC HS ANDRES Insulin Human Regular 0 units 09/28/18 10:58 09/28/18 17:36 Humulin R High SC 14 units ACHS ANDRES Administration Protocol Losartan Potassium 50 mg 09/28/18 11:00 09/28/18 12:00 Cozaar PO 50 mg DAILY ANDRES Administration Melatonin 1 mg 09/26/18 22:00 09/27/18 21:40 Melatonin PO 1 mg HS ANDRES Administration Nystatin/Triamcinolone Acetonide 0 ea 09/26/18 10:00 09/28/18 17:33 Nystatin/Triamcinolone Cream TOP 1 applic BID ANDRES Administration Pantoprazole Sodium 40 mg 09/29/18 06:00 Protonix Ec Tab PO 0600 ANDRES Sotalol HCl 80 mg 09/26/18 10:00 09/28/18 18:40 Betapace PO 80 mg BID ANDRES Administration - Patient Studies Lab Studies: Microbiology Studies 09/25/18 16:38 Blood Culture - Preliminary Blood NO GROWTH AFTER 3 DAYS 09/25/18 16:38 Blood Culture - Preliminary Blood NO GROWTH AFTER 3 DAYS 09/27/18 21:43 C. difficile Antigen & Toxins A,B - Final Stool Lab Studies 09/28/18 09/28/18 09/28/18 Range/Units 17:06 11:52 08:11 WBC (4.5-11.0) 10^3/uL RBC (3.5-6.1) 10^6/uL Hgb (14.0-18.0) g/dL Hct (42.0-52.0) % MCV (80.0-105.0) fl MCH (25.0-35.0) pg MCHC (31.0-37.0) g/dl RDW (11.5-14.5) % Plt Count (120.0-450.0) 10^3/uL MPV (7.0-11.0) fl Neut % (Auto) (50.0-68.0) % Lymph % (Auto) (22.0-35.0) % Stevens % (Auto) (1.0-6.0) % Eos % (Auto) (1.5-5.0) % Baso % (Auto) (0.0-3.0) % Lymph # (Auto) (1.2-3.4) Stevens # (Auto) (0.1-0.6) Eos # (Auto) (0.0-0.7) Baso # (Auto) (0.0-2.0) K/mm3 Absolute Neuts (auto) (1.4-6.5) Sodium (132-148) mmol/L Potassium (3.6-5.0) mmol/L Chloride (98-107) mmol/L Carbon Dioxide (21-33) mmol/L Anion Gap (10-20) BUN (7-21) mg/dL Creatinine (0.8-1.5) mg/dl Est GFR ( Amer) Est GFR (Non-Af Amer) POC Glucose (mg/dL) 325 H 413 H* 333 H (65-110) mg/dL Random Glucose (70-110) mg/dL Calcium (8.4-10.5) mg/dL Magnesium (1.7-2.2) mg/dL Total Bilirubin (0.2-1.3) mg/dL AST (17-59) U/L ALT (7-56) U/L Alkaline Phosphatase (38-126) U/L Total Protein (5.8-8.3) g/dL Albumin (3.0-4.8) g/dL Globulin gm/dL Albumin/Globulin Ratio (1.1-1.8) 09/28/18 09/28/18 09/28/18 Range/Units 04:05 04:05 04:05 WBC 6.4 D (4.5-11.0) 10^3/uL RBC 5.07 (3.5-6.1) 10^6/uL Hgb 14.9 (14.0-18.0) g/dL Hct 47.0 (42.0-52.0) % MCV 92.7 (80.0-105.0) fl MCH 29.4 (25.0-35.0) pg MCHC 31.7 (31.0-37.0) g/dl RDW 14.0 (11.5-14.5) % Plt Count 105 L (120.0-450.0) 10^3/uL MPV 12.6 H (7.0-11.0) fl Neut % (Auto) 65.7 (50.0-68.0) % Lymph % (Auto) 22.6 (22.0-35.0) % Stevens % (Auto) 7.9 H (1.0-6.0) % Eos % (Auto) 3.6 (1.5-5.0) % Baso % (Auto) 0.2 (0.0-3.0) % Lymph # (Auto) 1.5 (1.2-3.4) Stevens # (Auto) 0.5 (0.1-0.6) Eos # (Auto) 0.2 (0.0-0.7) Baso # (Auto) 0.01 (0.0-2.0) K/mm3 Absolute Neuts (auto) 4.22 (1.4-6.5) Sodium 152 H (132-148) mmol/L Potassium 4.1 (3.6-5.0) mmol/L Chloride 122 H (98-107) mmol/L Carbon Dioxide 25 (21-33) mmol/L Anion Gap 9 L (10-20) BUN 28 H (7-21) mg/dL Creatinine 0.9 (0.8-1.5) mg/dl Est GFR ( Amer) > 60 Est GFR (Non-Af Amer) > 60 POC Glucose (mg/dL) (65-110) mg/dL Random Glucose 304 H* (70-110) mg/dL Calcium 9.0 (8.4-10.5) mg/dL Magnesium 2.1 (1.7-2.2) mg/dL Total Bilirubin 0.9 (0.2-1.3) mg/dL AST 50 (17-59) U/L ALT 37 (7-56) U/L Alkaline Phosphatase 71 (38-126) U/L Total Protein 5.6 L (5.8-8.3) g/dL Albumin 2.7 L (3.0-4.8) g/dL Globulin 2.8 gm/dL Albumin/Globulin Ratio 1.0 L (1.1-1.8) 09/28/18 09/27/18 09/27/18 Range/Units 02:11 21:49 20:40 WBC (4.5-11.0) 10^3/uL RBC (3.5-6.1) 10^6/uL Hgb (14.0-18.0) g/dL Hct (42.0-52.0) % MCV (80.0-105.0) fl MCH (25.0-35.0) pg MCHC (31.0-37.0) g/dl RDW (11.5-14.5) % Plt Count (120.0-450.0) 10^3/uL MPV (7.0-11.0) fl Neut % (Auto) (50.0-68.0) % Lymph % (Auto) (22.0-35.0) % Stevens % (Auto) (1.0-6.0) % Eos % (Auto) (1.5-5.0) % Baso % (Auto) (0.0-3.0) % Lymph # (Auto) (1.2-3.4) Stevens # (Auto) (0.1-0.6) Eos # (Auto) (0.0-0.7) Baso # (Auto) (0.0-2.0) K/mm3 Absolute Neuts (auto) (1.4-6.5) Sodium 151 H (132-148) mmol/L Potassium 4.2 (3.6-5.0) mmol/L Chloride 123 H (98-107) mmol/L Carbon Dioxide 23 (21-33) mmol/L Anion Gap 10 (10-20) BUN 31 H (7-21) mg/dL Creatinine 0.9 (0.8-1.5) mg/dl Est GFR ( Amer) > 60 Est GFR (Non-Af Amer) > 60 POC Glucose (mg/dL) 299 H 342 H (65-110) mg/dL Random Glucose 337 H* D (70-110) mg/dL Calcium 9.1 (8.4-10.5) mg/dL Magnesium (1.7-2.2) mg/dL Total Bilirubin (0.2-1.3) mg/dL AST (17-59) U/L ALT (7-56) U/L Alkaline Phosphatase (38-126) U/L Total Protein (5.8-8.3) g/dL Albumin (3.0-4.8) g/dL Globulin gm/dL Albumin/Globulin Ratio (1.1-1.8) Laboratory Results - last 24 hr 09/27/18 09/27/18 09/28/18 20:40 21:49 02:11 WBC RBC Hgb Hct MCV MCH MCHC RDW Plt Count MPV Neut % (Auto) Lymph % (Auto) Stevens % (Auto) Eos % (Auto) Baso % (Auto) Lymph # (Auto) Stevens # (Auto) Eos # (Auto) Baso # (Auto) Absolute Neuts (auto) Sodium 151 H Potassium 4.2 Chloride 123 H Carbon Dioxide 23 Anion Gap 10 BUN 31 H Creatinine 0.9 Est GFR ( Amer) > 60 Est GFR (Non-Af Amer) > 60 POC Glucose (mg/dL) 342 H 299 H Random Glucose 337 H* D Calcium 9.1 Magnesium Total Bilirubin AST ALT Alkaline Phosphatase Total Protein Albumin Globulin Albumin/Globulin Ratio 09/28/18 09/28/18 09/28/18 04:05 04:05 04:05 WBC 6.4 D RBC 5.07 Hgb 14.9 Hct 47.0 MCV 92.7 MCH 29.4 MCHC 31.7 RDW 14.0 Plt Count 105 L MPV 12.6 H Neut % (Auto) 65.7 Lymph % (Auto) 22.6 Stevens % (Auto) 7.9 H Eos % (Auto) 3.6 Baso % (Auto) 0.2 Lymph # (Auto) 1.5 Stevens # (Auto) 0.5 Eos # (Auto) 0.2 Baso # (Auto) 0.01 Absolute Neuts (auto) 4.22 Sodium 152 H Potassium 4.1 Chloride 122 H Carbon Dioxide 25 Anion Gap 9 L BUN 28 H Creatinine 0.9 Est GFR ( Amer) > 60 Est GFR (Non-Af Amer) > 60 POC Glucose (mg/dL) Random Glucose 304 H* Calcium 9.0 Magnesium 2.1 Total Bilirubin 0.9 AST 50 ALT 37 Alkaline Phosphatase 71 Total Protein 5.6 L Albumin 2.7 L Globulin 2.8 Albumin/Globulin Ratio 1.0 L 09/28/18 09/28/18 09/28/18 08:11 11:52 17:06 WBC RBC Hgb Hct MCV MCH MCHC RDW Plt Count MPV Neut % (Auto) Lymph % (Auto) Stevens % (Auto) Eos % (Auto) Baso % (Auto) Lymph # (Auto) Stevens # (Auto) Eos # (Auto) Baso # (Auto) Absolute Neuts (auto) Sodium Potassium Chloride Carbon Dioxide Anion Gap BUN Creatinine Est GFR ( Amer) Est GFR (Non-Af Amer) POC Glucose (mg/dL) 333 H 413 H* 325 H Random Glucose Calcium Magnesium Total Bilirubin AST ALT Alkaline Phosphatase Total Protein Albumin Globulin Albumin/Globulin Ratio Critical Care Progress Note - Nutrition Nutrition: Nutrition Category Date Time Status Heart Healthy Diet [DIET] Diets 09/28/18 Lunch Active Addendum Addendum: 09/28/18 18:45 MICU Attending Addendum: Patient seen and examined with housestaff, case discussed on rounds. I agree with resident note above with the following additions/exceptions: 58 M with HTN, iron deficiency anemia, intra abdominal abscess, systolic CHF, dilated cardiomyopathy, DVT/PE, admitted with DKA found to have new dx of DM with A1C of 14 DKA resolved. On subQ insulin however currently uncontrlled sugars still likely because he is underdose. Based on his idea body weight his insulin requirement is atleast 48 units for the day. increase levemir to 24 and increase TIDAC scale to start at 8 units abx as per primary team will need close follow up and diabetic education etc cont eliquies of hx of afib and dvt/pe abd abscess noted, however possibly chronic does not appear spetic at this time stable for transfer out of ICU Rest of care as per resident note above Victor Manuel Wall MD Attending Pulmonary Critical Care Sleep Medicine
[2018-09-28] MEDS ORDERED: Insulin Reg-HIGH-Coverage SC SCH ×2 (07:30→11:30)
[2018-09-28] MEDS: diltiaZEM 180 mg/24 Hours CD Cap PO SCH (09:29)
[2018-09-28] MEDS: Meropenem IV 1 gm in NS 1 GM/50 ML BAG IVPB SCH ×2 (09:30→21:15)
[2018-09-28] MEDS: Nystatin-Triamcinolone Cream(30 gm) TOP SCH ×2 (09:41→17:33)
--- NOTE | 2018-09-28 10:54 | PN ---
DATE: 09/28/2018 SUBJECTIVE: The patient is a 58-year-old white male who is in the coronary care unit 129, bed 1. The patient was admitted for diabetic ketoacidosis. His initial glucose was 1343 on admission and he was ketone positive at that time. Currently, he is lying in bed. He is alert and oriented x3. He has no complaints. PHYSICAL EXAMINATION: VITAL SIGNS: Afebrile, pulse rate of 72, blood pressure 160/96, respiratory rate of 23 with an O2 saturation of 93% on room air. HEENT: PERRLA, EOMI. No icterus is present. NECK: Supple with full range of motion. No bruits or adenopathy were appreciated. HEART: Regular rate and rhythm. No murmurs, rubs or gallops. ABDOMEN: Benign. NEUROLOGIC: The patient is intact. LABORATORY DATA: Current lab values. CBC is normal with the exception of a platelet count of 105. Chemistry; currently sodium of 152, chloride of 122, BUN and creatinine of 28 and 0.9, glucose of 304. We will ambulate the patient, transfer to a regular floor. CURRENT DIAGNOSES: 1. Diabetic ketoacidosis. 2. Hypertension. Joce Wilhelm MD
[2018-09-28] MEDS ORDERED: Sodium Chloride 0.45% 1,000 ML IV SCH (11:00)
[2018-09-28] MEDS: Insulin Reg-HIGH-Coverage SC SCH ×3 (12:03→21:58)
--- NOTE | 2018-09-28 13:02 | CP.PCM.PN ---
Subjective - Date & Time of Evaluation Date of Evaluation: 09/28/18 Time of Evaluation: 12:58 - Subjective Subjective: Nephrology Consultation Note: Assessment: stable Acute Kidney Injury (N17.9) likely due to severe hyperglycemia HAGMA with DKA and hyperosmolar state AMS, sepsis Hypernatremia, hyperkalemia, hypermagnesemia hypercalcemia hypertension systolic CHF LVEF 25% A fib, ventral hernia, overweight Plan No acute need for renal replacement therapy at this time. Hypertension control with meds as ordered. Maintain hemodynamics stable. Avoid h ypotension. Patient not on ACEI/ARB due to recent SUZI. will add losartan pt on A fib rate control meds Monitor Input/Output, daily weights and renal function with basic metabolic panel pt with good oral intake. serum Na better. d/c IVF in view of his CHF hx supplement lytes as needed lasix on hold for now Dose meds/antibiotics for improved GFR >60. Glycemic control Further work up/management as per primary team Thanks for allowing me to participate in care of your patient. Will follow patient with you. Please call if any Qs. had d/w team and family bedside Dr Ilya Landers Office: [phone] Chief Complaint; unable Reason for consult: Acute Kidney Injury HPI: Pt is a 58 M with hx of hypertension (years) systolic CHF LVEF 25% A fib, ventral hernia, overweight, presented with complaints of AMS and found to have hyperosmolar state with hyperglycemia and new onset DM. pt with SUZI and hypernatremia hence renal consulted. pt was started on abx as well for concerns of infection as febrile initially. No knwon OTC/herbal meds or NSAIDs No recent iodinated contrast exposure. No obvious episodes of low BP. ROS: pt awake, feel better. denies SOB. no complaints at this time Physical Examination: General Appearance: awake alert follow commands Vitals reviewed and noted as below Head; Atraumatic, normocephalic ENT: no ulcers no thrush. Tongue is midline. Oropharynx: no rash or ulcers. EYES: Pupils are equal, round and reactive to light accommodation. Eye muscles and extraocular movement intact. Sclera is anicteric. Neck; supple no lymphadenopathy, no thyromegaly or bruit Lungs: Normal respiratory rate/effort. Breath sounds bilateral equal and clear anteriorly Heart: Normal rate. s1s2 normal. No rub or gallop. Extremities: no edema. No varicose veins Neurological: Patient is awake alert today follow commands Skin: Warm and dry. Normal turgor. No rash. Palpitation: Normal elasticity for age Abdomen: Abdomen is soft. Bowel sounds +. There is no abdominal tenderness, no guarding/rigidity no organomegaly Psych: deferred MSK: no joint tenderness or swelling. Digits and nails normal, no deformity : kidney or bladder not palpable. Labs/imaging reviewed. Past medical history, past surgical history, family history, social history, allergy reviewed and noted as below Family hx: no hx of CKD. Rest non-contributory UA ketones and glucose ++ Objective - Vital Signs/Intake and Output Vital Signs (last 24 hours): Temp Pulse Resp BP Pulse Ox 97.8 F 61 18 155/96 H 98 09/28/18 08:00 09/28/18 12:00 09/28/18 08:00 09/28/18 12:00 09/28/18 08:00 Intake and Output: 09/28/18 09/28/18 06:59 18:59 Intake Total 1500 Output Total 450 Balance 1050 - Medications Medications: Current Medications Apixaban (Eliquis) 2.5 mg PO BID [facility]; Protocol Last Admin: 09/28/18 09:28 Dose: 2.5 mg Diltiazem HCl (Cardizem Cd) 180 mg PO DAILY [facility] Last Admin: 09/28/18 09:29 Dose: 180 mg Meropenem (Merrem Iv 1 Gm Premix) 1 gm in 50 mls @ 100 mls/hr IVPB Q12 [facility]; Pro tocol Stop: 10/04/18 22:01 Last Admin: 09/28/18 09:30 Dose: 100 mls/hr Doxycycline Hyclate 100 mg/ (Sodium Chloride) 100 mls @ 100 mls/hr IVPB Q12 [facility]; Protocol Stop: 10/04/18 22:01 Last Admin: 09/28/18 09:48 Dose: 100 mls/hr Dexmedetomidine HCl (Precedex 400mcg/100ml) 400 mcg in 100 mls @ 4.751 mls/hr IV .Q21H3M PRN; Protocol PRN Reason: Agitation Last Titration: 09/27/18 10:24 Dose: Infused Sodium Chloride (Sodium Chloride 0.45%) 1,000 mls @ 50 mls/hr IV .Q20H [facility] Stop: 09/29/18 11:01 Insulin Detemir (Levemir) 24 unit SC [facility] Insulin Human Regular (Humulin R High) 0 units SC ACHS [facility]; Protocol Last Admin: 09/28/18 12:03 Dose: 10 units Losartan Potassium (Cozaar) 50 mg PO DAILY [facility] Last Admin: 09/28/18 12:00 Dose: 50 mg Melatonin (Melatonin) 1 mg PO HS [facility] Last Admin: 09/27/18 21:40 Dose: 1 mg Nystatin/Triamcinolone Acetonide (Nystatin/Triamcinolone Cream) 0 ea TOP BID [facility] Last Admin: 09/28/18 09:41 Dose: 1 applic Pantoprazole Sodium (Protonix Inj) 40 mg IVP DAILY [facility] Last Admin: 09/28/18 09:31 Dose: 40 mg Sotalol HCl (Betapace) 80 mg PO BID [facility] Last Admin: 09/28/18 09:28 Dose: 80 mg - Labs Labs: 09/28/18 04:05 09/28/18 04:05 PT 11.5 SECONDS (9.4-12.5) 09/25/18 16:38 INR 1.04 09/25/18 16:38 APTT 30.8 Seconds (26.9-38.3) 09/25/18 16:38
--- NOTE | 2018-09-28 15:52 | PN ---
DATE: 09/28/[address] Uvaldo Pierce. SUBJECTIVE: The patient is comfortable in bed. He was able to sleep overnight, and he denied any chest pain. No reported ventricular arrhythmia. PHYSICAL EXAMINATION: VITAL SIGNS: Blood pressure 175/88, heart rate 79, temperature 97.8, respirations 23. HEENT: Normocephalic. CHEST: Diminished breath sounds over the bases. HEART: S1 and S2 regular. ABDOMEN: Soft. EXTREMITIES: 1+ pitting edema. LABORATORY DATA: Today's hemoglobin and hematocrit 14.9 and 47, white count 6.4, platelet count has dropped to 105,000. SMA-7 today sodium 152, potassium 4.1, chloride 122, CO2 of 25, glucose 304, BUN 28, creatinine 0.9. EKG revealed sinus tachycardia at rate 114, incomplete right bundle-branch block, old inferior infarct, consider lateral ischemia. Echocardiograph study performed in last month revealed ejection fraction in the range 25% to 30% with four-chamber dilation, [id number] aortic insufficiency. At that time, the patient underwent cardioversion of his atrial fibrillation. Cardiac catheterization in January of last year revealed dilated cardiomyopathy with ejection fraction in the range 35% to 40%. No critical coronary artery disease. ASSESSMENT: 1. Nonischemic cardiomyopathy. 2. Hyperosmolar coma. 3. Uncontrolled diabetes mellitus. 4. History of atrial fibrillation, status post recent cardioversion. 5. Thrombocytopenia. RECOMMENDATIONS: Continue current Betapace at 80 mg twice a day, Cardizem CD at 180 mg once a day, Cozaar 50 mg once a day, Eliquis 2.5 mg twice a day, IV meropenem at 1 g intravenously every 12 hours, half normal saline 50 mL an hour. Rakesh Cobos MD
[2018-09-28] MEDS: Melatonin 3 MG Tab PO SCH (21:16)
[2018-09-28] MEDS: Insulin Detemir 100 units/ml Vial (Levemir) SC SCH (21:58)
--- NOTE | 2018-09-28 21:58 | CP.PCM.PN ---
<Geryr Quinones - Last Filed: 09/28/18 23:14> Subjective - Date & Time of Evaluation Date of Evaluation: 09/28/18 Time of Evaluation: 21:58 - Subjective Subjective: Patient had episodes of bigeminy and was bradycardic on tele monitor. Patient is currently asymptomatic. He denies fevers, diaphoresis, chest pain, shortness of breath, abdominal pain, nausea, vomiting, or any other complaints. Vital signs: T: 98.0, BP: 127/64, HR: 62, O2: 94% on 2L NC See Physical exam section below. Assessment: Patient is a 58 yo male with a PMH of HTN, iron deficiency anemia, intra abdominal abscess, systolic CHF, dilated cardiomyopathy, and DVT/PE, admitted to the ICU for DKA. Patient had episodes of bigeminy and bradycardia on tele monitor. Patient is currently asymptomatic. Plan: - Stat EKG, Troponin, BNP, Mg - Troponin: <0.01 X 1 - Trend troponins - Serial EKG's - Consider cardiology consultation - Diabetic education referral Case discussed with attending, Dr. Mccloud. Gerry Quinones, PGY-1 Objective - Vital Signs/Intake and Output Vital Signs (last 24 hours): Temp Pulse Resp BP Pulse Ox 98 F 62 18 127/64 91 L 09/28/18 16:00 09/28/18 18:40 09/28/18 18:21 09/28/18 18:40 09/28/18 18:00 Intake and Output: 09/28/18 09/29/18 18:59 06:59 Intake Total 1350 Output Total 1000 Balance 350 - Medications Medications: Current Medications Apixaban (Eliquis) 2.5 mg PO BID [facility]; Protocol Last Admin: 09/28/18 17:36 Dose: 2.5 mg Diltiazem HCl (Cardizem Cd) 180 mg PO DAILY [facility] Last Admin: 09/28/18 09:29 Dose: 180 mg Meropenem (Merrem Iv 1 Gm Premix) 1 gm in 50 mls @ 100 mls/hr IVPB Q12 [facility]; Protocol Stop: 10/04/18 22:01 Last Admin: 09/28/18 21:15 Dose: 100 mls/hr Doxycycline Hyclate 100 mg/ (Sodium Chloride) 100 mls @ 100 mls/hr IVPB Q12 [facility]; Protocol Stop: 10/04/18 22:01 Last Admin: 09/28/18 21:15 Dose: 100 mls/hr Insulin Detemir (Levemir) 24 unit SC HS [facility] Insulin Human Regular (Humulin R High) 0 units SC ACHS [facility]; Protocol Last Admin: 09/28/18 17:36 Dose: 14 units Losartan Potassium (Cozaar) 50 mg PO DAILY [facility] Last Admin: 09/28/18 12:00 Dose: 50 mg Melatonin (Melatonin) 1 mg PO HS [facility] Last Admin: 09/28/18 21:16 Dose: 1 mg Nystatin/Triamcinolone Acetonide (Nystatin/Triamcinolone Cream) 0 ea TOP BID [facility] Last Admin: 09/28/18 17:33 Dose: 1 applic Pantoprazole Sodium (Protonix Ec Tab) 40 mg PO 0600 [facility] Sotalol HCl (Betapace) 80 mg PO BID [facility] Last Admin: 09/28/18 18:40 Dose: 80 mg Vancomycin HCl (Vancocin 25 Mg/Ml (Oral Use)) 250 mg PO QID [facility]; Protocol Stop: 10/07/18 22:01 - Labs Labs: 09/28/18 04:05 09/28/18 04:05 PT 11.5 SECONDS (9.4-12.5) 09/25/18 16:38 INR 1.04 09/25/18 16:38 APTT 30.8 Seconds (26.9-38.3) 09/25/18 16:38 - Constitutional Appears: Non-toxic, No Acute Distress - Head Exam Head Exam: ATRAUMATIC, NORMAL INSPECTION - Eye Exam Eye Exam: EOMI, Normal appearance Pupil Exam: NORMAL ACCOMODATION - Respiratory Exam Respiratory Exam: Clear to Ausculation Bilateral. absent: Rales, Rhonchi, Wheezes, Respiratory Distress - Cardiovascular Exam Cardiovascular Exam: REGULAR RHYTHM, +S1, +S2. absent: Bradycardia, Tac hycardia, Gallop, Rubs - GI/Abdominal Exam GI & Abdominal Exam: Soft, Normal Bowel Sounds. absent: Tenderness - Extremities Exam Extremities Exam: Normal Inspection. absent: Calf Tenderness, Pedal Edema - Neurological Exam Neurological Exam: Alert, Awake, CN II-XII Intact, Oriented x3 - Psychiatric Exam Psychiatric exam: Normal Affect, Normal Mood - Skin Skin Exam: Dry, Intact, Normal Color, Warm <Sarita Mccloud - Last Filed: 10/03/18 03:32> Objective - Vital Signs/Intake and Output Vital Signs (last 24 hours): Temp Pulse Resp BP Pulse Ox 98.3 F 58 L 18 129/85 98 10/02/18 22:36 10/02/18 22:36 10/02/18 22:36 10/02/18 22:36 10/02/18 22:36 Intake and Output: 10/02/18 10/03/18 18:59 06:59 Intake Total 720 660 Balance 720 660 - Medications Medications: Current Medications Apixaban (Eliquis) 5 mg PO BID [facility]; Protocol Last Admin: 10/02/18 17:01 Dose: 5 mg Diltiazem HCl (Cardizem Cd) 180 mg PO DAILY [facility] Last Admin: 10/02/18 09:42 Dose: 180 mg Meropenem (Merrem Iv 1 Gm Premix) 1 gm in 50 mls @ 100 mls/hr IVPB Q12 [facility]; Protocol Stop: 10/04/18 22:01 Last Admin: 10/02/18 22:27 Dose: 100 mls/hr Insulin Detemir (Levemir) 24 unit SC HS [facility] Last Admin: 10/02/18 22:25 Dose: 24 unit Insulin Human Regular (Humulin R High) 0 units SC [facility]; Protocol Last Admin: 10/02/18 22:27 Dose: Not Given Losartan Potassium (Cozaar) 50 mg PO DAILY [facility] Last Admin: 10/02/18 09:42 Dose: 50 mg Melatonin (Melatonin) 1 mg PO HS [facility] Last Admin: 10/02/18 22:26 Dose: 1 mg Metformin HCl (Glucophage) 1,000 mg PO BID [facility] Last Admin: 10/02/18 17:01 Dose: 1,000 mg Nystatin/Triamcinolone Acetonide (Nystatin/Triamcinolone Cream) 0 ea TOP BID [facility] Last Admin: 10/02/18 17:02 Dose: Not Given Pantoprazole Sodium (Protonix Ec Tab) 40 mg PO 0600 [facility] Last Admin: 10/02/18 05:36 Dose: 40 mg Sotalol HCl (Betapace) 80 mg PO BID [facility] Last Admin: 10/02/18 17:01 Dose: 80 mg Spironolactone (Aldactone) 50 mg PO DAILY [facility] Last Admin: 10/02/18 09:42 Dose: 50 mg Vancomycin HCl (Vancocin 25 Mg/Ml (Oral Use)) 250 mg PO QID [facility]; Protocol Stop: 10/07/18 22:01 Last Admin: 10/02/18 22:25 Dose: 250 mg - Labs Labs: 10/02/18 06:45 10/02/18 06:45 PT 11.5 SECONDS (9.4-12.5) 09/25/18 16:38 INR 1.04 09/25/18 16:38 APTT 30.8 Seconds (26.9-38.3) 09/25/18 16:38 Attending/Attestation - Attestation I have personally seen and examined this patient.: Yes I have fully participated in the care of the patient.: Yes I have reviewed all pertinent clinical information, including history, physical exam and plan: Yes
[2018-09-28] MEDS ORDERED: Insulin Detemir 100 units/ml Vial (Levemir) SC SCH (22:00)
[2018-09-28 22:02] LABS: BLOOD UREA NITROGEN 20 mg/dL (7-21); CALCIUM 8.8 mg/dL (8.4-10.5); GFR NON-AFRICAN AMERICAN > 60
[2018-09-28 22:09] LABS: TROPONIN I 0.01 ng/mL
--- NOTE | 2018-09-28 22:48 | PN ---
DATE: 09/28/2018 SUBJECTIVE: The patient is in bed, in no acute distress, nontoxic, was seen earlier this morning in 129, bed A. OBJECTIVE: VITAL SIGNS: Temperature is 98, blood pressure is 127/60, respiratory rate of 18. HEENT: Unremarkable. NECK: Supple. LUNGS: Have decreased breath sounds. HEART: Normal S1, S2. ABDOMEN: Soft, nontender. LABORATORY EXAMINATION: Reveals a white count of 6.4, hemoglobin of 13, platelets of 105. Coagulation is noted. Chemistries reveals a BUN of 28, creatinine of 0.9. Urinalysis is noted and stool leukocyte is negative. Toxicology is noted. Serology urine for Legionella antigen is negative. HIV is nonreactive. Microbiology, C. difficile antigen is positive. The toxin is negative. Blood cultures are negative. Urine cultures are negative. Nares MRSA is negative. Review of orders reveals the patient to be on doxycycline and meropenem. ASSESSMENT AND PLAN: This is a 58-year-old male with hypertension, colorectal polyps, atrial fibrillation, rapid ventricular response, history of intraabdominal abscess with IR draining in the past, history of pulmonary emboli, systolic congestive heart failure, dilated cardiomyopathy, admitted with change in mental status. CAT scan of the abdomen revealed anterior abdominal wall collection with systemic inflammatory response syndrome, metabolic acidosis, increased anion gap, diabetic ketoacidosis, acute kidney injury, now with a C. diff antigen positive. We will add p.o. vancomycin and p.o. doxycycline and meropenem. Dr. Wall's progress note is reviewed. We will follow closely with you. José Miguel Poole MD
[2018-09-28] MEDS: Vancomycin 25 MG/ML PO SCH (22:53)
[2018-09-29] MEDS: Pantoprazole 40 mg EC Tab PO SCH (05:28)
[2018-09-29 06:08] LABS: BASO # 0.01 K/mm3 (0.0-2.0); BASO % 0.1 % (0.0-3.0); EOS # 0.3 (0.0-0.7); EOS % 4.2 % (1.5-5.0); HEMOGLOBIN 14.1 g/dL (14.0-18.0); LYMPH % 29.6 % (22.0-35.0); MEAN CELL VOLUME 91.9 fl (80.0-105.0); MEAN CORPUSCULAR HEMOGLOBIN 29.3 pg (25.0-35.0); MEAN CORPUSCULAR HGB CONC 31.9 g/dl (31.0-37.0); MEAN PLATELET VOLUME 12.3 fl (7.0-11.0); MONO # 0.6 (0.1-0.6); MONO % 8.9 % (1.0-6.0); RBC 4.81 10^6/uL (3.5-6.1); RED CELL DISTRIBUTION WIDTH 13.2 % (11.5-14.5); WHITE BLOOD COUNT 6.9 10^3/uL (4.5-11.0)
[2018-09-29 06:13] LABS: BLOOD UREA NITROGEN 17 mg/dL (7-21); CALCIUM 8.9 mg/dL (8.4-10.5); GFR NON-AFRICAN AMERICAN > 60; TROPONIN I 0.01 ng/mL
[2018-09-29] MEDS: Insulin Reg-HIGH-Coverage SC SCH ×4 (08:36→22:48)
[2018-09-29] MEDS: Meropenem IV 1 gm in NS 1 GM/50 ML BAG IVPB SCH ×2 (10:09→22:49)
[2018-09-29] MEDS: diltiaZEM 180 mg/24 Hours CD Cap PO SCH (10:10)
[2018-09-29] MEDS: Nystatin-Triamcinolone Cream(30 gm) TOP SCH ×2 (10:11→17:14)
--- NOTE | 2018-09-29 10:22 | PN ---
SUBJECTIVE: The patient was seen and examined at bedside in the ICU. No acute events overnight. He remains afebrile, hemodynamically stable and is demonstrating significant improvement since admission. This morning he appears much more awake and alert and is nearing his baseline. OBJECTIVE: VITAL SIGNS: Temperature 98, pulse 55, blood pressure 144/91, respiratory rate 20, oxygen saturation 91% on room air. GENERAL: No apparent distress. HEENT: PERRL, EOMI. No scleral icterus. Mild conjunctival pallor is noted. Dry mucous membranes are noted. NECK: No JVD. LUNGS: Coarse anterior breath sounds. CARDIOVASCULAR: Irregularly irregular. Normal S1, S2. ABDOMEN: Normoactive bowel sounds, soft, nontender, nondistended. EXTREMITIES: Trace pedal edema bilaterally. NEUROLOGIC: Awake and alert, oriented to person and place, moving all extremities. LABORATORY DATA: WBC 6.9, hemoglobin 14, hematocrit 44, platelets 98. Sodium 140, potassium 3.7, chloride 118, bicarb 25, BUN 17, creatinine 0.7, glucose 165. Blood cultures with no growth to date. Urine culture with no growth to date. C. diff antigen positive and toxin negative. ASSESSMENT: The patient is a 58-year-old man with multiple medical comorbidities who presented for evaluation of 1 week history of malaise and altered mental status and was admitted to the ICU for management of DKA, SUZI and hypernatremia. PLAN: 1. DKA, resolved. Input from Dr. Spencer and the ICU team greatly appreciated. Continue Levemir 24 units SC at bedtime and high dose insulin sliding scale for coverage. 2. Altered mental status, likely secondary to toxic metabolic encephalopathy, resolving. Input from Dr. Live noted. The patient continues to demonstrate improved in his mentation. We will continue to target therapy towards the patient's underlying comorbidities. 3. SIRS syndrome, improving. Input from Dr. Poole, noted. Continue with current antimicrobials. Oral Vancomycin has been added given the results of C. diff assay. 4. Type 2 diabetes mellitus, newly diagnosed. A1c of 14.4. Continue with care as per #1. The patient will require diabetic education and optimization of medications for glycemic control. 5. Atrial fibrillation. The patient remains rate-controlled. Continue Diltiazem CD 180 mg p.o. daily, Sotalol 80 mg p.o. b.i.d. and Eliquis 5 mg p.o. b.i.d. 6. Hypernatremia, resolved. 7. Acute kidney injury, resolved. 8. Primary dilated cardiomyopathy. Input from Dr. Pierce noted. 9. Hypertension. Continue Diltiazem CD 180 mg p.o. daily, Sotalol 80 mg p.o. b.i.d and Losartan 50 mg p.o. daily. 10. Anemia of chronic disease. Continue to monitor CBC and transfuse as needed. 11. History of left lower extremity DVT/subsegmental PE to the right lower lobe. Continue Eliquis 5 mg p.o. b.i.d 12. Chronic gastritis. Continue Protonix 40 mg IV daily. 13. Thrombocytopenia. Consider etiology secondary to medication induced. We will continue to monitor CBC daily and monitor for any evidence of bleed. 14. Prophylaxis. Continue Protonix for GI prophylaxis. DVT prophylaxis not indicated as the patient remains on Eliquis. CODE STATUS: Full code. Keith Wilhelm MD [email or web address]
[2018-09-29] MEDS: Vancomycin 25 MG/ML PO SCH ×4 (10:35→22:51)
--- NOTE | 2018-09-29 15:02 | CARD ---
APPROVED REPORT Date of service: 09/29/2018 EKG Measurement Heart [id number] <Conclusion> Sinus bradycardia Inferior infarct, age undetermined ST & T wave abnormality, consider anterolateral ischemia Abnormal ECG
--- NOTE | 2018-09-29 15:04 | CARD ---
APPROVED REPORT Date of service: 09/28/2018 EKG Measurement Heart [id number] <Conclusion> Sinus bradycardia Inferior infarct, age undetermined ST & T wave abnormality, consider anterolateral ischemia Abnormal ECG
--- NOTE | 2018-09-29 16:23 | PN ---
DATE: 09/29/[address] Uvaldo Pierce. SUBJECTIVE: The patient's shortness of breath has improved. He was able to sleep last night. No reported ventricular tachycardia. The patient is in sinus rhythm with frequent PVCs. PHYSICAL EXAMINATION: VITAL SIGNS: Blood pressure 124/85, heart rate 64, temperature 98, and respiration 22. HEENT: Normocephalic. CHEST: Diminished breath sounds over the bases. HEART: S1 and S2 regular. EXTREMITIES: 1+ pitting edema. LABORATORY DATA: Today's hemoglobin and hematocrit 14.1 and 44.2; white count 6.9 and platelet count 98,000. Today's SMA-7; sodium 148, potassium 3.7, chloride 118, CO2 of 25, glucose 166, BUN 17, and creatinine 0.7. Two sets of troponin today are within normal or not elevated range. EKG revealed sinus bradycardia at a rate of 52, consider anterolateral ischemia. ASSESSMENT: 1. Nonischemic cardiomyopathy. 2. Status post hyperosmolar state. 3. Uncontrolled diabetes mellitus. 4. History of atrial fibrillation, status post recent cardioversion. 5. Worsening thrombocytopenia. RECOMMENDATIONS: Continue sotalol 80 mg twice a day, Cardizem CD at 180 mg daily, Cozaar 50 mg once a day, doxycycline 100 mg intravenously every 12 hours, Eliquis 5 mg twice a day, vancomycin 250 mg four times a day, and meropenem at 1 g intravenously every 12 hours. Rakesh Cobos MD
--- NOTE | 2018-09-29 21:57 | PN ---
DATE: 09/29/2018 SUBJECTIVE: Patient is in bed in no acute distress, nontoxic. PHYSICAL EXAMINATION: GENERAL: Patient is awake and alert, doing much better. VITAL SIGNS: Temperature of 98, blood pressure is 119/85, respiratory rate of 18. HEENT: Unremarkable. NECK: Supple. LUNGS: Decreased breath sounds. HEART: Normal S1 and S2. ABDOMEN: Soft and nontender. LABORATORY EXAMINATION: Reveals a white count of 6.9, hemoglobin of 14. Chemistries reveals a creatinine of 0.7. Urinalysis is noted. Toxicology is noted. Serology is reviewed. HIV is negative. Urine for Legionella antigen is negative. Blood cultures show no growth. Urine cultures show no growth. C. diff antigen is negative. Toxin is negative. Repeat C. diff was negative. was positive. MRSA is not detected. ASSESSMENT AND PLAN: This is a 58-year-old male with hypertension, colorectal polyps, atrial fibrillation, rapid ventricular response, history of intraabdominal abscess with IR draining in the past, history of pulmonary emboli, systolic congestive heart failure, dilated cardiomyopathy admitted with a change in mental status, now with a PET scan revealing anterior abdominal wall collection, systemic inflammatory response syndrome, metabolic acidosis, increased anion gap, diabetic ketoacidosis, acute kidney injury. Currently on p.o. vancomycin and IV meropenem. We will change the doxycycline to p.o. We will follow with you. José Miguel Poole MD
[2018-09-29] MEDS: Melatonin 3 MG Tab PO SCH (22:47)
[2018-09-29] MEDS: Insulin Detemir 100 units/ml Vial (Levemir) SC SCH (22:48)
[2018-09-30] MEDS: Pantoprazole 40 mg EC Tab PO SCH (05:20)
[2018-09-30 06:17] LABS: BASO # 0.01 K/mm3 (0.0-2.0); BASO % 0.2 % (0.0-3.0); EOS # 0.2 (0.0-0.7); EOS % 4.2 % (1.5-5.0); HEMOGLOBIN 13.3 g/dL (14.0-18.0); LYMPH # 1.4 (1.2-3.4); LYMPH % 29.1 % (22.0-35.0); MEAN CELL VOLUME 88.9 fl (80.0-105.0); MEAN CORPUSCULAR HEMOGLOBIN 28.9 pg (25.0-35.0); MEAN CORPUSCULAR HGB CONC 32.5 g/dl (31.0-37.0); MEAN PLATELET VOLUME 12.2 fl (7.0-11.0); MONO # 0.4 (0.1-0.6); MONO % 7.3 % (1.0-6.0); RBC 4.6 10^6/uL (3.5-6.1); RED CELL DISTRIBUTION WIDTH 12.6 % (11.5-14.5)
[2018-09-30 06:44] LABS: ALBUMIN 2.6 g/dL (3.0-4.8); ALT/SGPT 35 U/L (7-56); AST/SGOT 30 U/L (17-59); BLOOD UREA NITROGEN 15 mg/dL (7-21); CALCIUM 8.7 mg/dL (8.4-10.5); GFR NON-AFRICAN AMERICAN > 60
[2018-09-30] MEDS: Insulin Reg-HIGH-Coverage SC SCH ×4 (08:25→21:41)
[2018-09-30] MEDS: Vancomycin 25 MG/ML PO SCH ×4 (09:50→22:47)
[2018-09-30] MEDS: diltiaZEM 180 mg/24 Hours CD Cap PO SCH (09:51)
[2018-09-30] MEDS: Meropenem IV 1 gm in NS 1 GM/50 ML BAG IVPB SCH ×2 (09:52→21:41)
[2018-09-30] MEDS: Nystatin-Triamcinolone Cream(30 gm) TOP SCH ×2 (09:56→17:16)
--- NOTE | 2018-09-30 10:23 | PN ---
DATE: 09/30/2018 SUBJECTIVE: The patient is in bed, in no acute distress, nontoxic. He is seen earlier today in 129, bed 1. He is awake and alert, doing well. No fevers. OBJECTIVE: VITAL SIGNS: Temperature is 98, blood pressure is 140/60, respiratory rate of 18, heart rate of 76. HEENT: Unremarkable. NECK: Supple. LUNGS: Have decreased breath sounds. HEART: Normal S1 and S2. ABDOMEN: Soft, nontender. LABORATORY EXAMINATION: Reveals a white count of 5, hemoglobin of 13, platelets of 93 and the chemistries reveals a BUN of 15, creatinine of 0.6. Urinalysis is noted and toxicology is noted. Beta-hydroxybutyrate is 7.0. HIV is negative. Urine for Legionella antigen is negative. Blood cultures are negative. C. Diff is negative. Urine cultures negative. MRSA is not detected.. REVIEW OF ORDERS: Reveals the patient to be on meropenem and p.o. vancomycin, doxycycline. ASSESSMENT AND PLAN: This is a 58-year-old male with hypertension, colorectal polyps, atrial fibrillation, rapid ventricular response, history of intra-abdominal abscess with IR draining in the past, history of pulmonary emboli, systemic congestive heart failure, dilated cardiomyopathy, admitted with change in mental status and CAT scan revealing anterior wall collection, systemic inflammatory response syndrome, metabolic acidosis, increased anion gap, diabetic ketoacidosis, acute kidney injury. Review of the CAT scan from the , process resides in the anterior abdominal wall, but does not demonstrate any evidence of extension into the peritoneal cavity. We will continue the present course. We will discuss with PMD regard the CT findings on p.o. vancomycin and doxycycline and meropenem, doing much better. José Miguel Poole MD
--- NOTE | 2018-09-30 16:34 | PN ---
DATE: 09/30/2018 SUBJECTIVE: The patient was able to lay flat last night. His shortness of breath is controlled on nasal O2. No reported ventricular arrhythmia. PHYSICAL EXAMINATION: VITAL SIGNS: Blood pressure 139/92, heart rate 78, temperature 98.6, and respirations 20. HEENT: Normocephalic. CHEST: Bibasilar rhonchi. HEART: S1 and S2 regular. EXTREMITIES: 1+ pitting edema. LABORATORY DATA: Today's SMA-7; sodium 141, potassium 3.6, chloride 112, CO2 of 25, glucose 269, BUN 15, and creatinine 0.6. Today's hemoglobin and hematocrit 15.3 and 40.9, white count is 5 and platelet count 93,000. Repeat stool for C.diff antigen is negative. EKG done yesterday revealed sinus bradycardia at a rate of 52, inferior infarct of age undetermined, ST-T waves abnormality, consider anterolateral ischemia. ASSESSMENT: 1. Nonischemic cardiomyopathy. 2. Status post hyperosmolar state. 3. Questionable Clostridium difficile colitis. 4. Uncontrolled diabetes mellitus. 5. History of atrial fibrillation, status post recent cardioversion. 6. Thrombocytopenia. RECOMMENDATIONS: Continue Betapace at 80 mg twice a day, Cardizem CD at 180 mg once daily, Cozaar 50 mg once a day, doxycycline 100 mg p.o. twice a day, Eliquis 5 mg twice a day, IV meropenem at 1 g every 12 hours, oral vancomycin at 250 mg four times a day. The patient can be transferred to telemetry from the cardiac point of view. Rakesh Cobos MD
[2018-09-30] MEDS: Insulin Detemir 100 units/ml Vial (Levemir) SC SCH (21:41)
[2018-09-30] MEDS: Melatonin 3 MG Tab PO SCH (21:42)
--- NOTE | 2018-09-30 22:07 | PN ---
DATE: 09/30/2018 SUBJECTIVE: The patient is currently in room 129, bed 1. He was seen this morning, he has no complaints. He is breathing normally. He denies any aches or pains and there have been no acute events overnight. PHYSICAL EXAMINATION VITAL SIGNS: Afebrile, pulse rate of 55, blood pressure 123/90, respiratory rate of 21 and O2 saturation of 100% on room air. HEENT: PERRLA, EOMI. No icterus is present. NECK: Supple with a full range of motion. No bruits are appreciated. LUNGS: Clear to auscultation and percussion bilaterally. HEART: Regular rate and rhythm. ABDOMEN: Soft. It is nontender. Bowel sounds are normoactive. EXTREMITIES: Show no deformities or edema. NEUROLOGIC: There are no focal motor deficits. LABORATORY DATA: A WBC of 5, H and H of 13.3 and 40.9, platelet count of 93. Chemistry; chloride of 112, the BUN and creatinine of 15 and 0.6, glucose of 254. IMPRESSION: At this time is; 1. Diabetic ketoacidosis. 2. Status post atrial fibrillation. 3. Congestive heart failure, history of. PLAN: Continue on current medication, current IV antibiotics, and transfer out of Intensive Care Unit. Joce Wilhelm MD
[2018-10-01 06:46] LABS: BASO # 0.01 K/mm3 (0.0-2.0); BASO % 0.2 % (0.0-3.0); EOS # 0.2 (0.0-0.7); EOS % 3.5 % (1.5-5.0); HEMOGLOBIN 13.7 g/dL (14.0-18.0); LYMPH # 1.6 (1.2-3.4); LYMPH % 29.1 % (22.0-35.0); MEAN CELL VOLUME 87.4 fl (80.0-105.0); MEAN CORPUSCULAR HEMOGLOBIN 28.8 pg (25.0-35.0); MEAN PLATELET VOLUME 12.3 fl (7.0-11.0); MONO # 0.6 (0.1-0.6); MONO % 10.6 % (1.0-6.0); RBC 4.75 10^6/uL (3.5-6.1); RED CELL DISTRIBUTION WIDTH 12.4 % (11.5-14.5); WHITE BLOOD COUNT 5.4 10^3/uL (4.5-11.0)
[2018-10-01] MEDS: Pantoprazole 40 mg EC Tab PO SCH (06:50)
[2018-10-01 06:58] LABS: ALBUMIN 2.7 g/dL (3.0-4.8); ALT/SGPT 40 U/L (7-56); AST/SGOT 29 U/L (17-59); BLOOD UREA NITROGEN 12 mg/dL (7-21); CALCIUM 8.9 mg/dL (8.4-10.5); GFR NON-AFRICAN AMERICAN > 60
[2018-10-01] MEDS: Insulin Reg-HIGH-Coverage SC SCH ×4 (07:55→22:29)
[2018-10-01] MEDS: Meropenem IV 1 gm in NS 1 GM/50 ML BAG IVPB SCH ×2 (10:45→22:04)
[2018-10-01] MEDS: diltiaZEM 180 mg/24 Hours CD Cap PO SCH (10:46)
[2018-10-01] MEDS: Vancomycin 25 MG/ML PO SCH ×4 (10:47→22:04)
[2018-10-01] MEDS: Nystatin-Triamcinolone Cream(30 gm) TOP SCH ×2 (10:48→18:00)
[2018-10-01] MEDS ORDERED: Potassium Chloride 40 mEq/30 ml LIQ UD PO ONE ×3 (10:56→15:00)
--- NOTE | 2018-10-01 12:50 | PN ---
SUBJECTIVE: The patient was seen and examined at bedside in the ICU. No acute events overnight. He remains afebrile, hemodynamically stable and is pending transfer out of the ICU. This morning he feels well and offers no complaints. OBJECTIVE: VITAL SIGNS: Temperature 98.6, pulse 70, blood pressure 132/87, respiratory rate 18 and oxygen saturation 95% on room air. GENERAL: No apparent distress. HEENT: PERRL, EOMI. No scleral icterus. Mild conjunctival pallor is noted. NECK: No JVD. No bruits. LUNGS: Decreased breath sounds at the bases. CARDIOVASCULAR: Irregularly irregular. Normal S1 and S2. ABDOMEN: Normoactive bowel sounds, soft, nontender, nondistended. EXTREMITIES: Trace pedal edema bilaterally. NEUROLOGIC: AAO x 3, no focal deficits. LABORATORY DATA: WBC 5.4 with 57% neutrophils, hemoglobin 13.7, hematocrit 42, and platelets 102. Sodium 144, potassium 3, chloride 112, bicarb 27, BUN 12, creatinine 0.6 and glucose 126. Blood cultures with no growth to date. Urine culture with no growth to date. Repeat C. diff (09/29/2018) negative. ASSESSMENT: The patient is a 58-year-old man with multiple medical comorbidities who presented for evaluation of a 1 week history of malaise and altered mental status and was admitted to the ICU for management of DKA, SUZI and hypernatremia. PLAN: 1. DKA, resolved. Input from Dr. Spencer appreciated. Fingersticks significantly improved. Continue Levemir 24 units subcutaneously at bedtime and high dose insulin sliding scale. We will start Metformin 1000 mg p.o. b.i.d. 2. Altered mental status, likely secondary toxic metabolic encephalopathy, resolved. Input from Dr. Live noted. Continue with current care. 3. SIRS syndrome, resolving. Input from Dr. Poole noted. The patient remains afebrile, hemodynamically stable and with negative cultures. Continue with antimicrobials as per Dr. Poole. 4. Intraabdominal abscess. We will consult Dr. Uvaldo Garay for evaluation for possible IR drainage. 5. Type 2 diabetes mellitus, newly diagnosed, uncontrolled. A1c of 14.4. Continue Levemir 24 units subcutaneously at bedtime and start Metformin 1000 mg p.o. b.i.d. The patient has been counseled on the need for lifestyle modifications and dietary changes. 6. Atrial fibrillation. Continue Diltiazem CD 180 mg p.o. daily, Sotalol 80 mg p.o. b.i.d. and Eliquis 5 mg p.o. b.i.d. 7. Thrombocytopenia, consider etiology secondary to medication induced vs infection, improving. We will continue to monitor CBC daily and monitor for any evidence of bleed. 8. Hypernatremia, resolved. 9. Acute kidney injury, resolved. 10. Primary dilated cardiomyopathy. 11. Hypertension. Continue Diltiazem CD 180 mg p.o. daily, Sotalol 80 mg p.o. b.i.d. and Losartan 50 mg p.o. daily. 12. Anemia of chronic disease. 13. History of left lower extremity DVT/subsegmental PE to the right lower lobe. Continue Eliquis 5 mg p.o. b.i.d. 14. Chronic gastritis. Continue Protonix 40 mg IV daily. 15. Prophylaxis. Continue Protonix for GI prophylaxis. DVT prophylaxis not indicated as the patient remains on Eliquis. CODE STATUS: Full code. Keith Wilhelm MD MTDD
--- NOTE | 2018-10-01 14:18 | PN ---
DATE: 10/01/2018 SUBJECTIVE: The patient is well, without complaints. PHYSICAL EXAMINATION: VITAL SIGNS: Blood pressure is 157/100, heart rate is in the 60s. NECK: Negative JVD. LUNGS: Without rales. HEART: S1, S2. EXTREMITIES: Without edema. LABORATORY DATA: Hemoglobin is 13.7. Chemistries, BUN and creatinine is unremarkable. The potassium is 3, replacement has been ordered. The glucose is 126. IMPRESSION: 1. Status post hyperosmolar state. 2. Diabetes mellitus. 3. History of nonischemic cardiomyopathy. 4. Thrombocytopenia. 5. Sepsis. 6. Status post cardioversion for atrial fibrillation. PLAN: Given these findings, the patient is doing well from a cardiac perspective. We will discontinue telemetry today. Uvaldo Pierce MD
--- NOTE | 2018-10-01 14:45 | CP.PCM.PN ---
Subjective - Date & Time of Evaluation Date of Evaluation: 10/01/18 Time of Evaluation: 14:41 - Subjective Subjective: Nephrology Consultation Note: Assessment: stable Acute Kidney Injury (N17.9) likely due to severe hyperglycemia: resolved HAGMA with DKA and hyperosmolar state; resolved AMS, sepsis; resolved Hypernatremia, hyperkalemia, hypermagnesemia hypercalcemia: resolved hypertension systolic CHF LVEF 25% A fib, ventral hernia, overweight Hypokalemia Plan No acute need for renal replacement therapy at this time. renal fxn normal Hypertension control with meds as ordered. Maintain hemodynamics stable. Avoid hypotension. continue with losartan. added aldactone [in view of his severe CHF] as well. pt on A fib rate control meds Monitor Input/Output, daily weights and renal function with basic metabolic panel supplement lytes as needed can resume lasix from renal perspective. CHF optimization. cardiology following Dose meds/antibiotics for improved GFR >60. Glycemic control Further work up/management as per primary team Thanks for allowing me to participate in care of your patient. Will follow patient with you. Please call if any Qs. had d/w team and family bedside Dr Ilya Landers Office: [phone] Chief Complaint; unable Reason for consult: Acute Kidney Injury HPI: Pt is a 58 M with hx of hypertension (years) systolic CHF LVEF 25% A fib, ventral hernia, overweight, presented with complaints of AMS and found to have hyperosmolar state with hyperglycemia and new onset DM. pt with SUZI and hypernatremia hence renal consulted. pt was started on abx as well for concerns of infection as febrile initially. No knwon OTC/herbal meds or NSAIDs No recent iodinated contrast exposure. No obvious episodes of low BP. ROS: pt awake, feel better. denies SOB. no complaints at this time except loose stool Physical Examination: General Appearance: awake alert follow commands Vitals reviewed and noted as below Head; Atraumatic, normocephalic ENT: no ulcers no thrush. Tongue is midline. Oropharynx: no rash or ulcers. EYES: Pupils are equal, round and reactive to light accommodation. Eye muscles and extraocular movement intact. Sclera is anicteric. Neck; supple no lymphadenopathy, no thyromegaly or bruit Lungs: Normal respiratory rate/effort. Breath sounds bilateral equal and clear anteriorly Heart: Normal rate. s1s2 normal. No rub or gallop. Extremities: 1+ edema. No varicose veins Neurological: Patient is awake alert today follow commands Skin: Warm and dry. Normal turgor. No rash. Palpitation: Normal elasticity for age Abdomen: Abdomen is soft. Bowel sounds +. There is no abdominal tenderness, no guarding/rigidity no organomegaly Psych: normal insight. pleasant. normal affect/mood MSK: no joint tenderness or swelling. Digits and nails normal, no deformity : kidney or bladder not palpable. Labs/imaging reviewed. Past medical history, past surgical history, family history, social history, allergy reviewed and noted as below Family hx: no hx of CKD. Rest non-contributory UA ketones and glucose ++ Objective - Vital Signs/Intake and Output Vital Signs (last 24 hours): Temp Pulse Resp BP Pulse Ox 98.6 F 66 18 157/104 H 95 10/01/18 06:59 10/01/18 10:47 10/01/18 06:59 10/01/18 10:47 10/01/18 06:59 - Medications Medications: Current Medications Apixaban (Eliquis) 5 mg PO BID [facility]; Protocol Last Admin: 10/01/18 10:46 Dose: 5 mg Diltiazem HCl (Cardizem Cd) 180 mg PO DAILY [facility] Last Admin: 10/01/18 10:46 Dose: 180 mg Doxycycline Hyclate (Doryx) 100 mg PO Q12 [facility]; Protocol Stop: 10/06/18 22:01 Last Admin: 10/01/18 10:46 Dose: 100 mg Meropenem (Merrem Iv 1 Gm Premix) 1 gm in 50 mls @ 100 mls/hr IVPB Q12 [facility]; Pro tocol Stop: 10/04/18 22:01 Last Admin: 10/01/18 10:45 Dose: 100 mls/hr Insulin Detemir (Levemir) 24 unit SC [facility] Last Admin: 09/30/18 21:41 Dose: 24 unit Insulin Human Regular (Humulin R High) 0 units SC ACHS [facility]; Protocol Last Admin: 10/01/18 13:02 Dose: 14 units Losartan Potassium (Cozaar) 50 mg PO DAILY [facility] Last Admin: 10/01/18 10:46 Dose: 50 mg Melatonin (Melatonin) 1 mg PO HS [facility] Last Admin: 09/30/18 21:42 Dose: 1 mg Metformin HCl (Glucophage) 1,000 mg PO BID [facility] Last Admin: 10/01/18 10:47 Dose: 1,000 mg Nystatin/Triamcinolone Acetonide (Nystatin/Triamcinolone Cream) 0 ea TOP BID [facility] Last Admin: 10/01/18 10:48 Dose: 1 applic Pantoprazole Sodium (Protonix Ec Tab) 40 mg PO 0600 [facility] Last Admin: 10/01/18 06:50 Dose: 40 mg Potassium Chloride (Potassium Chloride Oral Soln) 40 meq PO ONCE ONE Stop: 10/01/18 15:01 Sotalol HCl (Betapace) 80 mg PO BID [facility] Last Admin: 10/01/18 10:47 Dose: 80 mg Spironolactone (Aldactone) 50 mg PO DAILY [facility] Last Admin: 10/01/18 13:02 Dose: 50 mg Vancomycin HCl (Vancocin 25 Mg/Ml (Oral Use)) 250 mg PO QID [facility]; Protocol Stop: 10/07/18 22:01 Last Admin: 10/01/18 13:03 Dose: 250 mg - Labs Labs: 10/01/18 05:45 10/01/18 05:45 PT 11.5 SECONDS (9.4-12.5) 09/25/18 16:38 INR 1.04 09/25/18 16:38 APTT 30.8 Seconds (26.9-38.3) 09/25/18 16:38
[2018-10-01] MEDS ORDERED: Potassium Chloride 20 mEq ER Tab PO ONE (19:45)
[2018-10-01] MEDS: Melatonin 3 MG Tab PO SCH ×2 (22:09→22:28)
[2018-10-01] MEDS: Insulin Detemir 100 units/ml Vial (Levemir) SC SCH (22:09)
--- NOTE | 2018-10-01 23:10 | PN ---
DATE: 10/01/2018 SUBJECTIVE: The patient is in bed, in no acute distress. The patient was seen earlier this morning in the ICU . No fevers. No chills. PHYSICAL EXAMINATION: VITAL SIGNS: Temperature is 98, blood pressure is 120/70, respiratory rate is 16. HEENT: Unremarkable. NECK: Supple. LUNGS: Decreased breath sounds. HEART: Normal S1 and S2. ABDOMEN: Soft, nontender. LABORATORY EXAMINATION: Reveals a white count of 5.4, hemoglobin of 13, platelets of 102. Chemistries reveal a BUN of 12, creatinine of 0.6. HIV is negative. Urine Legionella is negative. The patient's urine cultures have no growth, blood cultures have no growth. MEDICATIONS: The patient is currently on the following antibiotics: Doxycycline, meropenem, and vancomycin; with all cultures negative, afebrile, normal white count. Dr. Keith Wilhelm's note is reviewed. ASSESSMENT AND PLAN: A 58-year-old male who was seen earlier in the intensive care unit this morning, now has been moved to sixth floor, with hypertension, colorectal polyps, atrial fibrillation with rapid ventricular response, history of intraabdominal abscess with IR drainage in the past, history of pulmonary emboli, systemic congestive heart failure and dilated cardiomyopathy, admitted with change in mental status and CAT scan revealing anterior wall collection. On vancomycin, meropenem, and doxycycline. We will discuss with Dr. Keith Wilhelm regarding our plans regarding the CT findings. We will discuss the possibility of invasive radiologist to review the CAT scan. José Miguel Poole MD
[2018-10-02] MEDS: Pantoprazole 40 mg EC Tab PO SCH (05:36)
[2018-10-02 07:11] LABS: BASO # 0.02 K/mm3 (0.0-2.0); BASO % 0.3 % (0.0-3.0); EOS # 0.3 (0.0-0.7); EOS % 3.8 % (1.5-5.0); LYMPH # 1.8 (1.2-3.4); LYMPH % 26.1 % (22.0-35.0); MEAN CELL VOLUME 86.1 fl (80.0-105.0); MEAN CORPUSCULAR HGB CONC 33.7 g/dl (31.0-37.0); MEAN PLATELET VOLUME 12.3 fl (7.0-11.0); MONO # 0.6 (0.1-0.6); MONO % 7.9 % (1.0-6.0); RBC 4.83 10^6/uL (3.5-6.1); RED CELL DISTRIBUTION WIDTH 12.5 % (11.5-14.5); WHITE BLOOD COUNT 7.1 10^3/uL (4.5-11.0)
[2018-10-02 07:42] LABS: ALB/GLOB RATIO 1.1 (1.1-1.8); ALBUMIN 3.1 g/dL (3.0-4.8); ALT/SGPT 43 U/L (7-56); AST/SGOT 35 U/L (17-59); BLOOD UREA NITROGEN 12 mg/dL (7-21); CALCIUM 9.2 mg/dL (8.4-10.5); GFR NON-AFRICAN AMERICAN > 60
[2018-10-02] MEDS: Insulin Reg-HIGH-Coverage SC SCH ×4 (08:27→22:27)
[2018-10-02] MEDS: Vancomycin 25 MG/ML PO SCH ×4 (09:41→22:25)
[2018-10-02] MEDS: Meropenem IV 1 gm in NS 1 GM/50 ML BAG IVPB SCH ×2 (09:41→22:27)
[2018-10-02] MEDS: diltiaZEM 180 mg/24 Hours CD Cap PO SCH (09:42)
[2018-10-02] MEDS: Nystatin-Triamcinolone Cream(30 gm) TOP SCH ×2 (09:43→17:02)
--- NOTE | 2018-10-02 09:58 | PN ---
SUBJECTIVE: The patient was seen and examined at bedside on the [facility] [place]. No acute events overnight. He remains afebrile and clinically stable. He is doing well s/p transfer out of the ICU, overall feels well this morning and offers no complaints. OBJECTIVE: VITAL SIGNS: Temperature 97.4, pulse 70, blood pressure 117/65, respiratory rate 20, oxygen saturation 99% on room air. GENERAL: No apparent distress. HEENT: PERRL, EOMI. No scleral icterus. Mild conjunctival pallor is noted. NECK: No JVD. No bruits. LUNGS: Decreased breath sounds at bases. CARDIOVASCULAR: Irregularly irregular. Normal S1, S2. ABDOMEN: Normoactive bowel sounds, soft, nontender, nondistended. EXTREMITIES: No edema. NEUROLOGIC: Awake, alert and oriented x 3. No focal motor deficits. LABORATORY DATA: WBC 7.1 with 62% neutrophils, hemoglobin 14, hematocrit 42, platelets 132. Sodium 141, potassium 3.6, chloride 109, bicarb 24, BUN 12, creatinine 0.6, glucose 133. Blood cultures negative. Urine culture negative. Stool culture negative. C. diff (09/29/2018) negative. ASSESSMENT: The patient is a 58-year-old man with multiple medical comorbidities who was initially admitted to the ICU for management of DKA who is now s/p transfer out of the ICU and demonstrating gradual clinical improvement. PLAN: 1. DKA, resolved. The patient has been extensively counseled on lifestyle modifications. Continue Levemir 24 units SC at bedtime, high dose insulin sliding scale and Metformin 1000 mg p.o. b.i.d. 2. SIRS syndrome, resolving. Input from Dr. Poole noted. The patient remains afebrile, hemodynamically stable and with negative cultures. Continue with antimicrobials as per Dr. Poole. 3. Intra-abdominal abscess. Evaluation with Dr. Uvaldo Garay is pending for possible IR drainage. 4. Type 2 diabetes mellitus, newly diagnosed, uncontrolled. A1c of 14.4. Continue Levemir 24 units SC at bedtime, high dose insulin sliding scale, Metformin 1000 mg p.o. b.i.d. As above, the patient has been counseled on the need for lifestyle modifications and dietary changes. 5. Atrial fibrillation. Continue Diltiazem CD 180 mg p.o. daily, Sotalol 80 mg p.o. b.i.d. and Eliquis 5 mg p.o. b.i.d. 6. Hypertension. Continue Diltiazem CD 180 mg p.o. daily, Sotalol 80 mg p.o. b.i.d and Losartan 50 mg p.o. daily. 7. Thrombocytopenia, consider secondary to medication induced vs infection, improving. Continue to monitor CBC daily and monitor for any evidence of active bleed. 8. History of left lower extremity DVT/subsegmental PE to the right lower lobe. Continue Eliquis 5 mg p.o. b.i.d. 9. Altered mental status, likely secondary to toxic metabolic encephalopathy, resolved. 10. Hypernatremia, resolved. 11. Acute kidney injury, resolved. 12. Primary dilated cardiomyopathy. 13. Anemia of chronic disease. 14. Gastritis. Continue Protonix 40 mg IV daily. 15. Prophylaxis. Continue Protonix for GI prophylaxis. DVT prophylaxis not indicated as the patient remains on Eliquis. CODE STATUS: Full code. Keith Wilhelm MD VENKAT
--- NOTE | 2018-10-02 12:10 | CP.PCM.PN ---
Subjective - Date & Time of Evaluation Date of Evaluation: 10/02/18 Time of Evaluation: 12:09 - Subjective Subjective: Nephrology Consultation Note: Assessment: stable Acute Kidney Injury (N17.9) likely due to severe hyperglycemia: resolved HAGMA with DKA and hyperosmolar state; resolved AMS, sepsis; resolved Hypernatremia, hyperkalemia, hypermagnesemia hypercalcemia: resolved hypertension systolic CHF LVEF 25% A fib, ventral hernia, overweight Hypokalemia Plan No acute need for renal replacement therapy at this time. renal fxn normal Hypertension control with meds as ordered. Maintain hemodynamics stable. Avoid hypotension. continue with losartan, aldactone [in view of his severe CHF and HTN] pt on A fib rate control meds Monitor Input/Output, daily weights and renal function with basic metabolic panel supplement lytes as needed can resume lasix from renal perspective. CHF optimization. cardiology following Dose meds/antibiotics for improved GFR >60. Glycemic control Further work up/management as per primary team Thanks for allowing me to participate in care of your patient. Will follow patient with you. Please call if any Qs. had d/w team and family bedside Dr Ilya Landers Office: [phone] Chief Complaint; unable Reason for consult: Acute Kidney Injury HPI: Pt is a 58 M with hx of hypertension (years) systolic CHF LVEF 25% A fib, ventral hernia, overweight, presented with complaints of AMS and found to have hyperosmolar state with hyperglycemia and new onset DM. pt with SUZI and hypernatremia hence renal consulted. pt was started on abx as well for concerns of infection as febrile initially. No knwon OTC/herbal meds or NSAIDs No recent iodinated contrast exposure. No obvious episodes of low BP. ROS: pt awake, feel better. denies SOB. no complaints at this time except loose stool Physical Examination: General Appearance: awake alert follow commands Vitals reviewed and noted as below Head; Atraumatic, normocephalic ENT: no ulcers no thrush. Tongue is midline. Oropharynx: no rash or ulcers. EYES: Pupils are equal, round and reactive to light accommodation. Eye muscles and extraocular movement intact. Sclera is anicteric. Neck; supple no lymphadenopathy, no thyromegaly or bruit Lungs: Normal respiratory rate/effort. Breath sounds bilateral equal and clear anteriorly Heart: Normal rate. s1s2 normal. No rub or gallop. Extremities: 1+ edema. No varicose veins Neurological: Patient is awake alert today follow commands Skin: Warm and dry. Normal turgor. No rash. Palpitation: Normal elasticity for age Abdomen: Abdomen is soft. Bowel sounds +. There is no abdominal tenderness, no guarding/rigidity no organomegaly Psych: normal insight. pleasant. normal affect/mood MSK: no joint tenderness or swelling. Digits and nails normal, no deformity : kidney or bladder not palpable. Labs/imaging reviewed. Past medical history, past surgical history, family history, social history, allergy reviewed and noted as below Family hx: no hx of CKD. Rest non-contributory UA ketones and glucose ++ Objective - Vital Signs/Intake and Output Vital Signs (last 24 hours): Temp Pulse Resp BP Pulse Ox 97.4 F L 64 18 131/100 H 99 10/02/18 06:00 10/02/18 06:00 10/02/18 06:00 10/02/18 06:00 10/02/18 06:00 Intake and Output: 10/02/18 10/02/18 06:59 18:59 Intake Total 960 Output Total 800 Balance 160 - Medications Medications: Current Medications Apixaban (Eliquis) 5 mg PO BID [facility]; Protocol Last Admin: 10/02/18 09:44 Dose: 5 mg Diltiazem HCl (Cardizem Cd) 180 mg PO DAILY [facility] Last Admin: 10/02/18 09:42 Dose: 180 mg Doxycycline Hyclate (Doryx) 100 mg PO Q12 [facility]; Protocol Stop: 10/06/18 22:01 Last Admin: 10/02/18 09:42 Dose: 100 mg Meropenem (Merrem Iv 1 Gm Premix) 1 gm in 50 mls @ 100 mls/hr IVPB Q12 [facility]; Protocol Stop: 10/04/18 22:01 Last Admin: 10/02/18 09:41 Dose: 100 mls/hr Insulin Detemir (Levemir) 24 unit SC HS [facility] Last Admin: 10/01/18 22:09 Dose: 24 unit Insulin Human Regular (Humulin R High) 0 units SC ACHS [facility]; Protocol Last Admin: 10/02/18 12:01 Dose: 12 units Losartan Potassium (Cozaar) 50 mg PO DAILY [facility] Last Admin: 10/02/18 09:42 Dose: 50 mg Melatonin (Melatonin) 1 mg PO HS [facility] Last Admin: 10/01/18 22:28 Dose: 1 mg Metformin HCl (Glucophage) 1,000 mg PO BID [facility] Last Admin: 10/02/18 09:42 Dose: 1,000 mg Nystatin/Triamcinolone Acetonide (Nystatin/Triamcinolone Cream) 0 ea TOP BID [facility] Last Admin: 10/02/18 09:43 Dose: 1 applic Pantoprazole Sodium (Protonix Ec Tab) 40 mg PO 0600 [facility] Last Admin: 10/02/18 05:36 Dose: 40 mg Sotalol HCl (Betapace) 80 mg PO BID [facility] Last Admin: 10/02/18 09:42 Dose: 80 mg Spironolactone (Aldactone) 50 mg PO DAILY [facility] Last Admin: 10/02/18 09:42 Dose: 50 mg Vancomycin HCl (Vancocin 25 Mg/Ml (Oral Use)) 250 mg PO QID [facility]; Protocol Stop: 10/07/18 22:01 Last Admin: 10/02/18 09:41 Dose: 250 mg - Labs Labs: 10/02/18 06:45 10/02/18 06:45 PT 11.5 SECONDS (9.4-12.5) 09/25/18 16:38 INR 1.04 09/25/18 16:38 APTT 30.8 Seconds (26.9-38.3) 09/25/18 16:38
[2018-10-02] MEDS: Insulin Detemir 100 units/ml Vial (Levemir) SC SCH (22:25)
[2018-10-02] MEDS: Melatonin 3 MG Tab PO SCH (22:26)
[2018-10-02 22:37] VITALS: RESP 18
--- NOTE | 2018-10-03 01:37 | PN ---
DATE: 10/02/2018 SUBJECTIVE: The patient is in bed in no acute distress, nontoxic. PHYSICAL EXAMINATION VITAL SIGNS: Temperature of 98, blood pressure 130/100, respiratory rate 20, heart rate of 50. HEENT: Unremarkable. NECK: Supple. LUNGS: Have decreased breath sounds. HEART: Normal S1, S2. ABDOMEN: Soft. LABORATORY DATA: Reveals white count of 7.1, hemoglobin of 14, platelets of 132. BUN of 12, creatinine of 0.6. Urinalysis is noted. Serology is noted. Microbiology . ASSESSMENT AND PLAN: A 58-year-old who was seen earlier today in room 578, bed 2 with hypertension, colorectal polyps, atrial fibrillation, rapid ventricular response, history of intra-abdominal abscess with an IR drainage in the past, history of pulmonary emboli, systolic congestive heart failure and dilated cardiomyopathy who was admitted with change in mental status. CAT scan of the abdomen revealed an anterior wall, on vancomycin, meropenem and doxycycline. Dr. Keith Wilhelm's note is reviewed. Awaiting for Dr. Uvaldo Garay's input regarding IR drainage of the abscess, on vancomycin, meropenem. Will discontinue doxycycline. Will continue vancomycin and meropenem. Pending culture results. José Miguel Poole MD
[2018-10-03] MEDS: Pantoprazole 40 mg EC Tab PO SCH (07:00)
[2018-10-03 08:10] LABS: BASO # 0.04 K/mm3 (0.0-2.0); BASO % 0.5 % (0.0-3.0); EOS # 0.3 (0.0-0.7); EOS % 3.6 % (1.5-5.0); HEMOGLOBIN 14.3 g/dL (14.0-18.0); LYMPH # 2.1 (1.2-3.4); LYMPH % 23.9 % (22.0-35.0); MEAN CELL VOLUME 86.6 fl (80.0-105.0); MEAN CORPUSCULAR HEMOGLOBIN 29.1 pg (25.0-35.0); MEAN CORPUSCULAR HGB CONC 33.6 g/dl (31.0-37.0); MEAN PLATELET VOLUME 12.7 fl (7.0-11.0); MONO # 0.6 (0.1-0.6); MONO % 7.5 % (1.0-6.0); RBC 4.92 10^6/uL (3.5-6.1); RED CELL DISTRIBUTION WIDTH 12.6 % (11.5-14.5); WHITE BLOOD COUNT 8.6 10^3/uL (4.5-11.0)
[2018-10-03 08:29] LABS: ALB/GLOB RATIO 1.1 (1.1-1.8); ALBUMIN 3.3 g/dL (3.0-4.8); ALT/SGPT 31 U/L (7-56); AST/SGOT 36 U/L (17-59); BLOOD UREA NITROGEN 14 mg/dL (7-21); CALCIUM 9.6 mg/dL (8.4-10.5); GFR NON-AFRICAN AMERICAN > 60
[2018-10-03] MEDS: Insulin Reg-HIGH-Coverage SC SCH ×4 (08:35→22:16)
[2018-10-03] MEDS: Meropenem IV 1 gm in NS 1 GM/50 ML BAG IVPB SCH ×2 (10:12→22:17)
[2018-10-03] MEDS: Vancomycin 25 MG/ML PO SCH ×4 (10:12→22:18)
[2018-10-03] MEDS: Nystatin-Triamcinolone Cream(30 gm) TOP SCH ×2 (10:13→18:33)
[2018-10-03] MEDS: diltiaZEM 180 mg/24 Hours CD Cap PO SCH (10:13)
--- NOTE | 2018-10-03 12:58 | PN ---
SUBJECTIVE: The patient was seen and examined at bedside on the [facility]. No acute events overnight. He remains afebrile and hemodynamically stable. This morning he feels well, offers no complaints and is eager for discharge home soon. OBJECTIVE: VITAL SIGNS: Temperature 97.8, pulse 70, blood pressure 115/81, respiratory rate 18, oxygen saturation 97% on room air. GENERAL: Nontoxic appearing man, sitting up in his chair, in no apparent distress. HEENT: PERRL, EOMI. No scleral icterus. Mild conjunctival pallor is noted. NECK: No JVD. No bruits. LUNGS: Clear to auscultation. CARDIOVASCULAR: Irregularly irregular. Normal S1, S2. ABDOMEN: Normoactive bowel sounds, soft, nontender, nondistended. EXTREMITIES: No edema. NEUROLOGIC: Awake, alert and oriented x 3. No focal motor deficits. LABORATORY DATA: WBC 8.6 with 65% neutrophils, hemoglobin 14, hematocrit 43, platelets 160. Chemistry is pending. ASSESSMENT: The patient is a 58-year-old man with multiple medical comorbidities who was initially admitted to the ICU for management of DKA who is now s/p transfer out of the ICU and demonstrating gradual clinical improvement. PLAN: 1. DKA, resolved. Continue Levemir 24 units SC at bedtime, high dose insulin sliding scale and Metformin 1000 mg p.o. b.i.d. 2. SIRS syndrome, resolving. Input from Dr. Poole noted. The patient remains afebrile, hemodynamically stable and with negative cultures. Continue with antimicrobials as per Dr. Poole. 3. Intra-abdominal abscess. Dr. Uvaldo Garay has reviewed the CT imaging and reports that the findings likely represent residual abdominal scar and no drainable fluid collection. We will speak with Dr. Poole regarding duration of antimicrobial therapy. 4. Type 2 diabetes mellitus, newly diagnosed, uncontrolled. A1c of 14.4. Continue Levemir 24 units SC at bedtime, high dose insulin sliding scale and Metformin 1000 mg p.o. b.i.d. The patient has been counseled on the need for lifestyle modifications and dietary changes. 5. Afib. Continue Diltiazem CD 180 mg p.o. daily, Sotalol 80 mg p.o. b.i.d. and Eliquis 5 mg p.o. b.i.d. 6. Hypertension. Blood pressure controlled. Continue current medications. 7. History of left lower extremity DVT/subsegmental PE to the right lower lobe. Continue Eliquis 5 mg p.o. b.i.d. 8. Thrombocytopenia, resolved. 9. Altered mental status, resolved. 10. Hypernatremia, resolved. 11. Acute kidney injury, resolved. 12. Primary dilated cardiomyopathy. 13. Anemia of chronic disease. 14. Gastritis. 15. Prophylaxis. Continue Protonix for GI prophylaxis. DVT prophylaxis not indicated as the patient is on Eliquis. CODE STATUS: Full code. Keith Wilhelm MD MTDD
--- NOTE | 2018-10-03 14:37 | PN ---
DATE: 10/03/2018 CARDIOLOGY FOLLOWUP SUBJECTIVE: The patient is chest pain-free, is feeling well. PHYSICAL EXAMINATION: VITAL SIGNS: Stable. NECK: Negative JVD. LUNGS: Without rales. HEART: Reveals S1, S2. EXTREMITIES: Without edema. LABORATORY DATA: Hemoglobin is 14.3. Chemistries, BUN and creatinine unremarkable. Glucose is 146. IMPRESSION: 1. Sepsis. 2. Resolution of hyperosmolar state. 3. Diabetes mellitus. 4. Nonischemic dilated cardiomyopathy. 5. Paroxysmal atrial fibrillation. Given these findings, the patient's cardiac status is doing well. We will sign off the case today. Uvaldo Pierce MD
--- NOTE | 2018-10-03 15:36 | CP.PCM.PN ---
Subjective - Date & Time of Evaluation Date of Evaluation: 10/03/18 Time of Evaluation: 15:35 - Subjective Subjective: Nephrology Consultation Note: Assessment: stable Acute Kidney Injury (N17.9) likely due to severe hyperglycemia: resolved HAGMA with DKA and hyperosmolar state; resolved AMS, sepsis; resolved Hypernatremia, hyperkalemia, hypermagnesemia hypercalcemia: resolved hypertension systolic CHF LVEF 25% A fib, ventral hernia, overweight Hypokalemia Plan No acute need for renal replacement therapy at this time. renal fxn normal Hypertension control with meds as ordered. Maintain hemodynamics stable. Avoid hypotension. continue with losartan, aldactone [in view of his severe CHF and HTN] pt on A fib rate control meds Monitor Input/Output, daily weights and renal function with basic metabolic panel supplement lytes as needed resume lasix 40 mg bid. CHF optimization. cardiology following Dose meds/antibiotics for improved GFR >60. Glycemic control Further work up/management as per primary team Thanks for allowing me to participate in care of your patient. Will follow patient with you. Please call if any Qs. had d/w team and family bedside Dr Ilya Landers Office: [phone] Chief Complaint; unable Reason for consult: Acute Kidney Injury HPI: Pt is a 58 M with hx of hypertension (years) systolic CHF LVEF 25% A fib, ventral hernia, overweight, presented with complaints of AMS and found to have hyperosmolar state with hyperglycemia and new onset DM. pt with SUZI and hypernatremia hence renal consulted. pt was started on abx as well for concerns of infection as febrile initially. No knwon OTC/herbal meds or NSAIDs No recent iodinated contrast exposure. No obvious episodes of low BP. ROS: pt awake, feel better. denies SOB. no complaints at this time except loose stool [chronic] Physical Examination: General Appearance: awake alert follow commands Vitals reviewed and noted as below Head; Atraumatic, normocephalic ENT: no ulcers no thrush. Tongue is midline. Oropharynx: no rash or ulcers. EYES: Pupils are equal, round and reactive to light accommodation. Eye muscles and extraocular movement intact. Sclera is anicteric. Neck; supple no lymphadenopathy, no thyromegaly or bruit Lungs: Normal respiratory rate/effort. Breath sounds bilateral equal and clear anteriorly Heart: Normal rate. s1s2 normal. No rub or gallop. Extremities: 2+ edema. No varicose veins Neurological: Patient is awake alert today follow commands Skin: Warm and dry. Normal turgor. No rash. Palpitation: Normal elasticity for age Abdomen: Abdomen is soft. Bowel sounds +. There is no abdominal tenderness, no guarding/rigidity no organomegaly Psych: normal insight. pleasant. normal affect/mood MSK: no joint tenderness or swelling. Digits and nails normal, no deformity : kidney or bladder not palpable. Labs/imaging reviewed. Past medical history, past surgical history, family history, social history, allergy reviewed and noted as below Family hx: no hx of CKD. Rest non-contributory UA ketones and glucose ++ Objective - Vital Signs/Intake and Output Vital Signs (last 24 hours): Temp Pulse Resp BP Pulse Ox 97.3 F L 67 18 136/88 98 10/03/18 14:00 10/03/18 14:00 10/03/18 14:00 10/03/18 14:00 10/03/18 14:00 Intake and Output: 10/03/18 10/03/18 06:59 18:59 Intake Total 1020 Output Total 1100 Balance -80 - Medications Medications: Current Medications Apixaban (Eliquis) 5 mg PO BID [facility]; Protocol Last Admin: 10/03/18 10:12 Dose: 5 mg Diltiazem HCl (Cardizem Cd) 180 mg PO DAILY [facility] Last Admin: 10/03/18 10:13 Dose: 180 mg Meropenem (Merrem Iv 1 Gm Premix) 1 gm in 50 mls @ 100 mls/hr IVPB Q12 [facility]; Protocol Stop: 10/04/18 22:01 Last Admin: 10/03/18 10:12 Dose: 100 mls/hr Insulin Detemir (Levemir) 24 unit SC HS [facility] Last Admin: 10/02/18 22:25 Dose: 24 unit Insulin Human Regular (Humulin R High) 0 units SC ACHS [facility]; Protocol Last Admin: 10/03/18 12:24 Dose: 10 units Losartan Potassium (Cozaar) 50 mg PO DAILY [facility] Last Admin: 10/03/18 10:12 Dose: 50 mg Melatonin (Melatonin) 1 mg PO HS [facility] Last Admin: 10/02/18 22:26 Dose: 1 mg Metformin HCl (Glucophage) 1,000 mg PO BID [facility] Last Admin: 10/03/18 10:13 Dose: 1,000 mg Nystatin/Triamcinolone Acetonide (Nystatin/Triamcinolone Cream) 0 ea TOP BID [facility] Last Admin: 10/03/18 10:13 Dose: Not Given Pantoprazole Sodium (Protonix Ec Tab) 40 mg PO 0600 [facility] Last Admin: 10/03/18 07:00 Dose: 40 mg Sotalol HCl (Betapace) 80 mg PO BID [facility] Last Admin: 10/03/18 10:12 Dose: 80 mg Spironolactone (Aldactone) 50 mg PO DAILY [facility] Last Admin: 10/03/18 10:12 Dose: 50 mg Vancomycin HCl (Vancocin 25 Mg/Ml (Oral Use)) 250 mg PO QID [facility]; Protocol Stop: 10/07/18 22:01 Last Admin: 10/03/18 14:49 Dose: 250 mg - Labs Labs: 10/03/18 07:30 10/03/18 07:30 PT 11.5 SECONDS (9.4-12.5) 09/25/18 16:38 INR 1.04 09/25/18 16:38 APTT 30.8 Seconds (26.9-38.3) 09/25/18 16:38
[2018-10-03] MEDS: Insulin Detemir 100 units/ml Vial (Levemir) SC SCH (22:13)
[2018-10-03] MEDS: Melatonin 3 MG Tab PO SCH (22:17)
--- NOTE | 2018-10-04 03:37 | PN ---
DATE: 10/03/2018 SUBJECTIVE: The patient is seen earlier this morning in room 565, bed 1, in no acute distress, nontoxic. PHYSICAL EXAMINATION: VITAL SIGNS: Temperature is 97, blood pressure is 130/80, respiratory rate of 18. HEENT: Unremarkable. NECK: Supple. LUNGS: Have decreased breath sounds. HEART: Normal S1, S2. ABDOMEN: Soft. LABORATORY DATA: Reveals the patient to have white count of 8.6, hemoglobin of 14, platelets of 116. BUN of 14, creatinine of 0.7. Urinalysis is noted. Review of orders revealed to be on meropenem and vancomycin. ASSESSMENT AND PLAN: This is a 58-year-old male who was seen earlier this morning with hypertension, colorectal polyps, atrial fibrillation, rapid ventricular response, intraabdominal abscesses and with systolic congestive heart failure, dilated cardiomyopathy, admitted with change of mental status and CT results are noted. Case was discussed with Dr. Keith Wilhelm and Dr. Uvaldo Garay residual abdominal scar, no drainable fluid, and discharged on by mouth antibiotics as discussed with Dr. Keith Wilhelm. José Miguel Poole MD
[2018-10-04] MEDS: Pantoprazole 40 mg EC Tab PO SCH (06:49)
[2018-10-04 06:55] LABS: BASO # 0.02 K/mm3 (0.0-2.0); BASO % 0.3 % (0.0-3.0); EOS # 0.3 (0.0-0.7); EOS % 3.8 % (1.5-5.0); HEMOGLOBIN 13.7 g/dL (14.0-18.0); LYMPH # 1.7 (1.2-3.4); MEAN CELL VOLUME 85.7 fl (80.0-105.0); MEAN CORPUSCULAR HEMOGLOBIN 29.1 pg (25.0-35.0); MONO # 0.8 (0.1-0.6); MONO % 11.6 % (1.0-6.0); RBC 4.7 10^6/uL (3.5-6.1); RED CELL DISTRIBUTION WIDTH 12.7 % (11.5-14.5); WHITE BLOOD COUNT 6.7 10^3/uL (4.5-11.0)
[2018-10-04 07:22] LABS: ALB/GLOB RATIO 1.1 (1.1-1.8); ALBUMIN 3.1 g/dL (3.0-4.8); ALT/SGPT 28 U/L (7-56); AST/SGOT 30 U/L (17-59); BLOOD UREA NITROGEN 12 mg/dL (7-21); CALCIUM 9.6 mg/dL (8.4-10.5); GFR NON-AFRICAN AMERICAN > 60
[2018-10-04 07:34] VITALS: TEMP 97.7; O2SAT 96
[2018-10-04] MEDS: Insulin Reg-HIGH-Coverage SC SCH ×2 (07:57→12:08)
--- NOTE | 2018-10-04 10:41 | PN ---
SUBJECTIVE: The patient was seen and examined at bedside on the [facility]. No acute events overnight. He remains afebrile and hemodynamically stable. This morning he feels well, offers no complaints and is looking forward to going home. OBJECTIVE: VITAL SIGNS: Temperature 97.7, pulse 64, blood pressure 112/76, respiratory rate 18, oxygen saturation 96% on room air. GENERAL: Nontoxic appearing man, sitting up in bed, in no apparent distress. HEENT: PERRL, EOMI. No scleral icterus. Mild conjunctival pallor is noted. NECK: No JVD. No bruits. LUNGS: Clear to auscultation. CARDIOVASCULAR: Irregularly irregular. Normal S1 and S2. ABDOMEN: Normoactive bowel sounds, soft, nontender, nondistended. EXTREMITIES: No edema. NEUROLOGIC: Awake, alert and oriented x 3. No focal motor deficits. LABORATORY DATA: CBC reviewed and unremarkable. CMP reviewed and unremarkable. ASSESSMENT: The patient is a 58-year-old man with multiple medical comorbidities who was initially admitted to the ICU for management of DKA who is now s/p transfer out of ICU and pending discharge home. PLAN: 1. DKA, resolved. Continue Levemir 24 units SC at bedtime, Metformin 1000 mg p.o. b.i.d. and high dose insulin sliding scale. 2. SIRS syndrome, resolved. Input from Dr. Poole noted and recommendations made for a 7 day course of Augmentin 875 mg p.o. b.i.d. and Doxycycline 100 mg p.o. b.i.d. 3. Intra-abdominal abscess. After discussing the case with Dr. Uvaldo Garay, he feels that the findings likely represent residual abdominal scar and no drainable fluid collection. As above, we will complete a course of antibiotics as per Dr. Poole. 4. Type 2 diabetes mellitus, newly diagnosed, uncontrolled. A1c of 14.4. The patient will be discharged on Metformin 1000 mg p.o. b.i.d. and Levemir 24 units SC at bedtime. He has again been counseled on lifestyle modifications. 5. AFib. Continue Diltiazem CD 180 mg p.o. daily, Sotalol 80 mg p.o. b.i.d. and Eliquis 5 mg p.o. b.i.d. 6. Hypertension. Blood pressure controlled. Continue Losartan 50 mg p.o. daily. 7. History of left lower extremity DVT/subsegmental PE to the right lower lobe. Continue Eliquis 5 mg p.o. b.i.d. 8. Primary dilated cardiomyopathy. 9. Anemia of chronic disease. 10. Gastritis. 11. Thrombocytopenia, resolved. 12. Altered mental status, resolved. 13. Hypernatremia, resolved. 14. Acute kidney injury, resolved. 15. Prophylaxis. Continue Protonix for GI prophylaxis. DVT prophylaxis not indicated as the patient is on Eliquis. CODE STATUS: Full code. Keith Wilhelm MD MTDD
[2018-10-04] MEDS: diltiaZEM 180 mg/24 Hours CD Cap PO SCH (10:53)
[2018-10-04] MEDS: Nystatin-Triamcinolone Cream(30 gm) TOP SCH (10:55)
[2018-10-04 10:56] VITALS: BP 121/76; PULSE 65
--- NOTE | 2018-10-04 14:43 | CP.PCM.PN ---
Subjective - Date & Time of Evaluation Date of Evaluation: 10/04/18 Time of Evaluation: 14:41 - Subjective Subjective: Nephrology Consultation Note: Assessment: stable Acute Kidney Injury (N17.9) likely due to severe hyperglycemia: resolved HAGMA with DKA and hyperosmolar state; resolved AMS, sepsis; resolved Hypernatremia, hyperkalemia, hypermagnesemia hypercalcemia: resolved hypertension systolic CHF LVEF 25% A fib, ventral hernia, overweight Hypokalemia Plan No acute need for renal replacement therapy at this time. renal fxn normal Hypertension control with meds as ordered. Maintain hemodynamics stable. Avoid hypotension. continue with losartan, aldactone [in view of his severe CHF and HTN] pt on A fib rate control meds Monitor Input/Output, daily weights and renal function with basic metabolic panel supplement lytes as needed resume lasix 40 mg bid. CHF optimization. cardiology following Dose meds/antibiotics for improved GFR >60. Glycemic control Further work up/management as per primary team pt planned for d/c home today. stable from renal perspective Thanks for allowing me to participate in care of your patient. Will follow patient with you. Please call if any Qs. had d/w team and family bedside Dr Ilya Landers Office: [phone] Chief Complaint; unable Reason for consult: Acute Kidney Injury HPI: Pt is a 58 M with hx of hypertension (years) systolic CHF LVEF 25% A fib, ventral hernia, overweight, presented with complaints of AMS and found to have hyperosmolar state with hyperglycemia and new onset DM. pt with SUZI and hypernatremia hence renal consulted. pt was started on abx as well for concerns of infection as febrile initially. No knwon OTC/herbal meds or NSAIDs No recent iodinated contrast exposure. No obvious episodes of low BP. ROS: pt awake, feel better. denies SOB. no complaints at this time except loose stool [chronic] Physical Examination: General Appearance: awake alert follow commands Vitals reviewed and noted as below Head; Atraumatic, normocephalic ENT: no ulcers no thrush. Tongue is midline. Oropharynx: no rash or ulcers. EYES: Pupils are equal, round and reactive to light accommodation. Eye muscles and extraocular movement intact. Sclera is anicteric. Neck; supple no lymphadenopathy, no thyromegaly or bruit Lungs: Normal respiratory rate/effort. Breath sounds bilateral equal and clear anteriorly Heart: Normal rate. s1s2 normal. No rub or gallop. Extremities: 2+ edema. No varicose veins Neurological: Patient is awake alert today follow commands Skin: Warm and dry. Normal turgor. No rash. Palpitation: Normal elasticity for age Abdomen: Abdomen is soft. Bowel sounds +. There is no abdominal tenderness, no guarding/rigidity no organomegaly Psych: normal insight. pleasant. normal affect/mood MSK: no joint tenderness or swelling. Digits and nails normal, no deformity : kidney or bladder not palpable. Labs/imaging reviewed. Past medical history, past surgical history, family history, social history, allergy reviewed and noted as below Family hx: no hx of CKD. Rest non-contributory UA ketones and glucose ++ Objective - Vital Signs/Intake and Output Vital Signs (last 24 hours): Temp Pulse Resp BP Pulse Ox 97.7 F 65 18 121/76 96 10/04/18 06:00 10/04/18 10:54 10/04/18 06:00 10/04/18 10:54 10/04/18 06:00 Intake and Output: 10/04/18 10/04/18 06:59 18:59 Intake Total 780 Balance 780 - Labs Labs: 10/04/18 06:30 10/04/18 06:30 PT 11.5 SECONDS (9.4-12.5) 09/25/18 16:38 INR 1.04 09/25/18 16:38 APTT 30.8 Seconds (26.9-38.3) 09/25/18 16:38
--- NOTE | 2018-10-04 20:51 | PN ---
DATE: 10/04/2018 SUBJECTIVE: The patient is seen earlier this morning in room 565, bed 1. He is doing well. PHYSICAL EXAMINATION: VITAL SIGNS: Temperature is 98, blood pressure is 120/70, and respiratory rate is 16. HEENT: Unremarkable. NECK: Supple. LUNGS: Decreased breath sounds. HEART: Normal S1 and S2. ABDOMEN: Soft. LABORATORY DATA: Noted. Chemistries are noted. White count is 6.7. Creatinine is 0.7. Cultures are reviewed. ASSESSMENT AND PLAN: A 58-year-old male who was seen earlier this morning in room 565, bed 1 with hypertension, colorectal polyp, atrial fibrillation, rapid ventricular response, intra-abdominal collection, abscess, systolic congestive heart failure, dilated cardiomyopathy, and admitted with change in mental status. Case discussed with Dr. Keith Wilhelm and the patient to be discharged today with p.o. antibiotics. José Miguel Poole MD
== END 2018-10-04 14:29 | disposition home or self-care (01) | DRG 871 ==
LOC: ED 15:10 → ERH 18:54 → ICU 20:23 → CCU 09-26 20:16 → 5RSO 10-01 13:21 → 5RNO 10-02 15:15
PROVIDERS: ADMIT Student in an Organized Health Care Education/Training Program; ATTEND Student in an Organized Health Care Education/Training Program
DX: A41.9 Sepsis, unspecified organism (principal); E11.10 Type 2 diabetes mellitus with ketoacidosis without coma; G93.41 Metabolic encephalopathy; N17.9 Acute kidney failure, unspecified; E87.2 Acidosis; I50.22 Chronic systolic (congestive) heart failure; I42.0 Dilated cardiomyopathy; E87.0 Hyperosmolality and hypernatremia; A04.72 Enterocolitis due to Clostridium difficile, not specified as recurrent; L02.211 Cutaneous abscess of abdominal wall; R65.10 Systemic inflammatory response syndrome (SIRS) of non-infectious origin without acute organ dysfunction; I50.82 Biventricular heart failure; R62.7 Adult failure to thrive; R41.0 Disorientation, unspecified; R50.9 Fever, unspecified; I11.0 Hypertensive heart disease with heart failure; D12.7 Benign neoplasm of rectosigmoid junction; K29.50 Unspecified chronic gastritis without bleeding; D50.9 Iron deficiency anemia, unspecified; E87.5 Hyperkalemia; E83.52 Hypercalcemia; E83.41 Hypermagnesemia; E66.3 Overweight; Z86.711 Personal history of pulmonary embolism; R32 Unspecified urinary incontinence; Z86.718 Personal history of other venous thrombosis and embolism; W06.XXXA Fall from bed, initial encounter; I48.2 Chronic atrial fibrillation; I25.10 Atherosclerotic heart disease of native coronary artery without angina pectoris; D63.8 Anemia in other chronic diseases classified elsewhere; D69.6 Thrombocytopenia, unspecified; I49.3 Ventricular premature depolarization; E87.6 Hypokalemia; I48.0 Paroxysmal atrial fibrillation; K43.9 Ventral hernia without obstruction or gangrene; K21.9 Gastro-esophageal reflux disease without esophagitis; N20.0 Calculus of kidney; N28.1 Cyst of kidney, acquired; Z79.4 Long term (current) use of insulin; Z90.49 Acquired absence of other specified parts of digestive tract